=== PATIENT | male | born 1935 | race Caucasian/White ===

== ENCOUNTER → 2016-04-30 | Outpatient (CLI) | payer OTHER ==
[~2016-04-30] MED LIST: AMOX875T PO; ASPEC81 PO; ASPI81TA28 PO; CRS10 PO; GLIM2TAB2 PO; METO25TA3 PO; MULTTAB58 PO; ROSU5TAB PO; TPRSR/25 PO
--- NOTE | 2016-05-01 05:36 | PAP/PSG TECHNICIAN REPORT ---
[facility] Grounding Engineer Polysomnogram Report Study name: None Report date: 05/01/2016 Study date: 04/30/2016 Referring Physician: KATHY RODRIGUEZ M.D. Name: JAY JAY ZAIDI Interpreting Physician: Fred Ansari M.D. Date of : 1935 Grounding Engineer: Katelynn Licea RPSGT. Sex: Male Age: 80 StudyType: PSG PAP Weight: 205 lbs Height: 80 years, Height 5' 11" Neck Circum: BMI: 28.59 Medications: Metoprolol Succinate Er 25mg, Rosuvastatin Calcium 10mg, ASA 81mg, Amoxicillin-Pot Clavulanate 875-125mg, Metformin HCl ER 500mg Patient History Study started on room air with 4cwp CPAP in room #6. 80 yr old male here tonight for a titration study. He is here for pressure settings and he would like a smaller machine. He has been using CPAP for about 10 years and has had the same machine. he is not sure what his settings are. His only study was done in [place]. His ESS=9/24. Neck circ=16.5inches. Parameters Monitored NPSG: E1-M2, E2-M1, Fp1-M2, Fp2-M1, F3-M2, F4-M2, F4-M1, C3-M2, C4-M2, C4-M1, O1-M2, O2-M2, O2-M1, T3-M2, T4-M1, P3-M2, P4-M1, CHIN1, CHIN2, HR, EKG, Legs, PFLOW, SNOR, FLOW, CFLOW, Tidal Volume, THOR, ABDO, SpO2, PLTH, CPRESS, ETCO2 Wave, ETCO2, pH Sleep Architecture Sleep Stages Time at Lights Off 10:05:24 PM STAGES Time (min.) TST (%) Time at Lights On 5:12:54 AM Wake 84.0 -- Total Recording Time (TRT) 427.50 min. N1 22.5 7 Total Sleep Period (TSP) 420.5 min. N2 192.0 56 Total Sleep Time (TST) 343.5min. N3 52.0 15 Awake Time 84.0 min. REM 77.0 22 Wake after Sleep Onset 77.5 min. Sleep Efficiency (SE) 80 % Sleep Onset Latency (JAMAR) 6.5 min. Number of Stage 1 Shifts None Awakenings 28 Stage Changes 109 Number of REM periods 10 REM 77.0 22 REM Latency 74.5 min. NREM 266.5 78 Body Position Analysis Supine Right Left Side Prone Vertical Total Sleep Time (min.) 362.8 48.0 0.0 48.00 0.0 0.0 Total Sleep Time (%) 86% 14% 0% 14 0% N/A% Total Sleep Time REM (min.) 41.0 36.0 0.0 None 0.0 0.0 Total Sleep Time NREM (min.) 254.5 12.0 0.0 None 0.0 0.0 Intermittent Wake (min.) 67.3 16.7 0.0 None 0.0 0.0 Total Sleep Period (%) 85% None None None None None Arousals Myoclonus (PLM) * Events Count Index Events Count Index Spontaneous 22 4 Events Awake (PLMW) 73 52.1 Respiratory 7 1.9 Events Asleep w/ Arousal (PLMA) 5 0.9 PLM 5 1 Events Asleep w/o Arousal (PLMS) 53 9.3 Snoring 11 2 Total Asleep 58 10.1 Total 45 8 Total 131 18 Respiratory Analysis * CA OA MA CH H RERA Total Count 0 5 0 0 16 0 21 Index 0.0 0.9 0.0 0 2.8 0 3.7 Mean Duration 0.0 22.8 0.0 0.00 31.7 0.0 29.6 Longest Duration 0.0 30.9 0.0 0.00 0.0 0.0 42.4 Respiratory Event Summary Total Supine ~Supine Right Left Prone REM NREM Apneas Count 5 5 0 0 N/A N/A 1 4 Index 0.9 1 0 0.0 N/A N/A 1 1 Hypopneas (4% Desat) Count 16 16 0 0 N/A N/A 1 15 Index 2.8 3.2 0 0.0 N/A N/A 0.8 3.4 Apneas & All Hypopneas Count 21 21 0 0 N/A N/A 2 19 Index 3.7 4 0 0 N/A N/A 1.6 4.3 Respiratory Events (Title Supervisor+All Hyp+RERA) Count 21 21 0 0 N/A N/A 2 19 Index 3.7 4 0 0.0 N/A N/A 1.6 4.3 Respiratory Related Arousal Count 7 21 0 0 N/A N/A 1 10 Index 1.9 2 0 0 N/A N/A 1 2 Snoring Analysis Supine Right Left Prone REM NREM Total Snore duration 15.2 min Snores count 519 11 N/A N/A 40 490 530 Snore mean duration 1.7 Sec Snores index 105 14 N/A N/A 31.2 110.3 92.6 TST with snoring (%) 4.4% Desaturation Event Summary: Minimum %SpO2 Event Count Mean/Min/Max Duration(sec.) Desaturation Index % Time In Bed > 90 27 40.3 / 16.0 / 59.3 8.4 46.8 86 - 90 13 28.8 / 12.8 / 53.0 3.6 52.5 81 - 85 2 15.8 / 10.0 / 21.5 43.6 0.7 76 - 80 1 10.0 / 10.0 / 10.0 257.1 0.1 71 - 75 0 N/A 0.0 0.0 66 - 70 0 N/A 0.0 0.0 61 - 65 0 N/A 0.0 0.0 56 - 60 0 N/A 0.0 0.0 51 - 55 0 N/A 0.0 0.0 < 50 0 N/A 0.0 0.0 Total REM NREM Awake <50% 0.0 min. 0.0 min. 0.0 min. 0.0 min. 51 - 60% 0.0 min. 0.0 min. 0.0 min. 0.0 min. 61 - 70% 0.0 min. 0.0 min. 0.0 min. 0.0 min. 71 - 80% 0.2 min. 0.0 min. 0.0 min. 0.2 min. 81 - 90% 218.7 min. 21.5 min. 163.8 min. 33.4 min. 91 - 100% 192.5 min. 53.8 min. 102.2 min. 36.5 min. Average 90 91 90 91 Minimum SpO2 77 87 84 77 Desaturation Event Index 4.5 0.8 5.6 5.0 # Desat. Events below 89% 26 1 20 5 Time(%) with Saturation below 89% 11.2 0.4 8.2 2.6 Time(min.) with Saturation below 89% 46.1 1.6 33.6 10.9 Time (mins) REM (mins) NREM (mins) % of TST SpO2 Below 90% 25 1 N24 25.4 SpO2 Below 88% 11 0 0 2 Heart Rate Analysis Min (bpm) Max (bpm) Average (bpm) Awake 46 107 56 NREM 46 64 51 REM 42 127 54 Overall 42 127 52 Supplemental O2 Values Minimum O2 level: None Value Start Time End Time Grounding Engineer Comments Mr. Zaidi slept in the right and supine positions. No cardiac arrhythmia noted. PLM's noted. No bruxism noted. CPAP was initiated at +4 CMH2O and up-titrated to an optimal level of +9 CMH2O, which nearly eliminated all respiratory events and snoring. A medium Quattro Air full face mask by [employer] was used during titration He awoke to use the restroom 2 times during the night. He stated that he slept well. The final report will be interpreted and signed by a sleep physician. The completed physician report will then be placed in the patient medical record. Therapy Event: Therapy (cm H20) 4 5 6 7 8 9 Total Time at Pressure (min.) 46.8 9.7 9.4 179.3 146.2 36.0 TST at Pressure (min.) 36.3 8.2 8.9 146.8 111.7 31.5 # Periods 1 1 1 1 1 1 Sleep Onset (min.) 6.4 0.0 0.0 0.0 0.0 0.0 REM Onset (min.) N/A N/A N/A 15.1 53.2 N/A Sleep Efficiency % 77 84 94 81 76 87 Wakefulness (%) 22.3 15.5 5.3 18.1 23.6 12.5 Wakefulness (min.) 10.4 1.5 0.5 32.5 34.5 4.5 NREM 1 (%) 5.3 10.3 9.9 5.6 4.8 2.8 NREM 1 (min.) 2.5 1.0 0.9 10.1 7.0 1.0 NREM 2 (%) 33.9 74.2 84.8 35.3 46.0 84.7 NREM 2 (min.) 15.8 7.2 8.0 63.3 67.2 30.5 NREM 3 (%) 38.5 0.0 0.0 11.2 9.6 0.0 NREM 3 (min.) 18.0 0.0 0.0 20.0 14.0 0.0 REM (%) 0.0 0.0 0.0 29.8 16.1 0.0 REM (min.) 0.0 0.0 0.0 53.5 23.5 0.0 # Arousals 5 5 3 14 16 2 Arousal Index 8.3 36.7 20.2 5.7 8.6 3.8 # Snore 32 28 17 230 220 3 Snore Index 52.8 205.4 114.4 94.0 118.2 5.7 AHI 8.3 58.7 20.2 0.8 1.6 0.0 AHI Supine 8.3 58.7 20.2 1.2 1.6 0.0 AHI Non-Supine N/A N/A N/A 0.0 N/A N/A NREM AHI 8.3 58.7 20.2 0.6 1.4 0.0 REM AHI N/A N/A N/A 1.1 2.6 N/A RDI 8.3 58.7 20.2 0.8 1.6 0.0 # Obstructive 2 1 0 1 1 0 # Central Ap 0 0 0 0 0 0 # Mixed 0 0 0 0 0 0 # Hypopneas 3 7 3 1 2 0 RERAS 0 0 0 0 0 0 Total Respiratory Events 5 8 3 2 3 0 Time Below SpO2 89.00% (min.) 18.4 2.4 1.0 4.4 2.0 7.0 Mean NREM SpO2 (%) 89 90 91 90 91 89 Mean REM SpO2 (%) N/A N/A N/A 91 91 N/A Mean Sleep SpO2 (%) 89 90 91 91 91 89 Min NREM SpO2 (%) 85 84 85 86 88 87 Min REM SpO2 (%) N/A N/A N/A 87 88 N/A Position Supine (min.) 36.3 8.2 8.9 98.8 111.7 31.5 Position Non-supine (min.) 0.0 0.0 0.0 48.0 0.0 0.0 LM Index Sleep 26.4 36.7 20.2 10.6 3.2 3.8 LM Index NREM 26.4 36.7 20.2 16.1 3.4 3.8 LM Index REM N/A N/A N/A 1.1 2.6 N/A Mean Heart Rate (bpm) 53 52 52 52 51 50 Min Heart Rate (bpm) 50 48 48 46 42 46
--- NOTE | 2016-05-03 13:45 | POLYSOMNOGRAPH REPORT ---
CLINICAL DATA: 80-year-old male with BMI of 28.[address] Zhang Beck for a CPAP titration study. He has been using his same CPAP machine for 10 years and needs a new machine. He is uncertain of the settings. His only sleep study had been done previously when he lived in [place]. His Quinn sleepiness score is 9/24. SLEEP ARCHITECTURE: Total sleep period was 420.5 minutes. Total sleep time was 343.5 minutes divided between 266.5 minutes of non-REM sleep and 77 minutes of REM sleep. Sleep onset latency was 6.5 minutes. REM latency was 74.5 minutes. Sleep efficiency was 80%. Awake after sleep onset was 77.5 minutes. Sleep consisted of stage N1 7%, N2 56%, N3 15%, REM 22%. AROUSAL DATA: 45 arousals were recorded for an index of 8 per hour. PLM DATA: 58 limb movements during sleep were noted for an index of 10.1 per hour with arousal index of 0.9 per hour. RESPIRATORY DATA: The AHI was 3.7. There were 5 obstructive apneic episodes. The longest apneic episode was 31 seconds. There were 16 hypopneic episodes. The mean duration of hypopnea was 31.7 seconds. OXIMETRY DATA: Mild nocturnal hypoxemia was seen. Oxygen virgen was 84% during non-REM sleep. Mean saturation was 90%. Time below 88% was 11 minutes. EKG: Heart rates ranged from 46-127 beats per minute. No arrhythmias were noted. SPEECH CORRECTION ASSISTANT'S COMMENTS AND TREATMENT SUMMARY: The patient slept in the right and supine positions. A medium Quattro Air full facemask by [employer] was used. The patient was started on CPAP and titrated up to his optimal pressure setting of 9 cm of water pressure. At 9 cm of water pressure, the patient slept for 31.5 minutes with an AHI of 0 and no evidence of hypoxemia. IMPRESSION: Obstructive sleep apnea corrected with CPAP 9 cm of water pressure, medium Quattro Air full facemask by [employer]. RECOMMENDATIONS: The patient should be started on the above noted treatment regimen and seen back in followup within 90 days to document efficacy and compliance. [facility]
== END | disposition home or self-care (01) ==
LOC: C.NEUR 20:00
PROVIDERS: ATTEND Internal Medicine Geriatric Medicine
DX: G47.33 Obstructive sleep apnea (adult) (pediatric) (principal)

== ENCOUNTER → 2016-05-02 | Outpatient (CLI) | payer OTHER ==
[~2016-05-02] MED LIST changes: +CHOL1000 PO; +CIPR-255 PO; +CRS/10 PO; +HYDR-5688 PO; +HYDR1CAP85 PO; +INSDGI SC; +LEVO1TAB35 PO; +NVLG SC; +OXYC1TAB3 PO; +PRED20TA PO; +PRLSR20 PO; +VITAMIN D PO
--- NOTE | 2016-05-02 09:00 | DIAGNOSTIC IMAGING REPORT ---
MAXILLOFACIAL CT CT DOSE: 905.20 mGy.cm HISTORY: R68.84 Jaw painK11.20 [id number] TECHNIQUE: Multiaxial CT images of the maxillofacial region were performed and reformatted in the coronal plane without the use of contrast. COMPARISON: Maxillofacial CT 01/10/2012. FINDINGS: No fractures identified within the visualized cervical spine, mandible, orbital floors, pterygoid plates, zygomatic arches, or nasal bones. Mild mucosal thickening within the ethmoid air cells and maxillary sinuses. No fluid levels within the paranasal sinuses. The mastoid air cells are clear. The submandibular glands are within normal limits. Vascular calcifications at the skull base. Visualized brain parenchyma and orbits are unremarkable. Multiple punctate calcifications within the right palatine tonsil. Prevertebral soft tissues and the epiglottis are normal in thickness. No significant cervical lymphadenopathy. There is a 3 mm stone along the inferior aspect of the left parotid gland. This remains unchanged. There are nearly symmetric dilated tubular structures within the bilateral parotid glands which also remains unchanged. This measures up to 7 mm in diameter. These appear to represent dilated intraparotid ducts. The extra parotid ducts are normal in caliber. No stones within the parotid gland ducts. No significant inflammatory change at the parotid glands. IMPRESSION: 1. Stable 3 mm stone within the inferior aspect of the left parotid gland. 2. There are nearly symmetric dilated tubular structures within the bilateral parotid glands consistent with dilated intraparotid ducts. The extra parotid ducts are normal in caliber. There are no stones within the parotid ducts. Of note, this is unchanged compared to the 2012 study. Electronically signed by: Kamran Mirza M.D. 05/02/2016 8:58 AM
== END | disposition home or self-care (01) ==
LOC: C.CTS 07:54
PROVIDERS: ATTEND Internal Medicine Geriatric Medicine
DX: K11.20 Sialoadenitis, unspecified (principal); R68.84 Jaw pain

== ENCOUNTER → 2016-09-05 | Outpatient (CLI) | payer OTHER ==
[~2016-09-05] MED LIST changes: -NVLG SC; -OXYC1TAB3 PO
--- NOTE | 2016-09-05 12:57 | DIAGNOSTIC IMAGING REPORT ---
LEFT WRIST MIN 3 VIEWS ROUTINE CLINICAL HISTORY: Arteriosclerotic coronary artery disease pain COMPARISON: 04/13/2015 DISCUSSION: Mildly progressive osteopenia compared to the prior exam. Mild degenerative change considered generally stable. No acute bony abnormality. There is no evidence for soft tissue swelling. IMPRESSION: Mildly progressive osteopenia compared to the prior exam. Mild stable degenerative change. Electronically signed by: Zak Miranda M.D. 09/05/2016 12:56 PM Dictated Date/Time: 09/05/2016 12:54 PM
--- NOTE | 2016-09-05 13:05 | DIAGNOSTIC IMAGING REPORT ---
LEFT KNEE 1 OR 2 VIEWS ROUTINE CLINICAL HISTORY: Left knee pain COMPARISON: None DISCUSSION: No fractures are visualized. There is quadriceps insertional spurring at the patella level. There are small dorsal patellar spurs. No destructive lesions are visualized IMPRESSION: Mild degenerative change. No fractures are visualized. Electronically signed by: Munir Tapia M.D. 09/05/2016 1:03 PM Dictated Date/Time: 09/05/2016 1:03 PM
--- NOTE | 2016-09-05 13:12 | DIAGNOSTIC IMAGING REPORT ---
LUMBAR SPINE 5 VIEWS HISTORY: LUMBAR STENOSIS COMPARISON: None. FINDINGS: There is no fracture. No subluxation. Moderate degenerative disc changes throughout. IMPRESSION: Moderate degenerative disc change. No acute process. Electronically signed by: Zak Miranda M.D. 09/05/2016 1:11 PM Dictated Date/Time: 09/05/2016 1:10 PM
== END | disposition home or self-care (01) ==
LOC: C.RADBC 12:11
PROVIDERS: ATTEND Physician Assistant
DX: M25.562 Pain in left knee (principal); M48.06 Spinal stenosis, lumbar region; I25.10 Atherosclerotic heart disease of native coronary artery without angina pectoris

== ENCOUNTER 2016-10-21 16:54 | Emergency (ER) | payer OTHER ==
[~2016-10-21] VITALS: Ht 180.3 cm; Wt 95.7 kg
[~2016-10-21 16:54] MED LIST changes: -AMOX875T PO; -ASPI81TA28 PO; -CHOL1000 PO; -CIPR-255 PO; -CRS/10 PO; -GLIM2TAB2 PO; -HYDR-5688 PO; -HYDR1CAP85 PO; -INSDGI SC; -LEVO1TAB35 PO; -MULTTAB58 PO; -PRED20TA PO; -PRLSR20 PO; -ROSU5TAB PO; -TPRSR/25 PO; -VITAMIN D PO
[2016-10-21 16:58] VITALS: BP 143/79; TEMP 36.5; Ht 180.3 cm; Wt 95.7 kg
[2016-10-21] MEDS ORDERED: DIPHTHERIA/TETANUS/PERTUSSIS 0.5 ML SYR/VIAL IM. ONE (17:15)
[2016-10-21] MEDS ORDERED: AMOX875T PO (17:18)
--- NOTE | 2016-10-21 17:19 | EMERGENCY ROOM VISIT NOTE ---
ED Visit Note First contact with patient: 17:02 CHIEF COMPLAINT: Animal bite HISTORY OF PRESENT ILLNESS: This 80-year-old male patient presents to the emergency department ambulatory after they sustained a dog bite to the left hand. The patient states that he recently adopted a dog. He states that today , the dog became tangled in his harness and while he was trying to untangle the dog, it bit his left hand. He also reports that he has a scratch on his right arm from the dog which occurred yesterday. He believes that the dogs vaccinations are up-to-date. The patient complains of stinging 1/10 pain at the site of the injury. Pain is worse with movement. Tetanus status is not up to date. REVIEW OF SYSTEMS: A 6 system review of systems was completed with positives and pertinent negatives listed in the HPI. ALLERGIES: No known drug allergies MEDICATIONS: See med list PMH: For hypertension, hyperlipidemia, diabetes PHYSICAL EXAM: Vital Signs reviewed, see Nurse's notes, vital signs stable. GENERAL: This is an 80-year-old male, awake, alert, well appearing, no acute distress. Non toxic in appearance. MUSCULOSKELETAL: Examination of the left hand reveals a superficial curvilinear laceration to the thenar eminence of the left hand. There is minimal active bleeding. No significant tenderness to the hand. There is also a scabbed linear abrasion to the medial aspect of the right forearm. There is no erythema or drainage. Distal pulses intact. SKIN: No signs of infection. NEURO: No sensory or motor deficits noted over all dermatomes and myotomes tested. EMERGENCY DEPARTMENT COURSE AND DECISION MAKING: The patient was evaluated as above. He sustained a dog bite to the left hand and a dog scratch to the right forearm. The wounds were cleaned and dressed. They will not require sutures. The patient was given an Adacel booster. He will be placed on Augmentin to prevent infection. Wound care instructions were discussed with the patient. He was instructed to call the long-term and confirmed that the patient's rabies vaccinations are up-to-date. He will return here if needed. He verbalized understanding of my assessment and treatment plan and the patient was discharged home in good condition. The patient was independently evaluated by Dr. Fritz, ED attending physician , who agreed with my assessment and treatment plan. Blood Pressure Screening: Patient was found to have a slightly elevated blood pressure due to circumstances. I do not believe that the patient requires hypertension monitoring. Medication reconciliation: I attest that I have personally reviewed the patient 's current medication list. DIAGNOSIS: Dog bite Problem List Medical Problems: (1) Chronic Kidney Disease, Unspecified Status: Chronic (2) COPD (chronic obstructive pulmonary disease) Status: Chronic (3) Esophageal Reflux Status: Chronic (4) Esophagitis Nos Status: Resolved (5) Hx-Prostatic Malignancy Status: Resolved (6) Hyperlipidemia Nec/Nos Status: Chronic (7) Hypertension Nos Status: Chronic (8) Left wrist pain Status: Resolved (9) Left wrist sprain Status: Resolved (10) 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 (11) Scalp abrasion Status: Resolved (12) Urinary Calculus Nos Status: Resolved Surgical Problems: (1) Aortocoronary Bypass Status: Resolved Current/Historical Medications Scheduled Amoxicillin & Pot Clavulanate (Augmentin 875-125 mg), 1 TAB PO BID Aspirin (Aspirin Ec), 81 MG PO DAILY Glimepiride (Glimepiride), 2 MG PO DAILY Metoprolol Succinate (Metoprolol Succinate ER), 25 MG PO QPM Multiple Vitamin (Multivitamin), 1 TAB PO DAILY Rosuvastatin Calcium (Crestor), 10 MG PO QPM Allergies Coded Allergies: No Known Allergies (Verified , 12/28/11) Vital Signs Date Time Temp Pulse Resp B/P (MAP) Pulse Ox O2 Delivery O2 Flow Rate FiO2 10/21/16 17:30 79 16 95 10/21/16 16:58 36.5 81 16 143/79 96 Room Air Medications Administered Medications (Trade) Dose Ordered Sig/Dalia Route Start Time Stop Time Status Last Admin Dose Admin Diphtheria/ Pertussis/Tetanus Vacc (Adacel Inj) 0.5 ml ONCE ONCE IM. 10/21/16 17:15 10/21/16 17:16 DC 10/21/16 17:15 0.5 ML Departure Information Impression Primary Impression: Dog bite Dispostion Home / Self-Care Condition GOOD Prescriptions Amoxicillin & Pot Clavulanate (Augmentin 875-125 mg) 1 Tab Tab 1 TAB PO BID for 5 Days, #10 TAB Prov: Laila Reich, SANDIP 10/21/16 Referrals Zhang Beck M.D. (PCP) Patient Instructions My [facility] Additional Instructions Proper wound care is essential for adequate wound healing and infection prevention. You can shower and clean the wound with soap and water. Do not scour over the wound, pat dry with a towel. Do not submerse the wound (i.e. bathe or dish wash) until the wound has fully healed. You can use an antibiotic ointment with a dressing over the wound for the next 3-4 days. After this time you may leave the wound dry and open to the air. You were prescribed Augmentin to be taken twice daily as prescribed. This is an antibiotic. All antibiotics have the potential to cause diarrhea. Stop this medication and contact a medical provider if you were to develop any significant adverse side effects including: wheezing, shortness of breath, passing out, vomiting, or a diffuse rash. Always take antibiotics as directed and COMPLETE the ENTIRE course regardless of the improvement of your symptoms. Call [facility] to make sure that the dog's vaccinations are up-to-date. If they are not, you should return here for rabies vaccinations. For pain control, you can use the following tujq-yqc-dyrbfko medicines (if >12 yo): - Regular strength (325mg/tab) Tylenol (acetaminophen) 2 tabs every 4-6 hours as needed. Do not exceed 12 tablets in a 24 hour period. Avoid taking more than 4 grams (4000 mg) of Tylenol per day. This includes any other sources of acetaminophen you may take on a regular basis. - Regular strength (200 mg/tab) Advil (ibuprofen) 1-2 tabs every 4-6 hours as needed. Do not exceed a dose of 3200 mg per day. Return here for worsening redness, worsening swelling, fevers or any other new/ concerning symptoms. Problem Qualifiers Primary Impression: Dog bite Encounter type: initial encounter Qualified Codes: W54.0XXA - Bitten by dog , initial encounter
--- NOTE | 2016-10-21 17:20 | EMERGENCY ROOM VISIT NOTE ---
ED Visit Note First contact with patient: 17:02 Patient seen and examined at bedside. Discussion with physician assistant center director regarding patient's presentation, treatment, and follow-up. All questions answered bedside, patient comfortable with plan is going to follow up regarding immunization status of the dog. Agree with physician assistant center director's treatment plan at this time. Patient verbalized understanding of plan, discussed symptoms to watch and return for, he was agreeable.
[2016-10-21 17:30] VITALS: PULSE 79; O2SAT 95
[2016-10-21] MEDS ORDERED: ASPI81TA28 PO (17:48)
[2016-10-21] MEDS ORDERED: GLIM2TAB2 PO (17:48)
[2016-10-21] MEDS ORDERED: ROSU5TAB PO (17:50)
[2016-10-21] MEDS ORDERED: TPRSR/25 PO (17:51)
[2017-02-06] MEDS ORDERED: INSDGI SC (11:15)
[2017-02-06] MEDS ORDERED: VITAMIN D PO (11:16)
[2017-02-09] MEDS ORDERED: MULTTAB58 PO (07:19)
[2017-04-03] MEDS ORDERED: HYDR-5688 PO ×4 (11:12→11:29)
== END 2016-10-21 17:32 | disposition home or self-care (01) ==
LOC: C.EDB 16:55 → C.EDD 17:32
DX: S61.452A Open bite of left hand, initial encounter (principal); S50.811A Abrasion of right forearm, initial encounter; W54.0XXA Bitten by dog, initial encounter; E78.5 Hyperlipidemia, unspecified; E11.9 Type 2 diabetes mellitus without complications; Z23 Encounter for immunization; I12.9 Hypertensive chronic kidney disease with stage 1 through stage 4 chronic kidney disease, or unspecified chronic kidney disease; N18.9 Chronic kidney disease, unspecified; J44.9 Chronic obstructive pulmonary disease, unspecified; K21.9 Gastro-esophageal reflux disease without esophagitis; G47.33 Obstructive sleep apnea (adult) (pediatric); Z87.442 Personal history of urinary calculi; Z85.46 Personal history of malignant neoplasm of prostate; Z95.1 Presence of aortocoronary bypass graft; Z79.82 Long term (current) use of aspirin

== ENCOUNTER → 2017-01-07 | Outpatient (CLI) | payer OTHER ==
[~2017-01-07] MED LIST changes: +AMOX875T PO; -ASPEC81 PO; +ASPI81TA28 PO; +CHOL1000 PO; +CIPR-255 PO; -CRS10 PO; +GLIM2TAB2 PO; +HYDR1CAP85 PO; +INSDGI INJ; -METO25TA3 PO; +MULTTAB58 PO; +PRED20TA PO; +PRLSR20 PO; +ROSU5TAB PO; +TPRSR/25 PO; +VITAMIN D PO
--- NOTE | 2017-01-07 08:11 | DIAGNOSTIC IMAGING REPORT ---
BILIARY ULTRASOUND CLINICAL HISTORY: R79.89 Abnormal liver function tests COMPARISON STUDY: No previous studies for comparison. FINDINGS: No focal hepatic masses are visualized. There is intrahepatic biliary ductal dilatation. The common bile duct is dilated measuring up to 14 mm. The gallbladder is distended and filled with sludge. This could obscure small calculi. There is no gallbladder wall thickening. The pancreas was not visualized. There is no right-sided hydronephrosis. IMPRESSION: 1. Intra and extrahepatic biliary ductal dilatation 2. Distended sludge-filled gallbladder 3. Nondiagnostic evaluation of the pancreas Electronically signed by: Munir Tapia M.D. 01/07/2017 8:09 AM Dictated Date/Time: 01/07/2017 8:06 AM
== END | disposition home or self-care (01) ==
LOC: C.ULTRBC 07:28
PROVIDERS: ATTEND Internal Medicine Geriatric Medicine
DX: R79.89 Other specified abnormal findings of blood chemistry (principal)

== ENCOUNTER → 2017-02-04 | Outpatient (CLI) | payer OTHER ==
[2017-02-04 18:18] LABS: HEPATITIS B AB NEG
[2017-02-04 19:09] LABS: BLOOD UREA NITROGEN 14 mg/dl (7-18); GLUCOSE 174 mg/dl (70-99); SODIUM 136 mmol/L (136-145)
[2017-02-04 19:10] LABS: CARBON DIOXIDE 28 mmol/L (21-32); CHLORIDE 100 mmol/L (98-107); POTASSIUM 3.5 mmol/L (3.5-5.1)
[2017-02-04 19:11] LABS: ALKALINE PHOSPHATASE 424 U/L (45-117); ALT/SGPT 125 U/L (12-78); AST/SGOT 120 U/L (15-37)
[2017-02-06 07:28] LABS: REFERENCE QUEST TEST REPORT
--- NOTE | 2017-02-18 14:56 | CODING QUERY NO DIAGNOSIS ---
TREATMENT RENDERED WITHOUT A DIAGNOSIS 33 To promote full compliance with coding requirements relating to patient care, physician participation is requested in all cases of chemicals distiller uncertainty. Please assist us with providing a diagnosis/symptom for the test(s) below: A diagnosis/symptom was not documented on your Order. A valid diagnosis/symptom is required to bill all insurances. Please remember that we are unable to code a diagnosis of rule out, probable, possible, questionable, or suspected. DOS 02/04/17 Tests that require a diagnosis: * CHEM LIVER PROFILE DIAGNOSIS: * HEPATITIS B AB DIAGNOSIS: * HEPATITIS B Surface Antigen DIAGNOSIS: * HEPATITIS C IGG DIAGNOSIS: * HEPATITIS A ANTIBODY DIAGNOSIS: * HEPATITIS B CORE IgM DIAGNOSIS: Provider Signature: Date: Thank you Rose Swift [facility] Information Management Once completed, please kindly fax back to [phone] For questions please call [phone]
== END | disposition home or self-care (01) ==
LOC: C.LABBC 12:34
PROVIDERS: ATTEND Internal Medicine Geriatric Medicine
DX: R79.89 Other specified abnormal findings of blood chemistry (principal)

== ENCOUNTER → 2017-02-04 | Outpatient (CLI) | payer OTHER ==
[~2017-02-04] MED LIST changes: -AMOX875T PO; -CHOL1000 PO; -CIPR-255 PO; -HYDR1CAP85 PO; +OPTIRAY 320 IV PRN; -PRED20TA PO; -PRLSR20 PO
--- NOTE | 2017-02-04 11:48 | DIAGNOSTIC IMAGING REPORT ---
CT SCAN OF THE ABDOMEN AND PELVIS WITH IV CONTRAST CLINICAL HISTORY: Elevated hepatic transaminases. Biliary sludge seen by ultrasound. COMPARISON STUDY: Abdominal ultrasound dated 01/07/2017. Abdominal CT dated 10/21/2006. TECHNIQUE: Following the IV administration of 119 cc of Optiray 320, CT scan of the abdomen and pelvis is performed from the lung bases to the proximal femora. Images are reviewed in the axial, sagittal, and coronal planes. IV contrast was administered without complication. A dose lowering technique was utilized adhering to the principles of ALARA. CT DOSE: 1059.42 mGycm FINDINGS: Lung bases: The patient is status post midline sternotomy. The heart is enlarged and without pericardial effusion. The coronary arteries are densely calcified. No airspace consolidation or pleural effusion is seen at the lung bases. There is dependent atelectasis. A Large calcified granuloma is seen at the left lung base. There is a small hiatal hernia. Circumferential wall thickening is suggested in the distal esophagus. Liver: The contrast-enhanced liver is normal in size, contour, and attenuation. There is moderate to severe intra and extrahepatic biliary ductal dilatation. The common bile duct is dilated to the head of the pancreas. The hepatic veins and portal veins are patent. 11 mm cyst is noted in the caudate lobe. Additional subcentimeter hypodensities also likely represent cysts but are too small for definitive characterization. Gallbladder: The gallbladder is distended but otherwise normal as imaged. Spleen: Normal in size and attenuation. Pancreas: There is the suggestion of enhancing lesion in the pancreatic head/uncinate process seen on axial image #183. This measures approximately 1.6 x 2.3 cm. There is only mild dilatation of the main pancreatic duct. This measures up to 4 mm. There is moderate glandular atrophy of the pancreas. Scattered parenchymal calcifications suggest chronic pancreatitis. Adrenal glands: Unremarkable. Kidneys: The contrast enhanced kidneys demonstrate mild cortical atrophy and are without hydronephrosis. The kidneys enhance symmetrically. There is a 4 mm nonobstructing calculus in the upper pole of left kidney. Cortical scarring is noted in the left upper pole. A 1.6 cm cyst or calyceal diverticulum is present in the left upper pole. Additional subcentimeter cortical hypodensities also likely represent cysts but are too small for definitive characterization. Abdominal vasculature: The abdominal aorta is normal in course and caliber noting moderate to advanced atherosclerotic calcification. Bowel: No bowel obstruction is identified. There is moderate to severe constipation. Nonspecific rectal wall thickening is suggested. The appendix is well-visualized and normal. Peritoneum: There is no intraperitoneal free air or abdominal ascites. Lymphadenopathy: There are prominent lymph nodes in the talita hepatis and portacaval region. A portacaval node on image #124 measures 1.1 cm in short axis. A node in the talita hepatis/peripancreatic region on image #121 measures 1.5 cm in short axis. Pelvic viscera: The the bladder wall appears circumferentially thickened. The prostate gland is diminutive versus surgically absent. There is a tiny fat-containing left inguinal hernia. Skeletal structures: The skeletal structures are osteopenic. There is moderate lumbosacral spondylosis. No lytic or blastic lesions are seen. IMPRESSION: 1. There is marked intra and extrahepatic biliary ductal dilatation. The common bile duct is distended to the level of the pancreatic head. A subtle enhancing mass is suggested in the region of the pancreatic head/uncinate process but is difficult to assess. Correlation with ERCP is recommended for further interrogation at to exclude obstructing neoplasm. 2. The pancreatic duct is only mildly prominent measuring 4 mm. Findings suggest chronic pancreatitis. 3. There are nonspecific mildly enlarged lymph nodes in the talita hepatis/portacaval region. 4. Moderate to severe constipation. 5. Circumferential rectal wall thickening is suggested. This may be treatment-related if there has been a history of pelvic radiation. Clinical correlation will be essential. If clinically warranted this could be further assessed with endoscopy. 6. Small hiatal hernia. Circumferential wall thickening is suggested in the distal esophagus. Correlate clinically for evidence of esophagitis. This could be further assessed with endoscopy if clinically warranted. 7. Cardiomegaly. 8. The gallbladder is distended but grossly unremarkable. The sludge seen by ultrasound is not apparent by CT. 9. Nonobstructing left renal calculus. 10. Additional findings as above. Electronically signed by: Emmett Bhatia M.D. 02/04/2017 11:47 AM Dictated Date/Time: 02/04/2017 11:22 AM
== END | disposition home or self-care (01) ==
LOC: C.CTS 10:55
PROVIDERS: ATTEND Physician Assistant Medical
DX: K83.8 Other specified diseases of biliary tract (principal); R79.89 Other specified abnormal findings of blood chemistry

== ENCOUNTER → 2017-02-06 | Outpatient (CLI) | payer OTHER ==
[~2017-02-06] MED LIST changes: +AMOX875T PO; +CHOL1000 PO; +CIPR-255 PO; +HYDR1CAP85 PO; -OPTIRAY 320 IV PRN; +PRED20TA PO; +PRLSR20 PO
[2017-02-06 15:03] LABS: HEMATOCRIT 38.5 % (42-52); MEAN CELL VOLUME 91.9 fL (80-100); MEAN CORPUSCULAR HEMOGLOBIN 32.5 pg (25-34); MEAN CORPUSCULAR HGB CONC 35.3 g/dl (32-36); MEAN PLATELET VOLUME 13.7 fL (7.4-10.4); PLATELET COUNT 193 K/uL (130-400); RED BLOOD COUNT 4.19 M/uL (4.7-6.1); WHITE BLOOD COUNT 6.04 K/uL (4.8-10.8)
[2017-02-06 15:09] LABS: INR 1.3 (0.9-1.1); PARTIAL THROMBOPLASTIN RATIO 1.3; PROTHROMBIN TIME (PATIENT) 13.7 SECONDS (9.0-12.0)
[2017-02-06 16:05] LABS: ALKALINE PHOSPHATASE 416 U/L (45-117); ALT/SGPT 123 U/L (12-78); AST/SGOT 123 U/L (15-37); BLOOD UREA NITROGEN 15 mg/dl (7-18); CALCIUM 8.9 mg/dl (8.5-10.1); CARBON DIOXIDE 29 mmol/L (21-32); CHLORIDE 102 mmol/L (98-107); GLUCOSE 180 mg/dl (70-99); POTASSIUM 3.3 mmol/L (3.5-5.1); SODIUM 138 mmol/L (136-145)
[2017-02-08 04:52] LABS: REFERENCE QUEST TEST REPORT
== END | disposition home or self-care (01) ==
LOC: C.LAB 13:27
PROVIDERS: ATTEND Internal Medicine Gastroenterology
DX: K86.9 Disease of pancreas, unspecified (principal); K83.8 Other specified diseases of biliary tract

== ENCOUNTER 2017-02-07 06:44 | Day surgery (SDC) | payer OTHER ==
[2017-02-06 11:21] VITALS: BMI 25.0
[~2017-02-07] VITALS: Ht 180.3 cm; Wt 84.1 kg
[~2017-02-07 06:44] MED LIST changes: -AMOX875T PO; -CHOL1000 PO; -CIPR-255 PO; -GLIM2TAB2 PO; -HYDR1CAP85 PO; +LACTATED RINGER'S 1000ML 1,000 ML IV SCH; +LACTATED RINGER'S 1000ML 500 ML IV ONE; -MULTTAB58 PO; -PRED20TA PO; -PRLSR20 PO
[2017-02-07] MEDS ORDERED: SODIUM CHLORIDE 0.9% 500ML 500 ML IV ONE ×2 (07:32→08:00)
--- NOTE | 2017-02-07 07:34 | Endo History and Physical ---
History & Physical Date of Service: Feb 07, 2017. Chief Complaint: obstructive jaundice- painless- wt loss Referring Physician: History of Present Illness several weeks of painless jaundice, no fevers, + wt loss; DM Past Surgical History Hx Cardiac Surgery: Yes (CABG 1 VESSEL) Hx Abdominal Surgery: No Hx Post-Op Nausea and Vomiting: No Hx Cancer Surgery: Yes (PROSTATECTOMY, SKIN CANCER REMOVALS) Hx Thoracic Surgery: No Hx Orthopedic: Yes (HEEL SPURS, CLAVICLE REPAIR) Hx Urinary Tract Surgery: No Social History Smoking Status: Never Smoker Hx Substance Use: No Hx Alcohol Use: Yes (OCCASIONAL BEER) Allergies Coded Allergies: No Known Allergies (Verified , 02/06/17) Current Medications Reported Home Medications Medications Dose Route/Sig Max Daily Dose Days Date Category Dose Instructions [Vitamin D] 1 Tab PO QAM 02/06/17 Reported Lantus (Insulin Glargine) 100 Unit/Ml Inj 16 Units INJ QPM 02/06/17 Reported Metoprolol Succinate ER (Metoprolol Succinate) 25 Mg Tabcr 25 Mg PO QPM 10/21/16 Reported Crestor (Rosuvastatin Calcium) 5 Mg Tab 10 Mg PO QAM 10/21/16 Reported Aspirin Ec (Aspirin) 81 Mg Tab 162 Mg PO QAM 10/21/16 Reported WILL CHECK WITH PCP Multivitamin (Multiple Vitamin) 1 Tab Tab 1 Tab PO QAM 12/28/11 Reported Vital Signs Weight (Kilograms): 84.09 Height (Feet): 5 Height (Inches): 11 Physical Exam General Appearance: WD/WN, no apparent distress Respiratory/Chest: Auscultation: breath sounds normal Cardiovascular: Heart Auscultation: RRR Abdomen: Bowel Sounds: normal Inspection & Palpation: soft, non-distended, no tenderness, guarding & rebound + icterus AAOx3 + BS - CCE Assessment and Plan EGD/possible dilation EUS wioth possible FNA ERCP with stent placement
[2017-02-07 07:52] LABS: HEMATOCRIT 36.1 % (42-52); MEAN CELL VOLUME 92.3 fL (80-100); MEAN CORPUSCULAR HEMOGLOBIN 31.7 pg (25-34); PLATELET COUNT 191 K/uL (130-400); RED BLOOD COUNT 3.91 M/uL (4.7-6.1); WHITE BLOOD COUNT 7.66 K/uL (4.8-10.8)
[2017-02-07 07:53] VITALS: BP 149/74; PULSE 59; TEMP 36.5; O2SAT 96; Ht 180.3 cm; Wt 84.1 kg
[2017-02-07 07:56] LABS: MEAN CORPUSCULAR HGB CONC 34.3 g/dl (32-36)
[2017-02-07] MEDS ORDERED: CIPR-255 PO (08:55)
[2017-02-07] MEDS ORDERED: MIDAZOLAM HCL 1 MG/ML 2ML VIAL ONE (09:03)
[2017-02-07] MEDS ORDERED: FENTANYL CITRATE INJ 50 MCG/1 ML 2 ML VIAL ONE (09:04)
[2017-02-07] MEDS ORDERED: LIDOCAINE HCL 2% 2 ML VIAL (20MG/ML) ONE ×2 (09:04)
[2017-02-07] MEDS ORDERED: SUCCINYLCHOLINE CHLORIDE 20 MG/ML 10 ML VIAL IV ONE (09:05)
[2017-02-07] MEDS ORDERED: ETOMIDATE 2 MG/ML 20 ML VIAL IV ONE (09:05)
[2017-02-07] MEDS ORDERED: HYDROmorphone INJ 1 MG/ML SYR IV PRN (09:30)
[2017-02-07] MEDS ORDERED: FENTANYL CITRATE INJ 50 MCG/1 ML 2 ML VIAL IV PRN (09:30)
[2017-02-07] MEDS ORDERED: LABETALOL HCL IV 5 MG/ML 20ML IV PRN (09:30)
[2017-02-07] MEDS ORDERED: EpHEDrine SULFATE INJ 50 MG/ML AMP IV PRN (09:30)
[2017-02-07] MEDS ORDERED: ONDANSETRON INJ 2 MG/ML 2 ML VIAL IV PRN (09:30)
[2017-02-07] MEDS ORDERED: ATROPINE SULFATE 0.1 MG/ML 5ML SYR IV PRN (09:30)
[2017-02-07] MEDS ORDERED: PHENYLEPHRINE 100MCG/ML 5ML SYR IV PRN (09:30)
[2017-02-07] MEDS ORDERED: PROPOFOL IV EMULSION 10 MG/ML 20 ML VIAL IV ONE (11:04)
[2017-02-07] MEDS ORDERED: EpHEDrine SULFATE INJ 50 MG/ML AMP ONE (13:02)
[2017-02-07] MEDS ORDERED: ROCURONIUM BROMIDE 10 MG/ML 5 ML VIAL IV ONE (13:02)
[2017-02-07] MEDS ORDERED: PHENYLEPHRINE HCL INJ 10 MG/ML VIAL ONE (13:03)
[2017-02-07] MEDS ORDERED: CIPROFLOXACIN 400MG / 200ML D5W ONE (13:09)
--- NOTE | 2017-02-07 13:41 | DIAGNOSTIC IMAGING REPORT ---
ERCP BILIARY DUCTAL CLINICAL HISTORY: ERCP IN OR COMPARISON STUDY: CT of the abdomen and pelvis February 04, 2017. FLUOROSCOPY TIME: 235.8 seconds. FINDINGS: 3 fluoroscopic images of the right upper quadrant obtained during ERCP were submitted for interpretation. These images demonstrate cannulation of the common bile duct with redemonstration of biliary ductal dilatation. A suspected stricture of the mid to distal common bile duct is noted. Final image shows a common bile duct stent extending across the suspected stricture. IMPRESSION: Fluoroscopic images from ERCP demonstrating placement of a common bile duct stent for a suspected common bile duct stricture/lesion. Electronically signed by: Mandeep Avina M.D. 02/07/2017 1:40 PM Dictated Date/Time: 02/07/2017 1:38 PM
--- NOTE | 2017-02-07 13:59 | GI REPORT ---
Procedure Date: 02/07/2017 11:24 AM Procedure: Upper GI endoscopy Indications: Abnormal CT of the GI tract Medicines: General Anesthesia Complications: No immediate complications. Estimated blood loss: None. Estimated Blood Loss: Estimated blood loss: none. Procedure: Pre-Anesthesia Assessment: - Prior to the procedure, a History and Physical was performed, and patient medications and allergies were reviewed. The patient's tolerance of previous anesthesia was also reviewed. The risks and benefits of the procedure and the sedation options and risks were discussed with the patient. All questions were answered, and informed consent was obtained. Prior Anticoagulants: The patient has taken no previous anticoagulant or antiplatelet agents. ASA Grade Assessment: II - A patient with mild systemic disease. After reviewing the risks and benefits, the patient was deemed in satisfactory condition to undergo the procedure. After obtaining informed consent, the endoscope was passed under direct vision. Throughout the procedure, the patient's blood pressure, pulse, and oxygen saturations were monitored continuously. The scope was introduced through the mouth, and advanced to the second part of duodenum. The upper GI endoscopy was accomplished without difficulty. The patient tolerated the procedure well. Findings: The upper third of the esophagus and middle third of the esophagus were normal. LA Grade B (one or more mucosal breaks greater than 5 mm, not extending between the tops of two mucosal folds) esophagitis with no bleeding was found at the gastroesophageal junction. The entire examined stomach was normal. The examined duodenum was normal. Retained gastric contents are not identified on this exam. The cardia and gastric fundus were normal on retroflexion. Impression: - Normal upper third of esophagus and middle third of esophagus. - LA Grade B reflux esophagitis. - Normal stomach. - Normal examined duodenum. - No specimens collected. Recommendation: - Discharge patient to home (ambulatory). - Advance diet as tolerated. - Return to GI clinic as previously scheduled. MD Viet Perry MD 02/07/2017 1:58:53 PM This report has been signed electronically. Note Initiated On: 02/07/2017 11:24 AM I attest to the content of the Intraoperative Record and orders documented therein, exceptions below
--- NOTE | 2017-02-07 14:05 | Discharge Instructions ---
Endoscopy Patient Instructions Date / Procedure(s) Performed Feb 07, 2017. ERCP, EGD, Other Allergy Information Coded Allergies: No Known Allergies (Verified , 02/07/17) Discharge Date / Findings Feb 07, 2017. biliary obstruction EUS; stent placed via ERCP; samples taken Medication Instructions Restart Stopped Medication(s): Reported Home Medications Medications Dose Route/Sig Max Daily Dose Days Date Category Dose Instructions [Vitamin D] 1 Tab PO QAM 02/06/17 Reported Lantus (Insulin Glargine) 100 Unit/Ml Inj 16 Units INJ QPM 02/06/17 Reported Metoprolol Succinate ER (Metoprolol Succinate) 25 Mg Tabcr 25 Mg PO QPM 10/21/16 Reported Crestor (Rosuvastatin Calcium) 5 Mg Tab 10 Mg PO QAM 10/21/16 Reported Aspirin Ec (Aspirin) 81 Mg Tab 162 Mg PO QAM 10/21/16 Reported WILL CHECK WITH PCP Multivitamin (Multiple Vitamin) 1 Tab Tab 1 Tab PO QAM 12/28/11 Reported Reported Home Medications Medications Dose Route/Sig Max Daily Dose Days Date Category Dose Instructions [Vitamin D] 1 Tab PO QAM 02/06/17 Reported Lantus (Insulin Glargine) 100 Unit/Ml Inj 16 Units INJ QPM 02/06/17 Reported Metoprolol Succinate ER (Metoprolol Succinate) 25 Mg Tabcr 25 Mg PO QPM 10/21/16 Reported Crestor (Rosuvastatin Calcium) 5 Mg Tab 10 Mg PO QAM 10/21/16 Reported Aspirin Ec (Aspirin) 81 Mg Tab 162 Mg PO QAM 10/21/16 Reported WILL CHECK WITH PCP Multivitamin (Multiple Vitamin) 1 Tab Tab 1 Tab PO QAM 12/28/11 Reported Provider Instructions Activity Restrictions - No exercising or heavy lifting for 24 hours. - Do not drink alcohol the day of the procedure. - Do not drive a car or operate machinery until the day after the procedure. - Do not make any important decisions or sign important papers in 24 hours after the procedure. Following Day: - Return to full activity which may include returning to work/school. Diet Start your diet with liquids and light foods (jello, soup, juice, toast). Then eat your usual diet if not nauseated. Treatment For Common After Affects For mild abdominal pain, bloating, or excessive gas: - Rest - Eat lightly - Lie on right side Follow-Up Information Follow-up with as scheduled Anesthesia Information What You Should Know You have had a procedure that required some medicine to reduce anxiety and discomfort. This treatment is called moderate sedation. After receiving the treatment, you may be sleepy, but you will be able to breathe on your own. The effects of the treatment may last for several hours. Follow these instructions along with Activity/Diet recommendations noted above: * Do NOT do anything where dizziness or clumsiness would be dangerous. * Rest quietly at home today, then you can be up and about tomorrow. * Have a responsible person stay with you the rest of today. * You may have had an I.V. today. If so, you may take the dressing off later today. Recommendations Call your doctor if: * Trouble breathing * Continuous vomiting for more than 24 hours * Temperature above 101 degrees * Severe abdominal pain or bloating * Pain not relieved by pain medicine ordered * There is increased drainage or redness from any incision * A large amount of rectal bleeding greater than 2-3 tablespoons. (If you had a polyp/s removed or have hemorrhoids, a small amount of blood - from the rectum is to be expected.) * You have any unanswered questions or concerns. IN THE EVENT OF A SERIOUS EMERGENCY, GO TO THE NEAREST EMERGENCY ROOM Your discharge instructions were prepared by provider Viet Martinez. Patient Instructions Signature Page Massimo Wood Patient (or Guardian) Signature/Date: I have read and understand the instructions given to me by my caregivers. Caregiver/RN/Doctor Signature/Date: The above-named patient and/or guardian has received patient instructions on this date. + Original Patient Signature Page (only) stays with chart. Please make copy for patient.
--- NOTE | 2017-02-07 14:19 | GI REPORT ---
Procedure Date: 02/07/2017 11:37 AM Procedure: Upper EUS Indications: Common bile duct dilation (acquired) seen on CT scan, Abnormal liver function test Medicines: General Anesthesia Complications: No immediate complications. Estimated blood loss: Minimal. Estimated Blood Loss: Estimated blood loss was minimal. Procedure: Pre-Anesthesia Assessment: - Prior to the procedure, a History and Physical was performed, and patient medications and allergies were reviewed. The patient's tolerance of previous anesthesia was also reviewed. The risks and benefits of the procedure and the sedation options and risks were discussed with the patient. All questions were answered, and informed consent was obtained. Prior Anticoagulants: The patient has taken no previous anticoagulant or antiplatelet agents. ASA Grade Assessment: II - A patient with mild systemic disease. After reviewing the risks and benefits, the patient was deemed in satisfactory condition to undergo the procedure. After obtaining informed consent, the endoscope was passed under direct vision. Throughout the procedure, the patient's blood pressure, pulse, and oxygen saturations were monitored continuously. The Endosonoscope was introduced through the mouth, and advanced to the duodenum for ultrasound examination from the esophagus, stomach and duodenum. The upper EUS was accomplished without difficulty. The patient tolerated the procedure well. Findings: Endoscopic Finding : The upper third of the esophagus and middle third of the esophagus were normal. LA Grade B (one or more mucosal breaks greater than 5 mm, not extending between the tops of two mucosal folds) esophagitis was found at the gastroesophageal junction. The examined duodenum was normal. Endosonographic Finding : The esophagus, stomach and duodenum and adjacent structures were visualized endosonographically. There was no sign of significant endosonographic abnormality in the esophagus. No pathologic lymphadenopathy was identified. Endosonographic images of the stomach were unremarkable. No pathologic lymphadenopathy was identified. There was no sign of significant endosonographic abnormality in the examined duodenum. No pathologic lymphadenopathy was identified. There was no sign of significant endosonographic abnormality in the ampulla. No pathologic lymphadenopathy was identified. Moderate hyperechoic material consistent with sludge was visualized endosonographically in the gallbladder body. Endosonographic imaging of the pancreas showed sonographic changes indicative of mild-moderate chronic pancreatitis in the entire pancreas. The parenchyma had diffuse echogenicity and hyperechoic strands. The pancreatic duct measured up to 2 mm in diameter. One benign-appearing lymph node was visualized in the perigastric region with the ultrasound probe located 43 cm from the incisors. It measured 6 mm by 10 mm in maximal cross-sectional diameter. The node was oval, hyperechoic and had well defined margins. Fine needle aspiration for cytology was performed. Color Doppler imaging was utilized prior to needle puncture to confirm a lack of significant vascular structures within the needle path. One pass was made with the 22 gauge needle using a transgastric approach. A stylet was used. A chief station engineer was present to evaluate the adequacy of the specimen. The cellularity of the specimen was adequate. Final cytology results are pending. An irregular mass was identified in the genu of the pancreas. The mass was hypoechoic and heterogenous. The mass measured 10 mm by 14 mm in maximal cross-sectional diameter. The endosonographic borders were poorly-defined. An intact interface was seen between the mass and the adjacent structures suggesting a lack of invasion. Fine needle aspiration for cytology was performed. Color Doppler imaging was utilized prior to needle puncture to confirm a lack of significant vascular structures within the needle path. Three passes were made with the 22 gauge needle using a transduodenal approach. A stylet was used. A chief station engineer was present to evaluate the adequacy of the specimen. The cellularity of the specimen was adequate. Final cytology results are pending. Impression: - Normal upper third of esophagus and middle third of esophagus. - LA Grade B reflux esophagitis. - Normal examined duodenum. - There was no sign of significant pathology in the esophagus. - Endosonographic images of the stomach were unremarkable. - There was no sign of significant pathology in the examined duodenum. - There was no sign of significant pathology in the ampulla. - Hyperechoic material consistent with sludge was visualized endosonographically in the gallbladder body. - Endosonographic imaging of the pancreas showed sonographic changes consistent with mild-moderate chronic pancreatitis. - One benign lymph node was visualized in the perigastric region. Fine needle aspiration performed. - A mass was identified in the genu of the pancreas. Fine needle aspiration performed. Recommendation: - Discharge patient to home (ambulatory). - Resume regular diet. - Continue present medications. - Await cytology results and await tumor markers. - Return to GI clinic as previously scheduled. - Return to referring physician as previously scheduled. MD Viet Perry MD 02/07/2017 2:18:35 PM This report has been signed electronically. Note Initiated On: 02/07/2017 11:37 AM I attest to the content of the Intraoperative Record and orders documented therein, exceptions below
--- NOTE | 2017-02-07 14:22 | Anesthesiology Progress Note ---
Anesthesia Post Op Note Date & Time Feb 07, 2017 at 14:22 Vital Signs Pain Intensity: 0 Vital Signs Past 12 Hours Date Time Temp Pulse Resp B/P (MAP) Pulse Ox O2 Delivery O2 Flow Rate FiO2 02/07/17 14:15 36.9 76 17 127/65 99 Room Air Oxymask 02/07/17 14:06 77 16 02/07/17 14:06 77 16 100 02/07/17 14:06 77 16 100 02/07/17 14:06 77 16 02/07/17 14:05 131/67 02/07/17 14:05 131/67 02/07/17 14:01 78 17 100 02/07/17 14:01 78 17 02/07/17 14:01 78 17 100 02/07/17 14:01 78 17 02/07/17 14:00 127/63 02/07/17 14:00 127/63 02/07/17 13:56 77 18 02/07/17 13:56 77 18 100 02/07/17 13:56 77 18 100 02/07/17 13:56 77 18 02/07/17 13:55 126/65 02/07/17 13:55 126/65 02/07/17 13:51 79 23 129/67 100 02/07/17 13:51 79 23 02/07/17 13:51 79 23 02/07/17 13:51 36.1 79 14 129/67 100 Oxymask 10 02/07/17 13:51 79 23 129/67 100 02/07/17 07:53 36.5 59 18 149/74 (99) 96 Notes Mental Status: alert / awake / arousable, participated in evaluation Pt Amnestic to Procedure: Yes Nausea / Vomiting: adequately controlled Pain: adequately controlled Airway Patency, RR, SpO2: stable & adequate BP & HR: stable & adequate Hydration State: stable & adequate Anesthetic Complications: no major complications apparent
--- NOTE | 2017-02-07 14:28 | GI REPORT ---
Procedure Date: 02/07/2017 12:41 PM Procedure: ERCP Indications: Jaundice Medicines: General Anesthesia, Cipro 400 mg IV Complications: No immediate complications. Estimated blood loss: Minimal. Estimated Blood Loss: Estimated blood loss was minimal. Procedure: Pre-Anesthesia Assessment: - Prior to the procedure, a History and Physical was performed, and patient medications and allergies were reviewed. The patient's tolerance of previous anesthesia was also reviewed. The risks and benefits of the procedure and the sedation options and risks were discussed with the patient. All questions were answered, and informed consent was obtained. Prior Anticoagulants: The patient has taken no previous anticoagulant or antiplatelet agents. ASA Grade Assessment: II - A patient with mild systemic disease. After reviewing the risks and benefits, the patient was deemed in satisfactory condition to undergo the procedure. After obtaining informed consent, the scope was passed under direct vision. Throughout the procedure, the patient's blood pressure, pulse, and oxygen saturations were monitored continuously. The Scope was introduced through the mouth, and advanced to the duodenum and used to inject contrast into the bile duct. The ERCP was accomplished without difficulty. The patient tolerated the procedure well. Findings: The criminal defense attorney film was normal. The esophagus was successfully intubated under direct vision. The scope was advanced to a normal major papilla in the descending duodenum without detailed examination of the pharynx, larynx and associated structures, and upper GI tract. The upper GI tract was grossly normal. A 0.035 inch straight standard wire was passed into the biliary tree. The short-nosed traction sphincterotome was passed over the guidewire and the bile duct was then deeply cannulated. Contrast was injected. I personally interpreted the bile duct images. Ductal flow of contrast was adequate. Image quality was adequate. Contrast extended to the entire biliary tree. Opacification of the entire biliary tree was successful. The maximum diameter of the ducts was 16 mm. The lower third of the main bile duct contained a single moderate stenosis 10 mm in length. Cells for cytology were obtained by brushing. One 10 Fr by 9 cm temporary plastic stent with a single external flap and a single internal flap was placed 8.5 cm into the common bile duct. Bile flowed through the stent. The stent was in good position. A 4 mm biliary sphincterotomy was made with a sphincterotome using ERBE electrocautery. There was no post-sphincterotomy bleeding. The PD was neither instrumented nor opacified. 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 - One temporary plastic stent was placed into the common bile duct. - A sphincterotomy was performed. Recommendation: - Discharge patient to home (ambulatory). - Advance diet as tolerated. - Continue present medications. - Return to referring physician as previously scheduled. - Return to GI clinic as previously scheduled. - Repeat ERCP in 3 months to exchange stent. MD Viet Perry MD 02/07/2017 2:27:51 PM This report has been signed electronically. Note Initiated On: 02/07/2017 12:41 PM I attest to the content of the Intraoperative Record and orders documented therein, exceptions below
[2017-02-07 14:40] VITALS: BP 124/63; PULSE 75; TEMP 36.3; O2SAT 98
[2017-02-07 15:10] VITALS: BP 99/57; PULSE 84; O2SAT 98
[2017-02-07 16:00] VITALS: BP 128/67; PULSE 84; TEMP 36.3; O2SAT 98
[2017-02-09] MEDS ORDERED: MULTTAB58 PO (07:19)
== END 2017-02-07 16:45 | disposition home or self-care (01) ==
LOC: C.ACU 06:44
PROVIDERS: ATTEND Internal Medicine Gastroenterology
DX: K83.1 Obstruction of bile duct (principal); R63.4 Abnormal weight loss; K21.0 Gastro-esophageal reflux disease with esophagitis; E11.9 Type 2 diabetes mellitus without complications; I25.2 Old myocardial infarction; I10 Essential (primary) hypertension; E78.00 Pure hypercholesterolemia, unspecified; G47.33 Obstructive sleep apnea (adult) (pediatric); M19.90 Unspecified osteoarthritis, unspecified site; I25.10 Atherosclerotic heart disease of native coronary artery without angina pectoris; E78.5 Hyperlipidemia, unspecified; E16.8 Other specified disorders of pancreatic internal secretion; Z90.79 Acquired absence of other genital organ(s); Z85.820 Personal history of malignant melanoma of skin; Z79.4 Long term (current) use of insulin; Z79.82 Long term (current) use of aspirin; Z98.49 Cataract extraction status, unspecified eye; Z85.46 Personal history of malignant neoplasm of prostate; Z87.442 Personal history of urinary calculi; Z95.5 Presence of coronary angioplasty implant and graft

== ENCOUNTER 2017-02-09 08:14 | Emergency (ER) | payer OTHER ==
[~2017-02-09] VITALS: Ht 180.3 cm; Wt 86.7 kg
[~2017-02-09 08:14] MED LIST changes: +CIPR-255 PO; -LACTATED RINGER'S 1000ML 1,000 ML IV SCH; -LACTATED RINGER'S 1000ML 500 ML IV ONE; +MULTTAB58 PO
[2017-02-09 08:18] VITALS: TEMP 36.3; Ht 180.3 cm; Wt 86.7 kg
--- NOTE | 2017-02-09 08:44 | EMERGENCY ROOM VISIT NOTE ---
History Report prepared by Vonda: Enoc Carlos Under the Supervision of: Dr. Loree Moreno M.D. First contact with patient: 08:27 Chief Complaint: ALLERGIC REACTION Stated Complaint: SKIN IRRITATION AFTER STARTING NEW MEDICATIONS History of Present Illness The patient is a 81 year old male who presents to the Emergency Room with complaints of an allergic reaction beginning yesterday. The patient states that he had an ERCP procedure done Friday, where a biliary obstruction measuring 1cm by 1.4cm was found. He also notes that a stent was implanted. He states that he is also experiencing itchiness, jaundice, abdominal pain, and a "raw" throat. He denies any other pain or vomiting. Per , the patient has been experiencing jaundice for the past two weeks and states that his symptoms seem to be mildly improving. She states that the patient has not had any itchiness during that period. Source of History: patient, spouse/significant other Onset: yesterday Position: other (global) Timing: constant Associated Symptoms: + abdominal pain, No vomiting Note: he has been experiencing itchiness, jaundice, and a "raw" throat he denies any other pain Review of Systems See HPI for pertinent positives & negatives. A total of 10 systems reviewed and were otherwise negative. Past Medical & Surgical Medical Problems: (1) Chronic Kidney Disease, Unspecified (2) COPD (chronic obstructive pulmonary disease) (3) Esophageal Reflux (4) Esophagitis Nos (5) Hx-Prostatic Malignancy (6) Hyperlipidemia Nec/Nos (7) Hypertension Nos (8) Left wrist pain (9) Left wrist sprain (10) Obstructive Sleep Apnea (Adult) (Pediatric) (11) Scalp abrasion (12) Urinary Calculus Nos Surgical Problems: (1) Aortocoronary Bypass Family History No pertinent family history stated. Social History Smoking Status: Former Smoker Alcohol Use: none Marital Status: Occupation Status: retired Current/Historical Medications Scheduled Amoxicillin & Pot Clavulanate (Augmentin 875-125 mg), 875 MG PO BID Aspirin (Aspirin Ec), 2 TAB PO QAM Cholecalciferol (Vitamin D3), 1 TAB PO DAILY Ciprofloxacin Hcl (Cipro), 500 MG PO BID Insulin Glargine (Lantus), 16 UNITS INJ QPM Metoprolol Succinate (Metoprolol Succinate ER), 25 MG PO QPM Multiple Vitamin (Multivitamin), 1 TAB PO QAM Omeprazole (Prilosec), 20 MG PO DAILY Prednisone (Prednisone), 1 TAB PO DAILY Rosuvastatin Calcium (Crestor), 10 MG PO QAM Scheduled PRN Hydroxyzine Pamoate (Vistaril), 25 MG PO Q6 PRN for Itching Allergies Coded Allergies: No Known Allergies (Verified , 02/09/17) Physical Exam Vital Signs Date Time Temp Pulse Resp B/P (MAP) Pulse Ox O2 Delivery O2 Flow Rate FiO2 02/09/17 13:30 62 20 138/75 97 02/09/17 12:48 70 20 129/68 96 Room Air 02/09/17 11:01 61 20 128/68 97 Room Air 02/09/17 10:04 62 141/74 96 Room Air 02/09/17 09:21 60 02/09/17 09:18 60 18 131/72 98 Room Air 02/09/17 08:18 36.3 75 16 106/64 97 Room Air Physical Exam Vital signs reviewed. General: Chronically ill appearing, in no significant distress. HEENT: Positive scleral icterus, PERRLA, neck supple. Atraumatic. Cardiovascular: Regular rate and rhythm, no extra sounds. Pulmonary: Clear to auscultation bilaterally, normal work of breathing. Abdomen: Mild diffuse abdominal tenderness, no rebound, no guarding, soft, nondistended, positive bowel sounds. Musculoskeletal: Atraumatic, no peripheral edema. Neurologic: Patient awake alert and oriented x 3, full strength in all 4 extremities. Cranial nerves 2 through 12 grossly intact. Skin: Jaundiced, urticaria type areas of rash, mild excoriation, warm, dry Medical Decision & Procedures ER Provider Diagnostic Interpretation: Radiology results as stated below per my review and radiologist interpretation: KUB HISTORY: biliary stent placed, pain and itching COMPARISON: KUB 02/27/2009. FINDINGS: The bowel gas pattern is unremarkable. There are no dilated loops of small bowel to suggest an obstruction. No renal calculi. No ureteral calculi. No pneumoperitoneum or pneumatosis. Common bile duct stent is likely in good position. There is evidence for pneumobilia. Moderate well-formed stool seen within the colon. The visualized lung bases are clear. Multiple pelvic phleboliths are again noted. IMPRESSION: The common bile duct stent is in good position. Electronically signed by: Kamran Mirza M.D. 02/09/2017 9:47 AM CHEST ONE VIEW PORTABLE HISTORY: biliary stent placed, pain and itching COMPARISON: Chest 01/10/2012. FINDINGS: The lungs are clear. Cardiac silhouette is normal in size. No pleural effusions. No pneumothorax. Poststernotomy changes. Old, healed left-sided clavicle fracture. IMPRESSION: No acute process. Electronically signed by: Kamran Mirza M.D. 02/09/2017 9:48 AM Laboratory Results 02/09/17 09:00 Red Blood Count 3.94, Mean Corpuscular Volume 91.6, Mean Corpuscular Hemoglobin 32.7, Mean Corpuscular Hemoglobin Concent 35.7, Mean Platelet Volume 12.6, Neutrophils (%) (Auto) 77.7, Lymphocytes (%) (Auto) 9.5, Monocytes (%) (Auto) 10.8, Eosinophils (%) (Auto) 1.3, Basophils (%) (Auto) 0.4, Neutrophils # (Auto ) 5.22, Lymphocytes # (Auto) 0.64, Monocytes # (Auto) 0.73, Eosinophils # (Auto ) 0.09, Basophils # (Auto) 0.03 02/09/17 09:00 Test 02/09/17 09:00 02/09/17 10:00 White Blood Count 6.73 K/uL (4.8-10.8) Red Blood Count 3.94 M/uL (4.7-6.1) Hemoglobin 12.9 g/dL (14.0-18.0) Hematocrit 36.1 % (42-52) Mean Corpuscular Volume 91.6 fL (80-100) Mean Corpuscular Hemoglobin 32.7 pg (25-34) Mean Corpuscular Hemoglobin Concent 35.7 g/dl (32-36) Platelet Count 195 K/uL (130-400) Mean Platelet Volume 12.6 fL (7.4-10.4) Neutrophils (%) (Auto) 77.7 % Lymphocytes (%) (Auto) 9.5 % Monocytes (%) (Auto) 10.8 % Eosinophils (%) (Auto) 1.3 % Basophils (%) (Auto) 0.4 % Neutrophils # (Auto) 5.22 K/uL (1.4-6.5) Lymphocytes # (Auto) 0.64 K/uL (1.2-3.4) Monocytes # (Auto) 0.73 K/uL (0.11-0.59) Eosinophils # (Auto) 0.09 K/uL (0-0.5) Basophils # (Auto) 0.03 K/uL (0-0.2) RDW Standard Deviation 56.4 fL (36.4-46.3) RDW Coefficient of Variation 16.8 % (11.5-14.5) Immature Granulocyte % (Auto) 0.3 % Immature Granulocyte # (Auto) 0.02 K/uL (0.00-0.02) Anion Gap 5.0 mmol/L (3-11) Est Creatinine Clear Calc Drug Dose 54.2 ml/min Estimated GFR () 71.6 Estimated GFR (Non- 61.8 BUN/Creatinine Ratio 13.3 (10-20) Calcium Level 8.8 mg/dl (8.5-10.1) Total Bilirubin 17.1 mg/dl (0.2-1) Direct Bilirubin 14.4 mg/dl (0-0.2) Aspartate Amino Transf (AST/SGOT) 114 U/L (15-37) Alanine Aminotransferase (ALT/SGPT) 105 U/L (12-78) Alkaline Phosphatase 373 U/L (45-117) Total Protein 5.8 gm/dl (6.4-8.2) Albumin 2.1 gm/dl (3.4-5.0) Lipase 1023 U/L (73-393) Urine Color DK YELLOW Urine Appearance CLEAR (CLEAR) Urine pH 6.5 (4.5-7.5) Urine Specific [place] 1.028 (1.000-1.030) Urine Protein NEG (NEG) Urine Glucose (UA) 3+ (NEG) Urine Ketones NEG (NEG) Urine Occult Blood NEG (NEG) Urine Nitrite NEG (NEG) Urine Bilirubin 3+ (NEG) Urine Urobilinogen NEG (NEG) Urine Leukocyte Esterase TRACE (NEG) Urine WBC (Auto) 1-5 /hpf (0-5) Urine RBC (Auto) 5-10 /hpf (0-4) Urine Hyaline Casts (Auto) 0 /lpf (0-5) Urine Epithelial Cells (Auto) 0-5 /lpf (0-5) Urine Bacteria (Auto) NEG (NEG) Laboratory results per my review. Medications Administered Medications (Trade) Dose Ordered Sig/Dalia Route Start Time Stop Time Status Last Admin Dose Admin Sodium Chloride 1,000 ml @ 125 mls/hr Q8H STAT IV 02/09/17 08:49 02/09/17 14:07 DC 02/09/17 09:11 125 MLS/HR Diphenhydramine HCl (Benadryl Inj) 25 mg NOW STAT IV 02/09/17 08:49 02/09/17 08:51 DC 02/09/17 09:11 25 MG Diphenhydramine HCl (Benadryl Inj) 25 mg NOW STAT IV 02/09/17 10:51 02/09/17 10:52 DC 02/09/17 10:57 25 MG Methylprednisolone Sodium Succinate (Solu-Medrol IV) 125 mg NOW STAT IV 02/09/17 10:51 02/09/17 10:52 DC 02/09/17 10:57 125 MG Hydroxyzine HCl (Vistaril Tab) 25 mg NOW STAT PO 02/09/17 12:49 02/09/17 12:50 DC 02/09/17 12:59 25 MG ED Course 0829: Past medical records reviewed. The patient was evaluated in room B2. A complete history and physical examination was performed. 0849: Benadryl Inj 25mg IV, Sodium Chloride 1000 ml @ 125 mls/hr IV 1051: Methylprednisolone Sodium Succinate 125mg IV, Benadryl Inj 25mg IV 1249: Vistaril Tab 25mg PO 1255: Upon reevaluation, the patient appeared to have improvement of his symptoms. I discussed findings with him. He verbalized agreement of the treatment plan. He was discharged home. Medical Decision The patient is a 81 year old male who presents to the ED with complaints of an allergic reaction. Differentials include biliary stent obstruction, medication reaction, environmental exposure, and hyperbilirubinemia. This patient was evaluated and appeared to be in no significant distress. The patient has no instability in vital signs, his airways open. There is no sign of anaphylaxis. Patient does have urticarial areas with excoriation. His states he was markedly jaundiced prior to the procedure and did not experience pruritus. They believe it is related to the Cipro. Laboratory work was obtained and reveals a total bilirubin of 17 which is improved from a total of 20 several days prior. Lipase and white blood cell count are also trending downward. Patient was given several doses of IV Benadryl, 125 mg of IV Solu- Medrol. He did have brief periods of symptoms management. The third time he asked for "something to control the itching" he was given Vistaril 25 mg by mouth. I did speak with Dr. Phan of gastroenterology who is covering for the patient's jaw skinner, Dr. Martinez. Patient will stop the ciprofloxacin and begin Augmentin 875 mg twice a day for 5 days. He was Benadryl as needed for itching. He was given a short prescription of 4 tablets 20 mg prednisone. If he continues to have the itching tomorrow, he can begin this. I did express my concerns over starting steroids with someone in his condition. He will follow-up with his PCP this week, see gastroenterology as scheduled and return to the ER for worsening of symptoms or any medical concerns. Medication Reconcilliation Current Medication List: was personally reviewed by me Blood Pressure Screening Patient's blood pressure: Normal blood pressure Impression Primary Impression: Allergic reaction Additional Impression: History of biliary stent insertion Scribe Attestation The scribe's documentation has been prepared under my direction and personally reviewed by me in its entirety. I confirm that the note above accurately reflects all work, treatment, procedures, and medical decision making performed by me. Departure Information Dispostion Discharge/Transfer to [facility] Prescriptions Prednisone (Prednisone) 20 Mg Tab 1 TAB PO DAILY for 4 Days, #4 TAB Prov: Loree Moreno M.D. 02/09/17 Hydroxyzine Pamoate (VISTARIL) 25 Mg Cap 25 MG PO Q6 Y for Itching, #20 CAP Prov: Loree Moreno M.D. 02/09/17 Amoxicillin & Pot Clavulanate (Augmentin 875-125 mg) 1 Tab Tab 875 MG PO BID for 5 Days, #10 TAB Prov: Loree Moreno M.D. 02/09/17 Referrals Zhang Beck M.D. (PCP) Forms HOME CARE DOCUMENTATION FORM, IMPORTANT VISIT INFORMATION Patient Instructions My [facility] Additional Instructions Diagnosis: Allergic reaction to Cipro, biliary stent STOP CIPRO Augmentin 875 mg twice daily for 5 days. Drink plenty of fluids/ Vistaril 25mg every 6 hours as needed for itching. Prednisone 40mg daily for 4 more days, start tomorrow IF ITCHING PERSISTS. Return to the ED for worsening of symptoms or any medical concerns. Follow up with you PCP/GI this week for reevaluation. Problem Qualifiers
[2017-02-09] MEDS ORDERED: DiphenhydrAMINE HCL 50 MG/ML VIAL IV STA ×2 (08:49→10:51)
[2017-02-09] MEDS ORDERED: SODIUM CHLORIDE 0.9% 1000ML 1,000 ML IV STA (08:49)
[2017-02-09] MEDS ORDERED: PRLSR20 PO (08:55)
[2017-02-09] MEDS ORDERED: CHOL1000 PO (08:55)
[2017-02-09 09:12] LABS: BASO % 0.4 %; BASO ABS # 0.03 K/uL (0-0.2); COMPLETE YES; EOS % 1.3 %; HEMATOCRIT 36.1 % (42-52); IG% 0.3 %; LYMPH % 9.5 %; LYMPH ABS # 0.64 K/uL (1.2-3.4); MEAN CELL VOLUME 91.6 fL (80-100); MEAN CORPUSCULAR HEMOGLOBIN 32.7 pg (25-34); MEAN CORPUSCULAR HGB CONC 35.7 g/dl (32-36); MEAN PLATELET VOLUME 12.6 fL (7.4-10.4); MONO % 10.8 %; NEUT % 77.7 %; PLATELET COUNT 195 K/uL (130-400); RED BLOOD COUNT 3.94 M/uL (4.7-6.1); WHITE BLOOD COUNT 6.73 K/uL (4.8-10.8)
[2017-02-09 09:35] LABS: BUN/CREATININE RATIO 13.3 (10-20); CALCIUM 8.8 mg/dl (8.5-10.1); CREATININE 1.1 mg/dl (0.60-1.40); POTASSIUM 3.9 mmol/L (3.5-5.1)
--- NOTE | 2017-02-09 09:49 | DIAGNOSTIC IMAGING REPORT ---
KUB HISTORY: biliary stent placed, pain and itching COMPARISON: KUB 02/27/2009. FINDINGS: The bowel gas pattern is unremarkable. There are no dilated loops of small bowel to suggest an obstruction. No renal calculi. No ureteral calculi. No pneumoperitoneum or pneumatosis. Common bile duct stent is likely in good position. There is evidence for pneumobilia. Moderate well-formed stool seen within the colon. The visualized lung bases are clear. Multiple pelvic phleboliths are again noted. IMPRESSION: The common bile duct stent is in good position. Electronically signed by: Kamran Mirza M.D. 02/09/2017 9:47 AM Dictated Date/Time: 02/09/2017 9:46 AM
--- NOTE | 2017-02-09 09:50 | DIAGNOSTIC IMAGING REPORT ---
CHEST ONE VIEW PORTABLE HISTORY: biliary stent placed, pain and itching COMPARISON: Chest 01/10/2012. FINDINGS: The lungs are clear. Cardiac silhouette is normal in size. No pleural effusions. No pneumothorax. Poststernotomy changes. Old, healed left-sided clavicle fracture. IMPRESSION: No acute process. Electronically signed by: Kamran Mirza M.D. 02/09/2017 9:48 AM Dictated Date/Time: 02/09/2017 9:48 AM
[2017-02-09 10:19] LABS: URINE APPEARANCE CLEAR (CLEAR); URINE COLOR DK YELLOW; URINE EPITHELIAL CELL AUTO 0-5 /lpf (0-5); URINE NITRITE NEG (NEG); URINE PH 6.5 (4.5-7.5); URINE SPECIFIC GRAVITY 1.028 (1.000-1.030); UROBILINOGEN NEG (NEG); ZZUR CULT IF INDIC CLEAN CATCH NO
[2017-02-09 10:22] LABS: MANUAL MICROSCOPIC REQUIRED? NO; REVIEW REQ? NO; URINE BILIRUBIN 3+ (NEG)
[2017-02-09] MEDS ORDERED: METHYLPREDNISOLONE 125 MG VIAL IV STA (10:51)
[2017-02-09] MEDS ORDERED: hydrOXYzine HCL 25 MG TAB PO STA (12:49)
[2017-02-09] MEDS ORDERED: AMOX875T PO (13:03)
[2017-02-09] MEDS ORDERED: HYDR1CAP85 PO (13:03)
[2017-02-09] MEDS ORDERED: PRED20TA PO (13:04)
[2017-02-09 13:30] VITALS: BP 138/75; PULSE 62; O2SAT 97
== END 2017-02-09 13:43 | disposition home or self-care (01) ==
LOC: C.EDB 08:15
DX: T78.40XA Allergy, unspecified, initial encounter (principal); X58.XXXA Exposure to other specified factors, initial encounter; Z96.89 Presence of other specified functional implants; L50.9 Urticaria, unspecified; R17 Unspecified jaundice; N18.9 Chronic kidney disease, unspecified; I12.9 Hypertensive chronic kidney disease with stage 1 through stage 4 chronic kidney disease, or unspecified chronic kidney disease; K21.9 Gastro-esophageal reflux disease without esophagitis; E78.5 Hyperlipidemia, unspecified; J44.9 Chronic obstructive pulmonary disease, unspecified; G47.33 Obstructive sleep apnea (adult) (pediatric); Z95.1 Presence of aortocoronary bypass graft; Z85.46 Personal history of malignant neoplasm of prostate; Z87.442 Personal history of urinary calculi; Z87.891 Personal history of nicotine dependence; Z79.82 Long term (current) use of aspirin

== ENCOUNTER 2017-03-16 17:10 | Inpatient (IN) | payer OTHER ==
[~2017-03-16] VITALS: Ht 180.3 cm; Wt 81.9 kg
[~2017-03-16 17:10] MED LIST changes: +CHOL1000 PO; -INSDGI INJ; +INSDGI SC; +PRLSR20 PO; -VITAMIN D PO
[2017-03-16] MEDS ORDERED: CEFEPIME IV 2,000 MG in DEXTROSE 5% 100ML 100 ML IV STA (17:41)
[2017-03-16] MEDS ORDERED: CEFEPIME IV 2,000 MG in SYRINGE 7.5 ML IV SCH (17:41)
[2017-03-16] MEDS ORDERED: SODIUM CHLORIDE 0.9% 1000ML 1,000 ML IV ONE (17:41)
[2017-03-16] MEDS ORDERED: ACETAMINOPHEN 500 MG TAB PO STA (17:41)
--- NOTE | 2017-03-16 17:50 | EMERGENCY ROOM VISIT NOTE ---
History Report prepared by Vonda: Enoc Carlos Under the Supervision of: Dr. Emmett Reed M.D. First contact with patient: 17:32 Chief Complaint: FEVER Stated Complaint: S/P ERCP- BLURRY VISION, FEVER 101, FATIGUE History of Present Illness The patient is a 81 year old male who presents to the Emergency Room with complaints of a constant fever beginning yesterday. The patient states that he had a stent replaced in his bile duct 2 days ago. He notes that there were no complications following his procedure, but reports that he began feeling unwell and developed a fever yesterday. Per , his temperature reached a high of 101 an hour ago. The patient states that he began seeing double in his left eye yesterday that has improved slightly today. He also complains of chills, body aches, mild throat soreness, left upper back pain, dizziness, feeling off balance, feeling slower to move, frequent urination, and a decrease in appetite. He denies any cough, SOB, abdominal pain, vomiting, diarrhea, headache , and rashes. He notes that he has a history of diabetes and pancreatic cancer. He reports that he did not eat a lot or take any medication prior to his visit today. Source of History: patient, spouse/significant other Onset: yesterday Position: other (global) Symptom Intensity: 101 Quality: other (fever) Timing: constant Associated Symptoms: + chills, + sorethroat (mild), + back pain (left upper) , + urinary symptoms (frequent urination), No headache, No cough, No SOB, No vomiting, No abdominal pain, No diarrhea, No rash Note: He also complains of dizziness, feeling off balance, double vision, feeling slower to move, and a decrease in appetite. Review of Systems See HPI for pertinent positives & negatives. A total of 10 systems reviewed and were otherwise negative. Past Medical & Surgical Medical Problems: (1) Chronic Kidney Disease, Unspecified (2) COPD (chronic obstructive pulmonary disease) (3) Diabetes (4) Esophageal Reflux (5) Esophagitis Nos (6) Hx-Prostatic Malignancy (7) Hyperlipidemia Nec/Nos (8) Hypertension Nos (9) Left wrist pain (10) Left wrist sprain (11) Obstructive Sleep Apnea (Adult) (Pediatric) (12) Pancreatic cancer (13) Scalp abrasion (14) Urinary Calculus Nos (15) Visual field defect Surgical Problems: (1) Aortocoronary Bypass Family History No pertinent family history stated. Social History Smoking Status: Former Smoker Alcohol Use: none Marital Status: Housing Status: lives with family Occupation Status: retired Current/Historical Medications Scheduled Aspirin (Aspirin Ec), 81 MG PO QAM Cholecalciferol (Vitamin D3), 1,000 UNITS PO DAILY Insulin Glargine (Lantus), 24 UNITS SC QPM Metoprolol Succinate (Metoprolol Succinate ER), 25 MG PO QPM Multiple Vitamin (Multivitamin), 1 TAB PO QAM Rosuvastatin Calcium (Crestor), 10 MG PO QAM Allergies Coded Allergies: Ciprofloxacin (Unverified Allergy, Intermediate, ITCHY, 03/16/17) Physical Exam Vital Signs Date Time Temp Pulse Resp B/P (MAP) Pulse Ox O2 Delivery O2 Flow Rate FiO2 03/16/17 19:16 69 03/16/17 19:14 37.7 68 14 124/63 95 Room Air 03/16/17 18:33 63 20 144/71 93 Room Air 03/16/17 18:30 93 Room Air 03/16/17 17:26 37.0 71 16 106/62 96 Room Air Physical Exam GENERAL: Patient is in no acute distress. HEENT: No acute trauma, normocephalic atraumatic, mucous membranes dry, no nasal congestion, no scleral icterus. No nystagmus. NECK: No stridor, no adenopathy, no meningismus, trachea is midline. LUNGS: Clear to auscultation bilaterally, no wheeze, no rhonchi, breath sounds equal. HEART: 2/6 systolic murmur, regular rate and rhythm. ABDOMEN: Soft, nontender, bowel sounds positive, no hernias, no peritonitis. EXTREMITIES: No cyanosis or edema, full range of motion of all the joints without pain or difficulty, no signs for acute trauma. NEUROLOGIC: Oriented x 3, no acute motor or sensory deficits, no focal weakness. No speech slur, pronator drift, or cerebellar disfunction. Difficulty with vision in the left upper visual mota bilaterally. SKIN: No rash, no jaundice, no diaphoresis. Medical Decision & Procedures ER Provider Diagnostic Interpretation: Radiology results as stated below per my review and radiologist interpretation: HEAD CT NONCONTRAST Findings: Tiny partially visualized retention cysts within the left maxillary sinus. The remaining paranasal sinuses and mastoid air cells are clear. 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 The ventricles and sulci are within normal limits. There is no mass, hematoma, midline shift, or acute infarct. Impression: No significant change compared to the prior study. No acute intracranial abnormality. Electronically signed by: Kamran Mirza M.D. 03/16/2017 7:16 PM CHEST ONE VIEW PORTABLE FINDINGS: The lungs are clear. Cardiac silhouette is normal in size. No pleural effusions. No pneumothorax. Poststernotomy changes. IMPRESSION: No acute process. Electronically signed by: Kamran Mirza M.D. 03/16/2017 6:30 PM [address] AND PELVIS CT WITHOUT CONTRAST FINDINGS: Calcified granuloma within the left lung base and mild bibasilar dependent change. No pneumoperitoneum. No pneumatosis. No suspicious lytic or blastic osseous lesions. Poststernotomy changes. Small hiatus hernia. Mild gallbladder wall thickening, unchanged. The gallbladder distention has resolved. No hepatic or splenic masses. Interval pneumobilia due to the common bile duct stent. The 1.8 cm pancreatic head mass is not well visualized due to the lack of intravenous contrast. The adrenal glands are unremarkable. A 3 mm stone within the upper pole the left kidney. No hydronephrosis. No retroperitoneal lymphadenopathy. The bladder is unremarkable. Suboptimal evaluation for bowel pathology due to the lack of intravenous and oral contrast. However, there is no definite bowel wall thickening or obstruction. Normal appendix. Moderate stool seen throughout the colon. IMPRESSION: 1. Interval placement of a common bile duct stent resulting in the pneumobilia. The 1.8 cm pancreatic head mass is again noted. 2. Mild gallbladder wall thickening, unchanged. However, the gallbladder distention has resolved. 3. No definite bowel wall thickening or obstruction. 4. Left-sided nephrolithiasis. No hydronephrosis. 5. Moderate well-formed stool seen within the colon. 6. Small hiatus hernia. Electronically signed by: Kamran Mirza M.D. 03/16/2017 7:00 PM Laboratory Results 03/16/17 18:05 Red Blood Count 4.30, Mean Corpuscular Volume 93.7, Mean Corpuscular Hemoglobin 33.0, Mean Corpuscular Hemoglobin Concent 35.2, Mean Platelet Volume 11.3, Neutrophils (%) (Auto) 83.2, Lymphocytes (%) (Auto) 6.4, Monocytes (%) (Auto) 9.7, Eosinophils (%) (Auto) 0.1, Basophils (%) (Auto) 0.2, Neutrophils # (Auto) 9.28, Lymphocytes # (Auto) 0.71, Monocytes # (Auto) 1.08, Eosinophils # (Auto) 0.01, Basophils # (Auto) 0.02 03/16/17 18:05 Test 03/16/17 18:05 03/16/17 18:32 03/16/17 19:50 White Blood Count 11.14 K/uL (4.8-10.8) Red Blood Count 4.30 M/uL (4.7-6.1) Hemoglobin 14.2 g/dL (14.0-18.0) Hematocrit 40.3 % (42-52) Mean Corpuscular Volume 93.7 fL (80-100) Mean Corpuscular Hemoglobin 33.0 pg (25-34) Mean Corpuscular Hemoglobin Concent 35.2 g/dl (32-36) Platelet Count 175 K/uL (130-400) Mean Platelet Volume 11.3 fL (7.4-10.4) Neutrophils (%) (Auto) 83.2 % Lymphocytes (%) (Auto) 6.4 % Monocytes (%) (Auto) 9.7 % Eosinophils (%) (Auto) 0.1 % Basophils (%) (Auto) 0.2 % Neutrophils # (Auto) 9.28 K/uL (1.4-6.5) Lymphocytes # (Auto) 0.71 K/uL (1.2-3.4) Monocytes # (Auto) 1.08 K/uL (0.11-0.59) Eosinophils # (Auto) 0.01 K/uL (0-0.5) Basophils # (Auto) 0.02 K/uL (0-0.2) RDW Standard Deviation 52.3 fL (36.4-46.3) RDW Coefficient of Variation 15.2 % (11.5-14.5) Immature Granulocyte % (Auto) 0.4 % Immature Granulocyte # (Auto) 0.04 K/uL (0.00-0.02) Prothrombin Time 11.6 SECONDS (9.0-12.0) Prothromb Time International Ratio 1.1 (0.9-1.1) Activated Partial Thromboplast Time 30.2 SECONDS (21.0-31.0) Partial Thromboplastin Ratio 1.2 Anion Gap 9.0 mmol/L (3-11) Est Creatinine Clear Calc Drug Dose 59.0 ml/min Estimated GFR () 79.4 Estimated GFR (Non- 68.5 BUN/Creatinine Ratio 11.5 (10-20) Calcium Level 9.1 mg/dl (8.5-10.1) Magnesium Level 1.9 mg/dl (1.8-2.4) Total Bilirubin 2.5 mg/dl (0.2-1) Aspartate Amino Transf (AST/SGOT) 37 U/L (15-37) Alanine Aminotransferase (ALT/SGPT) 66 U/L (12-78) Alkaline Phosphatase 195 U/L (45-117) Total Protein 7.0 gm/dl (6.4-8.2) Albumin 3.0 gm/dl (3.4-5.0) Globulin 4.0 gm/dl (2.5-4.0) Albumin/Globulin Ratio 0.7 (0.9-2) Lipase 1069 U/L (73-393) Thyroid Stimulating Hormone (TSH) 0.622 uIu/ml (0.300-4.500) Bedside Lactic Acid Venous 1.38 mmol/L (0.90-1.70) Urine Color DK YELLOW Urine Appearance CLEAR (CLEAR) Urine pH 7.0 (4.5-7.5) Urine Specific [place]ilo 1.035 (1.000-1.030) Urine Protein 1+ (NEG) Urine Glucose (UA) 3+ (NEG) Urine Ketones TRACE (NEG) Urine Occult Blood NEG (NEG) Urine Nitrite NEG (NEG) Urine Bilirubin NEG (NEG) Urine Urobilinogen NEG (NEG) Urine Leukocyte Esterase NEG (NEG) Urine WBC (Auto) 1-5 /hpf (0-5) Urine RBC (Auto) 0-4 /hpf (0-4) Urine Hyaline Casts (Auto) 1-5 /lpf (0-5) Urine Epithelial Cells (Auto) 10-20 /lpf (0-5) Urine Bacteria (Auto) NEG (NEG) Laboratory results reviewed by me. Medications Administered Medications (Trade) Dose Ordered Sig/Dalia Route Start Time Stop Time Status Last Admin Dose Admin Sodium Chloride 1,000 ml @ 999 mls/hr Q1H1M ONCE IV 03/16/17 17:41 03/16/17 18:41 DC 03/16/17 18:23 999 MLS/HR Acetaminophen (Tylenol Tab) 1,000 mg NOW STAT PO 03/16/17 17:41 03/16/17 17:46 DC 03/16/17 18:24 1,000 MG Cefepime HCl 2000 mg/Syringe 20 ml @ 5 mls/min TODAY@1741 IV 03/16/17 17:41 03/16/17 23:59 03/16/17 18:26 5 MLS/MIN Sodium Chloride 1,000 ml @ 999 mls/hr Q1H1M STAT IV 03/16/17 19:39 03/16/17 20:39 DC 03/16/17 19:39 999 MLS/HR ECG Indication: back/shoulder pain Rate (beats per minute): 72 Rhythm: normal sinus Findings: RBBB, no acute ischemic change, no ectopy ED Course 1732: The patient was evaluated in room C1. A complete history and physical exam was performed. 1740: Acetaminophen 1000mg PO, Sodium Chloride 1000 ml @ 999 mls/hr IV 1937: I reevaluated and updated the patient. 1936: Upon reexamination the patient is stable. I discussed results and treatment plan with the patient. He verbalizes agreement and understanding. The patient will be evaluated for further management. Medical Decision Differential diagnoses include: sepsis, pneumonia, pancreatitis, dehydration, UTI, electrolyte imbalance, anemia, stroke. There is a mild leukocytosis, this could be consistent with infection. No concerning anemia. No significant electrolyte abnormality, kidney failure or hepatitis. Lipase was elevated somewhat at 1000, this level is where he has been testing as of late. There was no coagulopathy. Urinalysis did not show infection. Blood cultures are pending. Chest film did not show pneumonia or CHF. Brain CT showed no acute bleed or mass effect. Abdominal and pelvis CT showed evidence for the biliary stent. There was no evidence for free air or for abscess, no bowel obstruction. The gallbladder was thickened but this is chronic. Lactic acid level was not elevated making severe sepsis less likely. The patient received IV saline, oral Tylenol and IV cefepime. He was treated as a patient who could potentially be septic. I do think the patient requires a hospital stay. He has a low-grade fever and may have bacteremia from the recent procedure performed on his gallbladder/ pancreas. The double vision in the left upper visual mota is also a concern. A small stroke is a consideration. He is not a TPA candidate though as he has had symptoms now for over a day. I suppose, the fever/infection could be causing the visual change. I did speak to the patient and the transplant case manager. The on-call hospitalist was consulted. Medication Reconcilliation Current Medication List: was personally reviewed by me Blood Pressure Screening Patient's blood pressure: Elevated blood pressure Blood pressure disposition: Elevated BP felt to be situational Consults Time Called: 1935 Consulting Physician: Dr. Navarro - Hospitalist, [facility] [place] Returned Call: 1936 Discussed the patient's case. The patient will be evaluated for further management. Impression Primary Impression: Double vision Additional Impressions: Fever Leukocytosis Pancreatitis Scribe Attestation The scribe's documentation has been prepared under my direction and personally reviewed by me in its entirety. I confirm that the note above accurately reflects all work, treatment, procedures, and medical decision making performed by me. Departure Information Dispostion Being Evaluated By Hospitalist Referrals Zhang Beck M.D. (PCP) Forms HOME CARE DOCUMENTATION FORM, IMPORTANT VISIT INFORMATION Patient Instructions My [facility] [address] Stroke History Time Last Known Well yesterday Stroke t-PA Criteria Reviewed Does NOT meet criteria for t-PA Reason t-PA Not Given Treatment not indicated Problem Qualifiers
--- NOTE | 2017-03-16 18:32 | DIAGNOSTIC IMAGING REPORT ---
CHEST ONE VIEW PORTABLE HISTORY: Sepsis COMPARISON: Chest 02/09/2017. FINDINGS: The lungs are clear. Cardiac silhouette is normal in size. No pleural effusions. No pneumothorax. Poststernotomy changes. IMPRESSION: No acute process. Electronically signed by: Kamran Mirza M.D. 03/16/2017 6:30 PM Dictated Date/Time: 03/16/2017 6:27 PM
[2017-03-16 18:55] LABS: BASO % 0.2 %; BASO ABS # 0.02 K/uL (0-0.2); EOS % 0.1 %; EOS ABS # 0.01 K/uL (0-0.5); HEMATOCRIT 40.3 % (42-52); HEMOGLOBIN 14.2 g/dL (14.0-18.0); IG# 0.04 K/uL (0.00-0.02); INR 1.1 (0.9-1.1); LYMPH % 6.4 %; LYMPH ABS # 0.71 K/uL (1.2-3.4); MEAN CELL VOLUME 93.7 fL (80-100); MEAN CORPUSCULAR HGB CONC 35.2 g/dl (32-36); MEAN PLATELET VOLUME 11.3 fL (7.4-10.4); MONO % 9.7 %; MONO ABS # 1.08 K/uL (0.11-0.59); NEUT % 83.2 %; NEUT ABS # 9.28 K/uL (1.4-6.5); PLATELET COUNT 175 K/uL (130-400); PTT PATIENT 30.2 SECONDS (21.0-31.0); RED CELL DISTRIBUTION WIDTH CV 15.2 % (11.5-14.5); RED CELL DISTRIBUTION WIDTH SD 52.3 fL (36.4-46.3); WHITE BLOOD COUNT 11.14 K/uL (4.8-10.8)
--- NOTE | 2017-03-16 19:01 | DIAGNOSTIC IMAGING REPORT ---
ABDOMEN AND PELVIS CT WITHOUT CONTRAST CT DOSE: 1279.10 mGy.cm HISTORY: Fever. Generalized abdominal PAIN, poss leak, pancreatic stent placed, NO CONTRAST TECHNIQUE: Multiaxial CT images of the abdomen and pelvis were performed without contrast. A dose lowering technique was utilized adhering to the principles of ALARA. COMPARISON STUDY: Abdomen and pelvis CT 02/04/2017. FINDINGS: Calcified granuloma within the left lung base and mild bibasilar dependent change. No pneumoperitoneum. No pneumatosis. No suspicious lytic or blastic osseous lesions. Poststernotomy changes. Small hiatus hernia. Mild gallbladder wall thickening, unchanged. The gallbladder distention has resolved. No hepatic or splenic masses. Interval pneumobilia due to the common bile duct stent. The 1.8 cm pancreatic head mass is not well visualized due to the lack of intravenous contrast. The adrenal glands are unremarkable. A 3 mm stone within the upper pole the left kidney. No hydronephrosis. No retroperitoneal lymphadenopathy. The bladder is unremarkable. Suboptimal evaluation for bowel pathology due to the lack of intravenous and oral contrast. However, there is no definite bowel wall thickening or obstruction. Normal appendix. Moderate stool seen throughout the colon. IMPRESSION: 1. Interval placement of a common bile duct stent resulting in the pneumobilia. The 1.8 cm pancreatic head mass is again noted. 2. Mild gallbladder wall thickening, unchanged. However, the gallbladder distention has resolved. 3. No definite bowel wall thickening or obstruction. 4. Left-sided nephrolithiasis. No hydronephrosis. 5. Moderate well-formed stool seen within the colon. 6. Small hiatus hernia. Electronically signed by: Kamran Mirza M.D. 03/16/2017 7:00 PM Dictated Date/Time: 03/16/2017 6:51 PM
[2017-03-16 19:07] LABS: CALCIUM 9.1 mg/dl (8.5-10.1); CREATININE 1.01 mg/dl (0.60-1.40); POTASSIUM 3.4 mmol/L (3.5-5.1)
[2017-03-16] MEDS ORDERED: CRS/10 PO (19:10)
--- NOTE | 2017-03-16 19:18 | DIAGNOSTIC IMAGING REPORT ---
HEAD CT NONCONTRAST CT DOSE: HISTORY: Dizziness. double vision to the left eye. TECHNIQUE: Multiaxial CT images of the head were performed without the use of intravenous contrast. Automated exposure control was utilized for this study. A dose lowering technique was utilized adhering to the principles of ALARA. Comparison: Head CT 01/10/2012. Findings: Tiny partially visualized retention cysts within the left maxillary sinus. The remaining paranasal sinuses and mastoid air cells are clear. 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 The ventricles and sulci are within normal limits. There is no mass, hematoma, midline shift, or acute infarct. Impression: No significant change compared to the prior study. No acute intracranial abnormality. Electronically signed by: Kamran Mirza M.D. 03/16/2017 7:16 PM Dictated Date/Time: 03/16/2017 7:10 PM
[2017-03-16] MEDS ORDERED: SODIUM CHLORIDE 0.9% 1000ML 1,000 ML IV STA (19:39)
[2017-03-16] MEDS ORDERED: POLYETHYLENE (MIRALAX) 17 GM PACK PO PRN (20:15)
[2017-03-16] MEDS ORDERED: ONDANSETRON INJ 2 MG/ML 2 ML VIAL IV PRN (20:15)
[2017-03-16] MEDS ORDERED: MAGNESIUM HYDROXIDE SUSP 30 ML UDC PO PRN (20:15)
[2017-03-16] MEDS ORDERED: ALUMINUM/MAGNESIUM/SIMETH (MAALOX MAX) 30 ML UDC PO PRN (20:15)
[2017-03-16] MEDS ORDERED: POTASSIUM CHLORIDE 10 MEQ TABCR PO STA (20:20)
--- NOTE | 2017-03-16 21:00 | History and Physical ---
History & Physical Date & Time of Service: Mar 16, 2017 at 20:51 Chief Complaint: S/P Ercp- Blurry Vision, Fever 101, Fatigue Primary Care Physician: Zhang Beck M.D. History of Present Illness Source: patient, family Mr Massimo Wood is an 81 yo M with pancreatic ca, who recently had a CBD stent replaced at [facility] on Friday. They were discharged the same day but stayed in the [place] area overnight, then yesterday were driving back and he noticed visual changes. He reports he noticed one car looked like 3 cars, which was odd for him. He reports he feels this sensation in both his eyes. He denies pain with eye movements, blurry vision, or eye discharge. He has never had these changes before. He does wear glasses. He also developed a fever today of 100.4 at home, so came to the ED as he was instructed to at discharge. He does not feel fever-carol or feel unwell overall. He had a temp of 37.7C in the ED. He still reports visual changes. He denies any chest pain, shortness of breath, abdominal pain, or leg swelling. reports he has also been overall very fatigued in the last few months, since his dx of cancer and the many procedures he has had to get. Past Medical/Surgical History PMHx Pancreatic Ca, follows w/Dr oJrdan Type 2 DM, on Lantus COPD GERD CKD Hyperlipidemia HTN HEAVENLY PSHx: Coronary artery bypass CBD stent Family History No pertinent FHx Social History Smoking Status: Former Smoker Smokeless Tobacco Use: No Alcohol Use: none Drug Use: none Marital Status: Housing status: lives with family Occupational Status: retired Immunizations History of Influenza Vaccine: No Influenza Vaccine Date: Feb 20, 2006 History of Tetanus Vaccine?: Yes Tetanus Immunization Date: Jan 10, 2012 History of Pneumococcal: Yes Pneumococcal Date: Dec 30, 2010 History of Hepatitis B Vaccine: Unknown Multi-Drug Resistant Organisms History of MDRO: No Allergies Coded Allergies: Ciprofloxacin (Unverified Allergy, Intermediate, ITCHY, 03/16/17) Home Medications Scheduled Aspirin (Aspirin Ec), 81 MG PO QAM Cholecalciferol (Vitamin D3), 1,000 UNITS PO DAILY Insulin Glargine (Lantus), 24 UNITS SC QPM Metoprolol Succinate (Metoprolol Succinate ER), 25 MG PO QPM Multiple Vitamin (Multivitamin), 1 TAB PO QAM Rosuvastatin Calcium (Crestor), 10 MG PO QAM Review of Systems See HPI for pertinent positives & negatives. A total of 10 systems reviewed and were otherwise negative. Physical Exam Vital Signs Date Time Temp Pulse Resp B/P (MAP) Pulse Ox O2 Delivery O2 Flow Rate FiO2 03/16/17 19:16 69 03/16/17 19:14 37.7 68 14 124/63 95 Room Air 03/16/17 18:33 63 20 144/71 93 Room Air 03/16/17 18:30 93 Room Air 03/16/17 17:26 37.0 71 16 106/62 96 Room Air General Appearance: WD/WN, no apparent distress Head: normocephalic, atraumatic Eyes: normal inspection, PERRL, EOMI, sclerae normal, + pertinent finding ( Visual field defect, RUQ and LUQ have diplopia) ENT: hearing grossly normal Neck: supple, no JVD Respiratory/Chest: lungs clear, normal breath sounds, no respiratory distress Cardiovascular: regular rate, rhythm, no murmur Abdomen/GI: non tender, soft Back: no CVA tenderness, no muscle spasm Extremities/Musculoskelatal: no calf tenderness, no pedal edema Neurologic/Psych: alert, normal mood/affect, normal reflexes, oriented x 3 Skin: no rash Diagnostics Laboratory Results Results Past 24 Hours Test 03/16/17 18:05 03/16/17 18:32 03/16/17 19:50 Range/Units White Blood Count 11.14 4.8-10.8 K/uL Red Blood Count 4.30 4.7-6.1 M/uL Hemoglobin 14.2 14.0-18.0 g/dL Hematocrit 40.3 42-52 % Mean Corpuscular Volume 93.7 80-100 fL Mean Corpuscular Hemoglobin 33.0 25-34 pg Mean Corpuscular Hemoglobin Concent 35.2 32-36 g/dl Platelet Count 175 130-400 K/uL Mean Platelet Volume 11.3 7.4-10.4 fL Neutrophils (%) (Auto) 83.2 % Lymphocytes (%) (Auto) 6.4 % Monocytes (%) (Auto) 9.7 % Eosinophils (%) (Auto) 0.1 % Basophils (%) (Auto) 0.2 % Neutrophils # (Auto) 9.28 1.4-6.5 K/uL Lymphocytes # (Auto) 0.71 1.2-3.4 K/uL Monocytes # (Auto) 1.08 0.11-0.59 K/uL Eosinophils # (Auto) 0.01 0-0.5 K/uL Basophils # (Auto) 0.02 0-0.2 K/uL RDW Standard Deviation 52.3 36.4-46.3 fL RDW Coefficient of Variation 15.2 11.5-14.5 % Immature Granulocyte % (Auto) 0.4 % Immature Granulocyte # (Auto) 0.04 0.00-0.02 K/uL Prothrombin Time 11.6 9.0-12.0 SECONDS Prothromb Time International Ratio 1.1 0.9-1.1 Activated Partial Thromboplast Time 30.2 21.0-31.0 SECONDS Partial Thromboplastin Ratio 1.2 Sodium Level 135 136-145 mmol/L Potassium Level 3.4 3.5-5.1 mmol/L Chloride Level 97 98-107 mmol/L Carbon Dioxide Level 29 21-32 mmol/L Anion Gap 9.0 3-11 mmol/L Blood Urea Nitrogen 12 7-18 mg/dl Creatinine 1.01 0.60-1.40 mg/dl Est Creatinine Clear Calc Drug Dose 59.0 ml/min Estimated GFR () 79.4 Estimated GFR (Non- 68.5 BUN/Creatinine Ratio 11.5 10-20 Random Glucose 245 70-99 mg/dl Calcium Level 9.1 8.5-10.1 mg/dl Magnesium Level 1.9 1.8-2.4 mg/dl Total Bilirubin 2.5 0.2-1 mg/dl Aspartate Amino Transf (AST/SGOT) 37 15-37 U/L Alanine Aminotransferase (ALT/SGPT) 66 12-78 U/L Alkaline Phosphatase 195 45-117 U/L Total Protein 7.0 6.4-8.2 gm/dl Albumin 3.0 3.4-5.0 gm/dl Globulin 4.0 2.5-4.0 gm/dl Albumin/Globulin Ratio 0.7 0.9-2 Lipase 1069 73-393 U/L Thyroid Stimulating Hormone (TSH) 0.622 0.300-4.500 uIu/ml Bedside Lactic Acid Venous 1.38 0.90-1.70 mmol/L Urine Color DK YELLOW Urine Appearance CLEAR CLEAR Urine pH 7.0 4.5-7.5 Urine Specific [place] 1.035 1.000-1.030 Urine Protein 1+ NEG Urine Glucose (UA) 3+ NEG Urine Ketones TRACE NEG Urine Occult Blood NEG NEG Urine Nitrite NEG NEG Urine Bilirubin NEG NEG Urine Urobilinogen NEG NEG Urine Leukocyte Esterase NEG NEG Urine WBC (Auto) 1-5 0-5 /hpf Urine RBC (Auto) 0-4 0-4 /hpf Urine Hyaline Casts (Auto) 1-5 0-5 /lpf Urine Epithelial Cells (Auto) 10-20 0-5 /lpf Urine Bacteria (Auto) NEG NEG Microbiology Results 03/16/17 Blood Culture, Received Pending 03/16/17 Blood Culture, Received Pending Diagnostic Radiology HEAD CT NONCONTRAST Findings: Tiny partially visualized retention cysts within the left maxillary sinus. The remaining paranasal sinuses and mastoid air cells are clear. 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 The ventricles and sulci are within normal limits. There is no mass, hematoma, midline shift, or acute infarct. Impression: No significant change compared to the prior study. No acute intracranial abnormality. Electronically signed by: Kamran Mirza M.D. 03/16/2017 7:16 PM CHEST ONE VIEW PORTABLE IMPRESSION: No acute process. ABDOMEN AND PELVIS CT WITHOUT CONTRAST FINDINGS: Calcified granuloma within the left lung base and mild bibasilar dependent change. No pneumoperitoneum. No pneumatosis. No suspicious lytic or blastic osseous lesions. Poststernotomy changes. Small hiatus hernia. Mild gallbladder wall thickening, unchanged. The gallbladder distention has resolved. No hepatic or splenic masses. Interval pneumobilia due to the common bile duct stent. The 1.8 cm pancreatic head mass is not well visualized due to the lack of intravenous contrast. The adrenal glands are unremarkable. A 3 mm stone within the upper pole the left kidney. No hydronephrosis. No retroperitoneal lymphadenopathy. The bladder is unremarkable. Suboptimal evaluation for bowel pathology due to the lack of intravenous and oral contrast. However, there is no definite bowel wall thickening or obstruction. Normal appendix. Moderate stool seen throughout the colon. IMPRESSION: 1. Interval placement of a common bile duct stent resulting in the pneumobilia. The 1.8 cm pancreatic head mass is again noted. 2. Mild gallbladder wall thickening, unchanged. However, the gallbladder distention has resolved. 3. No definite bowel wall thickening or obstruction. 4. Left-sided nephrolithiasis. No hydronephrosis. 5. Moderate well-formed stool seen within the colon. 6. Small hiatus hernia. Impression Assessment and Plan 81 yo M with recent CBD stent placement who presents with new diplopia and fever. DDx includes: metastatic cancer to brain, repeat CVA, other cranial nerve pathology, and for fever, concern for infection causing sepsis. Diplopia - Will obtain MRI brain w/contrast to evaluate. Depending on results, will consult Neuro vs Ophtho - Neuro checks q4h Fever - Cultures obtained - Continue Cefepime - Monitor on Telemetry Pancreatic cancer - Consult Dr Jordan HTN - Continue metoprolol T2DM - Home dose is Lantus 24 units at night. Has not been eating much, will switch to Lantus 12 units BID and evaluate. Hyperlipidemia - Continue Crestor VTE: SCDs, Heparin Dispo: Admit to Tele Code status: Full Attending addendum: I have physically seen this patient, have supervised the medical residents activities, and agree with the H&P unless as otherwise noted. Assessment and Plan: Horizontal Diplopia present at distance only/left upper quadrant quadrantanopsia -- Order MRI brain with contrast for further assessment. Neuro checks every 4 hours. Consult neurology Check a fasting lipid profile and hemoglobin A1c. Status post, bile duct stent 2 days ago/febrile illness getting 1 day ago/ pancreatic cancer-- Continue cefepime begun in the ED Follow blood cultures. Consult his oncologist Dr. Jordan. Of note, patient was to have had a port placed in 2 days and to begin chemotherapy in 3 days Hypertension--continue metoprolol succinate 25 mg by mouth every evening with hold parameters, and aspirin 81 mg daily Diabetes mellitus-- Adjust Lantus dosing as noted above due to decreased oral intake. Place on Accu-Cheks before meals and at bedtime with NovoLog coverage per scale. Hyperlipidemia--continue Crestor. Level of Care Telemetry Advanced Directives Existing Advance Directive: No Existing Living Will: No Existing Power of Linen Worker: No Resuscitation Status FULL RESUSCITATION VTE Prophylaxis VTE Risk Assessment Done? Y/N: Yes Risk Level: Moderate Given or contraindicated: SCD's Social Service Consult Cancer Patient Under [place] Resident Tracking Resident Involvement: Resident Care Provided Care Provided: Adult Hospital Medicine
[2017-03-16] MEDS ORDERED: GADAVIST IV PRN (23:00)
[2017-03-16 23:37] VITALS: BP 96/54; PULSE 87; TEMP 36.6; O2SAT 99; Ht 180.3 cm; Wt 81.9 kg
[2017-03-16 23:55] VITALS: PULSE 71; O2SAT 94
[2017-03-17] VITALS (7 sets, daily range): BP systolic 129–143; BP diastolic 68–71; PULSE 61–76; TEMP 36.9–39.3; O2SAT 92–97
[2017-03-17] MEDS: METOPROLOL SUCC 25MG EXT REL TAB PO SCH ×2 (00:02→20:27)
[2017-03-17] MEDS: INSULIN GLARGINE SOLOSTAR 100 UNITS/ML 3 ML PEN SC SCH ×3 (00:47→20:29)
[2017-03-17] MEDS ORDERED: CEFEPIME IV 1,000 MG in DEXTROSE 5% 100ML 100 ML IV SCH (02:00)
[2017-03-17] MEDS: CEFEPIME IV 1,000 MG in SYRINGE 0 ML IV SCH ×3 (02:07→17:21)
[2017-03-17] MEDS: ACETAMINOPHEN 325 MG TAB PO PRN (03:44)
--- NOTE | 2017-03-17 07:26 | DIAGNOSTIC IMAGING REPORT ---
Brain MRI WITH AND WITHOUT CONTRAST HISTORY: new diplopia after anesthesia TECHNIQUE: Multiplanar multisequence MRI of the brain was performed both before and after the intravenous administration of contrast. COMPARISON STUDY: Head CT 03/16/2017. FINDINGS: There is no mass, hematoma, midline shift, or acute infarct. The paranasal sinuses are clear. The mastoid air cells are clear. The ventricles and sulci demonstrate mild age-related involutional changes. Scattered foci of T2 hyperintensity seen within the periventricular and subcortical white matter are nonspecific but suggestive of mild microvascular ischemic changes. The major vascular flow voids at the skull base are well-maintained. 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 No abnormal enhancement. IMPRESSION: No acute intracranial abnormality. Scattered foci of T2 hyperintensity seen within the periventricular and subcortical white matter are nonspecific but favor mild microvascular ischemic change. Electronically signed by: Kamran Mirza M.D. 03/17/2017 7:25 AM Dictated Date/Time: 03/17/2017 7:18 AM
[2017-03-17] MEDS: ASPIRIN 81 MG ECTAB PO SCH (07:45)
[2017-03-17] MEDS: MULTIVITAMIN TAB PO SCH (07:45)
[2017-03-17] MEDS: ROSUVASTATIN CALCIUM 10 MG TAB PO SCH (07:46)
--- NOTE | 2017-03-17 09:36 | Clinical Documentation Query ---
DELIA Tamayo : CLINICAL DOCUMENTATION QUERIES QUERY 1 OF 2 Patient is an 81 year old male admitted for evaluation of diplopia and fever. Blood cultures from time of admission revealed growth of gram-negative bacilli (2/2). Patient is maintained on Cefepime at this time. In your clinical opinion is this patient being managed for: (x ) Gram-negative bacilli bacteremia, POA ( ) Not Agree ( ) Other explanation of clinical findings (Please Explain) ( ) Unable to determine (Please Define) ( ) Need to Discuss The medical record reflects the following clinical findings, treatment, and risk factors. Clinical Indicators: As above Treatment: Blood cultures, IV Cefepime Risk Factors: Recent stent replacement in malignant structure, ERCP, age, immunocompromised, incomplete drainage of biliary tree QUERY 2 OF 2 In your clinical opinion is this patient being managed for: ( ) Post procedural gram negative bacteremia, a complication of care ( ) Not Agree ( ) Other explanation of clinical findings (Please Explain) ( x ) Unable to determine (Please Define) ( ) Need to Discuss The medical record reflects the following clinical findings, treatment, and risk factors. Clinical Indicators: Post procedural bacteremia Treatment: IV antibiotics, cultures Risk Factors: Recent stent replacement in malignant structure, ERCP, age, immunocompromised, incomplete drainage of biliary tree Please clarify and document your clinical opinion in the progress notes and discharge summary. Terms such as "probable", "suspected", "likely", "questionable", "possible", or "still to be ruled out" are acceptable. IF IN AGREEMENT, YOU MUST DOCUMENT ABOVE DIAGNOSTIC STATEMENT IN DAILY PROGRESS NOTES AND DISCHARGE SUMMARY. This document is not part of the patient's record. Thank You, Romero Bangura, RN [phone]
[2017-03-17 10:29] LABS: ALBUMIN 2.6 gm/dl (3.4-5.0); CALCIUM 8.9 mg/dl (8.5-10.1); CREATININE 0.94 mg/dl (0.60-1.40); POTASSIUM 4.5 mmol/L (3.5-5.1); TOTAL PROTEIN 6.5 gm/dl (6.4-8.2)
[2017-03-17] MEDS ORDERED: ENOXAPARIN 40 MG/0.4 ML SYR SQ ONE (10:41)
[2017-03-17 10:45] LABS: BASO % 0.1 %; BASO ABS # 0.01 K/uL (0-0.2); EOS % 0.1 %; EOS ABS # 0.01 K/uL (0-0.5); HEMATOCRIT 37.6 % (42-52); HEMOGLOBIN 12.9 g/dL (14.0-18.0); IG# 0.04 K/uL (0.00-0.02); LYMPH % 7.1 %; LYMPH ABS # 0.72 K/uL (1.2-3.4); MEAN CORPUSCULAR HEMOGLOBIN 32.3 pg (25-34); MEAN PLATELET VOLUME 10.6 fL (7.4-10.4); MONO % 8.1 %; MONO ABS # 0.82 K/uL (0.11-0.59); NEUT % 84.2 %; NEUT ABS # 8.47 K/uL (1.4-6.5); PLATELET COUNT 130 K/uL (130-400); RED CELL DISTRIBUTION WIDTH CV 14.8 % (11.5-14.5); RED CELL DISTRIBUTION WIDTH SD 50.7 fL (36.4-46.3); WHITE BLOOD COUNT 10.07 K/uL (4.8-10.8)
[2017-03-17 10:50] LABS: MEAN CORPUSCULAR HGB CONC 34.3 g/dl (32-36)
[2017-03-17] MEDS ORDERED: GLUCOSE 40% GEL 15 GM TUBE PO PRN (11:15)
[2017-03-17] MEDS ORDERED: DEXTROSE 50% 50 ML SYR IV PRN (11:15)
[2017-03-17] MEDS ORDERED: GLUCOSE 10 TABS/TUBE PO PRN (11:15)
[2017-03-17] MEDS ORDERED: GLUCAGON FOR INJ 1 MG VIAL SQ PRN (11:15)
--- NOTE | 2017-03-17 11:30 | Progress Note ---
Progress Note Date of Service Mar 17, 2017. Progress Note ID consult dictated #[id number] A/P: 1. GNR sepsis - secondary recent GB stent replacement 2. Fever 3. Leukocytosis -resolved -Continue cefepime for now, follow cultures -Adjust abx based on culture, repeat today -thank you
--- NOTE | 2017-03-17 11:57 | INFECT. DISEASE CONSULTATION ---
DATE OF CONSULTATION: 03/17/2017 REQUESTING PHYSICIAN: Dr. Lindo. HISTORY OF PRESENT ILLNESS: This is an 81-year-old gentleman who was admitted to the hospital after he had episodes of double vision as well as fevers up to 101 degrees at home. He does have a history of pancreatic cancer and recently underwent a common bile duct stent replacement at [facility] on Friday. On the way home from [place], he did notice some episodes of double vision, but states these were intermittent. He did not have any fever at that time. Throughout the weekend, he continued to have episodes of double vision and had fevers up to 101 degrees. He states that he was told to report to the hospital if he had any fevers. So, he and his came to the Emergency Room yesterday. In the ER, blood cultures were obtained and 2/2 sets are growing gram negative rods. The patient has been placed on cefepime. His urinalysis is unremarkable with only 1-5 WBCs. He had a leukocytosis of 11 yesterday, which has improved to 10. His T-max overnight is 39.3. He denies any fevers or chills at this time. His current temperature is 36.9. He is tolerating medications without difficulty. He was ambulating down the hallway with PT prior to my examination. He currently denies any double vision, but states he has had episodes since admission to the hospital. His fevers are overall improved. His major complaint is fatigue. He denies any abdominal pain. He has no nausea, vomiting or diarrhea. He denies any chest pain, cough or shortness of breath. His remaining review of systems is reviewed and is unremarkable. PAST MEDICAL HISTORY: Significant for pancreatic cancer, type 2 diabetes, COPD, GERD, chronic kidney disease, hyperlipidemia, hypertension, and obstructive sleep apnea. PAST SURGICAL HISTORY: Significant for CABG and common bile duct stent placement with replacement this past Friday at [facility]. FAMILY HISTORY: Noncontributory. SOCIAL HISTORY: Significant for history of tobacco use. He denies any alcohol or drug use. He lives with his family. His is at the bedside during my exam. ALLERGIES: THERE IS A POTENTIAL ALLERGY TO CIPRO. HIS STATES HE DID HAVE ITCHING ON A PREVIOUS HOSPITALIZATION AFTER GETTING CIPRO, but his bilirubin was markedly elevated and she does not know if the itch was secondary to hyperbilirubinemia or Cipro. He has not had additional suppressant. She denies any hives with antibiotic administration. CURRENT MEDICATIONS: Include Lovenox, insulin, aspirin, multivitamins, Crestor, cefepime, Lantus, Toprol-XL, Tylenol, Maalox, milk of magnesia, and MiraLax. PHYSICAL EXAMINATION: VITAL SIGNS: He is afebrile currently, T-max is 39.3, pulse 62, respiratory rate 18, blood pressure 129/68, and oxygen saturation is 97% on room air. GENERAL: He is awake, alert and oriented x3. He is in no acute distress. HEENT: Mucous membranes are dry. Extraocular muscles are intact. There is no nuchal rigidity. HEART: Regular. LUNGS: Clear bilaterally. ABDOMEN: Soft, nontender, and nondistended. EXTREMITIES: There is no lower extremity edema. SKIN: Without rash. LABORATORY STUDIES: CBC reveals a white blood cell count of 10, hemoglobin 12.9, and platelets are 130. Chemistry panel reveals a sodium of 139, potassium 4.5, chloride 102, bicarbonate 29, BUN 12, creatinine 0.9, and glucose is 195. Bilirubin is 2.3. AST is 29, ALT is 52, and alkaline phosphatase is 168. Urinalysis is negative. Blood cultures are growing gram negative rods in 2/[address] of the abdomen and pelvis done yesterday shows a stent in place and a 1.8-cm pancreatic head mass noted. Mild gallbladder thickening, which is unchanged. Gallbladder distention has resolved. MRI of the head was done yesterday and is unremarkable. Chest x-ray was done in the ER and is negative. ASSESSMENT AND PLAN: Gram negative septicemia, likely secondary to source with recent bile duct manipulation. He will remain on cefepime. Repeat blood cultures will be obtained. Final antibiotic recommendations will be made based on culture and sensitivity. Thank you for this consultation. KERLINE
[2017-03-17] MEDS: INSULIN ASPART 100 UNITS/ML 3 ML PEN SC SCH ×3 (12:29→20:29)
--- NOTE | 2017-03-17 14:37 | Family Medicine Progress Note ---
Progress Note Date of Service Mar 17, 2017. Subjective Pt evaluation today including: conversation w/ patient, conversation w/ family , physical exam, chart review, lab review, review of inpatient medication list Pain: No pain reported PO Intake: Tolerating PO intake Voiding: no voiding problems Mr. Wood reports he feels as though "he is coming out of a fog today." He states he has not had an episode of double vision today, and denies syncopal episodes, dizziness, headache, visual problems, chest pain, shortness of breath and palpitations. He states he feels like he has the chills, and reports fatigue. Constitutional: + chills, + weakness, + fatigue, No sweats Eyes: No worsening of vision, No eye pain, No redness, No discharge, No diplopia Respiratory: No cough, No sputum, No wheezing, No shortness of breath Cardiovascular: No chest pain, No edema, No palpitations Abdomen: No pain, No nausea, No vomiting, No diarrhea, No constipation Male : No dysuria, No urinary frequency All Other Systems: Reviewed and Negative Medications Current Inpatient Medications Medications (Trade) Dose Ordered Sig/Dalia Route Start Time Stop Time Status Last Admin Dose Admin Acetaminophen (Tylenol Tab) 650 mg Q6H PRN PO 03/16/17 20:15 04/15/17 20:14 03/17/17 03:44 650 MG Al Hydrox/Mg Hydrox/Simethicone (Maalox Max Susp) 15 ml Q4H PRN PO 03/16/17 20:15 04/15/17 20:14 Magnesium Hydroxide (Milk Of Magnesia Susp) 30 ml Q12H PRN PO 03/16/17 20:15 04/15/17 20:14 Ondansetron HCl (Zofran Inj) 4 mg Q6H PRN IV 03/16/17 20:15 04/15/17 20:14 Polyethylene (Miralax Powder Packet) 17 gm DAILY PRN PO 03/16/17 20:15 04/15/17 20:14 Aspirin (Ecotrin Tab) 81 mg QAM PO 03/17/17 09:00 04/16/17 08:59 03/17/17 07:45 81 MG Insulin Glargine (Lantus Solostar Pen) 12 units BID SC 03/16/17 21:00 04/15/17 20:59 03/17/17 07:47 12 UNITS Metoprolol Succinate (Toprol Xl Tab) 25 mg QPM PO 03/16/17 21:00 04/15/17 20:59 Multivitamins (Multivitamin Tab) 1 tab QAM PO 03/17/17 09:00 04/16/17 08:59 03/17/17 07:45 1 TAB Rosuvastatin Calcium (Crestor Tab) 10 mg QAM PO 03/17/17 09:00 04/16/17 08:59 03/17/17 07:46 10 MG Gadobutrol (Gadavist) 8.4 mmol UD PRN IV 03/16/17 23:00 03/20/17 22:59 Cefepime HCl 1000 mg/Syringe 11 ml @ 5.5 mls/min Q8H IV 03/17/17 02:00 03/27/17 01:59 03/17/17 09:11 5.5 MLS/MIN Insulin Aspart (novoLOG ASPART) SLIDING SCALE G... ACHS SC 03/17/17 11:00 04/16/17 10:59 03/17/17 12:29 1 UNITS Enoxaparin Sodium (Lovenox Inj) 40 mg QAM SQ 03/18/17 09:00 04/17/17 08:59 Glucose (Glucose 40% Gel) 15-30 GRAMS 15 GRAMS... UD PRN PO 03/17/17 11:15 04/16/17 11:14 Glucose (Glucose Chew Tab) 4-8 Tablets 4 Tabl... UD PRN PO 03/17/17 11:15 04/16/17 11:14 Dextrose (Dextrose 50% 50ML Syringe) 25-50ML OF 50% DW IV FOR... UD PRN IV 03/17/17 11:15 04/16/17 11:14 Glucagon (Glucagon Inj) 1 mg UD PRN SQ 03/17/17 11:15 04/16/17 11:14 Objective Vital Signs Date Time Temp Pulse Resp B/P (MAP) Pulse Ox O2 Delivery O2 Flow Rate FiO2 03/17/17 12:30 37.6 03/17/17 12:00 Room Air 03/17/17 11:47 38.7 74 18 130/71 (90) 96 Room Air 03/17/17 08:06 36.9 62 18 129/68 (88) 97 Room Air 03/17/17 08:00 Room Air 03/17/17 05:00 36.9 03/17/17 04:00 CPAP 03/17/17 03:35 39.3 76 20 130/69 (89) 92 CPAP 03/16/17 23:55 71 94 21 03/16/17 23:37 36.6 87 18 96/54 99 Room Air 03/16/17 21:45 66 16 107/76 97 03/16/17 19:16 69 03/16/17 19:14 37.7 68 14 124/63 95 Room Air 03/16/17 18:33 63 20 144/71 93 Room Air 03/16/17 18:30 93 Room Air 03/16/17 17:26 37.0 71 16 106/62 96 Room Air Physical Exam General Appearance: WD/WN, no apparent distress Respiratory/Chest: chest non-tender, lungs clear, normal breath sounds, no respiratory distress, no accessory muscle use Cardiovascular: regular rate, rhythm, no edema, no gallop, no JVD, no murmur 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, no motor/sensory deficits, alert, normal mood/affect, oriented x 3 Laboratory Results Last 24 Hours Test 03/16/17 18:05 03/16/17 18:32 03/16/17 19:50 03/17/17 00:49 White Blood Count 11.14 K/uL Red Blood Count 4.30 M/uL Hemoglobin 14.2 g/dL Hematocrit 40.3 % Mean Corpuscular Volume 93.7 fL Mean Corpuscular Hemoglobin 33.0 pg Mean Corpuscular Hemoglobin Concent 35.2 g/dl Platelet Count 175 K/uL Mean Platelet Volume 11.3 fL Neutrophils (%) (Auto) 83.2 % Lymphocytes (%) (Auto) 6.4 % Monocytes (%) (Auto) 9.7 % Eosinophils (%) (Auto) 0.1 % Basophils (%) (Auto) 0.2 % Neutrophils # (Auto) 9.28 K/uL Lymphocytes # (Auto) 0.71 K/uL Monocytes # (Auto) 1.08 K/uL Eosinophils # (Auto) 0.01 K/uL Basophils # (Auto) 0.02 K/uL RDW Standard Deviation 52.3 fL RDW Coefficient of Variation 15.2 % Immature Granulocyte % (Auto) 0.4 % Immature Granulocyte # (Auto) 0.04 K/uL Prothrombin Time 11.6 SECONDS Prothromb Time International Ratio 1.1 Activated Partial Thromboplast Time 30.2 SECONDS Partial Thromboplastin Ratio 1.2 Sodium Level 135 mmol/L Potassium Level 3.4 mmol/L Chloride Level 97 mmol/L Carbon Dioxide Level 29 mmol/L Anion Gap 9.0 mmol/L Blood Urea Nitrogen 12 mg/dl Creatinine 1.01 mg/dl Est Creatinine Clear Calc Drug Dose 59.0 ml/min Estimated GFR () 79.4 Estimated GFR (Non- 68.5 BUN/Creatinine Ratio 11.5 Random Glucose 245 mg/dl Calcium Level 9.1 mg/dl Magnesium Level 1.9 mg/dl Total Bilirubin 2.5 mg/dl Aspartate Amino Transf (AST/SGOT) 37 U/L Alanine Aminotransferase (ALT/SGPT) 66 U/L Alkaline Phosphatase 195 U/L Total Protein 7.0 gm/dl Albumin 3.0 gm/dl Globulin 4.0 gm/dl Albumin/Globulin Ratio 0.7 Lipase 1069 U/L Thyroid Stimulating Hormone (TSH) 0.622 uIu/ml Bedside Lactic Acid Venous 1.38 mmol/L Urine Color DK YELLOW Urine Appearance CLEAR Urine pH 7.0 Urine Specific Dovray 1.035 Urine Protein 1+ Urine Glucose (UA) 3+ Urine Ketones TRACE Urine Occult Blood NEG Urine Nitrite NEG Urine Bilirubin NEG Urine Urobilinogen NEG Urine Leukocyte Esterase NEG Urine WBC (Auto) 1-5 /hpf Urine RBC (Auto) 0-4 /hpf Urine Hyaline Casts (Auto) 1-5 /lpf Urine Epithelial Cells (Auto) 10-20 /lpf Urine Bacteria (Auto) NEG Bedside Glucose 205 mg/dl Test 03/17/17 06:29 03/17/17 09:19 03/17/17 10:21 Bedside Glucose 131 mg/dl Sodium Level 139 mmol/L Potassium Level 4.5 mmol/L Chloride Level 102 mmol/L Carbon Dioxide Level 29 mmol/L Anion Gap 8.0 mmol/L Blood Urea Nitrogen 12 mg/dl Creatinine 0.94 mg/dl Est Creatinine Clear Calc Drug Dose 63.4 ml/min Estimated GFR () 86.6 Estimated GFR (Non- 74.7 BUN/Creatinine Ratio 12.4 Random Glucose 195 mg/dl Calcium Level 8.9 mg/dl Total Bilirubin 2.3 mg/dl Aspartate Amino Transf (AST/SGOT) 29 U/L Alanine Aminotransferase (ALT/SGPT) 52 U/L Alkaline Phosphatase 168 U/L Total Protein 6.5 gm/dl Albumin 2.6 gm/dl Globulin 3.9 gm/dl Albumin/Globulin Ratio 0.7 White Blood Count 10.07 K/uL Red Blood Count 4.00 M/uL Hemoglobin 12.9 g/dL Hematocrit 37.6 % Mean Corpuscular Volume 94.0 fL Mean Corpuscular Hemoglobin 32.3 pg Mean Corpuscular Hemoglobin Concent 34.3 g/dl Platelet Count 130 K/uL Mean Platelet Volume 10.6 fL Neutrophils (%) (Auto) 84.2 % Lymphocytes (%) (Auto) 7.1 % Monocytes (%) (Auto) 8.1 % Eosinophils (%) (Auto) 0.1 % Basophils (%) (Auto) 0.1 % Neutrophils # (Auto) 8.47 K/uL Lymphocytes # (Auto) 0.72 K/uL Monocytes # (Auto) 0.82 K/uL Eosinophils # (Auto) 0.01 K/uL Basophils # (Auto) 0.01 K/uL RDW Standard Deviation 50.7 fL RDW Coefficient of Variation 14.8 % Immature Granulocyte % (Auto) 0.4 % Immature Granulocyte # (Auto) 0.04 K/uL Assessment and Plan Mr. Wood is an 81 year old male with a history of pancreatic cancer who underwent recent CBD stent placement in [place] who now presents with new diplopia and fever. Diplopia - CT and MRI brain negative for acute intracranial pathology - diplopia resolved, will monitor for recurrence - could be secondary to infection Fever/bacteremia - Cultures grew gram negative bacilli, likely secondary to recent stent placement - CT abdomen showed interval placement of a common bile duct stent resulting in pneumobilia, 1.8 cm pancreatic head mass - CXR negative for infectious process and UA negative as well - does not meet criteria for sepsis - lactic acid normal and vitals WNL - WCC 11.14 - Thank you to ID for consult - continue cefepime and tailor abx based on final culture results - repeat blood culture to ensure resolving - Monitor on Telemetry Pancreatic cancer - Consult Dr Lopez - he recommended outpatient f/u once bacteremia has resolved as no acute intervention is warranted at this time HTN - Continue metoprolol T2DM - Home dose is Lantus 24 units at night. Here, he is on Lantus 12 units BID - sugar between 131 and 205 - added in sliding scale insulin Hyperlipidemia - Continue Crestor VTE: SCDs, 40mg SQ Lovenox daily Dispo: remains on telemetry Code status: Full Resident Tracking Resident Involvement: Resident Care Provided Care Provided: Adult Hospital Medicine Reviewed: Pt Seen/Exam by Me History Resident Physician Supervision Note: I interviewed and examined the patient. Discussed with Dr. Ross and agree with findings and plan as documented in the note. Any exceptions or clarifications are listed here: Pt reports he is still having diplopia depending on where he looks. He does not feel well, continued to spike some fevers today. BCxs growing out GNRs in all bottles. No CP or SOB, no abd pain. Denies headache, no stiff or painful neck. Vitals reviewed NAD, appears tired PERRLA RRR no mgr CTAB no wcr Neg Kernigs/[facility] Neuro: left eye with hypertropia medially at times, +vertical diplopia (saw 2 of my horizontal fingers on top of each other with upward gaze), and saw "one and a half" of my vertical finger with rightward lateral gaze, cover uncover test did not show any changes, otherwise CN were intact 81 yo male with a h/o pancreatic CA with recent biliary stent placement, here with GNR bacteremia and GNR sepsis POA possibly secondary to recent bile duct stent placement, also with diplopia. 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 No recent head trauma, MRI brain negative. -consult Neuro to see if concur with evaluation and see about need for further imaging perhaps to look for cerebral aneurysm GNR sepsis and GNR Bacteremia -continue Cefepime, await ID and sensitivities on BCxs -repeat BCxs to ensure clearing -will need 2 weeks of abx, likely could do po but will await cx results CAD s/p CABG/HTN/HL--stable, no acute issues, no new ischemic changes on ECGs -continue ASA, statin, beta adriano Documented By: Elif Lindo
[2017-03-18] VITALS (7 sets, daily range): BP systolic 103–138; BP diastolic 61–72; PULSE 51–71; TEMP 36.7–38.1; O2SAT 94–97
[2017-03-18] MEDS: ACETAMINOPHEN 325 MG TAB PO PRN ×2 (00:45→23:04)
[2017-03-18] MEDS: CEFEPIME IV 1,000 MG in SYRINGE 0 ML IV SCH ×3 (02:48→17:11)
[2017-03-18] MEDS: ENOXAPARIN 40 MG/0.4 ML SYR SQ SCH (07:59)
[2017-03-18] MEDS: ASPIRIN 81 MG ECTAB PO SCH (07:59)
[2017-03-18] MEDS: MULTIVITAMIN TAB PO SCH (07:59)
[2017-03-18] MEDS: ROSUVASTATIN CALCIUM 10 MG TAB PO SCH (07:59)
[2017-03-18] MEDS: INSULIN ASPART 100 UNITS/ML 3 ML PEN SC SCH ×4 (08:01→20:28)
[2017-03-18] MEDS: INSULIN GLARGINE SOLOSTAR 100 UNITS/ML 3 ML PEN SC SCH ×2 (08:01→20:32)
[2017-03-18 08:17] LABS: BASO % 0.4 %; BASO ABS # 0.03 K/uL (0-0.2); EOS % 0.7 %; EOS ABS # 0.05 K/uL (0-0.5); HEMATOCRIT 39.7 % (42-52); HEMOGLOBIN 13.9 g/dL (14.0-18.0); IG# 0.02 K/uL (0.00-0.02); LYMPH % 20.5 %; LYMPH ABS # 1.43 K/uL (1.2-3.4); MEAN CELL VOLUME 92.5 fL (80-100); MEAN CORPUSCULAR HEMOGLOBIN 32.4 pg (25-34); MEAN PLATELET VOLUME 11.1 fL (7.4-10.4); MONO % 13.9 %; MONO ABS # 0.97 K/uL (0.11-0.59); NEUT % 64.2 %; NEUT ABS # 4.46 K/uL (1.4-6.5); PLATELET COUNT 139 K/uL (130-400); RED CELL DISTRIBUTION WIDTH CV 14.6 % (11.5-14.5); RED CELL DISTRIBUTION WIDTH SD 49.2 fL (36.4-46.3); WHITE BLOOD COUNT 6.96 K/uL (4.8-10.8)
[2017-03-18 08:53] LABS: ALBUMIN 2.4 gm/dl (3.4-5.0); CALCIUM 8.9 mg/dl (8.5-10.1); CREATININE 0.92 mg/dl (0.60-1.40); POTASSIUM 3.6 mmol/L (3.5-5.1)
[2017-03-18 08:58] LABS: TOTAL PROTEIN 6.4 gm/dl (6.4-8.2)
--- NOTE | 2017-03-18 11:40 | Neurology Consultation ---
Neurology Consultation Date of Consultation: Mar 18, 2017. Attending Physician: Miguelito Fletcher D.O. Primary Care Physician: Zhang Beck M.D. Reason for Consultation: Consultation for diplopia in concern for a possible fourth cranial nerve palsy History of Present Illness Source: patient, hospital records This is a 81-year-old male presented with fevers and diplopia. He had a bile duct stent placed at [place] on Friday as part of his treatment for pancreatic cancer. When they were driving back home on the he started to notice intermittent of visual changes described as horizontal double vision. More recently patient reports it only seems to happen when he is looking to the left for a sustained amount of time. It does not happen initially when he looks to the left or right. He is not fully certain whether it occurs when he sometimes looking right. In addition the patient was febrile on presentation and has been treated for septicemia leave to be secondary to his recent bile duct stent placement. MRI of the brain report and images were reviewed by myself. No acute or subacute strokes. Patient has some mild T2 hyperintensities that are likely age- related. Otherwise patient denies any trouble swallowing, denies any eye pain. Denies any loss of vision. Denies any abnormal headaches. Denies any changes in his cognition. Denies any new numbness or weakness. Denies any trouble with walking. 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 Normal independent in activities of daily living. No current tobacco Smoking Status: Never smoker Smokeless Tobacco Use: No Alcohol Use: none Drug Use: none Marital Status: Housing Status: lives with family Occupation Status: retired Allergies Coded Allergies: Ciprofloxacin (Unverified Allergy, Intermediate, ITCHY, 03/16/17) Current Inpatient Medications Current Inpatient Medications Medications (Trade) Dose Ordered Sig/Dalia Route Start Time Stop Time Status Last Admin Dose Admin Acetaminophen (Tylenol Tab) 650 mg Q6H PRN PO 03/16/17 20:15 04/15/17 20:14 03/18/17 00:45 650 MG Al Hydrox/Mg Hydrox/Simethicone (Maalox Max Susp) 15 ml Q4H PRN PO 03/16/17 20:15 04/15/17 20:14 Magnesium Hydroxide (Milk Of Magnesia Susp) 30 ml Q12H PRN PO 03/16/17 20:15 04/15/17 20:14 Ondansetron HCl (Zofran Inj) 4 mg Q6H PRN IV 03/16/17 20:15 04/15/17 20:14 Polyethylene (Miralax Powder Packet) 17 gm DAILY PRN PO 03/16/17 20:15 04/15/17 20:14 Aspirin (Ecotrin Tab) 81 mg QAM PO 03/17/17 09:00 04/16/17 08:59 03/18/17 07:59 81 MG Insulin Glargine (Lantus Solostar Pen) 12 units BID SC 03/16/17 21:00 04/15/17 20:59 03/18/17 08:01 12 UNITS Metoprolol Succinate (Toprol Xl Tab) 25 mg QPM PO 03/16/17 21:00 04/15/17 20:59 03/17/17 20:27 25 MG Multivitamins (Multivitamin Tab) 1 tab QAM PO 03/17/17 09:00 04/16/17 08:59 03/18/17 07:59 1 TAB Rosuvastatin Calcium (Crestor Tab) 10 mg QAM PO 03/17/17 09:00 04/16/17 08:59 03/18/17 07:59 10 MG Gadobutrol (Gadavist) 8.4 mmol UD PRN IV 03/16/17 23:00 03/20/17 22:59 Cefepime HCl 1000 mg/Syringe 11 ml @ 5.5 mls/min Q8H IV 03/17/17 02:00 03/27/17 01:59 03/18/17 09:44 5.5 MLS/MIN Insulin Aspart (novoLOG ASPART) SLIDING SCALE G... ACHS SC 03/17/17 11:00 04/16/17 10:59 03/18/17 08:01 6 UNITS Enoxaparin Sodium (Lovenox Inj) 40 mg QAM SQ 03/18/17 09:00 04/17/17 08:59 03/18/17 07:59 40 MG Glucose (Glucose 40% Gel) 15-30 GRAMS 15 GRAMS... UD PRN PO 03/17/17 11:15 04/16/17 11:14 Glucose (Glucose Chew Tab) 4-8 Tablets 4 Tabl... UD PRN PO 03/17/17 11:15 04/16/17 11:14 Dextrose (Dextrose 50% 50ML Syringe) 25-50ML OF 50% DW IV FOR... UD PRN IV 03/17/17 11:15 04/16/17 11:14 Glucagon (Glucagon Inj) 1 mg UD PRN SQ 03/17/17 11:15 04/16/17 11:14 Review of Systems Noted generalized malaise and fatigue since having fevers. Complete review of systems otherwise negative except for the above-noted history of present illness. Physical Exam Vital Signs (Past 24 Hrs): Date Time Temp Pulse Resp B/P (MAP) Pulse Ox O2 Delivery O2 Flow Rate FiO2 03/18/17 11:26 36.8 69 18 103/64 (77) 95 Room Air 03/18/17 08:00 Room Air 03/18/17 07:41 36.7 51 18 128/72 (90) 97 CPAP 03/18/17 04:00 Room Air 03/18/17 02:55 36.9 56 17 106/61 (76) 95 CPAP 03/18/17 00:14 38.1 71 22 124/69 (87) 94 CPAP 03/17/17 23:59 Room Air 03/17/17 20:11 37.4 72 20 130/71 (90) 94 Room Air 03/17/17 19:52 Room Air 03/17/17 16:00 Room Air 03/17/17 15:50 37.2 61 18 143/70 (94) 95 Room Air 03/17/17 12:30 37.6 03/17/17 12:00 Room Air 03/17/17 11:47 38.7 74 18 130/71 (90) 96 Room Air Gen.: Patient is alert and sitting in chair, in no acute distress. HEENT: Normocephalic /atraumatic, no scleral icterus Heart: Regular rate and rhythm Extremities: No gross deformities or rashes noted Neurological examination: Mental status: Patient is alert and oriented x3. Attention and concentration normal for the situation. Good fund of knowledge. Remote and recent memory intact. Speech is fluent without any dysarthria or aphasia noted Cranial nerve: Funduscopic examination was unremarkable. No papilledema. Pupils equally round and reactive to light. Extraocular muscles intact without nystagmus. No cranial nerve palsy noted. It took sustain leftward gaze to reproduce subjective diplopia but no abnormal eye movements noted on exam. No facial asymmetry noted. Facial sensation intact. Tongue is midline. Good palatal elevation. Good shoulder shrug bilaterally. Hearing grossly intact to voice. Strength: 5/5 both proximal and distally in all extremities. There is no arm drift. Tone is normal. Sensation: Grossly intact to light touch in all extremities. Deep tendon reflexes: +1 in bilateral biceps, brachioradialis and patellar. Coordination: Patient had good finger to nose without dysmetria Station within the chair was normal Laboratory Results Past 24 Hours: 03/18/17 07:57 Red Blood Count 4.29, Mean Corpuscular Volume 92.5, Mean Corpuscular Hemoglobin 32.4, Mean Corpuscular Hemoglobin Concent 35.0, Mean Platelet Volume 11.1, Neutrophils (%) (Auto) 64.2, Lymphocytes (%) (Auto) 20.5, Monocytes (%) (Auto) 13.9, Eosinophils (%) (Auto) 0.7, Basophils (%) (Auto) 0.4, Neutrophils # (Auto ) 4.46, Lymphocytes # (Auto) 1.43, Monocytes # (Auto) 0.97, Eosinophils # (Auto ) 0.05, Basophils # (Auto) 0.03 03/18/17 07:57 Test 03/18/17 07:55 03/18/17 07:57 Bedside Glucose 94 mg/dl (70-99) White Blood Count 6.96 K/uL (4.8-10.8) Red Blood Count 4.29 M/uL (4.7-6.1) Hemoglobin 13.9 g/dL (14.0-18.0) Hematocrit 39.7 % (42-52) Mean Corpuscular Volume 92.5 fL (80-100) Mean Corpuscular Hemoglobin 32.4 pg (25-34) Mean Corpuscular Hemoglobin Concent 35.0 g/dl (32-36) Platelet Count 139 K/uL (130-400) Mean Platelet Volume 11.1 fL (7.4-10.4) Neutrophils (%) (Auto) 64.2 % Lymphocytes (%) (Auto) 20.5 % Monocytes (%) (Auto) 13.9 % Eosinophils (%) (Auto) 0.7 % Basophils (%) (Auto) 0.4 % Neutrophils # (Auto) 4.46 K/uL (1.4-6.5) Lymphocytes # (Auto) 1.43 K/uL (1.2-3.4) Monocytes # (Auto) 0.97 K/uL (0.11-0.59) Eosinophils # (Auto) 0.05 K/uL (0-0.5) Basophils # (Auto) 0.03 K/uL (0-0.2) RDW Standard Deviation 49.2 fL (36.4-46.3) RDW Coefficient of Variation 14.6 % (11.5-14.5) Immature Granulocyte % (Auto) 0.3 % Immature Granulocyte # (Auto) 0.02 K/uL (0.00-0.02) Anion Gap 9.0 mmol/L (3-11) Est Creatinine Clear Calc Drug Dose 64.8 ml/min Estimated GFR () 88.8 Estimated GFR (Non- 76.6 BUN/Creatinine Ratio 13.8 (10-20) Calcium Level 8.9 mg/dl (8.5-10.1) Total Bilirubin 1.7 mg/dl (0.2-1) Aspartate Amino Transf (AST/SGOT) 24 U/L (15-37) Alanine Aminotransferase (ALT/SGPT) 42 U/L (12-78) Alkaline Phosphatase 167 U/L (45-117) Total Protein 6.4 gm/dl (6.4-8.2) Albumin 2.4 gm/dl (3.4-5.0) Globulin 4.0 gm/dl (2.5-4.0) Albumin/Globulin Ratio 0.6 (0.9-2) Imaging As noted above in history of present illness Impression This is a 81-year-old male who presented with fevers 2 days after common bile duct stent placement and intermittent horizontal diplopia that started around the same time provoked by sustained gaze or focus. Physical examination and MRI are unremarkable. I could not appreciate any cranial nerve palsy on examination. In addition there was no anisocoria or other concerns for cranial nerve involvement. Considering the patient reports sustained gaze causing diplopia symptoms suggest that this may be more of a fatigue phenomenon in the setting of recent septicemia. Plan No additional neurological recommendations at this time. I do not think that the patient needs CTA since there is no objective cranial nerve palsy or anisocoria on examination. Okay to wear eye patch for symptomatic comfort if needed. Recommended switching between eyes to prevent developing weakness of one eye over the other. Anticipated that if this is fatigue related to septicemia, will improve over the next week or so. It continues to have diplopia and no improvement over the next week, I would recommend seeing ophthalmology as an outpatient for further evaluation. If has any worsening of symptoms or new neurological symptoms, can be seen in neurology clinic as needed. Thank you for allowing me to participate in this patient's care. There is any questions or concerns, feel free to call/page me
--- NOTE | 2017-03-18 13:40 | Family Medicine Progress Note ---
Progress Note Date of Service Mar 18, 2017. Subjective Pt evaluation today including: conversation w/ patient, conversation w/ family , physical exam, chart review, lab review, review of inpatient medication list Pain: No pain reported PO Intake: Tolerating PO intake Voiding: no voiding problems Mr. Wood reports he feels well today. He denies chest pain, shortness of breath, abdominal pain, urinary symptoms. His last BM was Friday AM and was normal. He states his double vision has been occurring intermittently, but only when he stares at something for a period of time, and otherwise reports no trouble with his vision. Constitutional: No fever, No chills, No sweats Respiratory: No cough, No sputum, No wheezing, No shortness of breath Cardiovascular: No chest pain, No orthopnea, No PND, No edema Abdomen: No pain, No nausea, No vomiting, No diarrhea Male : No dysuria, No urinary frequency All Other Systems: Reviewed and Negative Medications Current Inpatient Medications Medications (Trade) Dose Ordered Sig/Dalia Route Start Time Stop Time Status Last Admin Dose Admin Acetaminophen (Tylenol Tab) 650 mg Q6H PRN PO 03/16/17 20:15 04/15/17 20:14 03/18/17 00:45 650 MG Al Hydrox/Mg Hydrox/Simethicone (Maalox Max Susp) 15 ml Q4H PRN PO 03/16/17 20:15 04/15/17 20:14 Magnesium Hydroxide (Milk Of Magnesia Susp) 30 ml Q12H PRN PO 03/16/17 20:15 04/15/17 20:14 Ondansetron HCl (Zofran Inj) 4 mg Q6H PRN IV 03/16/17 20:15 04/15/17 20:14 Polyethylene (Miralax Powder Packet) 17 gm DAILY PRN PO 03/16/17 20:15 04/15/17 20:14 Aspirin (Ecotrin Tab) 81 mg QAM PO 03/17/17 09:00 04/16/17 08:59 03/18/17 07:59 81 MG Insulin Glargine (Lantus Solostar Pen) 12 units BID SC 03/16/17 21:00 04/15/17 20:59 03/18/17 08:01 12 UNITS Metoprolol Succinate (Toprol Xl Tab) 25 mg QPM PO 03/16/17 21:00 04/15/17 20:59 03/17/17 20:27 25 MG Multivitamins (Multivitamin Tab) 1 tab QAM PO 03/17/17 09:00 04/16/17 08:59 03/18/17 07:59 1 TAB Rosuvastatin Calcium (Crestor Tab) 10 mg QAM PO 03/17/17 09:00 04/16/17 08:59 03/18/17 07:59 10 MG Gadobutrol (Gadavist) 8.4 mmol UD PRN IV 03/16/17 23:00 03/20/17 22:59 Cefepime HCl 1000 mg/Syringe 11 ml @ 5.5 mls/min Q8H IV 03/17/17 02:00 03/27/17 01:59 03/18/17 09:44 5.5 MLS/MIN Insulin Aspart (novoLOG ASPART) SLIDING SCALE G... ACHS SC 03/17/17 11:00 04/16/17 10:59 03/18/17 12:11 4 UNITS Enoxaparin Sodium (Lovenox Inj) 40 mg QAM SQ 03/18/17 09:00 04/17/17 08:59 03/18/17 07:59 40 MG Glucose (Glucose 40% Gel) 15-30 GRAMS 15 GRAMS... UD PRN PO 03/17/17 11:15 04/16/17 11:14 Glucose (Glucose Chew Tab) 4-8 Tablets 4 Tabl... UD PRN PO 03/17/17 11:15 04/16/17 11:14 Dextrose (Dextrose 50% 50ML Syringe) 25-50ML OF 50% DW IV FOR... UD PRN IV 03/17/17 11:15 04/16/17 11:14 Glucagon (Glucagon Inj) 1 mg UD PRN SQ 03/17/17 11:15 04/16/17 11:14 Objective Vital Signs Date Time Temp Pulse Resp B/P (MAP) Pulse Ox O2 Delivery O2 Flow Rate FiO2 03/18/17 12:00 Room Air 03/18/17 11:26 36.8 69 18 103/64 (77) 95 Room Air 03/18/17 08:00 Room Air 03/18/17 07:41 36.7 51 18 128/72 (90) 97 CPAP 03/18/17 04:00 Room Air 03/18/17 02:55 36.9 56 17 106/61 (76) 95 CPAP 03/18/17 00:14 38.1 71 22 124/69 (87) 94 CPAP 03/17/17 23:59 Room Air 03/17/17 20:11 37.4 72 20 130/71 (90) 94 Room Air 03/17/17 19:52 Room Air 03/17/17 16:00 Room Air 03/17/17 15:50 37.2 61 18 143/70 (94) 95 Room Air Physical Exam General Appearance: WD/WN, no apparent distress Respiratory/Chest: chest non-tender, lungs clear, normal breath sounds, no respiratory distress, no accessory muscle use Cardiovascular: regular rate, rhythm, no edema, no gallop, no JVD, no murmur Abdomen: normal bowel sounds, non tender, soft, no organomegaly, no pulsatile mass Neurologic/Psychiatric: police and fire dispatcher II-XII nml as tested, no motor/sensory deficits, alert, normal mood/affect, oriented x 3 Laboratory Results Last 24 Hours Test 03/17/17 16:06 03/17/17 19:46 03/18/17 06:21 03/18/17 07:55 Bedside Glucose 208 mg/dl 208 mg/dl 101 mg/dl 94 mg/dl Test 03/18/17 07:57 03/18/17 11:23 White Blood Count 6.96 K/uL Red Blood Count 4.29 M/uL Hemoglobin 13.9 g/dL Hematocrit 39.7 % Mean Corpuscular Volume 92.5 fL Mean Corpuscular Hemoglobin 32.4 pg Mean Corpuscular Hemoglobin Concent 35.0 g/dl Platelet Count 139 K/uL Mean Platelet Volume 11.1 fL Neutrophils (%) (Auto) 64.2 % Lymphocytes (%) (Auto) 20.5 % Monocytes (%) (Auto) 13.9 % Eosinophils (%) (Auto) 0.7 % Basophils (%) (Auto) 0.4 % Neutrophils # (Auto) 4.46 K/uL Lymphocytes # (Auto) 1.43 K/uL Monocytes # (Auto) 0.97 K/uL Eosinophils # (Auto) 0.05 K/uL Basophils # (Auto) 0.03 K/uL RDW Standard Deviation 49.2 fL RDW Coefficient of Variation 14.6 % Immature Granulocyte % (Auto) 0.3 % Immature Granulocyte # (Auto) 0.02 K/uL Sodium Level 138 mmol/L Potassium Level 3.6 mmol/L Chloride Level 102 mmol/L Carbon Dioxide Level 28 mmol/L Anion Gap 9.0 mmol/L Blood Urea Nitrogen 13 mg/dl Creatinine 0.92 mg/dl Est Creatinine Clear Calc Drug Dose 64.8 ml/min Estimated GFR () 88.8 Estimated GFR (Non- 76.6 BUN/Creatinine Ratio 13.8 Random Glucose 98 mg/dl Calcium Level 8.9 mg/dl Total Bilirubin 1.7 mg/dl Aspartate Amino Transf (AST/SGOT) 24 U/L Alanine Aminotransferase (ALT/SGPT) 42 U/L Alkaline Phosphatase 167 U/L Total Protein 6.4 gm/dl Albumin 2.4 gm/dl Globulin 4.0 gm/dl Albumin/Globulin Ratio 0.6 Bedside Glucose 189 mg/dl Assessment and Plan Mr. Wood is an 81 year old male with a history of pancreatic cancer who underwent recent CBD stent placement in [place] who now presents with new diplopia and fever. Diplopia - CT and MRI brain negative for acute intracranial pathology - diplopia intermittent - thank you to neurology for consult - recommendations - no further workup given no objective cranial nerve palsy on exam. Likely related to fatigue/sepsis - can wear eye patch if symptoms arise, but should switch between eyes - if persists after resolution of sepsis, ophthalmology outpatient referral Fever/bacteremia - Cultures grew gram negative bacilli, likely secondary to recent stent placement - CT abdomen showed interval placement of a common bile duct stent resulting in pneumobilia, 1.8 cm pancreatic head mass - WCC decreased from 11.14 to 6.9 - given intraabdominal infection, concerned about anaerobic infection, but given improvement in symptoms and WCC with cefepime, do not need to add flagyl - Thank you to ID for consult - continue cefepime and tailor abx based on final culture results - awaiting repeat bcx to ensure resolution - tmax 38.1 over 24 hour period, currently afebrile Pancreatic cancer - Consult Dr Lopez - he recommended outpatient f/u once bacteremia has resolved as no acute intervention is warranted at this time HTN - Continue metoprolol T2DM - Home dose is Lantus 24 units at night. Here, he is on Lantus 12 units BID - sugar between 131 and 205 - continue sliding scale insulin Hyperlipidemia - Continue Crestor VTE: SCDs, 40mg SQ Lovenox daily Dispo: remains on telemetry - d/c home on oral abx when he remains afebrile. PT/ OT evals in place Code status: Full Resident Tracking Resident Involvement: Resident Care Provided Care Provided: Adult Hospital Medicine
--- NOTE | 2017-03-18 14:56 | Progress Note ---
Subjective Date of Service: Mar 18, 2017. Subjective pt seen in followup, resting in bed. fevers improved, tolerating abx. s/p neuro eval. double vision reportedly improving. Initial culture with gnr 2/2, no ID yet, repeat cultures pending. 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 (15) Pancreatitis Status: Acute Objective Vital Signs Date Time Temp Pulse Resp B/P (MAP) Pulse Ox O2 Delivery O2 Flow Rate FiO2 03/18/17 12:00 Room Air 03/18/17 11:26 36.8 69 18 103/64 (77) 95 Room Air 03/18/17 08:00 Room Air 03/18/17 07:41 36.7 51 18 128/72 (90) 97 CPAP 03/18/17 04:00 Room Air 03/18/17 02:55 36.9 56 17 106/61 (76) 95 CPAP 03/18/17 00:14 38.1 71 22 124/69 (87) 94 CPAP 03/17/17 23:59 Room Air 03/17/17 20:11 37.4 72 20 130/71 (90) 94 Room Air 03/17/17 19:52 Room Air 03/17/17 16:00 Room Air 03/17/17 15:50 37.2 61 18 143/70 (94) 95 Room Air Physical Exam General Appearance: WD/WN, no apparent distress ENT: pharynx normal Neck: supple Respiratory/Chest: normal breath sounds, no respiratory distress Cardiovascular: no edema Extremities: no pedal edema Skin: normal color, no rash Laboratory Results Item Value Date Time Blood Culture - Preliminary Resulted 03/16/17 1825 Blood Gram Negative Bacilli Blood Culture - Preliminary Resulted 03/16/17 1805 Blood Gram Negative Bacilli Last 24 Hours Test 03/17/17 16:06 03/17/17 19:46 03/18/17 06:21 03/18/17 07:55 Bedside Glucose 208 mg/dl 208 mg/dl 101 mg/dl 94 mg/dl Test 03/18/17 07:57 03/18/17 11:23 White Blood Count 6.96 K/uL Red Blood Count 4.29 M/uL Hemoglobin 13.9 g/dL Hematocrit 39.7 % Mean Corpuscular Volume 92.5 fL Mean Corpuscular Hemoglobin 32.4 pg Mean Corpuscular Hemoglobin Concent 35.0 g/dl Platelet Count 139 K/uL Mean Platelet Volume 11.1 fL Neutrophils (%) (Auto) 64.2 % Lymphocytes (%) (Auto) 20.5 % Monocytes (%) (Auto) 13.9 % Eosinophils (%) (Auto) 0.7 % Basophils (%) (Auto) 0.4 % Neutrophils # (Auto) 4.46 K/uL Lymphocytes # (Auto) 1.43 K/uL Monocytes # (Auto) 0.97 K/uL Eosinophils # (Auto) 0.05 K/uL Basophils # (Auto) 0.03 K/uL RDW Standard Deviation 49.2 fL RDW Coefficient of Variation 14.6 % Immature Granulocyte % (Auto) 0.3 % Immature Granulocyte # (Auto) 0.02 K/uL Sodium Level 138 mmol/L Potassium Level 3.6 mmol/L Chloride Level 102 mmol/L Carbon Dioxide Level 28 mmol/L Anion Gap 9.0 mmol/L Blood Urea Nitrogen 13 mg/dl Creatinine 0.92 mg/dl Est Creatinine Clear Calc Drug Dose 64.8 ml/min Estimated GFR () 88.8 Estimated GFR (Non- 76.6 BUN/Creatinine Ratio 13.8 Random Glucose 98 mg/dl Calcium Level 8.9 mg/dl Total Bilirubin 1.7 mg/dl Aspartate Amino Transf (AST/SGOT) 24 U/L Alanine Aminotransferase (ALT/SGPT) 42 U/L Alkaline Phosphatase 167 U/L Total Protein 6.4 gm/dl Albumin 2.4 gm/dl Globulin 4.0 gm/dl Albumin/Globulin Ratio 0.6 Bedside Glucose 189 mg/dl Assessment and Plan (1) Gram negative septicemia Assessment & Plan: likely gi source with recent biliary stent placement. will continue cefepime for now and narrow pending further micro data, follow repeat culture. ID service to follow.
[2017-03-18] MEDS: METOPROLOL SUCC 25MG EXT REL TAB PO SCH (20:31)
[2017-03-19] VITALS (7 sets, daily range): BP systolic 99–170; BP diastolic 63–78; PULSE 57–71; TEMP 36.4–36.7; O2SAT 94–98
[2017-03-19] MEDS: CEFEPIME IV 1,000 MG in SYRINGE 0 ML IV SCH ×2 (02:23→10:00)
[2017-03-19 07:11] LABS: HEMATOCRIT 37.3 % (42-52); HEMOGLOBIN 13.3 g/dL (14.0-18.0); MEAN CELL VOLUME 91.9 fL (80-100); MEAN CORPUSCULAR HEMOGLOBIN 32.8 pg (25-34); MEAN CORPUSCULAR HGB CONC 35.7 g/dl (32-36); MEAN PLATELET VOLUME 11.7 fL (7.4-10.4); PLATELET COUNT 131 K/uL (130-400); RED CELL DISTRIBUTION WIDTH CV 14.3 % (11.5-14.5); RED CELL DISTRIBUTION WIDTH SD 48.3 fL (36.4-46.3)
[2017-03-19 07:42] LABS: CALCIUM 8.2 mg/dl (8.5-10.1); CREATININE 0.77 mg/dl (0.60-1.40); POTASSIUM 3.7 mmol/L (3.5-5.1)
[2017-03-19] MEDS: ROSUVASTATIN CALCIUM 10 MG TAB PO SCH (08:02)
[2017-03-19] MEDS: ASPIRIN 81 MG ECTAB PO SCH (08:03)
[2017-03-19] MEDS: MULTIVITAMIN TAB PO SCH (08:03)
[2017-03-19] MEDS: ENOXAPARIN 40 MG/0.4 ML SYR SQ SCH (08:03)
[2017-03-19] MEDS: INSULIN ASPART 100 UNITS/ML 3 ML PEN SC SCH ×2 (08:11→11:54)
[2017-03-19] MEDS: INSULIN GLARGINE SOLOSTAR 100 UNITS/ML 3 ML PEN SC SCH (08:11)
[2017-03-19] MEDS ORDERED: SODIUM CHLORIDE 0.9% 500ML 500 ML IV SCH (11:15)
[2017-03-19] MEDS ORDERED: LEVOFLOXACIN 750 MG TAB PO ONE (11:15)
[2017-03-19] MEDS ORDERED: LEVO1TAB35 PO (11:46)
--- NOTE | 2017-03-19 11:57 | Discharge Instructions ---
Discharge Instructions Date of Service Mar 19, 2017. Admission Reason for Admission: Fever,Visual Field Defect Discharge Discharge Diagnosis / Problem: Bacteremia (bacteria in the bloodstream) Discharge Goals Goal(s): Decrease discomfort, Improve function Activity Recommendations Activity Limitations: resume your previous activity . Instructions / Follow-Up Instructions / Follow-Up You came to [facility] due to a fever after your procedure at [place]. The fever was caused by an infection in your bloodstream. We treated you with IV antibiotics, and luckily, the bacteria that is causing the infection is sensitive to all antibiotics, and so we will be discharging you home on another antibiotic called Levaquin, which you should take once a day for the next 11 days. While you were here, you also had some problems with double vision. Neurology saw you and you had a CT scan and MRI of your brain, which were both normal. The neurologist felt that your symptoms were likely due to your infection, but we are setting you up with an ophthalmology appointment in clinic to follow up with that. Please continue all your other home medications as prescribed, and follow up with your primary care doctor in a week. You can treat low grade fevers with over the counter Tylenol. If you experience high fevers, chills, abdominal or chest pain, nausea or vomiting, or have worsening double vision, please seek medical attention. Current Hospital Diet Patient's current hospital diet: Diabetes Type 2 Diet Discharge Diet Recommended Diet: Diabetes Type 2 Diet Pending Studies Studies pending at discharge: no Laboratory Results Hemoglobin A1c Test 01/01/17 10:10 Range/Units Estimated Average Glucose 186 mg/dl Hemoglobin A1c 8.1 H 4.5-5.6 % Lipid Panel Test 01/01/17 10:10 Range/Units Triglycerides Level 75 0-150 mg/dl Cholesterol Level 143 0-200 mg/dl HDL Cholesterol 44 mg/dl Cholesterol/HDL Ratio 3.3 LDL Cholesterol, Calculated 84 mg/dl Medical Emergencies . Who to Call and When: Medical Emergencies: If at any time you feel your situation is an emergency, please call 911 immediately. . Non-Emergent Contact Non-Emergency issues call your: Primary Care Provider . . "Provider Documentation" section prepared by Disha Ross. . VTE Core Measure Inpt VTE Proph given/why not?: Enoxaparin (Lovenox)SQ, SCD's
--- NOTE | 2017-03-19 12:09 | Discharge Summary ---
Discharge Summary Date of Service Mar 19, 2017. (Disha Ross M.D.) Discharge Summary Admission Date: Mar 16, 2017 at 20:20 Discharge Date: Mar 19, 2017 Discharge Disposition: Home Principal Diagnosis: Bacteremia Problems/Secondary Diagnoses: (1) Chronic Kidney Disease, Unspecified Status: Chronic (2) COPD (chronic obstructive pulmonary disease) Status: Chronic (3) Esophageal Reflux Status: Chronic (4) Hyperlipidemia Nec/Nos Status: Chronic (5) Hypertension Nos Status: Chronic (6) 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 7) Pancreatic mass Immunizations: Have You Had Influenza Vaccine: No Influenza Vaccine Date: Feb 20, 2006 History of Tetanus Vaccine?: Yes Tetanus Immunization Date: Jan 10, 2012 History of Pneumococcal: Yes Pneumococcal Date: Dec 30, 2010 History of Hepatitis B Vaccine: Unknown Consultations: Neurology Infectious Disease (Disha Ross M.D.) Medication Reconciliation New Medications: Levofloxacin (Levaquin) 750 Mg Tab 750 MG PO DAILY for 11 Days, #11 TAB Continued Medications: Aspirin (Aspirin Ec) 81 Mg Tab 81 MG PO QAM Cholecalciferol (Vitamin D3) 1,000 Unit Tab 1000 UNITS PO DAILY Insulin Glargine (Lantus) 100 Unit/Ml Inj 24 UNITS SC QPM Metoprolol Succinate (Metoprolol Succinate ER) 25 Mg Tabcr 25 MG PO QPM Multiple Vitamin (Multivitamin) 1 Tab Tab 1 TAB PO QAM, TAB Rosuvastatin Calcium (Crestor) 10 Mg Tab 10 MG PO QAM Discharge Exam Mr. Wood states he feels well today. He has had intermittent episodes of double vision, especially when he changes position from lying down to sitting up. Otherwise, he denies chest pain, SOB, fever/chills or nausea/vomiting. Review of Systems: Constitutional: No fever, No chills, No sweats Eyes: + diplopia, No eye pain Respiratory: No cough, No sputum, No wheezing, No shortness of breath, No dyspnea at rest, No hemoptysis Cardiovascular: No chest pain, No edema, No palpitations Abdomen: No pain, No nausea, No vomiting, No diarrhea Physical Exam: General Appearance: WD/WN, no apparent distress Respiratory/Chest: chest non-tender, lungs clear, normal breath sounds, no respiratory distress, no accessory muscle use Cardiovascular: regular rate, rhythm, no edema, no gallop, no JVD, no murmur , normal peripheral pulses Abdomen / GI: normal bowel sounds, non tender, soft, no organomegaly, no pulsatile mass Extremities: normal inspection, no calf tenderness, normal capillary refill , no pedal edema Neurologic/Psychiatric: director of vocational guidance II-XII nml as tested (Disha Ross M.D.) Hospital Course Mr. Wood came into [facility] due to a fever that occurred after his CBD stent placement at [place]. His blood cultures grew pansensitive klebsiella, likely from his recent surgery. He was treated in hospital with IV cefepime and responded well to this. He will be discharged home on an 11 day course of oral Levaquin. He was advised to return to the hospital if he experienced high fevers or chills. Of note, he also had intermittent episodes of diplopia. His CT and MRI of his brain were both negative, and he was seen by neurology who stated that it was likely due to the infection and that he could follow up with ophthalmology in the outpatient setting if it persisted. Given that he is still experiencing intermittent symptoms on his day of discharge, we have set up an outpatient ophthalmology follow up appointment for him. He was advised to continue his other home medications as prescribed and to follow up with oncology in clinic. Total Time Spent: Greater than 30 minutes This includes examination of the patient, discharge planning, medication reconciliation, and communication with other providers. (Disha Ross M.D.) I agree with resident assessment and plan and have seen and examined pt myself Resting comfortably in bed VSS Labs reviewed No pain or distress noted Cx pos for klebsiella which is pansens Will DC on levaquin No further recs at this time (Miguelito Fletcher D.OAndrae) Discharge Instructions Please refer to the electronic Patient Visit Report (Discharge Instructions) for additional information. (Disha Ross M.D.) Additional Copies To Zhang Beck M.D.
[2017-03-20] MEDS ORDERED: POLYETHYLENE (MIRALAX) 17 GM PACK PO SCH (09:00)
[2017-04-03] MEDS ORDERED: HYDR-5688 PO ×4 (11:12→11:29)
== END 2017-03-19 16:19 | disposition home or self-care (01) | DRG 920 ==
LOC: C.EDB 17:13 → C.2T 20:20 → EDBEDREQ 20:29 → ENRESERV 20:53
PROVIDERS: ADMIT Hospitalist; ATTEND Hospitalist
DX: T85.79XA Infection and inflammatory reaction due to other internal prosthetic devices, implants and grafts, initial encounter (principal); R78.81 Bacteremia; C25.9 Malignant neoplasm of pancreas, unspecified; C79.31 Secondary malignant neoplasm of brain; Y73.2 Prosthetic and other implants, materials and accessory gastroenterology and urology devices associated with adverse incidents; B96.1 Klebsiella pneumoniae [K. pneumoniae] as the cause of diseases classified elsewhere; H53.2 Diplopia; I12.9 Hypertensive chronic kidney disease with stage 1 through stage 4 chronic kidney disease, or unspecified chronic kidney disease; E11.22 Type 2 diabetes mellitus with diabetic chronic kidney disease; N18.9 Chronic kidney disease, unspecified; J44.9 Chronic obstructive pulmonary disease, unspecified; K21.9 Gastro-esophageal reflux disease without esophagitis; E78.5 Hyperlipidemia, unspecified; I25.10 Atherosclerotic heart disease of native coronary artery without angina pectoris; G47.33 Obstructive sleep apnea (adult) (pediatric); Z95.1 Presence of aortocoronary bypass graft; Z87.891 Personal history of nicotine dependence; Z79.82 Long term (current) use of aspirin; Z79.4 Long term (current) use of insulin; Z79.899 Other long term (current) drug therapy; Z88.1 Allergy status to other antibiotic agents

== ENCOUNTER → 2017-04-03 | Day surgery (SDC) | payer OTHER ==
[~2017-04-03] VITALS: Ht 180.3 cm; Wt 84.0 kg
[~2017-04-03] MED LIST changes: +ATROPINE SULFATE 0.1 MG/ML 5ML SYR IV PRN; +BACITRACIN 50000 UNIT VIAL ONE; +CEFAZOLIN SOD 1 GM VIAL ONE; -CIPR-255 PO; +CRS/10 PO; +EpHEDrine SULFATE INJ 50 MG/ML AMP IV PRN; +FENTANYL CITRATE INJ 50 MCG/1 ML 2 ML VIAL ONE; +HYDR-5688 PO; +HYDROCODONE/ACETAMOPHEN 5/325MG TAB PO PRN; +LACTATED RINGER'S 1000ML 1,000 ML IV SCH; +LIDOCAINE HCL 1% 20 ML VIAL ONE; +MIDAZOLAM HCL 1 MG/ML 2ML VIAL ONE; +MoRPHine SULFATE 2 MG/ML CARP IV PRN; +ONDANSETRON INJ 2 MG/ML 2 ML VIAL IV PRN; -PRLSR20 PO; +PROPOFOL IV EMULSION 10 MG/ML 20 ML VIAL IV ONE; -ROSU5TAB PO
[2017-04-03 10:08] LABS: HEMATOCRIT 36.7 % (42-52); MEAN CELL VOLUME 92.2 fL (80-100); MEAN CORPUSCULAR HEMOGLOBIN 33.7 pg (25-34); MEAN PLATELET VOLUME 10.7 fL (7.4-10.4); PLATELET COUNT 220 K/uL (130-400); RED BLOOD COUNT 3.98 M/uL (4.7-6.1); WHITE BLOOD COUNT 9.12 K/uL (4.8-10.8)
[2017-04-03 10:10] VITALS: BP 135/60; PULSE 58; TEMP 36.4; O2SAT 99; Ht 180.3 cm; Wt 84.0 kg
[2017-04-03 10:12] LABS: MEAN CORPUSCULAR HGB CONC 36.5 g/dl (32-36)
--- NOTE | 2017-04-03 11:09 | History & Physical Bridge Note ---
H&P Re-Evaluation Bridge Note: I have examined the patient, reviewed the History & Physical and in the interval since the performance of the History & Physical I have noted the following changes of clinical significance: No changes notedpt seen and examined at bedside will place right chest since fx left clavicle talked with Dr Jordan ok to proceed with port placemnt pt had initial chemo rx yesterday
--- NOTE | 2017-04-03 11:14 | Discharge Instructions ---
Discharge Instructions Date of Service Apr 03, 2017. Visit Reason for Visit: Pancreatic Cancer, Diabetes Discharge Discharge Diagnosis / Problem: A-port placement Discharge Goals Goal(s): Decrease discomfort Activity Recommendations Activity Limitations: as noted below Shower/Bathe: tomorrow Driving or Machine Use: resume 3 days after discharge Anesthesia . Post Anesthesia Instructions: If you have had General Anesthesia or IV Sedation: * Do not drive today. * Resume driving when surgeon permits. * Do not make important decisions or sign legal documents today. * Call surgeon for: 1. Temperature elevations greater than 101 degrees F. 2. Uncontrollable pain. 3. Excessive bleeding. 4. Persistent nausea and vomiting. 5. Medication intolerance (nausea, vomiting or rash). * For nausea and vomiting use only clear liquids such as: tea, soda, bouillon until nausea subsides, then gradually increase diet as tolerated. * If you have any concerns or questions, call your surgeon's office. If physician is unavailable and it is an emergency, call 911 or go to the nearest emergency room. . Instructions / Follow-Up Instructions / Follow-Up Dr. Mays office as needed for any questions or concerns, [phone] It is OK for the port to be used Diet Recommendations Recommended Home Diet: no limitations Pending Studies Studies pending at discharge: no Medical Emergencies . Who to Call and When: Medical Emergencies: If at any time you feel your situation is an emergency, please call 911 immediately. . Non-Emergent Contact Non-Emergency issues call your: Surgeon Call Non-Emergent contact if: you have a fever, temperature is above 101.5, your pain is not controlled, wound has increased redness . . "Provider Documentation" section prepared by Be Rizo. . [place] Drug Monitoring Program Search Results: no issues identified
--- NOTE | 2017-04-03 12:28 | [facility] Operative Report ---
Operative Report Operative Date Apr 03, 2017. Pre-Operative Diagnosis Pancreatic Adenocarcinoma, Need for Long-Term Intravenous Access Post-Operative Diagnosis Pancreatic Adenocarcinoma, Need for Long-Term Intravenous Access Procedure(s) Performed Insertion of Infusaport Right Subclavian Surgeon Dr. Mays Electrical Power Station Technician Surgeon(s) none Estimated Blood Loss 5 ml Findings as preop Specimens none per surgeon Anesthesia 1%xyl(10cc) and iv sedation Indications OR summary dictated confirmation number [id number] I attest to the content of the Intraoperative Record and any orders documented therein. Any exceptions are noted below.
--- NOTE | 2017-04-03 12:44 | DIAGNOSTIC IMAGING REPORT ---
CHEST ONE VIEW PORTABLE HISTORY: 81 years-old Male port placement status post placement of a right subclavian Ihphxq-l-[id number] catheter COMPARISON: Chest radiograph 03/16/2017 TECHNIQUE: Portable AP view of the chest FINDINGS: Cardiac silhouette is again mildly enlarged. Prior median sternotomy. Surgical clips project over the left mediastinum. Status post placement of a right subclavian Pmbkhi-q-[id number] catheter with distal tip terminating in the right atrium. No postprocedural pneumothorax. Hazy subsegmental opacities of the left lung base are noted suggesting area of scarring or atelectasis. Bones appear grossly intact. Degenerative changes are seen within the shoulders and spine. IMPRESSION: Status post placement of a right subclavian Hndqxz-i-Tojn catheter with distal tip terminating in the region of the right atrium. No postprocedural pneumothorax. The above report was generated using voice recognition software. It may contain grammatical, syntax or spelling errors. Electronically signed by: Adrian Jules M.D. 04/03/2017 12:42 PM Dictated Date/Time: 04/03/2017 12:41 PM
[2017-04-03 12:50] VITALS: BP 145/70; PULSE 51; TEMP 36.4; O2SAT 100
--- NOTE | 2017-04-03 12:56 | OPERATIVE REPORT ---
DATE OF OPERATION: 04/03/2017 PREOPERATIVE DIAGNOSIS: Adenocarcinoma of the pancreas, need for chemotherapy. POSTOPERATIVE DIAGNOSIS: Same. PROCEDURE: MRI PowerPort placement in the right subclavian. SURGEON: Dr. Mays. OPERATION AND FINDINGS: SUMMARY: The patient was brought into the operating room theater, roll placed underneath his shoulders, supine position. The right neck and chest was prepped with Betadine scrubbing solution and properly draped. Systemic antibiotics given. A timeout was had. At this point 1% Xylocaine without epinephrine, a total of about 10 mL would be used. We used just to infiltrate at the angle of the clavicle on the right side since the patient had a fracture of his left clavicle repaired years ago we used the right side. After injecting at the angle the patient placed in Trendelenburg, we accessed the subclavian vein on 1st try we were in the vein, but the guidewire seemed to be held up. We removed the system and tried again and this time it had a better purchase and we were able then to place under fluoroscopic guidance superior vena cava. At this point we then used more local anesthetic underneath this first puncture site 1.5 inches proximally and inferior in the superior aspect of the breast. We made a counter incision about 1.5 inches long, deepened through subcutaneous tissue. We then created a pocket for the reservoir sufficient enough, denuded the subQ for fatty tissue that we could easily palpate the prongs. At this point, once we had completed this, we then were able then to pass the guidewire into this incision that we had made. Fluoroscopically again we placed introducer peel away sheath followed by the catheter that we were able to position in the right ventricle, right atrial area. At this point, we then measured out the catheter, which appeared to be at about 23 cm. We used a black bolster brought up the reservoir and positioned and after we cut the catheter, secured it into place with a black bolster. We aspirated and flushed easily. The catheter was then placed in the previously made pocket, sutured in place approximately 3 places, but prior to doing that, we aspirated and flushed easily. Once this was secured, we reimaged the setting and the catheter appeared to be in the right atrial area. The wound was then closed 2-0 interrupted Dexon and then 4-0 Monocryl, Steri-Strips applied, 2 x 2 with an Op-Site dressing was applied. The procedure was tolerated well by the patient. Minimal blood loss. The patient was taken to recovery room in good condition. At this time chest x-ray is pending. I attest to the content of the Intraoperative Record and any orders documented therein. Any exception s are noted below.
[2017-04-03 13:25] VITALS: BP 162/72; PULSE 50; O2SAT 100
--- NOTE | 2017-04-03 13:38 | Anesthesiology Progress Note ---
Anesthesia Post Op Note Date & Time Apr 03, 2017 at 13:38 Vital Signs Pain Intensity: 0 Vital Signs Past 12 Hours Date Time Temp Pulse Resp B/P (MAP) Pulse Ox O2 Delivery O2 Flow Rate FiO2 04/03/17 12:50 36.4 51 16 145/70 100 Room Air 04/03/17 12:40 36.5 55 13 134/70 99 Room Air 04/03/17 12:30 56 13 129/69 99 Room Air 04/03/17 12:20 57 13 132/65 100 Nasal Cannula 3 04/03/17 12:14 36.6 61 13 119/65 100 Nasal Cannula 3 04/03/17 10:10 36.4 58 18 135/60 (85) 99 Room Air Notes Mental Status: alert / awake / arousable, participated in evaluation Pt Amnestic to Procedure: Yes Nausea / Vomiting: adequately controlled Pain: adequately controlled Airway Patency, RR, SpO2: stable & adequate BP & HR: stable & adequate Hydration State: stable & adequate Anesthetic Complications: no major complications apparent
[2017-04-03 13:55] VITALS: BP 124/64; PULSE 64; TEMP 36.3; O2SAT 98
== END | disposition home or self-care (01) ==
LOC: C.OR 09:15
PROVIDERS: ATTEND Surgery
DX: C25.9 Malignant neoplasm of pancreas, unspecified (principal); I25.10 Atherosclerotic heart disease of native coronary artery without angina pectoris; Z95.1 Presence of aortocoronary bypass graft; K83.1 Obstruction of bile duct; I67.2 Cerebral atherosclerosis; E11.319 Type 2 diabetes mellitus with unspecified diabetic retinopathy without macular edema; I10 Essential (primary) hypertension; E78.5 Hyperlipidemia, unspecified; K21.9 Gastro-esophageal reflux disease without esophagitis; M47.816 Spondylosis without myelopathy or radiculopathy, lumbar region; M19.90 Unspecified osteoarthritis, unspecified site; I45.10 Unspecified right bundle-branch block; G47.30 Sleep apnea, unspecified; Z87.891 Personal history of nicotine dependence; Z79.82 Long term (current) use of aspirin; Z79.899 Other long term (current) drug therapy; Z79.4 Long term (current) use of insulin

== ENCOUNTER → 2017-04-17 | Outpatient (CLI) | payer OTHER ==
[~2017-04-17] MED LIST changes: -ATROPINE SULFATE 0.1 MG/ML 5ML SYR IV PRN; -BACITRACIN 50000 UNIT VIAL ONE; -CEFAZOLIN SOD 1 GM VIAL ONE; -EpHEDrine SULFATE INJ 50 MG/ML AMP IV PRN; -FENTANYL CITRATE INJ 50 MCG/1 ML 2 ML VIAL ONE; -HYDROCODONE/ACETAMOPHEN 5/325MG TAB PO PRN; -LACTATED RINGER'S 1000ML 1,000 ML IV SCH; -LIDOCAINE HCL 1% 20 ML VIAL ONE; -MIDAZOLAM HCL 1 MG/ML 2ML VIAL ONE; -MoRPHine SULFATE 2 MG/ML CARP IV PRN; +NVLG SC; -ONDANSETRON INJ 2 MG/ML 2 ML VIAL IV PRN; +OXYC1TAB3 PO; -PROPOFOL IV EMULSION 10 MG/ML 20 ML VIAL IV ONE
--- NOTE | 2017-04-17 16:20 | DIAGNOSTIC IMAGING REPORT ---
CHEST 2 VIEWS ROUTINE HISTORY: COUGH COMPARISON: Chest 04/03/2017. FINDINGS: Poststernotomy changes. The heart is normal in size. No focal lung consolidations to suggest pneumonia. No evidence for pulmonary edema. No pleural effusions. No pneumothorax. Right cranium Port-A-Cath terminates in the distal SVC. Pneumobilia, unchanged. IMPRESSION: No acute process. Electronically signed by: Kamran Mirza M.D. 04/17/2017 4:19 PM Dictated Date/Time: 04/17/2017 4:17 PM
== END | disposition home or self-care (01) ==
LOC: C.RADBC 15:55
PROVIDERS: ATTEND Physician Assistant
DX: R05 Cough (principal)

== ENCOUNTER 2017-05-04 06:20 | Inpatient (IN) | payer OTHER ==
[~2017-05-04] VITALS: Ht 180.3 cm; Wt 86.3 kg
[~2017-05-04 06:20] MED LIST changes: -NVLG SC; -OXYC1TAB3 PO
[2017-05-04] MEDS ORDERED: MoRPHine SULFATE 4 MG/ML 1 ML CARP\\VIAL IV STA ×2 (06:41→11:50)
[2017-05-04] MEDS ORDERED: ONDANSETRON INJ 2 MG/ML 2 ML VIAL IV STA (06:41)
[2017-05-04] MEDS ORDERED: NVLG SC (06:57)
[2017-05-04 07:38] LABS: BASO % 0.3 %; BASO ABS # 0.03 K/uL (0-0.2); EOS % 0.2 %; EOS ABS # 0.02 K/uL (0-0.5); HEMATOCRIT 33.3 % (42-52); IG# 0.04 K/uL (0.00-0.02); LYMPH % 3.6 %; LYMPH ABS # 0.39 K/uL (1.2-3.4); MEAN CELL VOLUME 92.8 fL (80-100); MEAN CORPUSCULAR HEMOGLOBIN 30.6 pg (25-34); MEAN PLATELET VOLUME 11.8 fL (7.4-10.4); MONO % 1.5 %; MONO ABS # 0.17 K/uL (0.11-0.59); NEUT ABS # 10.33 K/uL (1.4-6.5); PLATELET COUNT 177 K/uL (130-400); RED CELL DISTRIBUTION WIDTH SD 46.6 fL (36.4-46.3); WHITE BLOOD COUNT 10.98 K/uL (4.8-10.8)
--- NOTE | 2017-05-04 07:43 | DIAGNOSTIC IMAGING REPORT ---
CT OF THE HEAD WITHOUT CONTRAST CLINICAL HISTORY: Fall with head injury. COMPARISON STUDY: Head CT and MRI of the brain March 16, 2017. CT DOSE: 1066.55 mGy.cm TECHNIQUE: Helical axial images of the head were obtained without IV contrast. Automated exposure control was utilized for the study. A dose lowering technique was utilized adhering to the principles of ALARA. FINDINGS: No acute intracranial hemorrhage, midline shift or mass effect is present. Ventricular system is stable. Basilar cisterns are patent. No extra-axial collections are present. 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 There are no findings to suggest acute dural sinus thrombosis or acute territorial infarct. There is no calvarial fracture. IMPRESSION: 1. No acute intracranial findings. No change since exams of March 16, 2017. 2. No calvarial fracture. Electronically signed by: Mandeep Avina M.D. 05/04/2017 7:42 AM Dictated Date/Time: 05/04/2017 7:39 AM
--- NOTE | 2017-05-04 07:46 | DIAGNOSTIC IMAGING REPORT ---
CT OF THE CERVICAL SPINE WITHOUT CONTRAST CLINICAL HISTORY: Fall. COMPARISON STUDY: Cervical spine CT January 10, 2012. TECHNIQUE: Helical axial images of the cervical spine were obtained without IV contrast. Sagittal and coronal reconstructions were viewed. A dose lowering technique was utilized adhering to the principles of ALARA. FINDINGS: Alignment of the cervical spine is anatomic. Craniocervical junction is intact. There is no acute cervical spine fracture. There is no prevertebral edema and facet joints are intact. There is mild multilevel degenerative disc disease and moderate multilevel facet arthrosis. IMPRESSION: No acute cervical spine fracture or subluxation. Electronically signed by: Mandeep Avina M.D. 05/04/2017 7:45 AM Dictated Date/Time: 05/04/2017 7:42 AM
[2017-05-04 07:49] LABS: ALBUMIN 2.9 gm/dl (3.4-5.0); CALCIUM 8.6 mg/dl (8.5-10.1); CREATININE 0.69 mg/dl (0.60-1.40); POTASSIUM 4.1 mmol/L (3.5-5.1)
[2017-05-04 07:52] LABS: TOTAL PROTEIN 6.2 gm/dl (6.4-8.2)
--- NOTE | 2017-05-04 08:05 | DIAGNOSTIC IMAGING REPORT ---
L HUMERUS MIN 2 VIEWS ROUTINE CLINICAL HISTORY: Left shoulder pain following fall. COMPARISON: None FINDINGS: Note is made of an old mid shaft fracture of the left clavicle. Note is made of an oblique comminuted mildly displaced fracture of the proximal shaft of the left humerus which extends the left humeral neck. There is associated mild angulation. IMPRESSION: Acute mildly displaced comminuted fracture of the proximal left humeral shaft extending to the left humeral neck. Electronically signed by: Mandeep Avina M.D. 05/04/2017 8:03 AM Dictated Date/Time: 05/04/2017 8:01 AM
--- NOTE | 2017-05-04 08:08 | DIAGNOSTIC IMAGING REPORT ---
PELVIS 1 OR 2 VIEW ROUTINE CLINICAL HISTORY: Left hip pain following fall. COMPARISON STUDY: CT of the abdomen and pelvis March 16, 2017. FINDINGS: The sacroiliac joints and symphysis pubis are intact. No acute fracture within the pelvis or hips is identified by radiography. There is mild osteoarthritis of both hips. IMPRESSION: No acute fracture within the pelvis or hips. Electronically signed by: Mandeep Avina M.D. 05/04/2017 8:07 AM Dictated Date/Time: 05/04/2017 8:05 AM
[2017-05-04] MEDS ORDERED: MoRPHine SULFATE 10 MG/ML CARP/VIAL IV STA (08:09)
[2017-05-04] MEDS ORDERED: OXYC1TAB3 PO (08:49)
[2017-05-04 12:30] VITALS: O2SAT 94; BMI 26.6
[2017-05-04] MEDS ORDERED: POLYETHYLENE (MIRALAX) 17 GM PACK PO PRN (13:15)
[2017-05-04] MEDS ORDERED: ACETAMINOPHEN 325 MG TAB PO SCH ×2 (13:15→18:30)
[2017-05-04] MEDS ORDERED: BISACODYL 10 MG SUPP PR PRN (13:15)
--- NOTE | 2017-05-04 13:27 | History and Physical ---
History & Physical Date & Time of Service: May 04, 2017 at 12:28 Chief Complaint: Fall/Humerus Fracture Primary Care Physician: Zhang Beck M.D. History of Present Illness Mr. Wood fell while getting up to the bathroom at night. He was having severe abdominal pain and constipation over the night. Denies blood or dark stools. He is unsure why he fell, his says it appears that he just went down. He remembers the fall and immediately knew he had broken his arm. He has been feeling somewhat weak. He is in the middle of his second round of chemo for pancreatic cancer. He has been eating and drinking ok except yesterday he did not feel like eating much because chemo causes a metallic taste in his mouth. He probably did not have enough fluids yesterday. He has been sob going up stairs since chemo started a couple of months ago. Blood sugars have been checked 3 times a day and they have been running in the high 200s to 300 since starting the chemo. ROS Constitutional: no chills, aches, sweats or fever Respiratory: no sob,cough, sputum, or wheezing Cardiac: no chest pain, palpitations, edema, orthopnea or lightheadedness GI: no nausea, vomiting, diarrhea : no dysuria or hesitancy Extremities: no joint pain or weakness Skin: no rash All other systems reviewed and negative Past Medical/Surgical History Medical Problems: Chronic Kidney Disease, Unspecified Status: Chronic COPD (chronic obstructive pulmonary disease) Status: Chronic Esophageal Reflux Status: Chronic Esophagitis Nos Status: Resolved Hx-Prostatic Malignancy Status: Resolved Hyperlipidemia Nec/Nos Status: Chronic Hypertension Nos Status: Chronic 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 Urinary Calculus Nos Status: Resolved Pancreatic cancer- follows w/Dr Jordan Type 2 DM, on Lantus COPD GERD CKD Hyperlipidemia HTN HEAVENLY PSHx: Coronary artery bypass CBD stent Family History Noncontributory Social History Smoking Status: Former Smoker Drug Use: none Marital Status: Housing status: lives with family Occupational Status: retired Immunizations History of Influenza Vaccine: No Influenza Vaccine Date: Feb 20, 2006 History of Tetanus Vaccine?: Yes Tetanus Immunization Date: Jan 10, 2012 History of Pneumococcal: Yes Pneumococcal Date: Dec 30, 2010 History of Hepatitis B Vaccine: Unknown Multi-Drug Resistant Organisms History of MDRO: No Allergies Coded Allergies: Levofloxacin (Verified Allergy, Severe, HIVES, 05/04/17) Ciprofloxacin (Unverified Allergy, Intermediate, ITCHY, 05/04/17) Home Medications Scheduled Aspirin (Aspirin Ec), 81 MG PO QAM Cholecalciferol (Vitamin D3), 1,000 UNITS PO DAILY Insulin Aspart (Novolog), UNITS SC UD Insulin Glargine (Lantus), 20 UNITS SC QPM Metoprolol Succinate (Metoprolol Succinate ER), 25 MG PO QPM Multiple Vitamin (Multivitamin), 1 TAB PO QAM Rosuvastatin Calcium (Crestor), 10 MG PO QAM Scheduled PRN Oxycodone Immediate Rel Tab (Roxicodone Ir), 5 MG PO Q6H PRN for Pain Physical Exam Vital Signs Date Time Temp Pulse Resp B/P (MAP) Pulse Ox O2 Delivery O2 Flow Rate FiO2 05/04/17 12:00 75 18 129/67 94 Room Air 05/04/17 10:00 68 20 113/69 95 Room Air 05/04/17 09:22 60 05/04/17 09:15 60 16 130/65 95 Room Air 05/04/17 08:22 74 16 119/64 96 Room Air 05/04/17 07:26 65 16 111/55 96 Room Air 05/04/17 07:00 96 Room Air 05/04/17 06:34 36.6 69 20 124/70 97 Room Air General: no distress Eyes: normal inspection, PERLL Respiratory: chest non tender, clear to auscultation, normal breath sounds, no respiratory distress, no accessory muscle use Cardiac: regular rate and rhythm, no rub or gallop, no murmur, no edema, no jvd GI/: active bowel sounds, no abd pain or tenderness, soft, non distended Extremities: normal range of motion, normal strength, left arm painful to palpation and in sling, fingers warm and pink bilaterally Neuro/Psych: drowsy and oriented x 3, normal mood and affect Skin: normal color, dry Diagnostics Laboratory Results Results Past 24 Hours Test 05/04/17 07:15 05/04/17 07:23 Range/Units White Blood Count 10.98 4.8-10.8 K/uL Red Blood Count 3.59 4.7-6.1 M/uL Hemoglobin 11.0 14.0-18.0 g/dL Hematocrit 33.3 42-52 % Mean Corpuscular Volume 92.8 80-100 fL Mean Corpuscular Hemoglobin 30.6 25-34 pg Mean Corpuscular Hemoglobin Concent 33.0 32-36 g/dl Platelet Count 177 130-400 K/uL Mean Platelet Volume 11.8 7.4-10.4 fL Neutrophils (%) (Auto) 94.0 % Lymphocytes (%) (Auto) 3.6 % Monocytes (%) (Auto) 1.5 % Eosinophils (%) (Auto) 0.2 % Basophils (%) (Auto) 0.3 % Neutrophils # (Auto) 10.33 1.4-6.5 K/uL Lymphocytes # (Auto) 0.39 1.2-3.4 K/uL Monocytes # (Auto) 0.17 0.11-0.59 K/uL Eosinophils # (Auto) 0.02 0-0.5 K/uL Basophils # (Auto) 0.03 0-0.2 K/uL RDW Standard Deviation 46.6 36.4-46.3 fL RDW Coefficient of Variation 14.0 11.5-14.5 % Immature Granulocyte % (Auto) 0.4 % Immature Granulocyte # (Auto) 0.04 0.00-0.02 K/uL Sodium Level 137 136-145 mmol/L Potassium Level 4.1 3.5-5.1 mmol/L Chloride Level 105 98-107 mmol/L Carbon Dioxide Level 27 21-32 mmol/L Anion Gap 5.0 3-11 mmol/L Blood Urea Nitrogen 21 7-18 mg/dl Creatinine 0.69 0.60-1.40 mg/dl Est Creatinine Clear Calc Drug Dose 86.4 ml/min Estimated GFR () 101.8 Estimated GFR (Non- 87.8 BUN/Creatinine Ratio 31.0 10-20 Random Glucose 192 70-99 mg/dl Calcium Level 8.6 8.5-10.1 mg/dl Total Bilirubin 0.8 0.2-1 mg/dl Direct Bilirubin 0.3 0-0.2 mg/dl Aspartate Amino Transf (AST/SGOT) 24 15-37 U/L Alanine Aminotransferase (ALT/SGPT) 46 12-78 U/L Alkaline Phosphatase 124 45-117 U/L Total Protein 6.2 6.4-8.2 gm/dl Albumin 2.9 3.4-5.0 gm/dl Lipase 416 73-393 U/L Bedside Glucose 179 70-99 mg/dl Diagnostic Radiology CT OF THE CERVICAL SPINE WITHOUT CONTRAST CLINICAL HISTORY: Fall. COMPARISON STUDY: Cervical spine CT January 10, 2012. TECHNIQUE: Helical axial images of the cervical spine were obtained without IV contrast. Sagittal and coronal reconstructions were viewed. A dose lowering technique was utilized adhering to the principles of ALARA. FINDINGS: Alignment of the cervical spine is anatomic. Craniocervical junction is intact. There is no acute cervical spine fracture. There is no prevertebral edema and facet joints are intact. There is mild multilevel degenerative disc disease and moderate multilevel facet arthrosis. IMPRESSION: No acute cervical spine fracture or subluxation. CT OF THE HEAD WITHOUT CONTRAST CLINICAL HISTORY: Fall with head injury. COMPARISON STUDY: Head CT and MRI of the brain March 16, 2017. CT DOSE: 1066.55 mGy.cm TECHNIQUE: Helical axial images of the head were obtained without IV contrast. Automated exposure control was utilized for the study. A dose lowering technique was utilized adhering to the principles of ALARA. FINDINGS: No acute intracranial hemorrhage, midline shift or mass effect is present. Ventricular system is stable. Basilar cisterns are patent. No extra-axial collections are present. 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 There are no findings to suggest acute dural sinus thrombosis or acute territorial infarct. There is no calvarial fracture. IMPRESSION: 1. No acute intracranial findings. No change since exams of March 16, 2017. 2. No calvarial fracture. L HUMERUS MIN 2 VIEWS ROUTINE CLINICAL HISTORY: Left shoulder pain following fall. COMPARISON: None FINDINGS: Note is made of an old mid shaft fracture of the left clavicle. Note is made of an oblique comminuted mildly displaced fracture of the proximal shaft of the left humerus which extends the left humeral neck. There is associated mild angulation. IMPRESSION: Acute mildly displaced comminuted fracture of the proximal left humeral shaft extending to the left humeral neck. PELVIS 1 OR 2 VIEW ROUTINE CLINICAL HISTORY: Left hip pain following fall. COMPARISON STUDY: CT of the abdomen and pelvis March 16, 2017. FINDINGS: The sacroiliac joints and symphysis pubis are intact. No acute fracture within the pelvis or hips is identified by radiography. There is mild osteoarthritis of both hips. IMPRESSION: No acute fracture within the pelvis or hips. EKG Normal sinus rhythm Left axis deviation Right bundle branch block Abnormal ECG When compared with ECG of 16-MAR-2017 18:19, T wave inversion no longer evident in Anterior leads Impression Assessment and Plan Mr. Wood is an 81 year old man here currently undergoing chemotherapy for pancreatic ca with possible mets to the liver, here for fall and broken left humerus Fall - patient is unsure why he fell and according to his , it appeared he just "went down" without tripping or any aggravating factor so would observe on tele for dysrhythmia - PT/OT eval - Head CT negative for fracture or bleed, pelvis xray negative for fracture, cervical spine ct negative for fracture - cbc, prp am Acute mildly displaced comminuted fracture of the proximal left humeral shaft - sling until seen by ortho - pain control with morphine, oxycodone, tylenol DMII - bsg ac & hs - home insulin glargine, ss Constipation - miralax, bisacodyl, stool softeners Full code DVT prophylaxis - scds Level of Care Telemetry Advanced Directives Existing Advance Directive: Yes Existing Living Will: Yes Existing Power of Pickle Water Pump Operator: Yes () Resuscitation Status FULL RESUSCITATION VTE Prophylaxis VTE Risk Assessment Done? Y/N: Yes Risk Level: Moderate Given or contraindicated: SCD's Social Service Consult Cancer Patient Under [place] Reviewed: Pt Seen/Exam by Me History DC Supervision Note: I interviewed and examined the patient. Discussed with DC Beck and agree with findings and plan as documented in the note. Any exceptions or clarifications are listed here: This patient is an 81-year-old male with pancreatic cancer undergoing chemotherapy, hyperlipidemia, hypertension, recent admission for diplopia and Klebsiella bacteremia after CBD stent, DM 2, who presents after a mechanical fall resulting in left proximal humerus fracture. He was having severe pain in the ER was given a total 14 mg morphine over many hours. Every time they tried to set him up to walk him prior to attempted discharge from the ER, he was very dizzy. The reports that he was not dizzy at all prior to the fall, but he has been unsteady on his feet since he started chemotherapy. She has been worried that he was going to have a fall. The patient denies any other symptoms at this time other than significant pain in the left arm. He is admitted for overnight observation due to likely opioid-induced dizziness and humerus fracture for orthopedic evaluation. Vitals reviewed No acute distress, alert awake oriented Acute rate and rhythm, no murmurs rubs Lungs clear to auscultation bilaterally, no wheezes crackles or rhonchi Abdomen positive bowel sounds soft nontender nondistended Extremities left upper extremity in a shoulder sling with significant tenderness to palpation over the proximal humerus, range of motion not tested due to severe pain, otherwise no edema, 2+ dorsalis pedis pulses bilaterally Skin-no rashes This patient is an 81-year-old male with pancreatic cancer undergoing chemotherapy, hyperlipidemia, hypertension, recent admission for diplopia and Klebsiella bacteremia after CBD stent, DM 2, who presents after a mechanical fall resulting in left proximal humerus fracture and likely opioid induced dizziness causing ambulatory dysfunction. -Admit to telemetry overnight to monitor for oversedation due to opioids -Provide lower dose of morphine as needed for pain, oxycodone by mouth as well as needed for pain -PT/OT consults -Orthopedics consult for humerus fracture -Continue other home medications for other conditions -Follow CBC given recent chemotherapy and possibility of some bleeding from the fracture -Okay to start heparin subcutaneous every 12 hours for DVT prophylaxis given high risk with ongoing malignancy Documented By: Elif Lindo
[2017-05-04] MEDS ORDERED: GLUCOSE 10 TABS/TUBE PO PRN (13:30)
[2017-05-04] MEDS ORDERED: DEXTROSE 50% 50 ML SYR IV PRN (13:30)
[2017-05-04] MEDS ORDERED: GLUCAGON FOR INJ 1 MG VIAL SQ PRN (13:30)
[2017-05-04] MEDS ORDERED: GLUCOSE 40% GEL 15 GM TUBE PO PRN (13:30)
[2017-05-04] MEDS: MoRPHine SULFATE 2 MG/ML CARP IV PRN ×2 (13:44→23:53)
--- NOTE | 2017-05-04 13:44 | EMERGENCY ROOM VISIT NOTE ---
History Report prepared by Vonda: Guillermo Multani Under the Supervision of: Dr. Onel Ambriz D.O. First contact with patient: 06:26 Stated Complaint: FALL/HUMERUS FRACTURE History of Present Illness The patient is an 81 year old male who presents to the Emergency Room with complaints of a sudden fall occurring prior to arrival. The patient states that he was walking to the bathroom when he slipped on the hardwood floor and fell on his left side. He is currently complaining of left arm pain. The patient notes that he did not hit his head, and he is not currently on any blood thinners. He states that all last night he kept trying to go to the bathroom to have a bowel movement, though he was unable to have one and took Dulcolax around 2200. The patient also notes that he is currently going through chemotherapy for pancreatic cancer, and his last dose was four days ago. Pt denies headache, neck pain, chest pain, back pain, abdominal pain, and any numbness. Source of History: patient Onset: prior to arrival Position: other (global ) Quality: other (fall) Timing: other (sudden) Associated Symptoms: No headache, No neck pain, No chest pain, No abdominal pain, No back pain Note: Associated symptoms: Arm pain Review of Systems See HPI for pertinent positives & negatives. A total of 10 systems reviewed and were otherwise negative. Past Medical & Surgical Medical Problems: (1) Chronic Kidney Disease, Unspecified (2) COPD (chronic obstructive pulmonary disease) (3) Diabetes (4) Esophageal Reflux (5) Esophagitis Nos (6) Gram negative septicemia (7) Hx-Prostatic Malignancy (8) Hyperlipidemia Nec/Nos (9) Hypertension Nos (10) Left wrist pain (11) Left wrist sprain (12) Obstructive Sleep Apnea (Adult) (Pediatric) (13) Pancreatic cancer (14) Scalp abrasion (15) Urinary Calculus Nos (16) Visual field defect Surgical Problems: (1) Aortocoronary Bypass Social History Smoking Status: Former Smoker Alcohol Use: none Drug Use: none Marital Status: Housing Status: lives with family Occupation Status: retired Current/Historical Medications Scheduled Aspirin (Aspirin Ec), 81 MG PO QAM Cholecalciferol (Vitamin D3), 1,000 UNITS PO DAILY Insulin Aspart (Novolog), UNITS SC UD Insulin Glargine (Lantus), 20 UNITS SC QPM Metoprolol Succinate (Metoprolol Succinate ER), 25 MG PO QPM Multiple Vitamin (Multivitamin), 1 TAB PO QAM Rosuvastatin Calcium (Crestor), 10 MG PO QAM Scheduled PRN Oxycodone Immediate Rel Tab (Roxicodone Ir), 5 MG PO Q6H PRN for Pain Allergies Coded Allergies: Levofloxacin (Verified Allergy, Severe, HIVES, 05/04/17) Ciprofloxacin (Unverified Allergy, Intermediate, ITCHY, 05/04/17) Physical Exam Vital Signs Date Time Temp Pulse Resp B/P (MAP) Pulse Ox O2 Delivery O2 Flow Rate FiO2 05/04/17 13:25 75 18 121/69 98 Room Air 05/04/17 12:30 94 Room Air 05/04/17 12:00 75 18 129/67 94 Room Air 05/04/17 10:00 68 20 113/69 95 Room Air 05/04/17 09:22 60 05/04/17 09:15 60 16 130/65 95 Room Air 05/04/17 08:22 74 16 119/64 96 Room Air 05/04/17 07:26 65 16 111/55 96 Room Air 05/04/17 07:00 96 Room Air 05/04/17 06:34 36.6 69 20 124/70 97 Room Air Physical Exam GENERAL: Laying in bed with left upper extremity in the sling. Minimal distress. HEAD: normal cephalic, atraumatic EYE EXAM: normal conjunctiva, PERRL and EOM's grossly intact OROPHARYNX: no exudate, no erythema, lips, buccal mucosa, and tongue normal and mucous membranes are moist EARS: TMs clear b/l NECK: Mild cervical paraspinal tenderness bilaterally. Supple, no nuchal rigidity, no adenopathy CHEST: stable to compression anteriorly and posteriorly LUNGS: clear to auscultation. Normal chest wall mechanics HEART: no murmurs, S1 normal and S2 normal ABDOMEN: abdomen soft, non-tender, normo-active bowel sounds, no masses, no rebound or guarding. PELVIS: stable to compression anteriorly and posteriorly BACK: Back is symmetrical on inspection and there is no deformity, no midline tenderness, no CVA tenderness. UPPER EXTREMITIES: Acute reproducible tenderness over the left proximal humerus. Flexion and extension of the elbow and wrist along with abduction and grasp of the digits 5/5. Radial pulse 2/4. Gross sensation intact. Abrasion over the left elbow. Full active and passive range of motion of all joints without tenderness to palpation with the exception of the left upper extremity. LOWER EXTREMITIES: full active and passive range of motion of all joints without tenderness to palpation NEURO EXAM: Normal sensorium, cranial nerves II-XII grossly intact, normal speech, no gross weakness of arms, no gross weakness of legs. GCS: 15. Medical Decision & Procedures ER Provider Diagnostic Interpretation: Radiology results as stated below per my review and the radiologist's interpretation: PELVIS 1 OR 2 VIEW ROUTINE CLINICAL HISTORY: Left hip pain following fall. COMPARISON STUDY: CT of the abdomen and pelvis March 16, 2017. FINDINGS: The sacroiliac joints and symphysis pubis are intact. No acute fracture within the pelvis or hips is identified by radiography. There is mild osteoarthritis of both hips. IMPRESSION: No acute fracture within the pelvis or hips. Electronically signed by: Mandeep Avina M.D. 05/04/2017 8:07 AM Dictated Date/Time: 05/04/2017 8:05 AM L HUMERUS MIN 2 VIEWS ROUTINE CLINICAL HISTORY: Left shoulder pain following fall. COMPARISON: None FINDINGS: Note is made of an old mid shaft fracture of the left clavicle. Note is made of an oblique comminuted mildly displaced fracture of the proximal shaft of the left humerus which extends the left humeral neck. There is associated mild angulation. IMPRESSION: Acute mildly displaced comminuted fracture of the proximal left humeral shaft extending to the left humeral neck. Electronically signed by: Mandeep Avina M.D. 05/04/2017 8:03 AM Dictated Date/Time: 05/04/2017 8:[address] OF THE HEAD WITHOUT CONTRAST CLINICAL HISTORY: Fall with head injury. COMPARISON STUDY: Head CT and MRI of the brain March 16, 2017. CT DOSE: 1066.55 mGy.cm TECHNIQUE: Helical axial images of the head were obtained without IV contrast. Automated exposure control was utilized for the study. A dose lowering technique was utilized adhering to the principles of ALARA. FINDINGS: No acute intracranial hemorrhage, midline shift or mass effect is present. Ventricular system is stable. Basilar cisterns are patent. No extra-axial collections are present. 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 There are no findings to suggest acute dural sinus thrombosis or acute territorial infarct. There is no calvarial fracture. IMPRESSION: 1. No acute intracranial findings. No change since exams of March 16, 2017. 2. No calvarial fracture. Electronically signed by: Mandeep Avina M.D. 05/04/2017 7:42 AM Dictated Date/Time: 05/04/2017 7:[address] OF THE CERVICAL SPINE WITHOUT CONTRAST CLINICAL HISTORY: Fall. COMPARISON STUDY: Cervical spine CT January 10, 2012. TECHNIQUE: Helical axial images of the cervical spine were obtained without IV contrast. Sagittal and coronal reconstructions were viewed. A dose lowering technique was utilized adhering to the principles of ALARA. FINDINGS: Alignment of the cervical spine is anatomic. Craniocervical junction is intact. There is no acute cervical spine fracture. There is no prevertebral edema and facet joints are intact. There is mild multilevel degenerative disc disease and moderate multilevel facet arthrosis. IMPRESSION: No acute cervical spine fracture or subluxation. Electronically signed by: Mandeep Avina M.D. 05/04/2017 7:45 AM Dictated Date/Time: 05/04/2017 7:42 AM Laboratory Results 05/04/17 07:15 Red Blood Count 3.59, Mean Corpuscular Volume 92.8, Mean Corpuscular Hemoglobin 30.6, Mean Corpuscular Hemoglobin Concent 33.0, Mean Platelet Volume 11.8, Neutrophils (%) (Auto) 94.0, Lymphocytes (%) (Auto) 3.6, Monocytes (%) (Auto) 1.5, Eosinophils (%) (Auto) 0.2, Basophils (%) (Auto) 0.3, Neutrophils # (Auto) 10.33, Lymphocytes # (Auto) 0.39, Monocytes # (Auto) 0.17, Eosinophils # (Auto) 0.02, Basophils # (Auto) 0.03 05/04/17 07:15 Test 05/04/17 07:15 05/04/17 07:23 White Blood Count 10.98 K/uL (4.8-10.8) Red Blood Count 3.59 M/uL (4.7-6.1) Hemoglobin 11.0 g/dL (14.0-18.0) Hematocrit 33.3 % (42-52) Mean Corpuscular Volume 92.8 fL (80-100) Mean Corpuscular Hemoglobin 30.6 pg (25-34) Mean Corpuscular Hemoglobin Concent 33.0 g/dl (32-36) Platelet Count 177 K/uL (130-400) Mean Platelet Volume 11.8 fL (7.4-10.4) Neutrophils (%) (Auto) 94.0 % Lymphocytes (%) (Auto) 3.6 % Monocytes (%) (Auto) 1.5 % Eosinophils (%) (Auto) 0.2 % Basophils (%) (Auto) 0.3 % Neutrophils # (Auto) 10.33 K/uL (1.4-6.5) Lymphocytes # (Auto) 0.39 K/uL (1.2-3.4) Monocytes # (Auto) 0.17 K/uL (0.11-0.59) Eosinophils # (Auto) 0.02 K/uL (0-0.5) Basophils # (Auto) 0.03 K/uL (0-0.2) RDW Standard Deviation 46.6 fL (36.4-46.3) RDW Coefficient of Variation 14.0 % (11.5-14.5) Immature Granulocyte % (Auto) 0.4 % Immature Granulocyte # (Auto) 0.04 K/uL (0.00-0.02) Anion Gap 5.0 mmol/L (3-11) Est Creatinine Clear Calc Drug Dose 86.4 ml/min Estimated GFR () 101.8 Estimated GFR (Non- 87.8 BUN/Creatinine Ratio 31.0 (10-20) Calcium Level 8.6 mg/dl (8.5-10.1) Total Bilirubin 0.8 mg/dl (0.2-1) Direct Bilirubin 0.3 mg/dl (0-0.2) Aspartate Amino Transf (AST/SGOT) 24 U/L (15-37) Alanine Aminotransferase (ALT/SGPT) 46 U/L (12-78) Alkaline Phosphatase 124 U/L (45-117) Total Protein 6.2 gm/dl (6.4-8.2) Albumin 2.9 gm/dl (3.4-5.0) Lipase 416 U/L (73-393) Bedside Glucose 179 mg/dl (70-99) Laboratory results per my review. Medications Administered Medications (Trade) Dose Ordered Sig/Dalia Route Start Time Stop Time Status Last Admin Dose Admin Morphine Sulfate (MoRPHine SULFATE INJ) 4 mg NOW STAT IV 05/04/17 06:41 05/04/17 06:42 DC 05/04/17 07:15 4 MG Ondansetron HCl (Zofran Inj) 4 mg NOW STAT IV 05/04/17 06:41 05/04/17 06:42 DC 05/04/17 07:15 4 MG Heparin Sodium (Porcine) (Heparin 100 Unit/ml 5ml Flush) 5 ml STK-MED ONCE .ROUTE 05/04/17 07:16 05/04/17 07:17 DC 05/04/17 07:16 5 ML Morphine Sulfate (MoRPHine SULFATE INJ) 6 mg NOW STAT IV 05/04/17 08:09 05/04/17 08:10 DC 05/04/17 08:22 6 MG Heparin Sodium (Porcine) (Heparin 100 Unit/ml 5ml Flush) 5 ml STK-MED ONCE .ROUTE 05/04/17 08:13 05/04/17 08:14 DC 05/04/17 08:22 5 ML Morphine Sulfate (MoRPHine SULFATE INJ) 4 mg NOW STAT IV 05/04/17 11:50 05/04/17 11:51 DC 05/04/17 11:56 4 MG ECG Indication: other (fall) Rate (beats per minute): 60 Rhythm: sinus rhythm Findings: RBBB, left axis deviation Comparison ECG Date: 03/16/17 Change: no significant change ED Course ED COURSE: Vital signs were reviewed and showed normal vitals The patients medical record was reviewed The above diagnostic studies were performed and reviewed. ED treatments and interventions as stated above. 0626: The patient was evaluated in room B10. A complete history and physical examination was performed. 0641: Zofran 4mg IV, Morphine Sulfate 4mg IV 0716: Heparin 100 unit/ 5ml Flush IV 0809: Morphine Sulfate 6mg IV 0811: I reevaluated the patient and updated him on the findings thus far. 0813: Heparin 100 unit/ 5ml Flush IV 0816: I discussed the patient's case with Dr. Castellon, Orthopedic Surgery, and he is going to follow up with the patient. 0906: I reevaluated the patient, and he got up and felt light headed, nauseous, and tired after getting the narcotics. 0919: I reassessed the patient, and he is feeling weak. He is going to get back into bed and be reassessed at a later time. 0951: On reassessment, the patient is feeling better. 1056: I reevaluated the patient, and he is dong well. 1150: I ordered Morphine Sulfate 4 mg IV. Upon reevaluation, the patient is having difficulty standing due to the dizziness.I discussed my findings with the patient and he understands and agrees with the treatment plan. Based on the patients age, coexisting illnesses, exam and lab findings the decision to treat as an inpatient was made. The patient remained stable while under my care. The patient will be evaluated for further management. 1205: I reviewed the patient's case with Dr. Lindo. She will evaluate the patient for further management. Medical Decision Differential diagnoses include major intracranial, cervical, spinal, thoracic, abdominal, pelvic and neurologic injury. Fracture, contusion, sprain, strain, laceration, abrasions included as well. Patient is an 81-year-old male who presents to ER for mechanical fall and left shoulder pain. He is currently undergoing chemotherapy for pancreatic cancer. Has a left proximal humeral fracture. CBC along BMP, LFTs, bilirubin lipase was remarkable for a lipase of 416. CT head and cervical spine were unremarkable. EKG was unchanged. Patient was observed for 5-6 hours. Multiple attempts to discharge patient were unsuccessful as he felt very dizzy and lightheaded and had worsening pain. He was given multiple doses of IV narcotics. He is admitted to internal medicine for pain control. [place] Drug Monitoring Program Search Results: patient reviewed within database, no issues identified Head Trauma GCS Score: 15 Medication Reconcilliation Current Medication List: was personally reviewed by me Blood Pressure Screening Patient's blood pressure: Normal blood pressure Consults Time Called: 08 Consulting Physician: Dr. Castellon, Orthopedic Surgery Returned Call: 0816 I discussed the patient's case with Dr. Castellon, Orthopedic Surgery, and he is going to follow up with the patient. Additional Consults: Time Called: 1150 Consulted Physician: Dr. Lindo Returned Call: 1205 Additional Comments: I reviewed the patient's case with Dr. Lindo. She will evaluate the patient for further management. Impression Primary Impression: Humeral head fracture Additional Impression: Fall Scribe Attestation The scribe's documentation has been prepared under my direction and personally reviewed by me in its entirety. I confirm that the note above accurately reflects all work, treatment, procedures, and medical decision making performed by me. Departure Information Dispostion Home / Self-Care Prescriptions Oxycodone Immediate Rel Tab (ROXICODONE IR) 5 Mg Tab 5 MG PO Q6H Y for Pain, #14 TAB Prov: AmbrizOnel, DO 05/04/17 Referrals Zhang Beck M.D. (PCP) Forms HOME CARE DOCUMENTATION FORM, IMPORTANT VISIT INFORMATION Patient Instructions ED Fx Shoulder, My [facility] Additional Instructions Please follow up with your primary care doctor with in the next 24 hours. Any worsening of your symptoms, please return to the ED immediately. This includes any fevers greater than 100.4, worsening pain, chest pain, shortness breath, persistent nausea, vomiting, unable to eat or drink, or any other concerning signs or symptoms from your standpoint. You were given medications during this visit that will inhibit your ability to drive, operate machinery and work. Please do NOT drive, operate machinery or work for the next 12hrs. You were also given a prescription for a narcotic. While taking this medication you should also not drive, operate machinery and or work. Please follow up with orthopedic surgery tomorrow morning. Please give the office a call for an appointment. Any worsening pain, tingling or numbness or increased swelling please return to the ER in regards to your left upper extremity. Please be mindful of constipation while taking the narcotic. He may benefit from taking MiraLAX [id number] to help loosen the stools. If you become constipated and cannot move her bowels he can take a small bottle of MiraLAX and mix with 64 ounces of Gatorade. He can drink 8 ounces every 15-30 minutes until he has a bowel movement. At this point please stop drinking the laxative as he will have diarrhea for the next several hours. Problem Qualifiers Primary Impression: Humeral head fracture Encounter type: initial encounter Fracture type: closed Laterality: left Qualified Codes: S42.292A - Other displaced fracture of upper end of left humerus, initial encounter for closed fracture Additional Impression: Fall Encounter type: initial encounter Qualified Codes: W19.XXXA - Unspecified fall, initial encounter
[2017-05-04] MEDS ORDERED: IV FLUIDS COMPLETED PRN (14:00)
[2017-05-04 14:15] VITALS: BP 128/72; PULSE 81; TEMP 36.8; O2SAT 96
[2017-05-04] MEDS: OXYCODONE HCL IR 5 MG TAB (IMMEDIATE RELEASE) PO PRN (14:38)
[2017-05-04 16:00] VITALS: O2SAT 96
[2017-05-04] MEDS: INSULIN ASPART 100 UNITS/ML 3 ML PEN SC SCH ×2 (17:27→20:39)
[2017-05-04] MEDS: ACETAMINOPHEN 325 MG TAB PO SCH ×2 (18:47→23:54)
[2017-05-04] MEDS: DOCUSATE SODIUM 100 MG CAP PO SCH (19:25)
[2017-05-04 20:04] VITALS: BP 127/74; PULSE 79; TEMP 36.5; O2SAT 96
[2017-05-04] MEDS: METOPROLOL SUCC 25MG EXT REL TAB PO SCH (20:36)
[2017-05-04] MEDS: INSULIN GLARGINE SOLOSTAR 100 UNITS/ML 3 ML PEN SC SCH (20:39)
[2017-05-04] MEDS: HEPARIN SOD 5000 UNIT/0.5 ML CARP SQ SCH (20:40)
[2017-05-04 23:12] VITALS: BP 112/65; PULSE 77; TEMP 36.7; O2SAT 96
[2017-05-05] VITALS (7 sets, daily range): BP systolic 80–146; BP diastolic 51–85; PULSE 74–98; TEMP 36.3–36.9; O2SAT 97–98; BMI 26.0
[2017-05-05] MEDS: OXYCODONE HCL IR 5 MG TAB (IMMEDIATE RELEASE) PO PRN ×3 (03:03→20:30)
[2017-05-05] MEDS: MoRPHine SULFATE 2 MG/ML CARP IV PRN ×2 (05:14→17:05)
[2017-05-05] MEDS: ACETAMINOPHEN 325 MG TAB PO SCH ×3 (06:00→18:38)
[2017-05-05 06:26] LABS: HEMATOCRIT 29.9 % (42-52); HEMOGLOBIN 10.2 g/dL (14.0-18.0); MEAN CELL VOLUME 94.3 fL (80-100); MEAN CORPUSCULAR HEMOGLOBIN 32.2 pg (25-34); MEAN CORPUSCULAR HGB CONC 34.1 g/dl (32-36); MEAN PLATELET VOLUME 11.1 fL (7.4-10.4); PLATELET COUNT 149 K/uL (130-400); RED CELL DISTRIBUTION WIDTH CV 14.1 % (11.5-14.5); RED CELL DISTRIBUTION WIDTH SD 47.5 fL (36.4-46.3); WHITE BLOOD COUNT 6.23 K/uL (4.8-10.8)
[2017-05-05 07:06] LABS: CALCIUM 8.4 mg/dl (8.5-10.1); CREATININE 0.76 mg/dl (0.60-1.40); POTASSIUM 4.2 mmol/L (3.5-5.1)
[2017-05-05] MEDS: INSULIN ASPART 100 UNITS/ML 3 ML PEN SC SCH ×4 (09:05→20:34)
[2017-05-05] MEDS: ROSUVASTATIN CALCIUM 10 MG TAB PO SCH (09:06)
[2017-05-05] MEDS: MULTIVITAMIN TAB PO SCH (09:06)
[2017-05-05] MEDS: DOCUSATE SODIUM 100 MG CAP PO SCH ×2 (09:06→20:27)
[2017-05-05] MEDS: ASPIRIN 81 MG ECTAB PO SCH (09:07)
[2017-05-05] MEDS: CHOLECALCIFEROL 1000 INTER.UNIT TAB PO SCH (09:07)
[2017-05-05] MEDS: HEPARIN SOD 5000 UNIT/0.5 ML CARP SQ SCH ×2 (09:08→20:33)
--- NOTE | 2017-05-05 09:51 | HISTORY & PHYSICAL EXAMINATION ---
DATE OF ADMISSION: 05/04/2017 CHIEF COMPLAINT: From orthopedic perspective left shoulder pain. HISTORY OF PRESENT ILLNESS: Massimo is delightful. I saw him in rounds this morning at approximately 7:00 a.m. He is 81 years of age. He has acute left upper extremity and left shoulder pain. He fell last night getting up to the bathroom, having abdominal pain, some constipation. He was unsure, little confused why he fell. He remembers the fall, immediately knew he had shoulder issues and brought to the hospital for evaluation and treatment. He was admitted to the hospital with a syncopal episode. He also has now a left shoulder fracture. PAST MEDICAL HISTORY: Significant for chronic kidney disease, COPD, reflux esophagitis, prostatic malignancy, resolved, hypertension, sleep apnea, urinary calculus, bypass surgery and now left shoulder surgery. I did read on his note he has pancreatic cancer and the patient is being treated. SOCIAL HISTORY: Negative currently, former smoker, and lives with family, retired. ALLERGIES: Listed. PHYSICAL EXAMINATION: GENERAL: He is alert, oriented and does appear confused, in moderate pain, voices his concern. He is hard of hearing, but we could communicate. He is sitting upright, getting dressed here this morning into a hospital gown. HEENT: Normal. No significant ecchymosis. There is some swelling about the left shoulder. The alignment looks appropriate. He is well braced in a shoulder immobilizer. VITAL SIGNS: Blood pressure 140/80, pulse 80. EXTREMITIES: Good vascularity, good sensation to the arm. X-rays demonstrated a fracture of the left proximal humerus mildly displaced. It is comminuted, it is relatively well aligned involves the humeral shaft and a left humeral neck and head. ASSESSMENT: Delightful gentleman, 81, compromise, undergoing chemotherapy for pancreatic CA with his multiple other issues, possible metastatic disease to the liver. He had a syncopal episode last night, now as a proximal shoulder injury fracture. DISPOSITION: He is admitted to the medical staff and on vancomycin for that. It is more of a medical problem currently. In a short run, we will treat his shoulder conservatively that means nonoperatively. The shoulder immobilizer let gravity keep it well aligned is appropriate treatment for him. Medication for pain control also appropriate. I would like to get him medically optimized, stabilized and then have him sent to the office. It is possible down the road over the next several days and weeks that surgery could be required or could be an option for him. I feel this will be treated nonoperatively in my hands or even with the shoulder specialist because of his other significant comorbidities. I will follow daily.
[2017-05-05] MEDS: SODIUM CHLORIDE 0.9% 1000ML 1,000 ML IV SCH ×2 (10:15→19:23)
[2017-05-05] MEDS ORDERED: SODIUM CHLORIDE 0.9% 500ML 500 ML IV SCH (10:30)
--- NOTE | 2017-05-05 10:32 | Hospitalist Progress Note ---
Hospitalist Progress Note Date of Service May 05, 2017. (Alvina Beck .DC) Subjective Pt evaluation today including: conversation w/ patient, physical exam, chart review, lab review, review of inpatient medication list Voiding: no voiding problems Mr. Wood was working with PT when I saw him. He had just had orthostatic blood pressures performed and he dropped to 73/48 when he stood. He did complain of some lightheadedness. He continues to have arm pain, rates it as a 4/10. ROS Constitutional: no chills, aches, sweats or fever Respiratory: no sob,cough, sputum, or wheezing Cardiac: no chest pain, palpitations, edema, orthopnea or lightheadedness GI: no abdominal pain, nausea, vomiting, diarrhea or constipation : no dysuria or hesitancy Extremities: see HPI Skin: no rash All other systems reviewed and negative (Alvina Beck CRNP) Medications Medications Administered Medications (Trade) Dose Ordered Sig/Dalia Route Start Time Stop Time Status Last Admin Dose Admin Morphine Sulfate (MoRPHine SULFATE INJ) 4 mg NOW STAT IV 05/04/17 06:41 05/04/17 06:42 DC 05/04/17 07:15 4 MG Ondansetron HCl (Zofran Inj) 4 mg NOW STAT IV 05/04/17 06:41 05/04/17 06:42 DC 05/04/17 07:15 4 MG Heparin Sodium (Porcine) (Heparin 100 Unit/ml 5ml Flush) 5 ml STK-MED ONCE .ROUTE 05/04/17 07:16 05/04/17 07:17 DC 05/04/17 07:16 5 ML Morphine Sulfate (MoRPHine SULFATE INJ) 6 mg NOW STAT IV 05/04/17 08:09 05/04/17 08:10 DC 05/04/17 08:22 6 MG Heparin Sodium (Porcine) (Heparin 100 Unit/ml 5ml Flush) 5 ml STK-MED ONCE .ROUTE 05/04/17 08:13 05/04/17 08:14 DC 05/04/17 08:22 5 ML Morphine Sulfate (MoRPHine SULFATE INJ) 4 mg NOW STAT IV 05/04/17 11:50 05/04/17 11:51 DC 05/04/17 11:56 4 MG Polyethylene (Miralax Powder Packet) 17 gm DAILY PRN PO 05/04/17 13:15 06/03/17 13:14 05/05/17 09:14 17 GM Bisacodyl (Dulcolax Supp) 10 mg DAILY PRN CA 05/04/17 13:15 06/03/17 13:14 05/05/17 10:09 10 MG Aspirin (Ecotrin Tab) 81 mg QAM PO 05/05/17 09:00 06/04/17 08:59 05/05/17 09:07 81 MG Cholecalciferol (Vitamin D Tab) 1,000 inter.unit DAILY PO 05/05/17 09:00 06/04/17 08:59 05/05/17 09:07 1,000 INTER.UNIT Insulin Glargine (Lantus Solostar Pen) 20 units QPM SC 05/04/17 21:00 06/03/17 20:59 05/04/17 20:39 20 UNITS Metoprolol Succinate (Toprol Xl Tab) 25 mg QPM PO 05/04/17 21:00 06/03/17 20:59 05/04/17 20:36 25 MG Multivitamins (Multivitamin Tab) 1 tab QAM PO 05/05/17 09:00 06/04/17 08:59 05/05/17 09:06 1 TAB Rosuvastatin Calcium (Crestor Tab) 10 mg QAM PO 05/05/17 09:00 06/04/17 08:59 05/05/17 09:06 10 MG Insulin Aspart (novoLOG ASPART) SLIDING SCALE If C... ACHS SC 05/04/17 16:00 06/03/17 15:59 05/04/17 20:39 2 UNITS Morphine Sulfate (MoRPHine SULFATE INJ) 2 mg Q4H PRN IV 05/04/17 13:15 05/18/17 13:14 05/05/17 05:14 2 MG Oxycodone HCl (Roxicodone Immediate Rel Tab) 5 mg Q4H PRN PO 05/04/17 13:15 05/18/17 13:14 05/05/17 07:43 5 MG Acetaminophen (Tylenol Tab) 650 mg Q4H PO 05/04/17 13:15 05/04/17 17:34 DC 05/04/17 14:38 650 MG Docusate Sodium (coLACE CAP) 100 mg BID PO 05/04/17 21:00 06/03/17 20:59 05/05/17 09:06 100 MG Heparin Sodium (Porcine) (Heparin Sq 5000 Unit/0.5ml) 5,000 unit Q12 SQ 05/04/17 21:00 06/03/17 20:59 05/05/17 09:08 5,000 UNIT Acetaminophen (Tylenol Tab) 650 mg Q6 PO 05/04/17 18:00 06/03/17 17:59 05/04/17 18:47 650 MG (Alvina Beck CRNP) Objective Vital Signs Date Time Temp Pulse Resp B/P (MAP) Pulse Ox O2 Delivery O2 Flow Rate FiO2 05/05/17 07:25 36.3 82 18 100/59 (73) 97 Room Air 05/05/17 04:00 36.7 85 18 107/69 (82) 98 Room Air 05/05/17 04:00 Room Air 05/05/17 00:00 Room Air 05/04/17 23:12 36.7 77 18 112/65 (81) 96 Room Air 05/04/17 20:04 36.5 79 20 127/74 (91) 96 Room Air 05/04/17 19:00 Room Air 05/04/17 16:00 96 Room Air 05/04/17 14:15 36.8 81 18 128/72 (90) 96 Room Air 05/04/17 13:25 75 18 121/69 98 Room Air 05/04/17 12:30 94 Room Air 05/04/17 12:00 75 18 129/67 94 Room Air (Alvina Beck CRNP) Physical Exam Notes: General: no distress Eyes: normal inspection, PERLL Respiratory: chest non tender, clear to auscultation, normal breath sounds, no respiratory distress, no accessory muscle use Cardiac: regular rate and rhythm, no rub or gallop, no murmur, no edema, no jvd GI/: active bowel sounds, no abd pain or tenderness, soft, non distended Extremities: normal range of motion, normal strength, non tender Neuro/Psych: alert and oriented x 3, normal mood and affect Skin: normal color, dry (Alvina Beck CRNP) Laboratory Results Last 24 Hours Test 05/04/17 15:20 05/04/17 16:21 05/04/17 20:14 05/05/17 06:11 Urine Color YELLOW Urine Appearance CLEAR Urine pH 5.5 Urine Specific [place] 1.027 Urine Protein NEG Urine Glucose (UA) 3+ Urine Ketones TRACE Urine Occult Blood NEG Urine Nitrite NEG Urine Bilirubin NEG Urine Urobilinogen NEG Urine Leukocyte Esterase NEG Urine WBC (Auto) 1-5 /hpf Urine RBC (Auto) 0-4 /hpf Urine Hyaline Casts (Auto) 1-5 /lpf Urine Epithelial Cells (Auto) 20-30 /lpf Urine Bacteria (Auto) NEG Bedside Glucose 238 mg/dl 175 mg/dl White Blood Count 6.23 K/uL Red Blood Count 3.17 M/uL Hemoglobin 10.2 g/dL Hematocrit 29.9 % Mean Corpuscular Volume 94.3 fL Mean Corpuscular Hemoglobin 32.2 pg Mean Corpuscular Hemoglobin Concent 34.1 g/dl RDW Standard Deviation 47.5 fL RDW Coefficient of Variation 14.1 % Platelet Count 149 K/uL Mean Platelet Volume 11.1 fL Sodium Level 136 mmol/L Potassium Level 4.2 mmol/L Chloride Level 103 mmol/L Carbon Dioxide Level 27 mmol/L Anion Gap 6.0 mmol/L Blood Urea Nitrogen 23 mg/dl Creatinine 0.76 mg/dl Est Creatinine Clear Calc Drug Dose 78.4 ml/min Estimated GFR () 97.8 Estimated GFR (Non- 84.4 BUN/Creatinine Ratio 30.0 Random Glucose 135 mg/dl Calcium Level 8.4 mg/dl Test 05/05/17 07:44 Bedside Glucose 140 mg/dl (Alvina Beck, DC) Assessment and Plan Mr. Wood is an 81 year old man here currently undergoing chemotherapy for pancreatic ca with possible mets to the liver, here for fall and broken left humerus Fall possibly due to orthostasis - patient is unsure why he fell and according to his , it appeared he just "went down" without tripping or any aggravating factor so would observe on tele for dysrhythmia - PT/OT eval - showed marked orthostasis - Head CT negative for fracture or bleed, pelvis xray negative for fracture, cervical spine ct negative for fracture - 500 ml nss bolus then NSS @ 125 ml/hr - TEDs Acute mildly displaced comminuted fracture of the proximal left humeral shaft - per ortho note - will see patient outpatient, no intervention at this time - continue sling - pain control with morphine, oxycodone, tylenol DMII - bsg ac & hs - home insulin glargine, ss - bsgs around 170 Constipation - miralax, bisacodyl, stool softeners - will add Fleets enema if patient unable to have bm today Full code DVT prophylaxis - scds, heparin subq (Alvina Beck ., DC) [employer] PAINT [employer]ER Physician Supervision Note: I interviewed and examined the patient. Discussed with Alvina Beck NP and agree with findings and plan as documented in the note. Any exceptions or clarifications are listed here: None Patient is currently treated anesthetic pancreatic cancer patient who sustained a fall and fractured his proximal humerus near the neck conservative management is planned by orthopedics patient has significant pain and difficulty with ADLs due to his arm in a sling Vitals are stable Cardiac exam is distant regular lungs are clear his good sensation to his hands is able to AB duct his thumb on his left hand Proximal humeral fracture conservative management consideration of rehabilitation and pain control case management to assist in placement Documented By: Diogenes Domínguez (Diogenes Domínguez M.D.)
[2017-05-05] MEDS: BOOST GLUCOSE CONTROL PO SCH (17:05)
[2017-05-05] MEDS: INSULIN GLARGINE SOLOSTAR 100 UNITS/ML 3 ML PEN SC SCH (20:33)
[2017-05-05] MEDS: METOPROLOL SUCC 25MG EXT REL TAB PO SCH (21:00)
[2017-05-06] VITALS (7 sets, daily range): BP systolic 92–167; BP diastolic 53–81; PULSE 72–82; TEMP 36.2–36.6; O2SAT 97–99
[2017-05-06] MEDS: ACETAMINOPHEN 325 MG TAB PO SCH ×4 (01:09→18:26)
[2017-05-06] MEDS: MoRPHine SULFATE 2 MG/ML CARP IV PRN ×2 (02:08→10:29)
[2017-05-06] MEDS: SODIUM CHLORIDE 0.9% 1000ML 1,000 ML IV SCH ×3 (03:32→23:14)
[2017-05-06] MEDS: OXYCODONE HCL IR 5 MG TAB (IMMEDIATE RELEASE) PO PRN (04:09)
[2017-05-06 07:15] LABS: HEMATOCRIT 29.1 % (42-52); HEMOGLOBIN 9.9 g/dL (14.0-18.0); MEAN CELL VOLUME 94.2 fL (80-100); MEAN PLATELET VOLUME 11.3 fL (7.4-10.4); PLATELET COUNT 134 K/uL (130-400); RED CELL DISTRIBUTION WIDTH CV 14.3 % (11.5-14.5); RED CELL DISTRIBUTION WIDTH SD 47.5 fL (36.4-46.3); WHITE BLOOD COUNT 4.93 K/uL (4.8-10.8)
[2017-05-06 07:40] LABS: CALCIUM 8.5 mg/dl (8.5-10.1); CREATININE 0.67 mg/dl (0.60-1.40); POTASSIUM 3.6 mmol/L (3.5-5.1)
--- NOTE | 2017-05-06 08:33 | Hospitalist Progress Note ---
Hospitalist Progress Note Date of Service May 06, 2017. (Ketty Rodriguez PA-C) Subjective Pt evaluation today including: conversation w/ patient, conversation w/ family , physical exam, chart review, lab review, review of studies Pain: Left wrist pain, left shoulder pain PO Intake: Good Voiding: no voiding problems The patient was seen and examined this morning. Pt reports doing ok, he is still having pain in the left shoulder. Pt also reports having moderate amount of left wrist pain which feels like he broke it. He reports not sleeping much at all overnight due to the pain, and was alternating between oxycodone and morphine IV. He reports when he fell he landed on his wrist. He has actually broken both of his wrists before and this feels similar. Pt notes still feeling some lightheadedness with standing and walking to the bathroom, this resolves when he sits back down quickly. His is present at bedside. She spoke with Dr. De La Torre this morning and pt was planned for chemo session tomorrow but he will not get this. He started chemo in the beginning of March and has had 3 sessions total. Pt missed one due to low counts and then was scheduled off a week. ROS: 6 point ROS reviewed and otherwise negative. (Ketty Rodriguez, SANDIP) Objective Vital Signs Date Time Temp Pulse Resp B/P (MAP) Pulse Ox O2 Delivery O2 Flow Rate FiO2 05/06/17 07:26 36.6 72 12 132/75 (94) 97 Room Air 74 102/60 (74) 82 92/53 (66) 05/06/17 04:05 36.6 74 18 156/80 (105) 98 Room Air 05/06/17 04:00 Room Air 05/06/17 00:00 Room Air 05/05/17 23:45 36.9 74 18 115/69 (84) 98 Room Air 76 83/54 (64) 05/05/17 19:54 36.7 90 18 127/73 (91) 97 Room Air 93 101/62 (75) 98 80/51 (61) 05/05/17 19:00 Room Air 05/05/17 16:00 Room Air 05/05/17 15:42 36.6 85 18 136/85 (102) 98 Room Air 05/05/17 12:00 Room Air 05/05/17 11:20 36.7 79 19 146/77 (100) 98 Room Air (Ketty Rodriguez PA-C) Physical Exam General Appearance: WD/WN, no apparent distress Eyes: PERRL, EOMI ENT: hearing grossly normal, pharynx normal Neck: supple, no JVD Respiratory/Chest: lungs clear, no respiratory distress, no accessory muscle use, + pertinent finding (on RA) Cardiovascular: regular rate, rhythm, + systolic murmur Abdomen: normal bowel sounds, non tender, soft Extremities: no pedal edema, no calf tenderness, + pertinent finding ( Tenderness with palpation of the left wrist over dorsal aspect, limited ability to move due to sling and pain. +edema. ) Neurologic/Psychiatric: alert, normal mood/affect, oriented x 3 Skin: normal color, warm/dry, + jaundice (mild on extremities) (Ketty Rodriguez PA-C) Laboratory Results Last 24 Hours Test 05/05/17 11:40 05/05/17 16:25 05/05/17 20:05 05/06/17 06:53 Bedside Glucose 163 mg/dl 138 mg/dl 213 mg/dl White Blood Count 4.93 K/uL Red Blood Count 3.09 M/uL Hemoglobin 9.9 g/dL Hematocrit 29.1 % Mean Corpuscular Volume 94.2 fL Mean Corpuscular Hemoglobin 32.0 pg Mean Corpuscular Hemoglobin Concent 34.0 g/dl RDW Standard Deviation 47.5 fL RDW Coefficient of Variation 14.3 % Platelet Count 134 K/uL Mean Platelet Volume 11.3 fL Sodium Level 139 mmol/L Potassium Level 3.6 mmol/L Chloride Level 107 mmol/L Carbon Dioxide Level 28 mmol/L Anion Gap 4.0 mmol/L Blood Urea Nitrogen 18 mg/dl Creatinine 0.67 mg/dl Est Creatinine Clear Calc Drug Dose 88.9 ml/min Estimated GFR () 103.0 Estimated GFR (Non- 88.9 BUN/Creatinine Ratio 27.0 Random Glucose 81 mg/dl Calcium Level 8.5 mg/dl Test 05/06/17 07:32 Bedside Glucose 75 mg/dl (Ketty Rodriguez PA-C) Assessment and Plan Mr. Wood is an 81 year old man here currently undergoing chemotherapy for pancreatic ca with possible mets to the liver, presented s/p fall and broken left humerus Fall possibly due to orthostasis/ Dehydration with vasovagal episode with attempting to have BM due to constipation. - patient is unsure why he fell and according to his , it appeared he just "went down" without tripping or any aggravating factor so would observe on tele for dysrhythmia - no events overnight on tele. - PT/OT eval - showed marked orthostasis - likely combination of dehydration and narcotic. Will stop oxycodone and switch to tramadol. Allow IV morphine for severe breakthrough pain. - Checking a xray of left wrist for fracture - Negative - results discussed with the patient and his at bedside. - Head CT negative for fracture or bleed, pelvis xray negative for fracture, cervical spine ct negative for fracture - Cont NSS @ 125 ml/hr - encourage po intake. - TEDs Acute mildly displaced comminuted fracture of the proximal left humeral shaft - per ortho note - will see patient outpatient, no intervention at this time - continue sling - Dr. Castellon in to see the pt this morning - pain control with morphine, tramadol, tylenol gallito Q6H DM II - Cont Lantus 20 U QPM along with ISS and accuchecks achs - bsgs remain stable around 150s. HTN - Continue metoprolol succ 25 mg qpm, aspirin 81 mg daily HLD - Cont statin therapy Constipation - resolved now - miralax, bisacodyl, stool softeners - likely due to dehydration CODE STATUS: Full code DVT prophylaxis - scds, heparin subq Disposition: From home, lives with , PT/OT consults, checking wrist xray (Ketty Rodriguez, SANDIP) i personally examined pt and verified all dickey points aislinn WISEMAN feeling better pain control now - better in general when not moving but hurts when moving vitals noted nad breathing unlabored arm in sling fall - ?vagal after large BM arm fx - sling, pain control, ongoing ortho f/u wrist pain - Xray neg, 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
[2017-05-06] MEDS: ROSUVASTATIN CALCIUM 10 MG TAB PO SCH (08:37)
[2017-05-06] MEDS: DOCUSATE SODIUM 100 MG CAP PO SCH ×2 (08:40→20:40)
[2017-05-06] MEDS: ASPIRIN 81 MG ECTAB PO SCH (08:40)
[2017-05-06] MEDS: MULTIVITAMIN TAB PO SCH (08:40)
[2017-05-06] MEDS: CHOLECALCIFEROL 1000 INTER.UNIT TAB PO SCH (08:40)
[2017-05-06] MEDS: BOOST GLUCOSE CONTROL PO SCH ×2 (08:41→17:03)
[2017-05-06] MEDS: INSULIN ASPART 100 UNITS/ML 3 ML PEN SC SCH ×4 (08:43→20:42)
[2017-05-06] MEDS: HEPARIN SOD 5000 UNIT/0.5 ML CARP SQ SCH ×2 (08:44→20:43)
--- NOTE | 2017-05-06 10:59 | DIAGNOSTIC IMAGING REPORT ---
L WRIST W/NAVICULAR MIN 3 VIEWS CLINICAL HISTORY: Wrist pain s/p fall trauma. Pain. COMPARISON: None. DISCUSSION: The bones and joint spaces appear intact. There is no evidence of fracture, dislocation or bony disease. Generalized moderate degenerative change. Mild osteopenia. No acute bony abnormality. IMPRESSION: Degenerative change. Osteopenia. No acute bony abnormality. The above report was generated using voice recognition software. It may contain grammatical, syntax or spelling errors. Electronically signed by: Zak Miranda M.D. 05/06/2017 10:57 AM Dictated Date/Time: 05/06/2017 10:55 AM
[2017-05-06] MEDS: TRAMADOL HCL 50 MG TAB PO SCH ×4 (12:50→22:06)
[2017-05-06] MEDS: METOPROLOL SUCC 25MG EXT REL TAB PO SCH (20:40)
[2017-05-06] MEDS: INSULIN GLARGINE SOLOSTAR 100 UNITS/ML 3 ML PEN SC SCH (20:43)
[2017-05-07] VITALS (7 sets, daily range): BP systolic 104–171; BP diastolic 64–82; PULSE 69–80; TEMP 36.5–36.9; O2SAT 96–98; Ht 180.3 cm; Wt 86.3 kg
[2017-05-07] MEDS: TRAMADOL HCL 50 MG TAB PO SCH ×2 (02:29→06:30)
[2017-05-07] MEDS: ACETAMINOPHEN 325 MG TAB PO SCH ×6 (05:57→23:37)
[2017-05-07] MEDS: SODIUM CHLORIDE 0.9% 1000ML 1,000 ML IV SCH (06:34)
[2017-05-07 06:54] LABS: HEMATOCRIT 28.8 % (42-52); HEMOGLOBIN 9.9 g/dL (14.0-18.0); MEAN CELL VOLUME 93.2 fL (80-100); MEAN CORPUSCULAR HGB CONC 34.4 g/dl (32-36); MEAN PLATELET VOLUME 11.1 fL (7.4-10.4); PLATELET COUNT 123 K/uL (130-400); RED CELL DISTRIBUTION WIDTH CV 14.1 % (11.5-14.5); RED CELL DISTRIBUTION WIDTH SD 46.4 fL (36.4-46.3); WHITE BLOOD COUNT 3.07 K/uL (4.8-10.8)
[2017-05-07 07:28] LABS: CREATININE 0.54 mg/dl (0.60-1.40); POTASSIUM 3.6 mmol/L (3.5-5.1)
[2017-05-07] MEDS: ASPIRIN 81 MG ECTAB PO SCH (08:01)
[2017-05-07] MEDS: BOOST GLUCOSE CONTROL PO SCH ×2 (08:01→17:19)
[2017-05-07] MEDS: DOCUSATE SODIUM 100 MG CAP PO SCH ×2 (08:01→20:26)
[2017-05-07] MEDS: CHOLECALCIFEROL 1000 INTER.UNIT TAB PO SCH (08:01)
[2017-05-07] MEDS: MULTIVITAMIN TAB PO SCH (08:02)
[2017-05-07] MEDS: ROSUVASTATIN CALCIUM 10 MG TAB PO SCH (08:02)
[2017-05-07] MEDS: INSULIN ASPART 100 UNITS/ML 3 ML PEN SC SCH ×4 (08:04→21:00)
--- NOTE | 2017-05-07 08:34 | ORTHOPEDICS PROGRESS NOTE ---
DATE: 05/07/2017 Followup examination for a left proximal humerus fracture. He is alert. He is oriented. He did not quite remember my name, but that is perfectly normal. He has no lightheadedness today, did have some lightheadedness yesterday with some orthostatic hypotension. From an orthopedic standpoint, he has a left proximal humerus fracture, I believe we will be treating nonoperatively. DISPOSITION: Hopefully, up and ambulatory today. He can be discharged home from my standpoint at any time. He should have a followup appointment within 1 week at [phone]. He is to call for an appointment. Keep on the shoulder immobilizer. He may need some home health as well. I do not know his home situation. Call if problems Dr. Castellon, .
[2017-05-07] MEDS: HEPARIN SOD 5000 UNIT/0.5 ML CARP SQ SCH (09:12)
[2017-05-07 09:47] LABS: HEMOGLOBIN A1C 9.5 % (4.5-5.6)
--- NOTE | 2017-05-07 14:21 | Hospitalist Progress Note ---
Hospitalist Progress Note Date of Service May 07, 2017. (Ketty Rodriguez PA-C) Subjective Pt evaluation today including: conversation w/ patient, conversation w/ family , physical exam, chart review, lab review, review of studies Pain: Mild L shoulder pain PO Intake: Good Voiding: no voiding problems The patient was seen and examined this morning. Pt reports doing better overnight and got some sleep. He thinks tramadol is controlling his pain well. Pt denies any lightheadedness with standing and ambulating to the bathroom. He hasn't been up much walking today but feels better at this point and would like to. Case management was in the room during the beginning of my visit and both pt and his would like referral to [facility] for acute rehab then possible discharge tomorrow. His is present at bedside and is agreeable to this. ROS: 6 point ROS reviewed and otherwise negative. (Ketty Rodriguez PA-C) Objective Vital Signs Date Time Temp Pulse Resp B/P (MAP) Pulse Ox O2 Delivery O2 Flow Rate FiO2 05/07/17 11:48 Room Air 05/07/17 10:25 76 123/68 (86) 05/07/17 10:25 75 121/71 (88) 05/07/17 10:25 71 144/79 (100) 05/07/17 08:00 Room Air 05/07/17 07:20 36.5 69 20 171/81 (111) 97 Room Air 05/07/17 04:00 Room Air 05/07/17 03:53 36.5 70 16 142/76 (98) 97 Room Air 05/07/17 00:01 36.9 71 16 144/76 (98) 98 CPAP 104/64 (77) 131/82 (98) 05/07/17 00:00 Room Air 05/06/17 20:15 36.2 82 20 147/80 (102) 99 05/06/17 20:00 Room Air 05/06/17 17:14 157/79 (105) 141/76 (97) 115/60 (78) 05/06/17 16:00 Room Air 05/06/17 15:26 36.5 81 20 167/81 (109) 98 (Ketty Rodriguez PA-C) Physical Exam Notes: General Appearance: WD/WN, no apparent distress Eyes: PERRL, EOMI ENT: hearing grossly normal, pharynx normal Neck: supple, no JVD Respiratory/Chest: lungs clear, no respiratory distress, no accessory muscle use, + pertinent finding (on RA) Cardiovascular: regular rate, rhythm, + systolic murmur Abdomen: normal bowel sounds, non tender, soft Extremities: no pedal edema, no calf tenderness, + pertinent finding ( Left shoulder in sling) Neurologic/Psychiatric: alert, normal mood/affect, oriented x 3 Skin: normal color, warm/dry, + jaundice (mild on lower extremities) (Ketty Rodriguez PA-C) Laboratory Results Last 24 Hours Test 05/06/17 16:31 05/06/17 20:21 05/07/17 06:35 05/07/17 07:29 Bedside Glucose 168 mg/dl 225 mg/dl 70 mg/dl White Blood Count 3.07 K/uL Red Blood Count 3.09 M/uL Hemoglobin 9.9 g/dL Hematocrit 28.8 % Mean Corpuscular Volume 93.2 fL Mean Corpuscular Hemoglobin 32.0 pg Mean Corpuscular Hemoglobin Concent 34.4 g/dl RDW Standard Deviation 46.4 fL RDW Coefficient of Variation 14.1 % Platelet Count 123 K/uL Mean Platelet Volume 11.1 fL Sodium Level 140 mmol/L Potassium Level 3.6 mmol/L Chloride Level 107 mmol/L Carbon Dioxide Level 26 mmol/L Anion Gap 7.0 mmol/L Blood Urea Nitrogen 15 mg/dl Creatinine 0.54 mg/dl Est Creatinine Clear Calc Drug Dose 110.3 ml/min Estimated GFR () 112.5 Estimated GFR (Non- 97.1 BUN/Creatinine Ratio 27.7 Random Glucose 70 mg/dl Estimated Average Glucose 226 mg/dl Hemoglobin A1c 9.5 % Calcium Level 8.0 mg/dl Test 05/07/17 11:28 Bedside Glucose 185 mg/dl (Ketty Rodriguez PA-C) Assessment and Plan Mr. Wood is an 81 year old man here currently undergoing chemotherapy for pancreatic ca with possible mets to the liver, presented s/p fall and broken left humerus Fall Secondary to Dehydration with vasovagal episode with attempting to have BM due to constipation. - patient is unsure why he fell and according to his , it appeared he just "went down" without tripping or any aggravating factor so would observe on tele for dysrhythmia - no events overnight on tele. - orthostatics improving - likely combination of dehydration and narcotic since improved after stopping oxycodone. Cont tramadol for pain. Allow IV morphine for severe breakthrough pain- but has not needed it since 05/04 evening. - xray of left wrist negative - Head CT negative for fracture or bleed, pelvis xray negative for fracture, cervical spine ct negative for fracture - Stopped fluids today, encourage PO intake, pt denies lightheadedness today. - TEDs - PT/OT eval - referrals placed to [facility], [place] for short term rehab Acute mildly displaced comminuted fracture of the proximal left humeral shaft - per ortho note - will see patient outpatient, no intervention at this time - continue sling - pain control tramadol, tylenol gallito Q6H and MS IV as above but hasn't needed this Pancreatic Carcinoma with liver mets - Follows with cancer center as outpatient - has completed 3 cycles of gemcitabine and abraxane. Next was scheduled for today actually, but pt missing this per heme/onc. - Plt count is slowly decreasing, today is 123, will stop heparin since pt ambulating better. Follow with daily CBC. - likely acute phase reactant as possibility for HIT is low at this time. DM II - Cont Lantus 20 U QPM along with ISS and accuchecks achs - bsgs remain stable around 150s. HTN - Continue metoprolol succ 25 mg qpm, aspirin 81 mg daily HLD - Cont statin therapy Constipation - resolved now - miralax, bisacodyl, stool softeners - likely due to dehydration CODE STATUS: Full code DVT prophylaxis - scds, heparin subq Disposition: From home, lives with , PT/OT consults, CM placed referral to [facility] (Ketty Rodriguez, PAJodee) i personally examined pt and verified all dickey points aislinn Rodriguez PAC feeling ok pain better controlled no lightheadedness vitals noted nad breathing unlabored no pallor or icterus arm fx - pain control reasonable, no surg per ortho lightheadedness resolved anticipate SNF once able to be arranged (Onel Anne D.O.)
[2017-05-07] MEDS: METOPROLOL SUCC 25MG EXT REL TAB PO SCH (20:26)
[2017-05-07] MEDS: INSULIN GLARGINE SOLOSTAR 100 UNITS/ML 3 ML PEN SC SCH (21:08)
[2017-05-08] VITALS: BP_SYST 105; BP_SYST 138; BP_SYST 99; BP_DIAS 61; BP_DIAS 67; BP_DIAS 79; PULSE 71; PULSE 73; PULSE 77; TEMP 36.7; O2SAT 92
[2017-05-08 04:00] VITALS: BP 156/88; PULSE 72; TEMP 36.8; O2SAT 97
[2017-05-08] MEDS: ACETAMINOPHEN 325 MG TAB PO SCH ×4 (05:23→23:39)
[2017-05-08 07:46] VITALS: BP_SYST 100; BP_SYST 121; BP_SYST 139; BP_DIAS 63; BP_DIAS 70; BP_DIAS 90; PULSE 78; TEMP 36.6; O2SAT 94
[2017-05-08] MEDS: MULTIVITAMIN TAB PO SCH (08:08)
[2017-05-08] MEDS: BOOST GLUCOSE CONTROL PO SCH ×2 (08:08→17:14)
[2017-05-08] MEDS: ASPIRIN 81 MG ECTAB PO SCH (08:09)
[2017-05-08] MEDS: ROSUVASTATIN CALCIUM 10 MG TAB PO SCH (08:09)
[2017-05-08] MEDS: CHOLECALCIFEROL 1000 INTER.UNIT TAB PO SCH (08:09)
[2017-05-08] MEDS: DOCUSATE SODIUM 100 MG CAP PO SCH ×2 (08:09→20:50)
[2017-05-08] MEDS: INSULIN ASPART 100 UNITS/ML 3 ML PEN SC SCH ×4 (08:12→20:23)
[2017-05-08 08:45] LABS: HEMATOCRIT 27.9 % (42-52); HEMOGLOBIN 9.6 g/dL (14.0-18.0); MEAN CELL VOLUME 93.3 fL (80-100); MEAN CORPUSCULAR HEMOGLOBIN 32.1 pg (25-34); MEAN CORPUSCULAR HGB CONC 34.4 g/dl (32-36); MEAN PLATELET VOLUME 11.1 fL (7.4-10.4); PLATELET COUNT 100 K/uL (130-400); RED CELL DISTRIBUTION WIDTH CV 14.1 % (11.5-14.5); RED CELL DISTRIBUTION WIDTH SD 46.9 fL (36.4-46.3)
[2017-05-08 09:19] LABS: CALCIUM 8.8 mg/dl (8.5-10.1); CREATININE 0.67 mg/dl (0.60-1.40); POTASSIUM 3.7 mmol/L (3.5-5.1)
--- NOTE | 2017-05-08 10:44 | Hospitalist Progress Note ---
Hospitalist Progress Note Date of Service May 08, 2017. (Ketty Rodriguez PA-C) Subjective Pt evaluation today including: conversation w/ patient, conversation w/ family , physical exam, chart review, lab review, review of studies Pain: Mild Left shoulder pain PO Intake: Good Voiding: no voiding problems The patient was seen and examined this morning. Pts Preethi is present at bedside with him. Pt feels his pain is slightly better controlled at this point , but worse with certain movements, especially when getting out of bed. He has been ambulating in the room without difficulty, and has not had any episodes of lightheadedness since two days ago. Pt was up and walked with PT and OT yesterday and did better per the notes, but he is having trouble remembering if he did this today. Pt denies any other acute complaints. ROS: 6 point ROS reviewed and otherwise negative. (Ketty Rodriguez PA-C) Objective Vital Signs Date Time Temp Pulse Resp B/P (MAP) Pulse Ox O2 Delivery O2 Flow Rate FiO2 05/08/17 08:00 Room Air 05/08/17 07:46 36.6 78 18 139/90 (106) 94 Room Air 121/70 (87) 100/63 (75) 05/08/17 04:00 36.8 72 20 156/88 (110) 97 CPAP 05/08/17 04:00 Room Air 05/08/17 00:00 36.7 71 20 138/79 (98) 92 CPAP 73 105/67 (80) 77 99/61 (74) 05/08/17 00:00 Room Air 05/07/17 20:28 36.8 77 18 128/74 (92) 97 Room Air 05/07/17 20:00 Room Air 05/07/17 16:54 71 134/74 (94) 77 107/73 (84) 80 119/66 (83) 05/07/17 15:57 36.6 79 20 130/79 (96) 96 Room Air 05/07/17 15:50 Room Air 05/07/17 11:48 Room Air 05/07/17 10:25 76 123/68 (86) 05/07/17 10:25 75 121/71 (88) 05/07/17 10:25 71 144/79 (100) (Ketty Rodriguez PA-C) Physical Exam Notes: General Appearance: WD/WN, no apparent distress Eyes: PERRL, EOMI ENT: hearing grossly normal, pharynx normal Neck: supple, no JVD Respiratory/Chest: lungs clear, no respiratory distress, no accessory muscle use, + pertinent finding (on RA) Cardiovascular: regular rate, rhythm, + systolic murmur Abdomen: normal bowel sounds, non tender, soft Extremities: no pedal edema, no calf tenderness, + pertinent finding ( Left shoulder in sling, improved mobility of the left wrist with squeezing band, pronation and supination) Neurologic/Psychiatric: alert, normal mood/affect, oriented x 3 Skin: normal color, warm/dry, + jaundice (mild on lower extremities) (Ketty Rodriguez, GUSC) Laboratory Results Last 24 Hours Test 05/07/17 11:28 05/07/17 16:14 05/07/17 20:34 05/08/17 07:41 Bedside Glucose 185 mg/dl 188 mg/dl 124 mg/dl 100 mg/dl Test 05/08/17 08:30 White Blood Count 3.90 K/uL Red Blood Count 2.99 M/uL Hemoglobin 9.6 g/dL Hematocrit 27.9 % Mean Corpuscular Volume 93.3 fL Mean Corpuscular Hemoglobin 32.1 pg Mean Corpuscular Hemoglobin Concent 34.4 g/dl RDW Standard Deviation 46.9 fL RDW Coefficient of Variation 14.1 % Platelet Count 100 K/uL Mean Platelet Volume 11.1 fL Sodium Level 139 mmol/L Potassium Level 3.7 mmol/L Chloride Level 105 mmol/L Carbon Dioxide Level 29 mmol/L Anion Gap 5.0 mmol/L Blood Urea Nitrogen 14 mg/dl Creatinine 0.67 mg/dl Est Creatinine Clear Calc Drug Dose 88.9 ml/min Estimated GFR () 103.0 Estimated GFR (Non- 88.9 BUN/Creatinine Ratio 20.8 Random Glucose 111 mg/dl Calcium Level 8.8 mg/dl (Ketty Rodriguez, VALERY-C) Assessment and Plan Mr. Wood is an 81 year old man here currently undergoing chemotherapy for pancreatic ca with possible mets to the liver, presented s/p fall and broken left humerus Fall Secondary to Dehydration with vasovagal episode with attempting to have BM due to constipation. - patient is unsure why he fell and according to his , it appeared he just "went down" without tripping or any aggravating factor so would observe on tele for dysrhythmia - no events overnight on tele. - orthostatics improving - likely combination of dehydration and narcotic since improved after stopping oxycodone. Will also adjust metoprolol to tartrate BID 12.5 mg to be able to better control if pt becomes symptomatic since still is orthostatic, although asymptomatic. - Cont tramadol for pain. Allow IV morphine for severe breakthrough pain- but has not needed it since 05/04 evening. - xray of left wrist negative - Head CT negative for fracture or bleed, pelvis xray negative for fracture, cervical spine ct negative for fracture - Off IVFs, encourage PO intake, pt denies lightheadedness today. - TEDs - PT/OT eval - referrals placed to [facility] for short term rehab- likely discharge within 24 hours. Pt willing to transport Acute mildly displaced comminuted fracture of the proximal left humeral shaft - per ortho note - will see patient outpatient, no intervention at this time - continue sling - pain control tramadol, tylenol gallito Q6H and MS IV as above but hasn't needed this Pancreatic Carcinoma with liver mets - Follows with cancer center as outpatient - has completed 3 cycles of gemcitabine and abraxane. Next was scheduled for today actually, but pt missing this per heme/onc. Resume per heme/onc. Pts plans to call the office on Friday to determine next timing/course for chemo. It would be scheduled for next Friday. - Plt count is slowly decreasing, today is 123, will stop heparin since pt ambulating better. Follow with daily CBC. - likely acute phase reactant as possibility for HIT is low at this time. DM II - Cont Lantus 20 U QPM along with ISS and accuchecks achs - bsgs remain stable around 150s. HTN - Continue metoprolol succ 25 mg qpm, aspirin 81 mg daily HLD - Cont statin therapy Constipation - resolved now - miralax, bisacodyl, stool softeners - likely due to dehydration CODE STATUS: Full code DVT prophylaxis - scds, heparin subq Disposition: From home, lives with , PT/OT consults, CM placed referral to [facility] - likely dc within 24 hours (Ketty Rodriguez, PATerraC) i personally examined pt and verified all dickey points aislinn Rodriguez PAC feeling the same awaiting SNF pleased with care vitals noted nad breathing unlabored no pallor or icterus arm fx - for SNF otherwise as above (Onel Anne, D.O.)
[2017-05-08] MEDS: METOPROLOL TARTRATE 25 MG TAB PO SCH ×2 (10:53→20:28)
[2017-05-08 11:54] VITALS: BP 126/75; PULSE 77; TEMP 36.3; O2SAT 97
[2017-05-08] MEDS ORDERED: LPR25 PO (13:54)
[2017-05-08] MEDS ORDERED: ULT50X PO (13:54)
[2017-05-08] MEDS ORDERED: INSDGI SC (13:54)
[2017-05-08] MEDS ORDERED: MRLP17X PO (13:54)
[2017-05-08] MEDS ORDERED: CLC100 PO (13:54)
[2017-05-08] MEDS: TRAMADOL HCL 50 MG TAB PO PRN ×2 (13:58→22:39)
--- NOTE | 2017-05-08 14:07 | Discharge Instructions ---
Discharge Instructions Date of Service May 08, 2017. Admission Reason for Admission: FALL Discharge Discharge Diagnosis / Problem: Fall s/p vasovagal reaction secondary to bowel movement/constipation Discharge Goals Goal(s): Decrease discomfort, Improve function, Increase independence, Improve disease control Activity Recommendations Activity Limitations: resume your previous activity Lifting Limitations: none (with the Right arm), until after follow-up appointment (Do not lift with the left arm until seen by Dr. Castellon in follow up and are cleared.) Exercise/Sports Limitations: gradually increase as tolerated May Resume Sexual Activity: when tolerated Shower/Bathe: no limitations Driving or Machine Use: Resume after clearance from your family physician . Instructions / Follow-Up Instructions / Follow-Up You were admitted to [facility] with fall after vasovagal reaction secondary to bowel movement/constipation. You sustained a left humerus fracture which was non-operative, and is being managed with a sling and pain management per orthopedics. Do Not lift with any weight with the left arm until cleared by Orthopedics at a follow up appointment. Continue taking tramadol every 6 hours as needed for pain. Imaging studies which were completed include Xray of the left arm which showed humerus fracture, Xray of the left wrist which was negative for any fracture, and imaging of the cervical spine (neck), and left lower leg which were all negative for acute findings. In regards to chemotherapy: Please contact the Cancer Center on Friday to determine if you will undergo your next scheduled cycle. This is tentatively scheduled for next Friday. Lab Work: Have CBC drawn on 05/10 to monitor platelet count. At time of discharge Plt= 91. Medications: Stop taking oxycodone, this was likely adding to the sensation of feeling lightheaded. Antihypertensive medications have been changed: Take metoprolol tartrate 12.5 mg twice daily. STOP taking metoprolol succinate 35 mg daily. Lantus dosing has been reduced to 16 U every evening, as your blood glucose was stable with less insulin. -Follow blood glucoses once discharged from [facility] and show these to your PCP upon follow up to determine if the dosage should be changed again. Appointments: Follow up with your Primary Care Provider within 1 week. Follow up with orthopedics, Dr. Castellon within 1 week. Please call at to schedule this appointment. Current Hospital Diet Patient's current hospital diet: Diabetes Type 2 Diet Discharge Diet Recommended Diet: Diabetes Type 2 Diet Pending Studies Studies pending at discharge: no Laboratory Results Hemoglobin A1c Test 05/07/17 06:35 Range/Units Estimated Average Glucose 226 mg/dl Hemoglobin A1c 9.5 H 4.5-5.6 % Medical Emergencies . Who to Call and When: Medical Emergencies: If at any time you feel your situation is an emergency, please call 911 immediately. . Non-Emergent Contact Non-Emergency issues call your: Primary Care Provider Call Non-Emergent contact if: you have a fever, your pain is not controlled, your pain is worsening, your pain is unusual for you, your pain is concerning you, you have any medication questions other concerns with your health. Call 911 or go directly to the Emergency Department if you experience any of the following: Chest pain, chest tightness, shortness of breath, abdominal pain , lightheadedness, dizziness, gastrointestinal bleeding, or have any other concerns regarding your health. . Past History Medical & Surgical History: (1) Humeral head fracture (2) Left wrist pain (3) Pancreatic cancer . "Provider Documentation" section prepared by Claire Rodriguez. . VTE Core Measure Inpt VTE Proph given/why not?: SCD's
[2017-05-08 15:41] VITALS: BP_SYST 102; BP_SYST 118; BP_SYST 121; BP_DIAS 63; BP_DIAS 66; BP_DIAS 70; PULSE 77; PULSE 78; TEMP 36.5; O2SAT 94
[2017-05-08 20:00] VITALS: BP 132/75; PULSE 74; TEMP 36.9; O2SAT 95
[2017-05-08] MEDS: INSULIN GLARGINE SOLOSTAR 100 UNITS/ML 3 ML PEN SC SCH (20:38)
[2017-05-09] VITALS: BP 153/81; PULSE 68; TEMP 36.6; O2SAT 97
[2017-05-09] MEDS: ACETAMINOPHEN 325 MG TAB PO SCH ×3 (00:25→12:29)
[2017-05-09 04:12] VITALS: BP_SYST 112; BP_SYST 128; BP_SYST 87; BP_DIAS 52; BP_DIAS 68; BP_DIAS 73; PULSE 70; PULSE 73; PULSE 74; TEMP 36.9; O2SAT 96
[2017-05-09 05:39] LABS: HEMATOCRIT 27.6 % (42-52); HEMOGLOBIN 9.4 g/dL (14.0-18.0); MEAN CELL VOLUME 92.3 fL (80-100); MEAN CORPUSCULAR HEMOGLOBIN 31.4 pg (25-34); MEAN CORPUSCULAR HGB CONC 34.1 g/dl (32-36); RED CELL DISTRIBUTION WIDTH SD 45.8 fL (36.4-46.3)
[2017-05-09 06:06] LABS: PLATELET COUNT 91 K/uL (130-400)
[2017-05-09 06:15] LABS: CALCIUM 8.6 mg/dl (8.5-10.1); CREATININE 0.73 mg/dl (0.60-1.40); POTASSIUM 3.4 mmol/L (3.5-5.1)
[2017-05-09 07:42] VITALS: BP_SYST 118; BP_SYST 142; BP_SYST 90; BP_DIAS 55; BP_DIAS 70; BP_DIAS 79; PULSE 67; PULSE 70; PULSE 72; TEMP 36.6; O2SAT 97
[2017-05-09] MEDS: ROSUVASTATIN CALCIUM 10 MG TAB PO SCH (08:47)
[2017-05-09] MEDS: ASPIRIN 81 MG ECTAB PO SCH (08:47)
[2017-05-09] MEDS: CHOLECALCIFEROL 1000 INTER.UNIT TAB PO SCH (08:47)
[2017-05-09] MEDS: METOPROLOL TARTRATE 25 MG TAB PO SCH (08:49)
[2017-05-09] MEDS: INSULIN ASPART 100 UNITS/ML 3 ML PEN SC SCH ×2 (08:51→12:32)
[2017-05-09] MEDS: BOOST GLUCOSE CONTROL PO SCH (08:54)
[2017-05-09] MEDS: DOCUSATE SODIUM 100 MG CAP PO SCH (08:54)
[2017-05-09] MEDS: MULTIVITAMIN TAB PO SCH (08:54)
[2017-05-09] MEDS: MoRPHine SULFATE 2 MG/ML CARP IV PRN ×2 (10:57)
[2017-05-09 11:31] VITALS: BP 123/75; PULSE 67; TEMP 36.4; O2SAT 95
[2017-05-09 12:04] VITALS: BP 123/75; PULSE 67; TEMP 36.4; O2SAT 95
--- NOTE | 2017-05-09 14:23 | Discharge Summary ---
Discharge Summary Date of Service May 09, 2017. Discharge Summary Admission Date: May 06, 2017 at 10:49 Discharge Date: May 09, 2017 Discharge Disposition: Rehab Principal Diagnosis: Fall Secondary to Dehydration with vasovagal episode after BM Problems/Secondary Diagnoses: Medical Problems: (1) Chronic Kidney Disease, Unspecified (2) COPD (chronic obstructive pulmonary disease) (3) Diabetes (4) Esophageal Reflux (5) Esophagitis Nos (6) Gram negative septicemia (7) Hx-Prostatic Malignancy (8) Hyperlipidemia Nec/Nos (9) Hypertension Nos (10) Left wrist pain (11) Left wrist sprain (12) Obstructive Sleep Apnea (Adult) (Pediatric) (13) Pancreatic cancer (14) Scalp abrasion (15) Urinary Calculus Nos (16) Visual field defect Surgical Problems: (1) Aortocoronary Bypass Immunizations: Have You Had Influenza Vaccine: No Influenza Vaccine Date: Feb 20, 2006 History of Tetanus Vaccine?: Yes Tetanus Immunization Date: Jan 10, 2012 History of Pneumococcal: Yes Pneumococcal Date: Dec 30, 2010 History of Hepatitis B Vaccine: Unknown Procedures: PELVIS 1 OR 2 VIEW ROUTINE 05/04/17 IMPRESSION: No acute fracture within the pelvis or hips. L HUMERUS MIN 2 VIEWS ROUTINE 05/04/17 IMPRESSION: Acute mildly displaced comminuted fracture of the proximal left humeral shaft extending to the left humeral neck. CT OF THE HEAD WITHOUT CONTRAST 05/04/17 IMPRESSION: 1. No acute intracranial findings. No change since exams of March 16, 2017. 2. No calvarial fracture. CT OF THE CERVICAL SPINE WITHOUT CONTRAST 05/04/17 IMPRESSION: No acute cervical spine fracture or subluxation. L WRIST W/NAVICULAR MIN 3 VIEWS 05/06/17 IMPRESSION: Degenerative change. Osteopenia. No acute bony abnormality. Consultations: Orthopedics Medication Reconciliation New Medications: Docusate Sodium (Docusate Sodium) 100 Mg Cap 100 MG PO BID for 30 Days, #60 CAP Metoprolol Tartrate (Lopressor) 25 Mg Tab 12.5 MG PO BID for 30 Days, #60 TAB Polyethylene (Miralax) 17 Gm Pow 17 GM PO DAILY PRN for Constipation for 30 Days, #30 DOSE Tramadol HCl (Tramadol HCl) 50 Mg Tab 50 MG PO Q4H PRN for pain for 14 Days, #56 TAB Changed Medications: Insulin Glargine (Lantus) 100 Unit/Ml Inj 16 UNITS SC QPM for 30 Days, #30 DOSE (Changed from: 20 UNITS) Continued Medications: Aspirin (Aspirin Ec) 81 Mg Tab 81 MG PO QAM Cholecalciferol (Vitamin D3) 1,000 Unit Tab 1000 UNITS PO DAILY Insulin Aspart (Novolog) 100 Units/Ml Inj UNITS SC UD 150-200= 5UNITS 201-250= 7UNITS >251 = 8UNITS Multiple Vitamin (Multivitamin) 1 Tab Tab 1 TAB PO QAM, TAB Rosuvastatin Calcium (Crestor) 10 Mg Tab 10 MG PO QAM Discontinued Medications: Metoprolol Succinate (Metoprolol Succinate ER) 25 Mg Tabcr 25 MG PO QPM Oxycodone Immediate Rel Tab (Roxicodone Ir) 5 Mg Tab 5 MG PO Q6H PRN for Pain, #14 TAB Discharge Exam The patient was seen and examined this morning. Pt reports doing well today. He denies any lightheadedness within the past day, and has been up ambulating about the halls with nurses and PT/OT several times. His pain is much better controlled this morning, and reports he was able to sleep fairly well. He is tolerating diet, moving bowels without difficulty. Denies any issues with He is anticipating discharge to [facility] today. Physical Exam: General Appearance: WD/WN, no apparent distress Eyes: PERRL, EOMI ENT: hearing grossly normal, pharynx normal Neck: supple, no JVD Respiratory/Chest: lungs clear, no respiratory distress, no accessory muscle use, + pertinent finding (on RA) Cardiovascular: regular rate, rhythm, + systolic murmur Abdomen: normal bowel sounds, non tender, soft Extremities: no pedal edema, no calf tenderness, + pertinent finding ( Left shoulder in sling, improved mobility of the left wrist with squeezing band, pronation and supination) Neurologic/Psychiatric: alert, normal mood/affect, oriented x 3 Skin: normal color, warm/dry, + jaundice (mild on lower extremities) Review of Systems: Constitutional: No fever, No chills, No sweats Eyes: No worsening of vision, No redness ENT: No sore throat, No trouble swallowing Respiratory: No cough, No shortness of breath Cardiovascular: No chest pain, No edema Abdomen: No pain, No nausea, No vomiting, No diarrhea, No constipation Musculoskeletal: + joint pain (Left shoulder improving), No swelling Genitourinary - Male: No hematuria, No dysuria Neurologic: No numbness/tingling Psychiatric: No depression symptoms, No anxiety Endocrine: No fatigue Hematologic / Lymphatic: No abnormal bleeding/bruising Integumentary: No rash, No itch Hospital Course History of Present Illness Mr. Wood fell while getting up to the bathroom at night. He was having severe abdominal pain and constipation over the night. Denies blood or dark stools. He is unsure why he fell, his says it appears that he just went down. He remembers the fall and immediately knew he had broken his arm. He has been feeling somewhat weak. He is in the middle of his second round of chemo for pancreatic cancer. He has been eating and drinking ok except yesterday he did not feel like eating much because chemo causes a metallic taste in his mouth. He probably did not have enough fluids yesterday. He has been sob going up stairs since chemo started a couple of months ago. Blood sugars have been checked 3 times a day and they have been running in the high 200s to 300 since starting the chemo. Physical Exam General: no distress Eyes: normal inspection, PERLL Respiratory: chest non tender, clear to auscultation, normal breath sounds, no respiratory distress, no accessory muscle use Cardiac: regular rate and rhythm, no rub or gallop, no murmur, no edema, no jvd GI/: active bowel sounds, no abd pain or tenderness, soft, non distended Extremities: normal range of motion, normal strength, left arm painful to palpation and in sling, fingers warm and pink bilaterally Neuro/Psych: drowsy and oriented x 3, normal mood and affect Skin: normal color, dry Hospital Course: Mr. Wood is an 81 year old man here currently undergoing chemotherapy for pancreatic ca with possible mets to the liver, presented s/p fall and broken left humerus Fall Secondary to Dehydration with vasovagal episode with attempting to have BM due to constipation. - patient is unsure why he fell and according to his , it appeared he just "went down" without tripping or any aggravating factor so would observe on tele for dysrhythmia - no events overnight while on tele. - orthostatics improved - likely combination of dehydration and narcotic since improved after stopping oxycodone. Will also adjust metoprolol to tartrate BID 12.5 mg to be able to better control if pt becomes symptomatic since still is orthostatic, although asymptomatic. - Cont tramadol for pain. Allow IV morphine for severe breakthrough pain- but has not needed it since 05/04 evening. - Head CT negative for fracture or bleed, pelvis xray negative for fracture, cervical spine ct negative for fracture, xray of left wrist negative - Off IVFs, PO intake improved - PT/OT eval - referrals placed to [facility] for short term rehab- likely discharge within 24 hours. Pt willing to transport Acute mildly displaced comminuted fracture of the proximal left humeral shaft - per ortho note - will see patient outpatient, no intervention at this time - continue sling - pain control tramadol, tylenol gallito Q6H and MS IV as above but hasn't needed this Pancreatic Carcinoma with liver mets - Follows with cancer center as outpatient - has completed 3 cycles of gemcitabine and abraxane. Next was scheduled for today actually, but pt missing this per heme/onc. Resume per heme/onc. Pts plans to call the office on Friday to determine next timing/course for chemo. It would be scheduled for next Friday. - Plt count is slowly decreasing, today is 99, stopped heparin after 2 days, Follow with CBC at [facility] to ensure improvement in Plt count. - likely acute phase reactant as possibility for HIT is low. - Pt will have labs drawn prior to scheduled chemo next Sunday 05/14 as per heme/onc. DM II - Cont Lantus 16 U QPM along with ISS and accuchecks achs - Discussion held regarding the reduction on Lantus while in the hospital. Pt was asked to keep a log and tell PCP upon his appointment what glucoses have been to determine if his glucoses require Lantus 20 U QPM> - bsgs remain stable HTN - Continue metoprolol tartrate 12.5 mg BID, aspirin 81 mg daily HLD - Cont statin therapy Constipation - resolved now - miralax, bisacodyl, stool softeners - likely due to dehydration CODE STATUS: Full code DVT prophylaxis - scds, heparin subq Disposition: From home, lives with , PT/OT consults, CM placed referral to [facility]- discharge today i personally examined pt and verified all dickey points aislinn Rodriguez PAC feeling ok for SNF vitals noted nad breathing unlabored no pallor or icterus arm fx - for SNF rehab emphasis. stable to go. otherwise as above Total Time Spent: Greater than 30 minutes This includes examination of the patient, discharge planning, medication reconciliation, and communication with other providers. Discharge Instructions Please refer to the electronic Patient Visit Report (Discharge Instructions) for additional information. Follow-Up Follow up with your Primary Care Provider within 1 week. Follow up with Orthopedics, Dr. Castellon, within 1 week. Additional Copies To Zhang Beck M.D.
== END 2017-05-09 13:00 | DRG 563 ==
LOC: EDBD 06:20 → C.EDB 06:21 → C.MED 13:11 → ENRESERV 13:19 → OBSVTOIN 05-06 10:49
PROVIDERS: ADMIT Family Medicine; ATTEND Family Medicine
DX: S42.352A Displaced comminuted fracture of shaft of humerus, left arm, initial encounter for closed fracture (principal); C25.9 Malignant neoplasm of pancreas, unspecified; C78.7 Secondary malignant neoplasm of liver and intrahepatic bile duct; R55 Syncope and collapse; N18.9 Chronic kidney disease, unspecified; J44.9 Chronic obstructive pulmonary disease, unspecified; E11.22 Type 2 diabetes mellitus with diabetic chronic kidney disease; K21.9 Gastro-esophageal reflux disease without esophagitis; E86.0 Dehydration; E78.5 Hyperlipidemia, unspecified; I12.9 Hypertensive chronic kidney disease with stage 1 through stage 4 chronic kidney disease, or unspecified chronic kidney disease; K59.00 Constipation, unspecified; Z79.4 Long term (current) use of insulin; Z79.82 Long term (current) use of aspirin; Z79.899 Other long term (current) drug therapy; Z87.891 Personal history of nicotine dependence; W18.30XA Fall on same level, unspecified, initial encounter

== ENCOUNTER 2017-05-22 10:41 | Emergency (ER) | payer OTHER ==
[~2017-05-22] VITALS: Ht 180.3 cm; Wt 79.1 kg
[2017-05-22 10:41] VITALS: O2SAT 92; Ht 180.3 cm; Wt 79.1 kg
[~2017-05-22 10:41] MED LIST changes: +CLC100 PO; -HYDR-5688 PO; +LPR25 PO; +MRLP17X PO; +NVLG SC; -TPRSR/25 PO; +ULT50X PO
[2017-05-22] MEDS ORDERED: SODIUM CHLORIDE 0.9% 500ML 500 ML IV STA ×2 (11:18→15:19)
[2017-05-22] MEDS ORDERED: ACETAMINOPHEN 325 MG TAB PO STA (11:18)
[2017-05-22] MEDS ORDERED: SODIUM CHLORIDE 0.9% 1000ML 1,000 ML IV STA (11:18)
--- NOTE | 2017-05-22 12:01 | DIAGNOSTIC IMAGING REPORT ---
CHEST ONE VIEW PORTABLE HISTORY: weakness COMPARISON: Chest 04/17/2017. FINDINGS: Right jugular Port-A-Cath terminates in the distal SVC. The heart is normal in size. Post sternotomy changes. No pneumothorax. No pleural effusions. A few linear densities the left lung base favor subsegmental atelectasis. The right lung is clear. No evidence for pulmonary edema. IMPRESSION: No acute process within the chest. Left basilar linear densities favor subsegmental atelectasis. Electronically signed by: Kamran Mirza M.D. 05/22/2017 12:00 PM Dictated Date/Time: 05/22/2017 11:58 AM
[2017-05-22 12:06] LABS: BASO % 0.4 %; BASO ABS # 0.04 K/uL (0-0.2); EOS % 0.4 %; EOS ABS # 0.04 K/uL (0-0.5); HEMATOCRIT 35.6 % (42-52); HEMOGLOBIN 11.8 g/dL (14.0-18.0); IG# 0.03 K/uL (0.00-0.02); LYMPH % 9.1 %; LYMPH ABS # 0.89 K/uL (1.2-3.4); MEAN CELL VOLUME 94.4 fL (80-100); MEAN CORPUSCULAR HEMOGLOBIN 31.3 pg (25-34); MEAN CORPUSCULAR HGB CONC 33.1 g/dl (32-36); MEAN PLATELET VOLUME 10.1 fL (7.4-10.4); MONO % 19.8 %; MONO ABS # 1.94 K/uL (0.11-0.59); NEUT ABS # 6.88 K/uL (1.4-6.5); PLATELET COUNT 350 K/uL (130-400); RED CELL DISTRIBUTION WIDTH CV 14.9 % (11.5-14.5); RED CELL DISTRIBUTION WIDTH SD 51.2 fL (36.4-46.3); WHITE BLOOD COUNT 9.82 K/uL (4.8-10.8)
--- NOTE | 2017-05-22 12:06 | EMERGENCY ROOM VISIT NOTE ---
History Report prepared by Vonda: Guillermo Multani Under the Supervision of: Dr. Loree Moreno M.D. First contact with patient: 10:46 Stated Complaint: WEAKNESS History of Present Illness The patient is an 81 year old male who presents to the Emergency Room with complaints of persistent weakness starting yesterday. The patient's family states that yesterday he was sleeping all day yesterday after a shower, and then he slept all night as well. Additionally, his blood pressure dropped a lot when he stood up, and his oxygen saturation was low. The patient has been eating and drinking well for the past week until yesterday. The patient is additionally complaining of a headache, neck pain, lower back pain, and some chills the other day after walking outside. The patient additionally notes that sometimes he does not know the time and place and is disoriented. He has no known sick contacts. The patient was in the ED two weeks ago with a broken arm and was in the hospital for a couple of days. He was doing well until yesterday. The patient has been going through chemotherapy, though he has not had any since April 30, and he stopped his metoprolol 4 days ago. The patient denies any fever, shortness of breath, chest pain, and any nausea. Source of History: patient, spouse/significant other Onset: yesterday Position: other (global) Quality: other (weakness) Timing: other (persistent) Associated Symptoms: + chills, + headache, + neck pain, + back pain, No fevers, No chest pain, No nausea Note: Associated symptoms: Disoriented Review of Systems See HPI for pertinent positives & negatives. A total of 10 systems reviewed and were otherwise negative. Past Medical & Surgical Medical Problems: (1) Chronic Kidney Disease, Unspecified (2) COPD (chronic obstructive pulmonary disease) (3) Diabetes (4) Esophageal Reflux (5) Esophagitis Nos (6) Gram negative septicemia (7) Hx-Prostatic Malignancy (8) Hyperlipidemia Nec/Nos (9) Hypertension Nos (10) Left wrist pain (11) Left wrist sprain (12) Obstructive Sleep Apnea (Adult) (Pediatric) (13) Pancreatic cancer (14) Scalp abrasion (15) Urinary Calculus Nos (16) Visual field defect Surgical Problems: (1) Aortocoronary Bypass Social History Smoking Status: Former Smoker Alcohol Use: none Drug Use: none Marital Status: Housing Status: lives with family Occupation Status: retired Current/Historical Medications Scheduled Acetaminophen (Tylenol), 500 MG PO UD Aspirin (Aspirin Ec), 81 MG PO QAM Cholecalciferol (Vitamin D3), 1,000 UNITS PO QAM Insulin Aspart (Novolog), UNITS SC UD Insulin Glargine (Lantus), 16 UNITS SC QPM Metoprolol Tartrate (Lopressor), 12.5 MG PO BID Multiple Vitamin (Multivitamin), 1 TAB PO QAM Rosuvastatin Calcium (Crestor), 10 MG PO QAM Scheduled PRN Polyethylene (Miralax), 17 GM PO DAILY PRN for Constipation Tramadol HCl (Tramadol HCl), 50 MG PO Q4H PRN for pain Allergies Coded Allergies: Levofloxacin (Verified Allergy, Severe, HIVES, 05/22/17) Ciprofloxacin (Unverified Allergy, Intermediate, ITCHY, 05/22/17) Physical Exam Vital Signs Date Time Temp Pulse Resp B/P (MAP) Pulse Ox O2 Delivery O2 Flow Rate FiO2 05/22/17 14:56 64 20 150/74 96 Room Air 72 128/64 77 113/54 05/22/17 14:41 64 18 94 Room Air 05/22/17 14:31 138/68 05/22/17 14:11 66 16 93 Room Air 05/22/17 14:01 150/77 05/22/17 13:41 72 20 95 Room Air 05/22/17 13:36 65 17 96 Room Air 05/22/17 13:31 127/68 05/22/17 13:06 67 16 94 Room Air 05/22/17 13:01 125/67 05/22/17 12:54 69 17 96 Room Air 05/22/17 12:49 71 18 136/71 96 Room Air 05/22/17 12:05 70 97/54 96 05/22/17 12:03 70 114/61 96 05/22/17 12:02 70 130/68 96 Room Air 05/22/17 12:01 70 128/70 96 Room Air 05/22/17 12:00 71 130/68 95 Room Air 80 114/61 81 97/54 05/22/17 11:46 70 4 96 Room Air 05/22/17 11:41 74 22 97 Room Air 05/22/17 11:31 144/72 05/22/17 11:11 72 17 93 Room Air 05/22/17 11:09 130/74 05/22/17 11:09 71 18 130/74 94 Room Air 05/22/17 11:04 36.6 71 18 147/79 92 Room Air 05/22/17 10:53 71 05/22/17 10:48 147/79 05/22/17 10:41 36.6 73 18 147/79 92 Room Air 05/22/17 10:41 92 Room Air Physical Exam Vital signs reviewed. General: Chronically ill appearing male, in no significant distress. HEENT: No scleral icterus, PERRLA, neck supple. Atraumatic. Cardiovascular: Regular rate and rhythm, no extra sounds. Pulmonary: Few crackles to the left base, normal work of breathing. Abdomen: Soft, nontender, nondistended, positive bowel sounds. Musculoskeletal: Sling to the right arm. Atraumatic, no peripheral edema. Neurologic: Patient awake alert and oriented x 3, sleeps easily but does awaken to verbal stimuli. Answers questions appropriately. Skin: There is a stage 2cm stage 2 pressure ulcer to the left buttocks along the gluteal fold. Warm, dry, no rash Medical Decision & Procedures ER Provider Diagnostic Interpretation: Radiology results as stated below per my review and radiologist interpretation: CT OF THE HEAD WITHOUT CONTRAST CLINICAL HISTORY: Altered mental status and weakness. COMPARISON STUDY: Head CT May 04, 2017 and MRI the brain March 16, 2017. CT DOSE: 788.63 mGycm TECHNIQUE: Helical axial images of the head were obtained without IV contrast. Automated exposure control was utilized for the study. A dose lowering technique was utilized adhering to the principles of ALARA. FINDINGS: No acute intracranial hemorrhage, midline shift or mass effect is present. Ventricular system is normal. Basilar cisterns are patent. There are no extra-axial collections. Brink-white differentiation is maintained. 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 There are no findings to suggest acute dural sinus thrombosis or acute territorial infarct. There are no significant calvarial abnormalities. Visualized portions of the sinuses and mastoid air cells are clear. IMPRESSION: No acute intracranial findings. No significant change since previous exam. Electronically signed by: Mandeep Avina M.D. 05/22/2017 12:42 PM Dictated Date/Time: 05/22/2017 12:39 PM CHEST ONE VIEW PORTABLE HISTORY: weakness COMPARISON: Chest 04/17/2017. FINDINGS: Right jugular Port-A-Cath terminates in the distal SVC. The heart is normal in size. Post sternotomy changes. No pneumothorax. No pleural effusions. A few linear densities the left lung base favor subsegmental atelectasis. The right lung is clear. No evidence for pulmonary edema. IMPRESSION: No acute process within the chest. Left basilar linear densities favor subsegmental atelectasis. Electronically signed by: Kamran Mirza M.D. 05/22/2017 12:00 PM Dictated Date/Time: 05/22/2017 11:58 AM Laboratory Results 05/22/17 11:35 Red Blood Count 3.77, Mean Corpuscular Volume 94.4, Mean Corpuscular Hemoglobin 31.3, Mean Corpuscular Hemoglobin Concent 33.1, Mean Platelet Volume 10.1, Neutrophils (%) (Auto) 70.0, Lymphocytes (%) (Auto) 9.1, Monocytes (%) (Auto) 19.8, Eosinophils (%) (Auto) 0.4, Basophils (%) (Auto) 0.4, Neutrophils # (Auto ) 6.88, Lymphocytes # (Auto) 0.89, Monocytes # (Auto) 1.94, Eosinophils # (Auto ) 0.04, Basophils # (Auto) 0.04 05/22/17 11:35 Test 05/22/17 11:35 05/22/17 11:46 05/22/17 11:57 05/22/17 13:45 White Blood Count 9.82 K/uL (4.8-10.8) Red Blood Count 3.77 M/uL (4.7-6.1) Hemoglobin 11.8 g/dL (14.0-18.0) Hematocrit 35.6 % (42-52) Mean Corpuscular Volume 94.4 fL (80-100) Mean Corpuscular Hemoglobin 31.3 pg (25-34) Mean Corpuscular Hemoglobin Concent 33.1 g/dl (32-36) Platelet Count 350 K/uL (130-400) Mean Platelet Volume 10.1 fL (7.4-10.4) Neutrophils (%) (Auto) 70.0 % Lymphocytes (%) (Auto) 9.1 % Monocytes (%) (Auto) 19.8 % Eosinophils (%) (Auto) 0.4 % Basophils (%) (Auto) 0.4 % Neutrophils # (Auto) 6.88 K/uL (1.4-6.5) Lymphocytes # (Auto) 0.89 K/uL (1.2-3.4) Monocytes # (Auto) 1.94 K/uL (0.11-0.59) Eosinophils # (Auto) 0.04 K/uL (0-0.5) Basophils # (Auto) 0.04 K/uL (0-0.2) RDW Standard Deviation 51.2 fL (36.4-46.3) RDW Coefficient of Variation 14.9 % (11.5-14.5) Immature Granulocyte % (Auto) 0.3 % Immature Granulocyte # (Auto) 0.03 K/uL (0.00-0.02) Anion Gap 7.0 mmol/L (3-11) Est Creatinine Clear Calc Drug Dose 83.9 ml/min Estimated GFR () 100.6 Estimated GFR (Non- 86.8 BUN/Creatinine Ratio 15.8 (10-20) Calcium Level 9.3 mg/dl (8.5-10.1) Magnesium Level 1.9 mg/dl (1.8-2.4) Total Bilirubin 0.8 mg/dl (0.2-1) Direct Bilirubin 0.3 mg/dl (0-0.2) Aspartate Amino Transf (AST/SGOT) 18 U/L (15-37) Alanine Aminotransferase (ALT/SGPT) 44 U/L (12-78) Alkaline Phosphatase 159 U/L (45-117) Total Protein 6.6 gm/dl (6.4-8.2) Albumin 2.8 gm/dl (3.4-5.0) Lipase 123 U/L (73-393) Random Cortisol 15.08 mcg/dl Bedside Troponin I < 0.030 ng/ml (0-0.045) Influenza Type A Antigen Neg for Influ A (NEG) Influenza Type B Antigen Neg for Influ B (NEG) Urine Color YELLOW Urine Appearance CLOUDY (CLEAR) Urine pH 7.5 (4.5-7.5) Urine Specific [place] 1.015 (1.000-1.030) Urine Protein NEG (NEG) Urine Glucose (UA) NEG (NEG) Urine Ketones NEG (NEG) Urine Occult Blood NEG (NEG) Urine Nitrite NEG (NEG) Urine Bilirubin NEG (NEG) Urine Urobilinogen NEG (NEG) Urine Leukocyte Esterase NEG (NEG) Urine WBC (Auto) 1-5 /hpf (0-5) Urine RBC (Auto) 0-4 /hpf (0-4) Urine Hyaline Casts (Auto) 1-5 /lpf (0-5) Urine Epithelial Cells (Auto) 5-10 /lpf (0-5) Urine Bacteria (Auto) NEG (NEG) Laboratory results per my review. Medications Administered Medications (Trade) Dose Ordered Sig/Dalia Route Start Time Stop Time Status Last Admin Dose Admin Sodium Chloride 500 ml @ 999 mls/hr Q31M STAT IV 05/22/17 11:18 05/22/17 11:48 DC 05/22/17 11:55 999 MLS/HR Sodium Chloride 1,000 ml @ 125 mls/hr Q8H STAT IV 05/22/17 11:18 05/22/17 19:17 05/22/17 11:54 125 MLS/HR Acetaminophen (Tylenol Tab) 650 mg NOW STAT PO 05/22/17 11:18 05/22/17 11:22 DC 05/22/17 11:52 650 MG ECG Indication: weakness Rate (beats per minute): 73 Rhythm: normal sinus Findings: RBBB, no ectopy, other (Repolarization abnormality in the anterior lead) Comparison ECG Date: 05/04/16 Change: no significant change Change: Patient's electrocardiogram interpreted by me. ED Course 1046: Past medical records reviewed. The patient was evaluated in room C10. A complete history and physical examination was performed. 1118: Tylenol 650mg PO, Sodium Chloride 1000 ml @ 125 mls/hr IV, Sodium Chloride 500 ml @ 999 mls/hr IV 1338: Upon reevaluation, the patient is resting comfortably. I discussed laboratory and radiographic results with him. He verbalized agreement of the treatment plan. The patient will be evaluated for further management and care. 1411: I reviewed the patient's case with Dr. Freeman MUNOZ Hospitalist. He will evaluate the patient. 1520: Wound care nurse was consulted. Upon reevaluation, the patient appeared to be doing well. I discussed findings with him. He verbalized agreement of the treatment plan. He was discharged home. Medical Decision Differential diagnosis: Etiologies such as metabolic, infection, hypo/hyperglycemia, electrolyte abnormalities, cardiac sources, intracerebral event, toxicologic, neurologic, as well as others were entertained. This patient was evaluated and appeared to be in no significant distress. The patient's indwelling port was accessed and laboratory work was drawn. The patient was placed on the electronic device monitor. Patient was hydrated with normal saline solution for positive orthostatics. EKG reveals right bundle branch block without significant change from previous. Laboratory work is fairly unrevealing. UA is negative. Patient continued to be orthostatic after 1 L of normal saline solution however he was asymptomatic. The patient does suffer from pain chronic cancer and has not had chemotherapy in several weeks. I did consult Dr. Millard of the hospitalist service to feels the patient could receive another 500 mL of IV normal saline solution. He asked for a random cortisol level which is normal. The wound care nurse was consulted for the decubitus ulcer. The patient will be discharged to the care of family to follow up with oncology tomorrow. They may result to IV hydration periodically as an outpatient. Family is aware of this plan and agrees. They will return to the ER for worsening of symptoms or any medical concerns. Medication Reconcilliation Current Medication List: was personally reviewed by me Blood Pressure Screening Patient's blood pressure: Elevated blood pressure Blood pressure disposition: Elevated BP felt to be situational Consults Time Called: 1349 Consulting Physician: Dr. Freeman MUNOZ Hospitalist Returned Call: 1411 I reviewed the patient's case with Dr. Freeman MUNOZ Hospitalist. He will evaluate the patient. Impression Primary Impression: Orthostasis Additional Impressions: Dehydration Pressure ulcer of contiguous region involving left buttock and hip, stage 2 Scribe Attestation The scribe's documentation has been prepared under my direction and personally reviewed by me in its entirety. I confirm that the note above accurately reflects all work, treatment, procedures, and medical decision making performed by me. Departure Information Dispostion Home / Self-Care Referrals Zhang Beck M.D. (PCP) Forms HOME CARE DOCUMENTATION FORM, IMPORTANT VISIT INFORMATION Patient Instructions My [facility] Additional Instructions Diagnosis: Orthostasis, dehydration, pressure ulcer on the left buttock Please continue wound care as directed by the wound care nurse. Contact oncology tomorrow for reevaluation and further IV hydration. Please eat and drink as often/much as possible. Return to the emergency department for worsening of symptoms or any medical concerns. Problem Qualifiers
[2017-05-22 12:22] LABS: ALBUMIN 2.8 gm/dl (3.4-5.0); CALCIUM 9.3 mg/dl (8.5-10.1); CREATININE 0.71 mg/dl (0.60-1.40); POTASSIUM 3.5 mmol/L (3.5-5.1)
[2017-05-22 12:25] LABS: TOTAL PROTEIN 6.6 gm/dl (6.4-8.2)
--- NOTE | 2017-05-22 12:43 | DIAGNOSTIC IMAGING REPORT ---
CT OF THE HEAD WITHOUT CONTRAST CLINICAL HISTORY: Altered mental status and weakness. COMPARISON STUDY: Head CT May 04, 2017 and MRI the brain March 16, 2017. CT DOSE: 788.63 mGycm TECHNIQUE: Helical axial images of the head were obtained without IV contrast. Automated exposure control was utilized for the study. A dose lowering technique was utilized adhering to the principles of ALARA. FINDINGS: No acute intracranial hemorrhage, midline shift or mass effect is present. Ventricular system is normal. Basilar cisterns are patent. There are no extra-axial collections. Brink-white differentiation is maintained. 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 There are no findings to suggest acute dural sinus thrombosis or acute territorial infarct. There are no significant calvarial abnormalities. Visualized portions of the sinuses and mastoid air cells are clear. IMPRESSION: No acute intracranial findings. No significant change since previous exam. Electronically signed by: Mandeep Avina M.D. 05/22/2017 12:42 PM Dictated Date/Time: 05/22/2017 12:39 PM
[2017-05-22] MEDS ORDERED: TYLOTC500 PO (12:59)
[2017-05-22 13:18] LABS: INFLUENZA B ANTIGEN Neg for Influ B (NEG)
[2017-05-22] MEDS ORDERED: TRAMADOL HCL 50 MG TAB PO PRN (13:45)
--- NOTE | 2017-05-22 13:47 | History and Physical ---
History & Physical Date & Time of Service: May 22, 2017 at 13:34 Chief Complaint: Weakness Primary Care Physician: Zhang Beck M.D. History of Present Illness Source: patient 81 y/o M hx Pancreatic CA undergoing chemotherapy, COPD, CAD, HTN, HPL, DM II. Recent admission following fall and fracture of L clavicle 05/04. Pt presents with chief complaint of generalized weakness, chills and generalized aches and pains. Per family, he has been sleeping excessively over the past 2 days. The pt could not confirm a fever. the family states that his BP has been low and he recently discontinued Metoprolol. A low oxygen saturation was also reported at home. He denies any CP, N/V, diarrhea, dysuria. We could not confirm a fever or hypoxia on arrival to the hospital. His BP was borderline low. initial labs and CXR are unremarkable. UA is pending. Last cycle of chemotherapy was completed 04/30. Past Medical/Surgical History 1) Pancreatic cancer- follows w/Dr Jordan 2) Type 2 DM, on Lantus 3) COPD 4) GERD 5) Hyperlipidemia 6) HTN 7) HEAVENLY 8) CAD 9) RBBB PSHx: Coronary artery bypass CBD stent Social History Smoking Status: Former Smoker Drug Use: none Marital Status: Housing status: lives with family Occupational Status: retired Immunizations History of Influenza Vaccine: No Influenza Vaccine Date: Feb 20, 2006 History of Tetanus Vaccine?: Yes Tetanus Immunization Date: Jan 10, 2012 History of Pneumococcal: Yes Pneumococcal Date: Dec 30, 2010 History of Hepatitis B Vaccine: Unknown Multi-Drug Resistant Organisms History of MDRO: No Allergies Coded Allergies: Levofloxacin (Verified Allergy, Severe, HIVES, 05/22/17) Ciprofloxacin (Unverified Allergy, Intermediate, ITCHY, 05/22/17) Home Medications Scheduled Acetaminophen (Tylenol), 500 MG PO UD Aspirin (Aspirin Ec), 81 MG PO QAM Cholecalciferol (Vitamin D3), 1,000 UNITS PO QAM Insulin Aspart (Novolog), UNITS SC UD Insulin Glargine (Lantus), 16 UNITS SC QPM Metoprolol Tartrate (Lopressor), 12.5 MG PO BID Multiple Vitamin (Multivitamin), 1 TAB PO QAM Rosuvastatin Calcium (Crestor), 10 MG PO QAM Scheduled PRN Polyethylene (Miralax), 17 GM PO DAILY PRN for Constipation Tramadol HCl (Tramadol HCl), 50 MG PO Q4H PRN for pain Review of Systems Constitutional: + chills, + sweats, + weakness, + fatigue, No fever Eyes: No worsening of vision ENT: No hearing loss, No nasal symptoms Respiratory: No cough, No sputum, No wheezing Cardiovascular: No chest pain, No orthopnea, No PND Abdomen: + problem reported (Poor appetite), No pain, No nausea, No vomiting Musculoskeletal: No joint pain Genitourinary - Male: No hematuria, No dysuria Neurologic: + weakness, No memory loss, No paralysis Endocrine: + fatigue Hematologic / Lymphatic: No abnormal bleeding/bruising Integumentary: No rash Allergic / Immunologic: No environmental allergies Physical Exam Vital Signs Date Time Temp Pulse Resp B/P (MAP) Pulse Ox O2 Delivery O2 Flow Rate FiO2 05/22/17 13:01 125/67 05/22/17 12:54 69 17 96 Room Air 05/22/17 12:49 71 18 136/71 96 Room Air 05/22/17 12:05 70 97/54 96 05/22/17 12:03 70 114/61 96 05/22/17 12:02 70 130/68 96 Room Air 05/22/17 12:01 70 128/70 96 Room Air 05/22/17 12:00 71 130/68 95 Room Air 80 114/61 81 97/54 05/22/17 11:46 70 4 96 Room Air 05/22/17 11:41 74 22 97 Room Air 05/22/17 11:31 144/72 05/22/17 11:11 72 17 93 Room Air 05/22/17 11:09 130/74 05/22/17 11:09 71 18 130/74 94 Room Air 05/22/17 11:04 36.6 71 18 147/79 92 Room Air 05/22/17 10:53 71 05/22/17 10:48 147/79 05/22/17 10:41 36.6 73 18 147/79 92 Room Air 05/22/17 10:41 92 Room Air General Appearance: WD/WN, no apparent distress Head: normocephalic Eyes: normal inspection ENT: normal ENT inspection, pharynx normal Neck: supple, no JVD Respiratory/Chest: chest non-tender, lungs clear Cardiovascular: regular rate, rhythm, no edema, no gallop Abdomen/GI: normal bowel sounds, non tender, soft Back: normal inspection, no CVA tenderness Extremities/Musculoskelatal: normal inspection, no calf tenderness, normal capillary refill Neurologic/Psych: porter sample case II-XII nml as tested, no motor/sensory deficits, alert Skin: normal color Diagnostics Laboratory Results Results Past 24 Hours Test 05/22/17 11:35 05/22/17 11:46 05/22/17 11:57 Range/Units White Blood Count 9.82 4.8-10.8 K/uL Red Blood Count 3.77 4.7-6.1 M/uL Hemoglobin 11.8 14.0-18.0 g/dL Hematocrit 35.6 42-52 % Mean Corpuscular Volume 94.4 80-100 fL Mean Corpuscular Hemoglobin 31.3 25-34 pg Mean Corpuscular Hemoglobin Concent 33.1 32-36 g/dl Platelet Count 350 130-400 K/uL Mean Platelet Volume 10.1 7.4-10.4 fL Neutrophils (%) (Auto) 70.0 % Lymphocytes (%) (Auto) 9.1 % Monocytes (%) (Auto) 19.8 % Eosinophils (%) (Auto) 0.4 % Basophils (%) (Auto) 0.4 % Neutrophils # (Auto) 6.88 1.4-6.5 K/uL Lymphocytes # (Auto) 0.89 1.2-3.4 K/uL Monocytes # (Auto) 1.94 0.11-0.59 K/uL Eosinophils # (Auto) 0.04 0-0.5 K/uL Basophils # (Auto) 0.04 0-0.2 K/uL RDW Standard Deviation 51.2 36.4-46.3 fL RDW Coefficient of Variation 14.9 11.5-14.5 % Immature Granulocyte % (Auto) 0.3 % Immature Granulocyte # (Auto) 0.03 0.00-0.02 K/uL Sodium Level 136 136-145 mmol/L Potassium Level 3.5 3.5-5.1 mmol/L Chloride Level 102 98-107 mmol/L Carbon Dioxide Level 27 21-32 mmol/L Anion Gap 7.0 3-11 mmol/L Blood Urea Nitrogen 11 7-18 mg/dl Creatinine 0.71 0.60-1.40 mg/dl Est Creatinine Clear Calc Drug Dose 83.9 ml/min Estimated GFR () 100.6 Estimated GFR (Non- 86.8 BUN/Creatinine Ratio 15.8 10-20 Random Glucose 128 70-99 mg/dl Calcium Level 9.3 8.5-10.1 mg/dl Magnesium Level 1.9 1.8-2.4 mg/dl Total Bilirubin 0.8 0.2-1 mg/dl Direct Bilirubin 0.3 0-0.2 mg/dl Aspartate Amino Transf (AST/SGOT) 18 15-37 U/L Alanine Aminotransferase (ALT/SGPT) 44 12-78 U/L Alkaline Phosphatase 159 45-117 U/L Total Protein 6.6 6.4-8.2 gm/dl Albumin 2.8 3.4-5.0 gm/dl Lipase 123 73-393 U/L Bedside Troponin I < 0.030 0-0.045 ng/ml Influenza Type A Antigen Neg for Influ A NEG Influenza Type B Antigen Neg for Influ B NEG Diagnostic Radiology CXR: No acute process within the chest. Left basilar linear densities favor subsegmental atelectasis. EKG Sinus, RBBB - no significant morphological change Impression Assessment and Plan 81 y/o M hx Pancreatic CA undergoing chemotherapy, COPD, CAD, HTN, HPL, DM II. Recent admission following fall and fracture of L clavicle 05/04. Pt presents with chief complaint of generalized weakness, chills and generalized aches and pains. Per family, he has been sleeping excessively over the past 2 days. The pt could not confirm a fever. the family states that his BP has been low and he recently discontinued Metoprolol. A low oxygen saturation was also reported at home. He denies any CP, N/V, diarrhea, dysuria. We could not confirm a fever or hypoxia on arrival to the hospital. His BP was orthostatic but did improve following IVF administration. initial labs and CXR are unremarkable. UA is pending. Last cycle of chemotherapy was completed 04/30. 1) Weakness - orthostasis - due to poor intake - random cortisol was 15 in the ER so it is not likely that he is adrenally insufficient. The pt received 1.5 L fluid in the ER. He did not have any recurrent symptoms when orthostatics were rechecked. There was a difference in his BP although ir remained within normal limits. We have contacted his oncologist's office and discussed outpt fluid administration with them. The pt will be DCd for outpt follow-up as he has improved and we cannot identify any acute pathologies. He does have home health aids to follow-up on his condition daily. 2) DM II - appears well-controlled - no change in current meds 3) Pancreatic CA - he may resume chemo next wk per his partner - there was also a discussion of hospice care per the oncology office. Decision on additional treatment is left to discretion of pt and family. 4) CAD - no evidence of ACS - EKG is unchanged - resume scheduled meds 5) COPD - no evidence of acute exacerbation - cont home inhalers As pt is being DCd from the ER - please consider the above a consult Total time for this consult including discussion with pt, ER attending, oncology office - review of labs, meds, EKG, imaging, records - 35 min
[2017-05-22] MEDS ORDERED: SODIUM CHLORIDE 0.9% 1000ML 1,000 ML IV SCH (14:30)
[2017-05-22] MEDS ORDERED: GLUCOSE 40% GEL 15 GM TUBE PO PRN (14:30)
[2017-05-22] MEDS ORDERED: DEXTROSE 50% 50 ML SYR IV PRN (14:30)
[2017-05-22] MEDS ORDERED: GLUCAGON FOR INJ 1 MG VIAL SQ PRN (14:30)
[2017-05-22] MEDS ORDERED: GLUCOSE 10 TABS/TUBE PO PRN (14:30)
[2017-05-22] MEDS ORDERED: INSULIN ASPART 100 UNITS/ML 3 ML PEN SC SCH (16:00)
[2017-05-22 16:47] VITALS: BP 143/73; PULSE 63; TEMP 36.6; O2SAT 97
[2017-05-22] MEDS ORDERED: INSULIN GLARGINE SOLOSTAR 100 UNITS/ML 3 ML PEN SC SCH (21:00)
[2017-05-22] MEDS ORDERED: METOPROLOL TARTRATE 25 MG TAB PO SCH (21:00)
[2017-05-23] MEDS ORDERED: ASPIRIN 81 MG ECTAB PO SCH (09:00)
[2017-05-23] MEDS ORDERED: ROSUVASTATIN CALCIUM 10 MG TAB PO SCH (09:00)
== END 2017-05-22 16:48 | disposition home or self-care (01) ==
LOC: EDBD 10:41 → C.EDC 10:42
DX: Z46.4 Encounter for fitting and adjustment of orthodontic device (principal); E86.0 Dehydration; L89.322 Pressure ulcer of left buttock, stage 2; N18.9 Chronic kidney disease, unspecified; J44.9 Chronic obstructive pulmonary disease, unspecified; E11.9 Type 2 diabetes mellitus without complications; K21.9 Gastro-esophageal reflux disease without esophagitis; E78.5 Hyperlipidemia, unspecified; I10 Essential (primary) hypertension; G47.33 Obstructive sleep apnea (adult) (pediatric); Z87.891 Personal history of nicotine dependence; Z79.82 Long term (current) use of aspirin; Z79.4 Long term (current) use of insulin

== ENCOUNTER 2017-06-05 08:56 | Inpatient (IN) | payer OTHER ==
[~2017-06-05] VITALS: Ht 180.3 cm; Wt 80.5 kg
[~2017-06-05 08:56] MED LIST changes: -CLC100 PO; +TYLOTC500 PO
[2017-06-05] MEDS ORDERED: INSDGIPEN SC (09:37)
[2017-06-05] MEDS ORDERED: TRAM-10 PO (09:37)
[2017-06-05] MEDS ORDERED: SODIUM CHLORIDE 0.9% 1000ML 1,000 ML IV STA (09:46)
--- NOTE | 2017-06-05 10:13 | EMERGENCY ROOM VISIT NOTE ---
History Report prepared by Vonda: Tere Chew Under the Supervision of: Dr. Pipe Kingston M.D. First contact with patient: 08:58 Chief Complaint: FALL Stated Complaint: FALL History of Present Illness The patient is an 81 year old white male with a past medical history of CKD, COPD, DM, HLD, HTN, pancreatic CA who presents to the ED with a cc of an episode of fall around 0200 this morning. He became lightheaded on his way to the bathroom. He fell slowly over a couch which was nearby. Positive lightheadedness, back pain. Negative LOC, tongue bite, incontinence, leg pain, headache, jaw pain, abdominal pain, cough, fever, chills, chest pain, SOB. He has been having problems with his blood pressure. He was taken off of his metoprolol several weeks ago. He is eating and drinking normally. Source of History: patient, spouse/significant other Onset: 0200 Position: other (global) Quality: other (fall) Timing: other (episodic) Associated Symptoms: + back pain, No LOC, No fevers, No chills, No headache , No cough, No chest pain, No SOB, No abdominal pain Review of Systems See HPI for pertinent positives and negatives. A total of ten systems were reviewed and were otherwise negative. Past Medical & Surgical Medical Problems: (1) Chronic Kidney Disease, Unspecified (2) COPD (chronic obstructive pulmonary disease) (3) Diabetes (4) Esophageal Reflux (5) Esophagitis Nos (6) Gram negative septicemia (7) Hx-Prostatic Malignancy (8) Hyperlipidemia Nec/Nos (9) Hypertension Nos (10) Left wrist pain (11) Left wrist sprain (12) Obstructive Sleep Apnea (Adult) (Pediatric) (13) Pancreatic cancer (14) Scalp abrasion (15) Urinary Calculus Nos (16) Visual field defect Surgical Problems: (1) Aortocoronary Bypass Family History Noncontributory secondary to age. Social History Smoking Status: Former Smoker Alcohol Use: none Drug Use: none Marital Status: Housing Status: lives with family Occupation Status: retired Current/Historical Medications Scheduled Acetaminophen (Tylenol), 500 MG PO AMPM Aspirin (Aspirin Ec), 81 MG PO QAM Cholecalciferol (Vitamin D3), 1,000 UNITS PO QAM Insulin Aspart (Novolog), UNITS SC UD Insulin Glargine (Lantus Solostar), 16 UNITS SC QPM Multiple Vitamin (Multivitamin), 1 TAB PO QAM Rosuvastatin Calcium (Crestor), 10 MG PO QAM Tramadol (Ultram), 50 MG PO AMPM Scheduled PRN Polyethylene (Miralax), 17 GM PO DAILY PRN for Constipation Allergies Coded Allergies: Levofloxacin (Verified Allergy, Severe, HIVES, 05/22/17) Ciprofloxacin (Unverified Allergy, Intermediate, ITCHY, 05/22/17) Physical Exam Vital Signs Date Time Temp Pulse Resp B/P (MAP) Pulse Ox O2 Delivery O2 Flow Rate FiO2 06/05/17 17:00 70 20 06/05/17 14:12 68 16 118/66 96 06/05/17 12:53 99 Room Air 06/05/17 12:03 72 18 157/78 99 Room Air 06/05/17 11:34 62 18 148/71 99 Room Air 06/05/17 10:16 98 Room Air 06/05/17 10:16 64 15 120/67 98 Room Air 06/05/17 09:11 68 20 168/88 98 Room Air 06/05/17 09:05 69 Physical Exam GENERAL: Awake, alert, well-appearing, NAD HENT: Normocephalic, atraumatic. EYES: Normal conjunctiva. Sclera non-icteric. NECK: Supple. No nuchal rigidity. FROM. RESPIRATORY: CTAB, no rhonchi, wheezing, crackles CARDIAC: RRR, no MRG ABDOMEN: Soft, NTND, BS+ MSK: No chest wall TTP, no LE edema. Left humerus with mild bruising, LUE in a sling, NVI distally. Negative SLR b/l. NEURO: CN 2-12 intact, 5/5 upper and lower extremity strength, no dysmetria, no drift, good finger to nose, no sensory deficits, with the exception of LUE limited secondary to pain. SKIN: No rash or jaundice noted. Surgical scar over the left shoulder. Medical Decision & Procedures ER Provider Diagnostic Interpretation: Xray results as stated below per my and radiologist interpretation. Radiology results as stated below per my review and radiologist interpretation: CHEST ONE VIEW PORTABLE HISTORY: 81 years-old Male EVALUATE WEAKNESS acute weakness status post fall COMPARISON: Chest radiograph 05/22/2017, left humerus radiograph 05/04/2017 TECHNIQUE: Portable AP view of the chest FINDINGS: Prior median sternotomy. Cardiac silhouette is within normal limits. Atherosclerosis of the aorta. Right internal jugular [id number] catheter appears unchanged. There is no pneumothorax, pleural effusion, focal airspace consolidation or overt pulmonary edema. Improved aeration of the left lung base from comparison. Degenerative changes are seen within the shoulders and spine. Subacute appearing mildly displaced proximal left humerus fracture is partially imaged. IMPRESSION: 1. No acute process of the chest. 2. Healing mildly displaced subacute appearing fracture of the proximal left humerus. The above report was generated using voice recognition software. It may contain grammatical, syntax or spelling errors. Electronically signed by: Adrian Jules M.D. 06/05/2017 10:16 AM Dictated Date/Time: 06/05/2017 10:[address] HEAD WITHOUT CONTRAST (CT) CLINICAL HISTORY: Head trauma. Pain. Weakness. COMPARISON STUDY: 05/22/2017 TECHNIQUE: Axial CT of the brain is performed from the vertex to the skull base. IV contrast was not administered for this examination. A dose lowering technique was utilized adhering to the principles of ALARA. CT DOSE: 614.27 mGy.cm FINDINGS: No intra or extra-axial mass lesions are visualized. There is no CT evidence of acute cortical infarction. There is no evidence of midline shift. There is no acute hemorrhage. No calvarial fractures are visualized. There are patchy white matter hypodensities likely on a small vessel basis. 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 There is no evidence of pathologic ventricular dilatation. There is no evidence of acute sinusitis IMPRESSION: No acute intracranial findings Electronically signed by: Munir Tapia M.D. 06/05/2017 10:34 AM Dictated Date/Time: 06/05/2017 10:31 AM Laboratory Results Test 06/05/17 10:20 06/05/17 11:59 Immature Granulocyte % (Auto) 0.2 % White Blood Count 6.06 K/uL (4.8-10.8) Red Blood Count 3.81 M/uL (4.7-6.1) Hemoglobin 11.8 g/dL (14.0-18.0) Hematocrit 34.7 % (42-52) Mean Corpuscular Volume 91.1 fL (80-100) Mean Corpuscular Hemoglobin 31.0 pg (25-34) Mean Corpuscular Hemoglobin Concent 34.0 g/dl (32-36) Platelet Count 94 K/uL (130-400) Mean Platelet Volume 10.5 fL (7.4-10.4) Neutrophils (%) (Auto) 70.4 % Lymphocytes (%) (Auto) 15.7 % Monocytes (%) (Auto) 12.9 % Eosinophils (%) (Auto) 0.5 % Basophils (%) (Auto) 0.3 % Neutrophils # (Auto) 4.27 K/uL (1.4-6.5) Lymphocytes # (Auto) 0.95 K/uL (1.2-3.4) Monocytes # (Auto) 0.78 K/uL (0.11-0.59) Eosinophils # (Auto) 0.03 K/uL (0-0.5) Basophils # (Auto) 0.02 K/uL (0-0.2) Immature Granulocyte # (Auto) 0.01 K/uL (0.00-0.02) Platelet Estimate DECREASED Prothrombin Time 11.0 SECONDS (9.0-12.0) Prothromb Time International Ratio 1.0 (0.9-1.1) Activated Partial Thromboplast Time 25.2 SECONDS (21.0-31.0) Partial Thromboplastin Ratio 1.0 Total Bilirubin 0.5 mg/dl (0.2-1) Direct Bilirubin 0.2 mg/dl (0-0.2) Aspartate Amino Transf (AST/SGOT) 30 U/L (15-37) Alanine Aminotransferase (ALT/SGPT) 55 U/L (12-78) Alkaline Phosphatase 160 U/L (45-117) Troponin I < 0.015 ng/ml (0-0.045) Pro-B-Type Natriuretic Peptide 129 pg/ml (0-1800) Total Protein 6.7 gm/dl (6.4-8.2) Albumin 2.9 gm/dl (3.4-5.0) Lipase 259 U/L (73-393) Thyroid Stimulating Hormone (TSH) 0.548 uIu/ml (0.300-4.500) Urine Color YELLOW Urine Appearance CLOUDY (CLEAR) Urine pH 7.5 (4.5-7.5) Urine Specific Brewster 1.012 (1.000-1.030) Urine Protein NEG (NEG) Urine Glucose (UA) NEG (NEG) Urine Ketones NEG (NEG) Urine Occult Blood NEG (NEG) Urine Nitrite NEG (NEG) Urine Bilirubin NEG (NEG) Urine Urobilinogen NEG (NEG) Urine Leukocyte Esterase NEG (NEG) Urine WBC (Auto) 0 /hpf (0-5) Urine RBC (Auto) 0-4 /hpf (0-4) Urine Hyaline Casts (Auto) 1-5 /lpf (0-5) Urine Epithelial Cells (Auto) 0-5 /lpf (0-5) Urine Bacteria (Auto) NEG (NEG) Laboratory results reviewed by me Medications Administered Medications (Trade) Dose Ordered Sig/Dalia Route Start Time Stop Time Status Last Admin Dose Admin Sodium Chloride 1,000 ml @ 999 mls/hr Q1H1M STAT IV 06/05/17 09:46 06/05/17 10:46 DC 06/05/17 10:48 999 MLS/HR ECG Indication: weakness Rate (beats per minute): 65 Rhythm: normal sinus Findings: Q waves (Inferior), T-wave inversion (Anterior), left axis deviation , other (wide QRS with RBBB pattern) Comparison ECG Date: 22-May-2017 Change: no significant change Change: Patient's electrocardiogram interpreted by me. ED Course 0933: The patient was evaluated in room B8. A complete history and physical exam was performed. 1140: I discussed the patient's case with Dr. Jordan, [facility] hematology/oncology. He is concerned that the patient requires hospice care. 1223: manager mining has spoke with the patient and his . 1224: Dr. Millard, [facility] hospitalist was notified of the patient. The patient will be evaluated for further treatment and disposition. Medical Decision The patient is an 81 year old white male with a past medical history of CKD, COPD, DM, HLD, HTN, pancreatic CA who presents to the ED with a cc of an episode of fall around 0200 this morning. Differential diagnosis: Etiologies such as metabolic, infection, hypo/hyperglycemia, electrolyte abnormalities, cardiac sources, intracerebral event, toxicologic, neurologic, as well as others were entertained. Patient seen and evaluated at bedside. Patient w/ mechanical fall around 2AM. Patient AOx3, GCS 15, only limited in LUE 2/2 to prior humerus frx. Patient had a fall last month. Does have R port in place. Chemo last week. Sees Dr. Jordan. Blood work, EKG, trop, CXR, UA, CT brain. Patient asympomatic at this time. Unsure if he became lightheaded, dizzy, or had palpitations. noted decreased BP upon standing around this time, likely orthostatic hypotension as patient had gone to restroom. Possibly situational given using bathroom. No LOC. No seizure activity or bowel/bladder incontinence. Patient has chronic but stable anemia. Thrombocytopenia present. No active bleeding. Patient has fairly normal CT and CXR - chronic humerus frx. Patient EKG essentially unchanged. Discussed case w/ Dr. Jordan who stated is ok w/ having CM discuss patient and in home care/hospice. Concern that patient not responding well to trx and may require hospice. After discussion w/ CM best for obs in order to help facilitate obtaining hospice care and increased in home care given fall risks and difficulty for to manage care solely on her own. Patient admitted to medicine service. Medication Reconcilliation Current Medication List: was personally reviewed by me Blood Pressure Screening Patient's blood pressure: Elevated blood pressure Referred to hospitalist. Consults Time Called: 1137 Consulting Physician: Dr. Jordan, [facility] hematology/oncology Returned Call: 1140 I discussed the patient's case with him. He is concerned that the patient requires hospice care. Additional Consults: Time Called: 1224 Consulted Physician: Dr. Millard, [facility] hospitalist Additional Comments: He was notified of the patient. The patient will be evaluated for further treatment and disposition. Impression Primary Impression: Fall Additional Impressions: Weakness History of pancreatic cancer Anemia Thrombocytopenia Scribe Attestation The scribe's documentation has been prepared under my direction and personally reviewed by me in its entirety. I confirm that the note above accurately reflects all work, treatment, procedures, and medical decision making performed by me. Departure Information Dispostion Being Evaluated By Hospitalist Referrals Zhang Beck M.D. (PCP) Patient Instructions My [facility] Problem Qualifiers Primary Impression: Fall Encounter type: initial encounter Qualified Codes: W19.XXXA - Unspecified fall, initial encounter Additional Impressions: Anemia Anemia type: unspecified type Qualified Codes: D64.9 - Anemia, unspecified
--- NOTE | 2017-06-05 10:17 | DIAGNOSTIC IMAGING REPORT ---
CHEST ONE VIEW PORTABLE HISTORY: 81 years-old Male EVALUATE WEAKNESS acute weakness status post fall COMPARISON: Chest radiograph 05/22/2017, left humerus radiograph 05/04/2017 TECHNIQUE: Portable AP view of the chest FINDINGS: Prior median sternotomy. Cardiac silhouette is within normal limits. Atherosclerosis of the aorta. Right internal jugular [id number] catheter appears unchanged. There is no pneumothorax, pleural effusion, focal airspace consolidation or overt pulmonary edema. Improved aeration of the left lung base from comparison. Degenerative changes are seen within the shoulders and spine. Subacute appearing mildly displaced proximal left humerus fracture is partially imaged. IMPRESSION: 1. No acute process of the chest. 2. Healing mildly displaced subacute appearing fracture of the proximal left humerus. The above report was generated using voice recognition software. It may contain grammatical, syntax or spelling errors. Electronically signed by: Adrian Jules M.D. 06/05/2017 10:16 AM Dictated Date/Time: 06/05/2017 10:14 AM
[2017-06-05 10:31] LABS: HEMATOCRIT 34.7 % (42-52); HEMOGLOBIN 11.8 g/dL (14.0-18.0); MEAN CELL VOLUME 91.1 fL (80-100); RED CELL DISTRIBUTION WIDTH CV 14.5 % (11.5-14.5); RED CELL DISTRIBUTION WIDTH SD 48.2 fL (36.4-46.3); WHITE BLOOD COUNT 6.06 K/uL (4.8-10.8)
--- NOTE | 2017-06-05 10:36 | DIAGNOSTIC IMAGING REPORT ---
CT HEAD WITHOUT CONTRAST (CT) CLINICAL HISTORY: Head trauma. Pain. Weakness. COMPARISON STUDY: 05/22/2017 TECHNIQUE: Axial CT of the brain is performed from the vertex to the skull base. IV contrast was not administered for this examination. A dose lowering technique was utilized adhering to the principles of ALARA. CT DOSE: 614.27 mGy.cm FINDINGS: No intra or extra-axial mass lesions are visualized. There is no CT evidence of acute cortical infarction. There is no evidence of midline shift. There is no acute hemorrhage. No calvarial fractures are visualized. There are patchy white matter hypodensities likely on a small vessel basis. 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 There is no evidence of pathologic ventricular dilatation. There is no evidence of acute sinusitis IMPRESSION: No acute intracranial findings Electronically signed by: Munir Tapia M.D. 06/05/2017 10:34 AM Dictated Date/Time: 06/05/2017 10:31 AM
[2017-06-05 10:41] LABS: PTT PATIENT 25.2 SECONDS (21.0-31.0)
[2017-06-05 10:48] LABS: ALBUMIN 2.9 gm/dl (3.4-5.0); ALT/SGPT 55 U/L (12-78); BLOOD UREA NITROGEN 15 mg/dl (7-18); CALCIUM 9.2 mg/dl (8.5-10.1); CARBON DIOXIDE 27 mmol/L (21-32); CREATININE 0.78 mg/dl (0.60-1.40); GLUCOSE 122 mg/dl (70-99); LIPASE 259 U/L (73-393); POTASSIUM 3.7 mmol/L (3.5-5.1); SODIUM 136 mmol/L (136-145)
[2017-06-05 10:59] LABS: ALKALINE PHOSPHATASE 160 U/L (45-117); AST/SGOT 30 U/L (15-37); TOTAL PROTEIN 6.7 gm/dl (6.4-8.2)
[2017-06-05 11:08] LABS: BASO % 0.3 %; BASO ABS # 0.02 K/uL (0-0.2); EOS % 0.5 %; EOS ABS # 0.03 K/uL (0-0.5); IG# 0.01 K/uL (0.00-0.02); LYMPH % 15.7 %; LYMPH ABS # 0.95 K/uL (1.2-3.4); MEAN PLATELET VOLUME 10.5 fL (7.4-10.4); MONO % 12.9 %; MONO ABS # 0.78 K/uL (0.11-0.59); NEUT % 70.4 %; NEUT ABS # 4.27 K/uL (1.4-6.5); PLATELET COUNT 94 K/uL (130-400)
[2017-06-05 12:53] VITALS: O2SAT 99; BMI 25.4
[2017-06-05] MEDS ORDERED: HYDROmorphone INJ 0.5 MG/0.5 ML SYR ONE (13:33)
[2017-06-05] MEDS ORDERED: DEXTROSE 50% 50 ML SYR IV PRN (17:30)
[2017-06-05] MEDS ORDERED: MAGNESIUM HYDROXIDE SUSP 30 ML UDC PO PRN (17:30)
[2017-06-05] MEDS ORDERED: GLUCAGON FOR INJ 1 MG VIAL SQ PRN (17:30)
[2017-06-05] MEDS ORDERED: POLYETHYLENE (MIRALAX) 17 GM PACK PO PRN ×2 (17:30)
[2017-06-05] MEDS ORDERED: ACETAMINOPHEN 325 MG TAB PO PRN (17:30)
[2017-06-05] MEDS ORDERED: ALUMINUM/MAGNESIUM/SIMETH (MAALOX MAX) 30 ML UDC PO PRN (17:30)
[2017-06-05] MEDS ORDERED: ONDANSETRON INJ 2 MG/ML 2 ML VIAL IV PRN (17:30)
[2017-06-05] MEDS ORDERED: GLUCOSE 10 TABS/TUBE PO PRN (17:30)
[2017-06-05] MEDS ORDERED: GLUCOSE 40% GEL 15 GM TUBE PO PRN (17:30)
--- NOTE | 2017-06-05 17:52 | History and Physical ---
History & Physical Date & Time of Service: Jun 05, 2017 at 17:46 Chief Complaint: FALL Primary Care Physician: Zhang Beck M.D. History of Present Illness Source: patient, family Mr. Wood is an 81 y/o male with PMHx of Metastatic Pancreatitis to Liver, T2DM , HTN, HLD, CAD S/P CABG, Orthostatic Hypotension, and Displaced Comminuted Proximal Humerus Fx who presents to the ED after a fall this AM. Patient has had long standing issues with orthostatic hypotension that has not improved with removing his Metoprolol. He was instructed to try compression stockings and staying hydrated. They keep small bottles of water aside to make sure each day he drinks them. He has been drinking six 8 oz bottles a day. He states this is very frustrating for him as it has limited if ability to do things. He is hoping to find an answer to correct this. He does state it doesn't happen every time he stands up but when it does happen he gets significant dizziness. This AM around 0200 he sustained a fall. He states EMS helped him up as his wasn 't sure if she could but didn't want to go to the hospital because usually these episodes pass. He states he didn't feel directly dizzy but states it feels like "something exploded inside me" but really couldn't elaborate. He tried to get to a chair but ended up leaning over the couch before going to the ground. states she witnessed the fall and he did not pass out or appear altered. However, he was still feeling generally weak and decided to come to the ED. He was supposed to have chemotherapy today with the last dose being 1 week ago. states he has only had about 4 doses since March due to his overall condition. Discussing with family and reading outpatient notes, it appears that he has had a noticeable decline. Family reports he has had increased weakness and are afraid to leave him alone. They are trying to get [employer] for personal care aids but this has not been set up. Situation was discussed with Dr. Jordan by the and ED provider and he plans to discuss with patient tomorrow morning. Per notes, patient has made comments stating "I' m done" and family would like to discuss palliative/hospice. They do feel that they need some assistance at home given his frequent falls and continued deconditioning. 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 Social History Smoking Status: Former Smoker Smokeless Tobacco Use: No Alcohol Use: none Drug Use: none Marital Status: Housing status: lives with family Occupational Status: retired Immunizations History of Influenza Vaccine: No Influenza Vaccine Date: Feb 20, 2006 History of Tetanus Vaccine?: Yes Tetanus Immunization Date: Jan 10, 2012 History of Pneumococcal: Yes Pneumococcal Date: Dec 30, 2010 History of Hepatitis B Vaccine: Unknown Multi-Drug Resistant Organisms History of MDRO: No Allergies Coded Allergies: Levofloxacin (Verified Allergy, Severe, HIVES, 05/22/17) Ciprofloxacin (Unverified Allergy, Intermediate, ITCHY, 05/22/17) Home Medications Scheduled Acetaminophen (Tylenol), 500 MG PO AMPM Aspirin (Aspirin Ec), 81 MG PO QAM Cholecalciferol (Vitamin D3), 1,000 UNITS PO QAM Insulin Aspart (Novolog), UNITS SC UD Insulin Glargine (Lantus Solostar), 16 UNITS SC QPM Multiple Vitamin (Multivitamin), 1 TAB PO QAM Rosuvastatin Calcium (Crestor), 10 MG PO QAM Tramadol (Ultram), 50 MG PO AMPM Scheduled PRN Polyethylene (Miralax), 17 GM PO DAILY PRN for Constipation Review of Systems General/Constitutional: + generalized weakness; Denies fever/chills ENT: Denies visual changes, nasal drainage, sore throat, trouble swallowing Cardiovascular: Denies chest pain, palpitations, edema Respiratory: Denies cough, sputum, SOB, wheezing, orthopnea GI: Denies nausea, vomiting, abdominal pain, constipation, diarrhea, melena/ hematochezia : Denies dysuria Musculoskeletal: + L shoulder pain Neurologic: + dizziness, + numbness/tingling L arm Hematologic/Lymphatic: Denies bleeding/clotting abnormalities Skin: Denies rash Physical Exam Vital Signs Date Time Temp Pulse Resp B/P (MAP) Pulse Ox O2 Delivery O2 Flow Rate FiO2 06/05/17 17:00 70 20 06/05/17 14:12 68 16 118/66 96 06/05/17 12:53 99 Room Air 06/05/17 12:03 72 18 157/78 99 Room Air 06/05/17 11:34 62 18 148/71 99 Room Air 06/05/17 10:16 98 Room Air 06/05/17 10:16 64 15 120/67 98 Room Air 06/05/17 09:11 68 20 168/88 98 Room Air 06/05/17 09:05 69 General Appearance: Chronically ill appearing in NAD who is A&O x 3 HEENT: Head is normocephalic/atraumatic; + Arcus senilis; Mucous membranes moist ; Pharynx negative for exudate/lesions Neck: Supple; Trachea midline; Neg JVD Heart: RRR with no M/G/R Lungs: CTA in all lung mota bilaterally; Respirations unlabored; Neg accessory muscle use Abdomen: Soft, non-tender, non-distended; Positive BS x 4 quadrants Extremities: Capillary refill < 2 seconds; Neg cyanosis or edema; LUE in sling with good roll plugger strength; reporting sensory deficit into ring and pink finger Neurological: Speech clear; Neg focal neurologic deficits Psychiatric: Appropriate mood/affect Skin: Normal Color; Warm/Dry Diagnostics Laboratory Results Results Past 24 Hours Test 06/05/17 10:20 06/05/17 11:59 Range/Units White Blood Count 6.06 4.8-10.8 K/uL Red Blood Count 3.81 4.7-6.1 M/uL Hemoglobin 11.8 14.0-18.0 g/dL Hematocrit 34.7 42-52 % Mean Corpuscular Volume 91.1 80-100 fL Mean Corpuscular Hemoglobin 31.0 25-34 pg Mean Corpuscular Hemoglobin Concent 34.0 32-36 g/dl Platelet Count 94 130-400 K/uL Mean Platelet Volume 10.5 7.4-10.4 fL Neutrophils (%) (Auto) 70.4 % Lymphocytes (%) (Auto) 15.7 % Monocytes (%) (Auto) 12.9 % Eosinophils (%) (Auto) 0.5 % Basophils (%) (Auto) 0.3 % Neutrophils # (Auto) 4.27 1.4-6.5 K/uL Lymphocytes # (Auto) 0.95 1.2-3.4 K/uL Monocytes # (Auto) 0.78 0.11-0.59 K/uL Eosinophils # (Auto) 0.03 0-0.5 K/uL Basophils # (Auto) 0.02 0-0.2 K/uL RDW Standard Deviation 48.2 36.4-46.3 fL RDW Coefficient of Variation 14.5 11.5-14.5 % Immature Granulocyte % (Auto) 0.2 % Immature Granulocyte # (Auto) 0.01 0.00-0.02 K/uL Platelet Estimate DECREASED Prothrombin Time 11.0 9.0-12.0 SECONDS Prothromb Time International Ratio 1.0 0.9-1.1 Activated Partial Thromboplast Time 25.2 21.0-31.0 SECONDS Partial Thromboplastin Ratio 1.0 Sodium Level 136 136-145 mmol/L Potassium Level 3.7 3.5-5.1 mmol/L Chloride Level 101 98-107 mmol/L Carbon Dioxide Level 27 21-32 mmol/L Anion Gap 8.0 3-11 mmol/L Blood Urea Nitrogen 15 7-18 mg/dl Creatinine 0.78 0.60-1.40 mg/dl Est Creatinine Clear Calc Drug Dose 76.4 ml/min Estimated GFR () 96.7 Estimated GFR (Non- 83.5 BUN/Creatinine Ratio 18.8 10-20 Random Glucose 122 70-99 mg/dl Calcium Level 9.2 8.5-10.1 mg/dl Magnesium Level 2.0 1.8-2.4 mg/dl Total Bilirubin 0.5 0.2-1 mg/dl Direct Bilirubin 0.2 0-0.2 mg/dl Aspartate Amino Transf (AST/SGOT) 30 15-37 U/L Alanine Aminotransferase (ALT/SGPT) 55 12-78 U/L Alkaline Phosphatase 160 45-117 U/L Troponin I < 0.015 0-0.045 ng/ml Pro-B-Type Natriuretic Peptide 129 0-1800 pg/ml Total Protein 6.7 6.4-8.2 gm/dl Albumin 2.9 3.4-5.0 gm/dl Lipase 259 73-393 U/L Thyroid Stimulating Hormone (TSH) 0.548 0.300-4.500 uIu/ml Urine Color YELLOW Urine Appearance CLOUDY CLEAR Urine pH 7.5 4.5-7.5 Urine Specific Wallace 1.012 1.000-1.030 Urine Protein NEG NEG Urine Glucose (UA) NEG NEG Urine Ketones NEG NEG Urine Occult Blood NEG NEG Urine Nitrite NEG NEG Urine Bilirubin NEG NEG Urine Urobilinogen NEG NEG Urine Leukocyte Esterase NEG NEG Urine WBC (Auto) 0 0-5 /hpf Urine RBC (Auto) 0-4 0-4 /hpf Urine Hyaline Casts (Auto) 1-5 0-5 /lpf Urine Epithelial Cells (Auto) 0-5 0-5 /lpf Urine Bacteria (Auto) NEG NEG Microbiology Results 06/05/17 Urine Culture, Received Pending Diagnostic Radiology CHEST ONE VIEW PORTABLE FINDINGS: Prior median sternotomy. Cardiac silhouette is within normal limits. Atherosclerosis of the aorta. Right internal jugular Cegwky-i-Oskt catheter appears unchanged. There is no pneumothorax, pleural effusion, focal airspace consolidation or overt pulmonary edema. Improved aeration of the left lung base from comparison. Degenerative changes are seen within the shoulders and spine. Subacute appearing mildly displaced proximal left humerus fracture is partially imaged. IMPRESSION: 1. No acute process of the chest. 2. Healing mildly displaced subacute appearing fracture of the proximal left humerus. CT HEAD WITHOUT CONTRAST (CT) FINDINGS: No intra or extra-axial mass lesions are visualized. There is no CT evidence of acute cortical infarction. There is no evidence of midline shift. There is no acute hemorrhage. No calvarial fractures are visualized. There are patchy white matter hypodensities likely on a small vessel basis. 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 There is no evidence of pathologic ventricular dilatation. There is no evidence of acute sinusitis IMPRESSION: No acute intracranial findings EKG Normal sinus rhythm Left axis deviation Right bundle branch block Abnormal ECG When compared with ECG of 22-MAY-2017 10:52, No significant change was found Confirmed by JANET KNAPP ([id number]) on 06/05/2017 5:29:57 PM Impression Assessment and Plan Mr. Wood is an 81 y/o male with PMHx of Metastatic Pancreatitis to Liver, T2DM , HTN, HLD, CAD S/P CABG, Orthostatic Hypotension, and Displaced Comminuted Proximal Humerus Fx who presents to the ED after a fall this AM. Fall 2/2 Orthostatic Hypotension: - This has been an ongoing issue. States he had fluids when he went to his last chemo session and felt a lot better and has tried to drink a good amount of liquids at home - Imaging showing healing humerus fx - Continue to hydrate with NSS at 80 mL/hr and continue to check orthostatics - Consideration for Midodrine? L Prox. Displaced Comminuted Humerus: STABLE - Continue sling and conservative management - Tylenol and Tramadol BID; Add Voltaren gel - Does have intermittent numbness/tingling along ulnar distribution to pinky and ring finger CAD S/P CABG: - ASA 81 mg daily - Metoprolol was D/Cd previously to prevent orthostasis T2DM: - Lantus 16 units SC daily and SSI Code Status: FULL RESUSCITATION Disposition: - Consult Onc and Palliative - Dr. Jordan would like to discuss plan of care going forward and mentioned about consideration for palliative approach - anticipated meeting around [address] Jordan - Family is trying to get home aids for assistance vs discussing palliative/ hospice Metastatic pancreatic CA, DMII, HTN, HPL, CAD, orthostatic hypotension, displaced comminuted proximal humerus Fx - presents with weakness following a fall - pt with reported transient hypotension which may be leading to his falls - no LOC reported - humeral Fx is not acute OE AAO x 2 S1,2 R CTA NT, ND No CCE L arm in sling - pulses (+) P: Pt with advanced CA - chemo unlikely to be effective at present and family wishes to discuss hospice - subject will be broached by oncology Reg falls and hypotension - might w/u for adrenal insuff in context of CA - maintain hydration and consider Midodrine Placed on SS Level of Care Med/Surg Advanced Directives Existing Living Will: Yes Existing Power of Diaper Machine Tender: Yes (LOIN ) Resuscitation Status FULL RESUSCITATION VTE Prophylaxis VTE Risk Assessment Done? Y/N: Yes Risk Level: Moderate Given or contraindicated: SCD's
[2017-06-05] MEDS ORDERED: ACETAMINOPHEN 500 MG TAB PO STA (18:26)
[2017-06-05] MEDS ORDERED: TRAMADOL HCL 50 MG TAB PO STA (18:27)
[2017-06-05 18:30] VITALS: BP 167/83; PULSE 18; TEMP 36.5; O2SAT 97; BMI 25.4
[2017-06-05] MEDS: SODIUM CHLORIDE 0.9% 1000ML 1,000 ML IV SCH (19:39)
[2017-06-05] MEDS: TRAMADOL HCL 50 MG TAB PO SCH (19:45)
[2017-06-05] MEDS: ACETAMINOPHEN 500 MG TAB PO SCH (19:45)
[2017-06-05] MEDS: DICLOFENAC SOD 1% GEL 100 GM TUBE EXT SCH (19:46)
[2017-06-05] MEDS: INSULIN GLARGINE SOLOSTAR 100 UNITS/ML 3 ML PEN SC SCH (19:48)
[2017-06-05] MEDS: INSULIN ASPART 100 UNITS/ML 3 ML PEN SC SCH (21:00)
[2017-06-05] MEDS ORDERED: IV FLUIDS COMPLETED PRN (21:30)
[2017-06-06] VITALS (13 sets, daily range): BP systolic 85–169; BP diastolic 40–92; PULSE 62–132; TEMP 36.3–36.8; O2SAT 95–97
[2017-06-06] MEDS ORDERED: hydrOXYzine HCL 25 MG TAB PO STA (02:37)
[2017-06-06 06:16] LABS: HEMATOCRIT 34.4 % (42-52); HEMOGLOBIN 11.7 g/dL (14.0-18.0); MEAN CELL VOLUME 91.5 fL (80-100); MEAN CORPUSCULAR HEMOGLOBIN 31.1 pg (25-34); MEAN PLATELET VOLUME 10.5 fL (7.4-10.4); PLATELET COUNT 110 K/uL (130-400); RED CELL DISTRIBUTION WIDTH CV 14.6 % (11.5-14.5); RED CELL DISTRIBUTION WIDTH SD 48.7 fL (36.4-46.3); WHITE BLOOD COUNT 10.53 K/uL (4.8-10.8)
[2017-06-06 06:42] LABS: CALCIUM 8.7 mg/dl (8.5-10.1); CREATININE 0.86 mg/dl (0.60-1.40); POTASSIUM 3.5 mmol/L (3.5-5.1)
[2017-06-06] MEDS: ACETAMINOPHEN 500 MG TAB PO SCH ×2 (07:59→20:22)
[2017-06-06] MEDS: ROSUVASTATIN CALCIUM 10 MG TAB PO SCH (08:00)
[2017-06-06] MEDS: MULTIVITAMIN TAB PO SCH (08:00)
[2017-06-06] MEDS: DICLOFENAC SOD 1% GEL 100 GM TUBE EXT SCH ×2 (08:00→20:23)
[2017-06-06] MEDS: ASPIRIN 81 MG ECTAB PO SCH (08:00)
[2017-06-06] MEDS: SODIUM CHLORIDE 0.9% 1000ML 1,000 ML IV SCH ×2 (08:02→20:24)
[2017-06-06] MEDS: TRAMADOL HCL 50 MG TAB PO SCH ×2 (08:23→20:22)
[2017-06-06] MEDS: INSULIN ASPART 100 UNITS/ML 3 ML PEN SC SCH ×4 (08:23→21:06)
--- NOTE | 2017-06-06 09:32 | ONCOLOGY CONSULTATION ---
DATE OF CONSULTATION: 06/06/2017 REASON FOR CONSULTATION: History of prior pancreatic cancer, frequent falls, and orthostatic hypotension. HISTORY OF PRESENT ILLNESS: Mr. Wood is a very pleasant 81-year-old gentleman with questionable metastatic pancreatic cancer with possible liver mets, admitted to [facility] on June 05 with frequent falls and orthostatic hypotension. Mr. Wood has been under my care for several months and had received a combination of Abraxane and gemcitabine, which was poorly tolerated. Despite dose modification, the patient had suffered multiple falls and actually unfortunately suffered a left humeral fracture. After that hospitalization period, his chemotherapy regimen was modified to receive single agent gemcitabine. His last dose was administered about a week ago. He continues to have issues with the following, generalized weakness, clinical decline, and risk of falling. The patient and his are now amenable to palliative care with possible 24-hour home care upon discharge. PAST MEDICAL HISTORY: Again significant for, 1. Metastatic pancreatic cancer. 2. Actinic keratoses. 3. Gastroesophageal reflux disease. 4. Skin cancer. 5. Hyperlipidemia. 6. Myocardial infarction. 7. Sleep apnea. 8. Type 2 diabetes mellitus. PAST SURGICAL HISTORY: Includes an ERCP with stent placement, EUS biopsy, and coronary artery bypass grafting. HOME MEDICATIONS: Include Zofran 8 mg p.o. q. 8 hours p.r.n., Compazine 10 mg p.o. q. 6 hours p.r.n. for nausea, aspirin 81 mg p.o. q. daily, Crestor 10 mg p.o. q. daily, Lantus SoloSTAR dose unknown, metoprolol 24-hour tablet dose unknown, and tramadol 25 mg p.o. t.i.d. ALLERGIES: CIPROFLOXACIN AND LEVOFLOXACIN. FAMILY HISTORY: Positive history of ovarian cancer involving a niece. 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 He is and retired. REVIEW OF SYSTEMS: As per HPI, most notably for generalized weakness, fluctuant blood pressure and frequent falling. Negative for fevers, chills or sweats. His appetite has been stable. No significant weight loss reported. SKIN: No new rashes or lesions. Positive history of skin cancer. HEENT: Positive for lightheadedness. No headaches or vertigo reported. No visual or hearing deficits. No sinus symptoms, sore throat or dysphagia. LYMPHATICS: No history of lymphoproliferative disorder. CARDIAC: Positive history of coronary artery disease. No current angina or palpitations. PULMONARY: He denies shortness of breath, dyspnea or orthopnea. No cough or hemoptysis. GASTROINTESTINAL: Negative for abdominal pain, nausea, vomiting, diarrhea or constipation, hematochezia or melenic stools. GENITOURINARY: No history of prostate disease. No hematuria, dysuria, or urinary incontinence. PSYCHIATRIC: Negative for anxiety, depression or psychoses. ENDOCRINE: Positive for type 2 diabetes mellitus. NEUROLOGIC: Negative for seizure, stroke, or migraine headache. HEMATOLOGIC: Positive for treatment induced cytopenias. PHYSICAL EXAMINATION: GENERAL: Massimo is a pleasant 81-year-old gentleman, lying supine in bed, awake, alert and appropriate and in no acute distress. VITAL SIGNS: Temperature 36.8, pulse 78, respirations 14, and blood pressure 118/70. SKIN: Warm, dry, and noncyanotic without petechia, rash or ecchymosis. HEENT: Head: Atraumatic and normocephalic. EYES: PERRLA and EOMI. Sclerae nonicteric. No conjunctival discharge. Throat is clear. Tongue is midline. Mucous membranes are moist. NECK: Supple without JVD or thyromegaly. LYMPH: No cervical, supraclavicular, or axillary palpable nodes. HEART: Regular rate and rhythm. No clicks, rubs, murmurs, or gallops. LUNGS: Clear to auscultation bilaterally. ABDOMEN: Soft, nontender, and nondistended without palpable hepatosplenomegaly. EXTREMITIES: No calf tenderness or swelling. No clubbing, cyanosis or edema. NEUROLOGICALLY: He is awake, alert and oriented x3. Cranial nerves II-XII are intact. No gross motor or sensory deficits noted. LABORATORY DATA: WBC count 10,530, hemoglobin 11.7, and platelet count 111,000. Sodium 135, potassium 3.5, chloride 101, carbon dioxide 27, BUN 15, and creatinine 0.86. Albumin 2.9 on admission. IMPRESSION: 1. Declining performance status. 2. Hypoalbuminemia. 3. Orthostatic hypotension. 4. Metastatic pancreatic cancer. PLAN: Massimo is a pleasant 81-year-old gentleman, well known to the [facility], currently under my care, receiving single agent gemcitabine for metastatic pancreatic cancer. Massimo was diagnosed in late 2017 and at that time, had been evaluated for possible Whipple procedure and unfortunately, tumor was encompassing both vasculature and critical nerve bundles, prohibiting Whipple procedure and was recommended to receive neoadjuvant chemo Abraxane and gemcitabine. From the start, chemotherapy had been poorly tolerated, resulting in dehydration, generalized weakness, cytopenias and subsequently orthostatic hypotension. Massimo has been hospitalized multiple times since initiating chemotherapy. Unfortunately, resulting in a fractured left humerus. Despite dose reduction and actually discontinuing the Abraxane portion of his regimen, he continues to have tolerance issues. Massimo and his now come to the conclusion that further chemotherapy maybe more of a detriment than benefit. They are agreeable to palliative care consult at this juncture. Massimo's has made it quite clear that she is looking for establishment of a 24-hour nursing care and is aware that such care would be on their financial burden. From an oncologic standpoint, I agree treating him aggressively at this point may be more of a detriment than benefit. Nonetheless, I allowed her open for further dialogue and once Massimo is discharged, should he improve his performance status and gain strength and I may entertain further modified chemotherapy. For now, I will entrust his care to the hospitalist and palliative care teams at [facility]. I will look forward to seeing Massimo in the outpatient arena upon discharge. Thank you very much for allowing me to participate in his care. If you have any questions or concerns, feel free to contact me at any time. KERLINE
--- NOTE | 2017-06-06 11:07 | Palliative Care Consultation ---
Consultation Date of Consultation: Jun 06, 2017. Requesting Physician: Krupa Washington PA-C Attending Physician: Dr. Shetty Reason for Consultation: Goals of care, hospice History of Present Illness This 81 year old male patient with PMH pancreatic cancer with mets to liver, presented to the hospital yesterday from home after a fall. Patient has orthostatic hypotension and recently discontinued his metoprolol. It has somewhat improved, but patient still has trouble with standing or trying to ambulate. He fell not long ago and suffered a left humerus fracture for which his left arm is still in a sling. Patient has been following with Dr. Jordan for chemotherapy. With patient's worsening performance status, and decline in overall condition, Dr. Jordan spoke with family this morning and the decision was made to pursue comfort/hospice care and discontinue chemotherapy. Palliative care is now consulted. Met with patient, his /ARELI Oro, sister Joie and her in room 409. Patient is awake, alert and oriented x4. C/o pain in left arm/shoulder, Ultram just "takes the edge off." Patient is persistent at 5/10. We discussed patient's current medical condition, he and his family are aware that he will no longer be taking chemotherapy and they would like to take him home on hospice. states she will need 24/7 caregivers in the home in addition to hospice. I explained the role of hospice agency and the service they provide. states she would like referral to [facility]. POLST form explained to patient and family, completed and signed by patient's with patient's permission. I also reviewed his living will and placed copy on chart. POLST coincides with living will. Past Medical/Surgical History Medical History: Pancreatic cancer with liver mets DM type 2 Htn HLD CAD s/p CABG Orthostatic hypotension Displaced comminuted proximal humerus fracture CKD COPD HEAVENLY GERD Surgical History: CABG Social History Smoking Status: Former Smoker History of Alcohol Use: No Drug Use: none Marital Status: Housing Status: lives with family Occupation Status: retired Review of Systems Constitutional: + weakness ENT: No trouble swallowing Respiratory: No cough, No shortness of breath, No dyspnea on exertion Cardiac: No chest pain, No edema Abdomen: + problem reported ("soft" BMs), No pain, No nausea, No vomiting Male : No problem reported Psychiatric: No depression symptoms, No anxiety Allergies Coded Allergies: Levofloxacin (Verified Allergy, Severe, HIVES, 05/22/17) Ciprofloxacin (Unverified Allergy, Intermediate, ITCHY, 05/22/17) Medications Current Inpatient Medications Medications (Trade) Dose Ordered Sig/Dalia Route Start Time Stop Time Status Last Admin Dose Admin Acetaminophen (Tylenol Tab) 650 mg Q4H PRN PO 06/05/17 17:30 07/05/17 17:29 Al Hydrox/Mg Hydrox/Simethicone (Maalox Max Susp) 15 ml Q4H PRN PO 06/05/17 17:30 07/05/17 17:29 Magnesium Hydroxide (Milk Of Magnesia Susp) 30 ml Q6H PRN PO 06/05/17 17:30 07/05/17 17:29 Ondansetron HCl (Zofran Inj) 4 mg Q6H PRN IV 06/05/17 17:30 07/05/17 17:29 Glucose (Glucose 40% Gel) 15-30 GRAMS 15 GRAMS... UD PRN PO 06/05/17 17:30 07/05/17 17:29 Glucose (Glucose Chew Tab) 4-8 Tablets 4 Tabl... UD PRN PO 06/05/17 17:30 07/05/17 17:29 Dextrose (Dextrose 50% 50ML Syringe) 25-50ML OF 50% DW IV FOR... UD PRN IV 06/05/17 17:30 07/05/17 17:29 Glucagon (Glucagon Inj) 1 mg UD PRN SQ 06/05/17 17:30 07/05/17 17:29 Acetaminophen (Tylenol Tab) 500 mg BID PO 06/05/17 20:00 07/05/17 19:59 06/06/17 07:59 500 MG Aspirin (Ecotrin Tab) 81 mg QAM PO 06/06/17 08:00 07/06/17 08:59 06/06/17 08:00 81 MG Insulin Glargine (Lantus Solostar Pen) 16 units QPM SC 06/05/17 21:00 07/05/17 20:59 06/05/17 19:48 16 UNITS Multivitamins (Multivitamin Tab) 1 tab QAM PO 06/06/17 08:00 07/06/17 08:59 06/06/17 08:00 1 TAB Polyethylene (Miralax Powder Packet) 17 gm DAILY PRN PO 06/05/17 17:30 07/05/17 17:29 Rosuvastatin Calcium (Crestor Tab) 10 mg QAM PO 06/06/17 08:00 07/06/17 08:59 06/06/17 08:00 10 MG Tramadol HCl (Ultram Tab) 50 mg BID PO 06/05/17 20:00 07/05/17 20:59 06/06/17 08:23 50 MG Sodium Chloride 1,000 ml @ 80 mls/hr [id number] IV 06/05/17 18:30 07/05/17 18:29 06/06/17 08:02 80 MLS/HR Diclofenac Sodium (Voltaren 1% Top Gel) 1 appln BID EXT 06/05/17 20:00 07/05/17 19:59 06/06/17 08:00 1 APPLN Insulin Aspart (novoLOG ASPART) SLIDING SCALE If C... ACHS SC 06/05/17 21:00 07/05/17 20:59 Miscellaneous (Iv Fluids Completed) 1 ea PRN PRN N/A 06/05/17 21:30 06/05/18 21:29 Heparin Sodium (Porcine) (Heparin 100 Unit/ml 5ml Flush) 5 ml PRN PRN IV 06/05/17 23:45 07/05/17 23:44 Physical Exam Date Time Temp Pulse Resp B/P (MAP) Pulse Ox O2 Delivery O2 Flow Rate FiO2 06/06/17 10:37 97 Room Air 06/06/17 09:19 90 90/52 (65) 06/06/17 09:18 112 111/66 (81) 06/06/17 09:17 132 127/72 (90) 06/06/17 08:30 97 Room Air 06/06/17 08:01 36.8 78 14 118/70 (86) 97 Room Air 06/06/17 04:00 36.6 69 20 151/76 (101) 96 Room Air 06/06/17 00:00 36.8 68 18 156/92 (113) 95 Room Air 06/06/17 00:00 Room Air 06/05/17 18:30 36.5 18 18 167/83 97 Room Air 06/05/17 18:07 85 16 116/63 98 06/05/17 18:00 85 16 116/63 98 Room Air 06/05/17 17:00 70 20 06/05/17 14:12 68 16 118/66 96 06/05/17 12:53 99 Room Air 06/05/17 12:03 72 18 157/78 99 Room Air 06/05/17 11:34 62 18 148/71 99 Room Air General Appearance: no apparent distress ENT: hearing grossly normal Neck: supple, no JVD Respiratory: lungs clear, no respiratory distress, no accessory muscle use, + pertinent finding (room air) Cardiovascular: regular rate, rhythm, no edema Abdomen: normal bowel sounds, non tender, soft Musculoskeletal: pertinent finding (left arm sling) Neurologic/Psychiatric: alert, normal mood/affect, oriented x 3 Skin: normal color Laboratory Results Last 24 Hours Test 06/05/17 11:59 06/05/17 19:23 06/06/17 05:03 06/06/17 07:45 Urine Color YELLOW Urine Appearance CLOUDY Urine pH 7.5 Urine Specific [place] 1.012 Urine Protein NEG Urine Glucose (UA) NEG Urine Ketones NEG Urine Occult Blood NEG Urine Nitrite NEG Urine Bilirubin NEG Urine Urobilinogen NEG Urine Leukocyte Esterase NEG Urine WBC (Auto) 0 /hpf Urine RBC (Auto) 0-4 /hpf Urine Hyaline Casts (Auto) 1-5 /lpf Urine Epithelial Cells (Auto) 0-5 /lpf Urine Bacteria (Auto) NEG Bedside Glucose 178 mg/dl 116 mg/dl White Blood Count 10.53 K/uL Red Blood Count 3.76 M/uL Hemoglobin 11.7 g/dL Hematocrit 34.4 % Mean Corpuscular Volume 91.5 fL Mean Corpuscular Hemoglobin 31.1 pg Mean Corpuscular Hemoglobin Concent 34.0 g/dl RDW Standard Deviation 48.7 fL RDW Coefficient of Variation 14.6 % Platelet Count 110 K/uL Mean Platelet Volume 10.5 fL Sodium Level 135 mmol/L Potassium Level 3.5 mmol/L Chloride Level 101 mmol/L Carbon Dioxide Level 27 mmol/L Anion Gap 7.0 mmol/L Blood Urea Nitrogen 15 mg/dl Creatinine 0.86 mg/dl Est Creatinine Clear Calc Drug Dose 69.3 ml/min Estimated GFR () 92.9 Estimated GFR (Non- 80.2 BUN/Creatinine Ratio 16.9 Random Glucose 128 mg/dl Calcium Level 8.7 mg/dl Magnesium Level 1.9 mg/dl Assessment & Plan Palliative Performance Scale: 40 % Problem list: Pain, left arm/shoulder Weakness Orthostatic hypotension Multiple falls Hx recent left humeral fracture Metastatic pancreatic cancer to the liver Goals of care (Z51.5) Palliative care recs: -Discussed with patient: he would like to be a DO NOT RESUSCITATE. -Recommend starting fentanyl patch at 12mcg/hr TD Q72h. -Dr. Shetty will start Florinef for the orthostasis. -Patient states the Ultram does work to "take the edge off," and is okay with continuing this for now. Hospice can always increase/change breakthrough pain medication later on. -Patient will need 24-hour caregivers at home. already has a call out to [facility] and is awaiting return phone call to get this set up. -Is on NS at 80ml/hr, but patient does not have trouble taking things PO, so would be reasonable to discontinue. -Given patient's advanced stage of pancreatic cancer and discontinuation of aggressive treatment, qualifies for hospice. Case management to follow up and send referral to [facility] per family's request. -POLST form completed as follows: DNR, comfort measures only, abx with comfort as the goal, no artificial hydration/nutrition. Thank you kindly for this consult. Please contact me with any further palliative care needs. Total time spent 70 minutes. Greater than 50% of time with the patient was spent on counseling and coordinating care. Supervising Physician Pt seen and examined with Valentina Spencer, Concur with above note. , sister and brother in law at bedside. PE: pt awake, alert, ND RESP: unlabored, CV: RR, no edema, ABD: not distended , Ext: L UE in sling due to recent fracture Psych: appropriate, in good spirits. Pt appears younger than stated age - now with metastatic pancreatic CA - plan is to go home with Hospice support early next week. Pain controlled, no dyspnea.
[2017-06-06] MEDS ORDERED: FLUDROCORTISONE ACETATE 0.1 MG TAB PO ONE (11:22)
[2017-06-06] MEDS: FENTANYL 12 MCG/HR TDSY TD SCH (12:14)
--- NOTE | 2017-06-06 14:23 | Progress Note ---
Subjective Date of Service: Jun 06, 2017. Subjective Pt evaluation today including: conversation w/ patient, conversation w/ family , physical exam, lab review, conversation w/ consultant internship, review of inpatient medication list Pain: left shoulder PO Intake: adequate Voiding: no voiding problems patient resting in bed, no acute issues, breathing well, eating well has some pain in left shoulder with his fracture appreciate notes from Dr. Jordan and Valentina Spencer with palliative plan to go home with hospice, need to arrange for 24 hour nursing discussed starting Florinef to help with orthostatic hypotension, he and family agreed Problem List Medical Problems: (1) Adverse reaction to drug Status: Acute (2) Allergic reaction Status: Acute (3) Chronic Kidney Disease, Unspecified Status: Chronic (4) COPD (chronic obstructive pulmonary disease) Status: Chronic (5) Dehydration Status: Acute (6) Dog bite Status: Acute (7) Double vision Status: Acute (8) Esophageal Reflux Status: Chronic (9) Fall Status: Acute (10) Fall Status: Acute (11) Fever Status: Acute (12) History of biliary stent insertion Status: Acute (13) History of pancreatic cancer Status: Acute (14) Humeral head fracture Status: Acute (15) Hyperlipidemia Nec/Nos Status: Chronic (16) Hypertension Nos Status: Chronic (17) Leukocytosis Status: Acute (18) Mallet deformity of left ring finger Status: Acute (19) 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 (20) Orthostasis Status: Acute (21) Pancreatitis Status: Acute (22) Pressure ulcer of contiguous region involving left buttock and hip, stage 2 Status: Acute (23) Pressure ulcer of left buttock, stage 2 Status: Acute (24) Weakness Status: Acute Review of Systems Constitutional: + weakness, + fatigue Musculoskeletal: + joint pain (left shoulder) Neurologic: + balance problems All Other Systems: Reviewed and Negative Medications Current Inpatient Medications Medications (Trade) Dose Ordered Sig/Dalia Route Start Time Stop Time Status Last Admin Dose Admin Acetaminophen (Tylenol Tab) 650 mg Q4H PRN PO 06/05/17 17:30 07/05/17 17:29 Al Hydrox/Mg Hydrox/Simethicone (Maalox Max Susp) 15 ml Q4H PRN PO 06/05/17 17:30 07/05/17 17:29 Magnesium Hydroxide (Milk Of Magnesia Susp) 30 ml Q6H PRN PO 06/05/17 17:30 07/05/17 17:29 Ondansetron HCl (Zofran Inj) 4 mg Q6H PRN IV 06/05/17 17:30 07/05/17 17:29 Glucose (Glucose 40% Gel) 15-30 GRAMS 15 GRAMS... UD PRN PO 06/05/17 17:30 07/05/17 17:29 Glucose (Glucose Chew Tab) 4-8 Tablets 4 Tabl... UD PRN PO 06/05/17 17:30 07/05/17 17:29 Dextrose (Dextrose 50% 50ML Syringe) 25-50ML OF 50% DW IV FOR... UD PRN IV 06/05/17 17:30 07/05/17 17:29 Glucagon (Glucagon Inj) 1 mg UD PRN SQ 06/05/17 17:30 07/05/17 17:29 Acetaminophen (Tylenol Tab) 500 mg BID PO 06/05/17 20:00 07/05/17 19:59 06/06/17 07:59 500 MG Aspirin (Ecotrin Tab) 81 mg QAM PO 06/06/17 08:00 07/06/17 08:59 06/06/17 08:00 81 MG Insulin Glargine (Lantus Solostar Pen) 16 units QPM SC 06/05/17 21:00 07/05/17 20:59 06/05/17 19:48 16 UNITS Multivitamins (Multivitamin Tab) 1 tab QAM PO 06/06/17 08:00 07/06/17 08:59 06/06/17 08:00 1 TAB Polyethylene (Miralax Powder Packet) 17 gm DAILY PRN PO 06/05/17 17:30 07/05/17 17:29 Rosuvastatin Calcium (Crestor Tab) 10 mg QAM PO 06/06/17 08:00 07/06/17 08:59 06/06/17 08:00 10 MG Tramadol HCl (Ultram Tab) 50 mg BID PO 06/05/17 20:00 07/05/17 20:59 06/06/17 08:23 50 MG Sodium Chloride 1,000 ml @ 80 mls/hr [id number] IV 06/05/17 18:30 07/05/17 18:29 06/06/17 08:02 80 MLS/HR Diclofenac Sodium (Voltaren 1% Top Gel) 1 appln BID EXT 06/05/17 20:00 07/05/17 19:59 06/06/17 08:00 1 APPLN Insulin Aspart (novoLOG ASPART) SLIDING SCALE If C... ACHS SC 06/05/17 21:00 07/05/17 20:59 06/06/17 12:13 2 UNITS Miscellaneous (Iv Fluids Completed) 1 ea PRN PRN N/A 06/05/17 21:30 06/05/18 21:29 Heparin Sodium (Porcine) (Heparin 100 Unit/ml 5ml Flush) 5 ml PRN PRN IV 06/05/17 23:45 07/05/17 23:44 Fludrocortisone Acetate (Florinef Tab) 0.1 mg QAM PO 06/07/17 08:00 07/07/17 07:59 Fentanyl (Duragesic Patch) 12 mcg Q3D@1200 TD 06/06/17 12:00 06/20/17 11:59 06/06/17 12:14 12 MCG Miscellaneous (Fentanyl Patch Remove & Waste) 1 ea Q3D@1159 N/A 06/09/17 11:59 07/09/17 11:58 Miscellaneous Information (Check Fentanyl Patch Placement) 1 ea QS N/A 06/06/17 16:00 07/06/17 15:59 Objective Vital Signs Date Time Temp Pulse Resp B/P (MAP) Pulse Ox O2 Delivery O2 Flow Rate FiO2 06/06/17 10:37 97 Room Air 06/06/17 09:19 90 90/52 (65) 06/06/17 09:18 112 111/66 (81) 06/06/17 09:17 132 127/72 (90) 06/06/17 08:30 97 Room Air 06/06/17 08:01 36.8 78 14 118/70 (86) 97 Room Air 06/06/17 04:00 36.6 69 20 151/76 (101) 96 Room Air 06/06/17 00:00 36.8 68 18 156/92 (113) 95 Room Air 06/06/17 00:00 Room Air 06/05/17 18:30 36.5 18 18 167/83 97 Room Air 06/05/17 18:07 85 16 116/63 98 06/05/17 18:00 85 16 116/63 98 Room Air 06/05/17 17:00 70 20 06/05/17 14:12 68 16 118/66 96 Physical Exam General Appearance: WD/WN, no apparent distress Eyes: normal inspection, EOMI, sclerae normal ENT: normal ENT inspection, hearing grossly normal, pharynx normal Neck: supple, no adenopathy, no JVD, trachea midline Respiratory/Chest: chest non-tender, lungs clear, normal breath sounds, no respiratory distress, no accessory muscle use Cardiovascular: regular rate, rhythm, no edema, no gallop, no JVD, no murmur Abdomen: normal bowel sounds, non tender, soft, no organomegaly Extremities: no pedal edema, no calf tenderness, pelvis stable, + pertinent finding (left shoulder tender, decreased ROM, in sling) Neurologic/Psychiatric: membership sales advisor II-XII nml as tested, no motor/sensory deficits, alert, normal mood/affect, oriented x 3 Skin: normal color, warm/dry, no rash Lymphatic: no adenopathy Laboratory Results Last 24 Hours Test 06/05/17 19:23 06/06/17 05:03 06/06/17 07:45 06/06/17 11:52 Bedside Glucose 178 mg/dl 116 mg/dl 218 mg/dl White Blood Count 10.53 K/uL Red Blood Count 3.76 M/uL Hemoglobin 11.7 g/dL Hematocrit 34.4 % Mean Corpuscular Volume 91.5 fL Mean Corpuscular Hemoglobin 31.1 pg Mean Corpuscular Hemoglobin Concent 34.0 g/dl RDW Standard Deviation 48.7 fL RDW Coefficient of Variation 14.6 % Platelet Count 110 K/uL Mean Platelet Volume 10.5 fL Sodium Level 135 mmol/L Potassium Level 3.5 mmol/L Chloride Level 101 mmol/L Carbon Dioxide Level 27 mmol/L Anion Gap 7.0 mmol/L Blood Urea Nitrogen 15 mg/dl Creatinine 0.86 mg/dl Est Creatinine Clear Calc Drug Dose 69.3 ml/min Estimated GFR () 92.9 Estimated GFR (Non- 80.2 BUN/Creatinine Ratio 16.9 Random Glucose 128 mg/dl Calcium Level 8.7 mg/dl Magnesium Level 1.9 mg/dl Assessment and Plan Mr. Wood is an 81 y/o male with PMHx of Metastatic Pancreatitis to Liver, T2DM , HTN, HLD, CAD S/P CABG, Orthostatic Hypotension, and Displaced Comminuted Proximal Humerus Fx who presents to the ED after a fall this AM. Fall 2/2 Orthostatic Hypotension: - This has been an ongoing issue. States he had fluids when he went to his last chemo session and felt a lot better and has tried to drink a good amount of liquids at home - Imaging showing healing humerus fx - will add Florinef 0.1mg qAM, TEDs to lower extremities, liberal salt in diet can increase to 0.2mg qAM in one week if still having symptoms L Prox. Displaced Comminuted Humerus: STABLE - Continue sling and conservative management - Tylenol and Tramadol BID; Add Voltaren gel - Fentanyl patch for pain control as part of hospice plan Metastatic Pancreatic cancer - plan for home with hospice - hospice referral, contacting 24 hour nursing care for assistance at home - Fentanyl patch for pain control - POLST completed by palliative care CAD S/P CABG: - ASA 81 mg daily - Metoprolol was D/Cd previously to prevent orthostasis T2DM: - Lantus 16 units SC daily and SSI Code Status: changed to DNR today after discussions with palliative care Disposition: - home with hospice once everything arranged
[2017-06-06] MEDS: CHECK FENTANYL PATCH PLACEMENT SCH (15:47)
[2017-06-06] MEDS: INSULIN GLARGINE SOLOSTAR 100 UNITS/ML 3 ML PEN SC SCH (21:05)
[2017-06-07] VITALS (9 sets, daily range): BP systolic 76–169; BP diastolic 45–90; PULSE 65–84; TEMP 36.2–36.8; O2SAT 93–100; Ht 180.3 cm; Wt 80.5 kg
[2017-06-07] MEDS: CHECK FENTANYL PATCH PLACEMENT SCH ×4 (00:14→23:50)
[2017-06-07] MEDS: ZOLPIDEM TARTRATE 5 MG TAB PO PRN ×2 (00:25→22:06)
[2017-06-07] MEDS: ASPIRIN 81 MG ECTAB PO SCH (07:54)
[2017-06-07] MEDS: MULTIVITAMIN TAB PO SCH (07:54)
[2017-06-07] MEDS: FLUDROCORTISONE ACETATE 0.1 MG TAB PO SCH (07:55)
[2017-06-07] MEDS: ROSUVASTATIN CALCIUM 10 MG TAB PO SCH (07:55)
[2017-06-07] MEDS: ACETAMINOPHEN 500 MG TAB PO SCH ×2 (07:55→19:59)
[2017-06-07] MEDS: DICLOFENAC SOD 1% GEL 100 GM TUBE EXT SCH ×2 (07:56→20:00)
[2017-06-07] MEDS: INSULIN ASPART 100 UNITS/ML 3 ML PEN SC SCH ×4 (07:57→20:02)
[2017-06-07] MEDS: SODIUM CHLORIDE 0.9% 1000ML 1,000 ML IV SCH ×2 (07:57→21:24)
[2017-06-07] MEDS: TRAMADOL HCL 50 MG TAB PO SCH ×2 (08:13→20:00)
--- NOTE | 2017-06-07 15:13 | Progress Note ---
Subjective Date of Service: Jun 07, 2017. Subjective Pt evaluation today including: conversation w/ patient, physical exam, lab review, review of inpatient medication list Pain: mild pain in left shoulder PO Intake: adequate Voiding: no voiding problems patient feeling well, no dizziness today when standing Fentanyl controlling pain, ready for hospice on Friday Problem List Medical Problems: (1) Adverse reaction to drug Status: Acute (2) Allergic reaction Status: Acute (3) Chronic Kidney Disease, Unspecified Status: Chronic (4) COPD (chronic obstructive pulmonary disease) Status: Chronic (5) Dehydration Status: Acute (6) Dog bite Status: Acute (7) Double vision Status: Acute (8) Esophageal Reflux Status: Chronic (9) Fall Status: Acute (10) Fall Status: Acute (11) Fever Status: Acute (12) History of biliary stent insertion Status: Acute (13) History of pancreatic cancer Status: Acute (14) Humeral head fracture Status: Acute (15) Hyperlipidemia Nec/Nos Status: Chronic (16) Hypertension Nos Status: Chronic (17) Leukocytosis Status: Acute (18) Mallet deformity of left ring finger Status: Acute (19) 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 (20) Orthostasis Status: Acute (21) Pancreatitis Status: Acute (22) Pressure ulcer of contiguous region involving left buttock and hip, stage 2 Status: Acute (23) Pressure ulcer of left buttock, stage 2 Status: Acute (24) Weakness Status: Acute Review of Systems Constitutional: + weakness, + fatigue Musculoskeletal: + joint pain (left shoulder) All Other Systems: Reviewed and Negative Medications Current Inpatient Medications Medications (Trade) Dose Ordered Sig/Dalia Route Start Time Stop Time Status Last Admin Dose Admin Acetaminophen (Tylenol Tab) 650 mg Q4H PRN PO 06/05/17 17:30 07/05/17 17:29 Al Hydrox/Mg Hydrox/Simethicone (Maalox Max Susp) 15 ml Q4H PRN PO 06/05/17 17:30 07/05/17 17:29 Magnesium Hydroxide (Milk Of Magnesia Susp) 30 ml Q6H PRN PO 06/05/17 17:30 07/05/17 17:29 Ondansetron HCl (Zofran Inj) 4 mg Q6H PRN IV 06/05/17 17:30 07/05/17 17:29 Glucose (Glucose 40% Gel) 15-30 GRAMS 15 GRAMS... UD PRN PO 06/05/17 17:30 07/05/17 17:29 Glucose (Glucose Chew Tab) 4-8 Tablets 4 Tabl... UD PRN PO 06/05/17 17:30 07/05/17 17:29 Dextrose (Dextrose 50% 50ML Syringe) 25-50ML OF 50% DW IV FOR... UD PRN IV 06/05/17 17:30 07/05/17 17:29 Glucagon (Glucagon Inj) 1 mg UD PRN SQ 06/05/17 17:30 07/05/17 17:29 Acetaminophen (Tylenol Tab) 500 mg BID PO 06/05/17 20:00 07/05/17 19:59 06/07/17 07:55 500 MG Aspirin (Ecotrin Tab) 81 mg QAM PO 06/06/17 08:00 07/06/17 08:59 06/07/17 07:54 81 MG Insulin Glargine (Lantus Solostar Pen) 16 units QPM SC 06/05/17 21:00 07/05/17 20:59 06/06/17 21:05 16 UNITS Multivitamins (Multivitamin Tab) 1 tab QAM PO 06/06/17 08:00 07/06/17 08:59 06/07/17 07:54 1 TAB Polyethylene (Miralax Powder Packet) 17 gm DAILY PRN PO 06/05/17 17:30 07/05/17 17:29 Rosuvastatin Calcium (Crestor Tab) 10 mg QAM PO 06/06/17 08:00 07/06/17 08:59 06/07/17 07:55 10 MG Tramadol HCl (Ultram Tab) 50 mg BID PO 06/05/17 20:00 07/05/17 20:59 06/07/17 08:13 50 MG Sodium Chloride 1,000 ml @ 80 mls/hr [id number] IV 06/05/17 18:30 07/05/17 18:29 06/07/17 07:57 80 MLS/HR Diclofenac Sodium (Voltaren 1% Top Gel) 1 appln BID EXT 06/05/17 20:00 07/05/17 19:59 06/07/17 07:56 1 APPLN Insulin Aspart (novoLOG ASPART) SLIDING SCALE If C... ACHS SC 06/05/17 21:00 07/05/17 20:59 06/06/17 21:06 1 UNITS Miscellaneous (Iv Fluids Completed) 1 ea PRN PRN N/A 06/05/17 21:30 06/05/18 21:29 Heparin Sodium (Porcine) (Heparin 100 Unit/ml 5ml Flush) 5 ml PRN PRN IV 06/05/17 23:45 07/05/17 23:44 Fludrocortisone Acetate (Florinef Tab) 0.1 mg QAM PO 06/07/17 08:00 07/07/17 07:59 06/07/17 07:55 0.1 MG Fentanyl (Duragesic Patch) 12 mcg Q3D@1200 TD 06/06/17 12:00 06/20/17 11:59 06/06/17 12:14 12 MCG Miscellaneous (Fentanyl Patch Remove & Waste) 1 ea Q3D@1159 N/A 06/09/17 11:59 07/09/17 11:58 Miscellaneous Information (Check Fentanyl Patch Placement) 1 ea QS N/A 06/06/17 16:00 07/06/17 15:59 06/07/17 07:56 1 EA Zolpidem Tartrate (Ambien Tab) 5 mg HS PRN PO 06/06/17 23:45 07/06/17 23:44 06/07/17 00:25 5 MG Objective Vital Signs Date Time Temp Pulse Resp B/P (MAP) Pulse Ox O2 Delivery O2 Flow Rate FiO2 06/07/17 11:24 36.3 66 18 121/75 (90) 98 Room Air 06/07/17 08:30 95 Room Air 06/07/17 07:59 84 76/45 (55) 06/07/17 07:58 76 115/68 (84) 06/07/17 07:26 36.3 65 18 132/74 (93) 95 Room Air 06/07/17 04:15 36.2 67 20 164/84 (110) 96 Room Air 06/06/17 21:39 36.3 62 18 169/84 (112) 96 Room Air 06/06/17 20:00 96 Room Air 06/06/17 18:46 36.6 70 18 128/69 (88) 96 Room Air 06/06/17 15:14 36.6 69 18 127/71 (89) 97 74 99/63 (75) 79 85/40 (55) Physical Exam General Appearance: WD/WN, no apparent distress Eyes: normal inspection, EOMI, sclerae normal ENT: normal ENT inspection, hearing grossly normal, pharynx normal Neck: supple, no adenopathy, no JVD, trachea midline Respiratory/Chest: chest non-tender, lungs clear, normal breath sounds, no respiratory distress, no accessory muscle use Cardiovascular: regular rate, rhythm, no edema, no gallop, no JVD, no murmur Abdomen: normal bowel sounds, non tender, soft, no organomegaly Extremities: normal range of motion, non-tender, normal inspection, no pedal edema, no calf tenderness, pelvis stable Neurologic/Psychiatric: fish cutter II-XII nml as tested, alert, normal mood/affect, oriented x 3, + motor weakness Skin: normal color, warm/dry, no rash Laboratory Results Last 24 Hours Test 06/06/17 16:56 06/06/17 20:45 06/07/17 07:54 06/07/17 12:06 Bedside Glucose 171 mg/dl 202 mg/dl 78 mg/dl 144 mg/dl Assessment and Plan Mr. Wood is an 81 y/o male with PMHx of Metastatic Pancreatitis to Liver, T2DM , HTN, HLD, CAD S/P CABG, Orthostatic Hypotension, and Displaced Comminuted Proximal Humerus Fx who presents to the ED after a fall this AM. Fall 2/2 Orthostatic Hypotension: - This has been an ongoing issue - Imaging showing healing humerus fx - started on Florinef 0.1mg qAM, TEDs to lower extremities, liberal salt in diet can increase to 0.2mg qAM in one week if still having symptoms seems to be better today, will continue on discharge L Prox. Displaced Comminuted Humerus: STABLE - Continue sling and conservative management - Tylenol and Tramadol BID; Add Voltaren gel - Fentanyl patch for pain control as part of hospice plan Metastatic Pancreatic cancer - plan for home with hospice - hospice referral, contacting 24 hour nursing care for assistance at home - Fentanyl patch for pain control - POLST completed by palliative care CAD S/P CABG: - ASA 81 mg daily - Metoprolol was D/Cd previously to prevent orthostasis T2DM: - Lantus 16 units SC daily and SSI Code Status: changed to DNR today after discussions with palliative care Disposition: - home with hospice once everything arranged, will be ready on Friday
[2017-06-07] MEDS: INSULIN GLARGINE SOLOSTAR 100 UNITS/ML 3 ML PEN SC SCH (20:03)
[2017-06-08 04:13] VITALS: BP 175/83; PULSE 68; TEMP 36.5; O2SAT 97
[2017-06-08 06:42] VITALS: BP 156/81; PULSE 64; TEMP 36.2; O2SAT 97
[2017-06-08 07:45] VITALS: BP_SYST 128; BP_SYST 137; BP_DIAS 73; BP_DIAS 79; PULSE 75; PULSE 78; O2SAT 97
[2017-06-08] MEDS: FLUDROCORTISONE ACETATE 0.1 MG TAB PO SCH (07:51)
[2017-06-08] MEDS: DICLOFENAC SOD 1% GEL 100 GM TUBE EXT SCH ×2 (07:51→20:44)
[2017-06-08] MEDS: ROSUVASTATIN CALCIUM 10 MG TAB PO SCH (07:52)
[2017-06-08] MEDS: ACETAMINOPHEN 500 MG TAB PO SCH ×2 (07:52→20:00)
[2017-06-08] MEDS: TRAMADOL HCL 50 MG TAB PO SCH ×2 (07:52→20:45)
[2017-06-08] MEDS: INSULIN ASPART 100 UNITS/ML 3 ML PEN SC SCH ×4 (07:53→20:37)
[2017-06-08] MEDS: ASPIRIN 81 MG ECTAB PO SCH (07:53)
[2017-06-08] MEDS: MULTIVITAMIN TAB PO SCH (07:53)
[2017-06-08] MEDS: CHECK FENTANYL PATCH PLACEMENT SCH ×3 (07:53→23:25)
--- NOTE | 2017-06-08 08:21 | HEME/ONC PROGRESS NOTE ---
DATE: 06/08/2017 DIAGNOSES: 1. Orthostatic hypotension. 2. Hypoalbuminemia. 3. Declining performance status. 4. Probable metastatic pancreatic cancer. SUBJECTIVE: Massimo was seen and examined at bedside today. Mentally much brighter. Pain appears to be well controlled with incorporation of fentanyl patch. Tolerating diet. Has not moved his bowels in the last 24 hours. Nursing reports no overnight difficulties. Appreciate palliative care's consultation and opinion. For all intent and purposes, Massimo will transition to comfort care and outpatient hospice. It's Massimo's spouse's desire to establish a 24-hour nursing care because she physically is not strong enough to care for Massimo in the terminal supervisor. PHYSICAL EXAMINATION: GENERAL: An 81-year-old gentleman in no acute distress. VITAL SIGNS: Temperature 36.2, pulse 64, respiration 16, blood pressure 156/81. SKIN: Without rash or lesion. HEENT: Oral mucosa without erythema or ulceration. NECK: Supple. HEART: Regular rate and rhythm. LUNGS: Clear to auscultation. ABDOMEN: Soft, nontender, nondistended. EXTREMITIES: No clubbing, cyanosis or edema. NEUROLOGIC: Grossly intact. LABORATORY DATA: None ordered for today. IMPRESSION: 1. Orthostatic hypotension. 2. Status post falls. 3. Declining performance status. 4. Hypoalbuminemia. 5. Probable metastatic pancreatic cancer. PLAN: In summary, Massimo is a pleasant 81-year-old gentleman well known to [facility] currently under my care receiving single-agent gemcitabine for probable metastatic pancreatic cancer. Massimo was admitted because of frequent falls, general clinical decline, and orthostatic hypotension. He seems to be doing a bit better clinically today. He reports a decent pain control. He has moved his bowels in the last 24 hours. I reviewed palliative care's consultation and agree with the patient's transition to outpatient hospice. As I said previously if Massimo would improve significantly, may entertain re-incorporating a modified salvage regimen, in particular a single-agent gemcitabine as previously administered with reduced dose. I suspect he will be discharged in the next day or two. We will ensure outpatient followup is established. I have nothing further to add and will officially sign off at this juncture. If there are any further questions, feel free to contact me at any time. Again, thank you for assisting us in the care of this very pleasant gentleman. [facility]PITALAm[facility]
[2017-06-08] MEDS: SODIUM CHLORIDE 0.9% 1000ML 1,000 ML IV SCH (09:21)
[2017-06-08 11:47] VITALS: BP 125/74; PULSE 73; TEMP 36.6; O2SAT 95
[2017-06-08 14:50] VITALS: BP_SYST 132; BP_SYST 147; BP_SYST 152; BP_DIAS 72; BP_DIAS 78; BP_DIAS 80; PULSE 72; PULSE 75; PULSE 77; TEMP 36.3; O2SAT 97
[2017-06-08 19:33] VITALS: BP 165/80; PULSE 61; TEMP 36.4; O2SAT 97
--- NOTE | 2017-06-08 20:15 | Progress Note ---
Subjective Date of Service: Jun 08, 2017. Subjective Pt evaluation today including: conversation w/ patient, conversation w/ family (), physical exam, lab review, review of inpatient medication list Pain: controlled PO Intake: adequate Voiding: no voiding problems patient doing well, standing with no dizziness eating well, pain controlled at bedside, discussed discharge plan she is hoping to have 24 hr nurses by tomorrow but may not be until Friday hospice being arranged Problem List Medical Problems: (1) Adverse reaction to drug Status: Acute (2) Allergic reaction Status: Acute (3) Chronic Kidney Disease, Unspecified Status: Chronic (4) COPD (chronic obstructive pulmonary disease) Status: Chronic (5) Dehydration Status: Acute (6) Dog bite Status: Acute (7) Double vision Status: Acute (8) Esophageal Reflux Status: Chronic (9) Fall Status: Acute (10) Fall Status: Acute (11) Fever Status: Acute (12) History of biliary stent insertion Status: Acute (13) History of pancreatic cancer Status: Acute (14) Humeral head fracture Status: Acute (15) Hyperlipidemia Nec/Nos Status: Chronic (16) Hypertension Nos Status: Chronic (17) Leukocytosis Status: Acute (18) Mallet deformity of left ring finger Status: Acute (19) 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 (20) Orthostasis Status: Acute (21) Pancreatitis Status: Acute (22) Pressure ulcer of contiguous region involving left buttock and hip, stage 2 Status: Acute (23) Pressure ulcer of left buttock, stage 2 Status: Acute (24) Weakness Status: Acute Review of Systems Musculoskeletal: + joint pain (left shoulder) All Other Systems: Reviewed and Negative Medications Current Inpatient Medications Medications (Trade) Dose Ordered Sig/Dalia Route Start Time Stop Time Status Last Admin Dose Admin Acetaminophen (Tylenol Tab) 650 mg Q4H PRN PO 06/05/17 17:30 07/05/17 17:29 Al Hydrox/Mg Hydrox/Simethicone (Maalox Max Susp) 15 ml Q4H PRN PO 06/05/17 17:30 07/05/17 17:29 Magnesium Hydroxide (Milk Of Magnesia Susp) 30 ml Q6H PRN PO 06/05/17 17:30 07/05/17 17:29 Ondansetron HCl (Zofran Inj) 4 mg Q6H PRN IV 06/05/17 17:30 07/05/17 17:29 Glucose (Glucose 40% Gel) 15-30 GRAMS 15 GRAMS... UD PRN PO 06/05/17 17:30 07/05/17 17:29 Glucose (Glucose Chew Tab) 4-8 Tablets 4 Tabl... UD PRN PO 06/05/17 17:30 07/05/17 17:29 Dextrose (Dextrose 50% 50ML Syringe) 25-50ML OF 50% DW IV FOR... UD PRN IV 06/05/17 17:30 07/05/17 17:29 Glucagon (Glucagon Inj) 1 mg UD PRN SQ 06/05/17 17:30 07/05/17 17:29 Acetaminophen (Tylenol Tab) 500 mg BID PO 06/05/17 20:00 07/05/17 19:59 06/08/17 07:52 500 MG Aspirin (Ecotrin Tab) 81 mg QAM PO 06/06/17 08:00 07/06/17 08:59 06/08/17 07:53 81 MG Insulin Glargine (Lantus Solostar Pen) 16 units QPM SC 06/05/17 21:00 07/05/17 20:59 06/07/17 20:03 16 UNITS Multivitamins (Multivitamin Tab) 1 tab QAM PO 06/06/17 08:00 07/06/17 08:59 06/08/17 07:53 1 TAB Polyethylene (Miralax Powder Packet) 17 gm DAILY PRN PO 06/05/17 17:30 07/05/17 17:29 Rosuvastatin Calcium (Crestor Tab) 10 mg QAM PO 06/06/17 08:00 07/06/17 08:59 06/08/17 07:52 10 MG Tramadol HCl (Ultram Tab) 50 mg BID PO 06/05/17 20:00 07/05/17 20:59 06/08/17 07:52 50 MG Sodium Chloride 1,000 ml @ 80 mls/hr [id number] IV 06/05/17 18:30 07/05/17 18:29 06/08/17 09:21 80 MLS/HR Diclofenac Sodium (Voltaren 1% Top Gel) 1 appln BID EXT 06/05/17 20:00 07/05/17 19:59 06/08/17 07:51 1 APPLN Insulin Aspart (novoLOG ASPART) SLIDING SCALE If C... ACHS SC 06/05/17 21:00 07/05/17 20:59 06/08/17 12:30 1 UNITS Miscellaneous (Iv Fluids Completed) 1 ea PRN PRN N/A 06/05/17 21:30 06/05/18 21:29 Heparin Sodium (Porcine) (Heparin 100 Unit/ml 5ml Flush) 5 ml PRN PRN IV 06/05/17 23:45 07/05/17 23:44 Fludrocortisone Acetate (Florinef Tab) 0.1 mg QAM PO 06/07/17 08:00 07/07/17 07:59 06/08/17 07:51 0.1 MG Fentanyl (Duragesic Patch) 12 mcg Q3D@1200 TD 06/06/17 12:00 06/20/17 11:59 06/06/17 12:14 12 MCG Miscellaneous (Fentanyl Patch Remove & Waste) 1 ea Q3D@1159 N/A 06/09/17 11:59 07/09/17 11:58 Miscellaneous Information (Check Fentanyl Patch Placement) 1 ea QS N/A 06/06/17 16:00 07/06/17 15:59 06/08/17 15:31 1 EA Zolpidem Tartrate (Ambien Tab) 5 mg HS PRN PO 06/06/17 23:45 07/06/17 23:44 06/07/17 22:06 5 MG Objective Vital Signs Date Time Temp Pulse Resp B/P (MAP) Pulse Ox O2 Delivery O2 Flow Rate FiO2 06/08/17 19:33 36.4 61 18 165/80 (108) 97 Room Air 06/08/17 15:57 Room Air 06/08/17 14:50 36.3 72 18 152/80 (104) 97 75 147/78 (101) 77 132/72 (92) 06/08/17 11:47 36.6 73 18 125/74 (91) 95 06/08/17 07:45 78 18 128/73 (91) 06/08/17 07:45 75 18 137/79 (98) 06/08/17 07:45 97 Room Air 2/11/18 06:42 36.2 64 16 156/81 (106) 97 Room Air 06/08/17 04:13 36.5 68 18 175/83 (113) 97 Room Air 06/08/17 00:30 Room Air 06/07/17 23:05 36.8 70 16 131/76 (94) 93 Room Air Physical Exam General Appearance: WD/WN, no apparent distress Eyes: normal inspection, EOMI, sclerae normal ENT: normal ENT inspection, hearing grossly normal, pharynx normal Neck: supple, no adenopathy, no JVD, trachea midline Respiratory/Chest: chest non-tender, lungs clear, normal breath sounds, no respiratory distress, no accessory muscle use Cardiovascular: regular rate, rhythm, no edema, no gallop, no JVD, no murmur Abdomen: normal bowel sounds, non tender, soft, no organomegaly Extremities: no pedal edema, no calf tenderness, pelvis stable, + pertinent finding (left arm in sling, shoulder tender) Neurologic/Psychiatric: 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 Wood is an 81 y/o male with PMHx of Metastatic Pancreatitis to Liver, T2DM , HTN, HLD, CAD S/P CABG, Orthostatic Hypotension, and Displaced Comminuted Proximal Humerus Fx who presents to the ED after a fall this AM. Fall 2/2 Orthostatic Hypotension: - Imaging showing healing humerus fx - started on Florinef 0.1mg qAM, TEDs to lower extremities, liberal salt in diet can increase to 0.2mg qAM in one week if still having symptoms currently no orthostatic changes, no dizziness, feeling well, continue Florinef at 0.1mg on discharge L Prox. Displaced Comminuted Humerus: STABLE - Continue sling and conservative management - Tylenol and Tramadol BID; Add Voltaren gel - Fentanyl patch for pain control as part of hospice plan, no pain, continue Fentanyl on discharge Metastatic Pancreatic cancer - plan for home with hospice - hospice referral, contacting 24 hour nursing care for assistance at home - Fentanyl patch for pain control - POLST completed by palliative care - per patient's , may be ready tomorrow, it may be until Friday CAD S/P CABG: - ASA 81 mg daily - Metoprolol was D/Cd previously to prevent orthostasis T2DM: - Lantus 16 units SC daily and SSI Code Status: changed to DNR after discussions with palliative care Disposition: - home with hospice once everything arranged, will be ready on Friday/Friday
[2017-06-08] MEDS: INSULIN GLARGINE SOLOSTAR 100 UNITS/ML 3 ML PEN SC SCH (20:45)
[2017-06-08] MEDS: ZOLPIDEM TARTRATE 5 MG TAB PO PRN (23:28)
[2017-06-09] VITALS (9 sets, daily range): BP systolic 95–175; BP diastolic 61–82; PULSE 54–73; TEMP 36.3–36.6; O2SAT 93–98
[2017-06-09] MEDS: ROSUVASTATIN CALCIUM 10 MG TAB PO SCH (07:42)
[2017-06-09] MEDS: DICLOFENAC SOD 1% GEL 100 GM TUBE EXT SCH ×2 (07:42→21:36)
[2017-06-09] MEDS: FLUDROCORTISONE ACETATE 0.1 MG TAB PO SCH (07:43)
[2017-06-09] MEDS: MULTIVITAMIN TAB PO SCH (07:43)
[2017-06-09] MEDS: ASPIRIN 81 MG ECTAB PO SCH (07:43)
[2017-06-09] MEDS: ACETAMINOPHEN 500 MG TAB PO SCH ×2 (07:43→21:37)
[2017-06-09] MEDS: CHECK FENTANYL PATCH PLACEMENT SCH ×2 (07:44→16:35)
[2017-06-09] MEDS: TRAMADOL HCL 50 MG TAB PO SCH ×2 (07:50→21:35)
[2017-06-09] MEDS: INSULIN ASPART 100 UNITS/ML 3 ML PEN SC SCH ×4 (07:50→21:41)
--- NOTE | 2017-06-09 09:20 | Progress Note ---
Subjective Date of Service: Jun 09, 2017. Subjective 81 yo male reports pain is controlled. No orthostatic symptoms today when he stood up. No worsening of symptoms today. Still waiting for 24 hours care givers for hospice as per who is at bedside. Problem List Medical Problems: (1) Adverse reaction to drug Status: Acute (2) Allergic reaction Status: Acute (3) Chronic Kidney Disease, Unspecified Status: Chronic (4) COPD (chronic obstructive pulmonary disease) Status: Chronic (5) Dehydration Status: Acute (6) Dog bite Status: Acute (7) Double vision Status: Acute (8) Esophageal Reflux Status: Chronic (9) Fall Status: Acute (10) Fall Status: Acute (11) Fever Status: Acute (12) History of biliary stent insertion Status: Acute (13) History of pancreatic cancer Status: Acute (14) Humeral head fracture Status: Acute (15) Hyperlipidemia Nec/Nos Status: Chronic (16) Hypertension Nos Status: Chronic (17) Leukocytosis Status: Acute (18) Mallet deformity of left ring finger Status: Acute (19) 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 (20) Orthostasis Status: Acute (21) Pancreatitis Status: Acute (22) Pressure ulcer of contiguous region involving left buttock and hip, stage 2 Status: Acute (23) Pressure ulcer of left buttock, stage 2 Status: Acute (24) Weakness Status: Acute Review of Systems Musculoskeletal: + joint pain All Other Systems: Reviewed and Negative Medications Current Inpatient Medications Medications (Trade) Dose Ordered Sig/Dalia Route Start Time Stop Time Status Last Admin Dose Admin Acetaminophen (Tylenol Tab) 650 mg Q4H PRN PO 06/05/17 17:30 07/05/17 17:29 06/08/17 20:45 650 MG Al Hydrox/Mg Hydrox/Simethicone (Maalox Max Susp) 15 ml Q4H PRN PO 06/05/17 17:30 07/05/17 17:29 Magnesium Hydroxide (Milk Of Magnesia Susp) 30 ml Q6H PRN PO 06/05/17 17:30 07/05/17 17:29 Ondansetron HCl (Zofran Inj) 4 mg Q6H PRN IV 06/05/17 17:30 07/05/17 17:29 Glucose (Glucose 40% Gel) 15-30 GRAMS 15 GRAMS... UD PRN PO 06/05/17 17:30 07/05/17 17:29 Glucose (Glucose Chew Tab) 4-8 Tablets 4 Tabl... UD PRN PO 06/05/17 17:30 07/05/17 17:29 Dextrose (Dextrose 50% 50ML Syringe) 25-50ML OF 50% DW IV FOR... UD PRN IV 06/05/17 17:30 07/05/17 17:29 Glucagon (Glucagon Inj) 1 mg UD PRN SQ 06/05/17 17:30 07/05/17 17:29 Acetaminophen (Tylenol Tab) 500 mg BID PO 06/05/17 20:00 07/05/17 19:59 06/09/17 21:37 500 MG Aspirin (Ecotrin Tab) 81 mg QAM PO 06/06/17 08:00 07/06/17 08:59 06/09/17 07:43 81 MG Insulin Glargine (Lantus Solostar Pen) 16 units QPM SC 06/05/17 21:00 07/05/17 20:59 06/09/17 21:42 16 UNITS Multivitamins (Multivitamin Tab) 1 tab QAM PO 06/06/17 08:00 07/06/17 08:59 06/09/17 07:43 1 TAB Rosuvastatin Calcium (Crestor Tab) 10 mg QAM PO 06/06/17 08:00 07/06/17 08:59 06/09/17 07:42 10 MG Tramadol HCl (Ultram Tab) 50 mg BID PO 06/05/17 20:00 07/05/17 20:59 06/09/17 21:35 50 MG Diclofenac Sodium (Voltaren 1% Top Gel) 1 appln BID EXT 06/05/17 20:00 07/05/17 19:59 06/09/17 21:36 1 APPLN Insulin Aspart (novoLOG ASPART) SLIDING SCALE If C... ACHS SC 06/05/17 21:00 07/05/17 20:59 06/09/17 21:41 1 UNITS Miscellaneous (Iv Fluids Completed) 1 ea PRN PRN N/A 06/05/17 21:30 06/05/18 21:29 Heparin Sodium (Porcine) (Heparin 100 Unit/ml 5ml Flush) 5 ml PRN PRN IV 06/05/17 23:45 07/05/17 23:44 06/09/17 07:51 5 ML Fludrocortisone Acetate (Florinef Tab) 0.1 mg QAM PO 06/07/17 08:00 07/07/17 07:59 06/09/17 07:43 0.1 MG Fentanyl (Duragesic Patch) 12 mcg Q3D@1200 TD 06/06/17 12:00 06/20/17 11:59 06/09/17 12:49 12 MCG Miscellaneous (Fentanyl Patch Remove & Waste) 1 ea Q3D@1159 N/A 06/09/17 11:59 07/09/17 11:58 06/09/17 12:55 1 EA Miscellaneous Information (Check Fentanyl Patch Placement) 1 ea QS N/A 06/06/17 16:00 07/06/17 15:59 06/10/17 00:04 1 EA Zolpidem Tartrate (Ambien Tab) 5 mg HS PRN PO 06/06/17 23:45 07/06/17 23:44 06/09/17 21:36 5 MG Polyethylene (Miralax Powder Packet) 17 gm DAILY PO 06/09/17 11:30 07/09/17 11:29 Objective Vital Signs Date Time Temp Pulse Resp B/P (MAP) Pulse Ox O2 Delivery O2 Flow Rate FiO2 06/09/17 08:30 96 Room Air 06/09/17 08:23 73 95/61 (72) 06/09/17 08:22 65 133/78 (96) 06/09/17 08:21 56 175/82 (113) 06/09/17 08:21 36.5 54 14 175/82 (113) 96 Room Air 06/09/17 04:07 36.3 54 18 164/80 (108) 93 Room Air 06/09/17 00:05 36.6 63 18 162/80 (107) 94 Room Air 06/08/17 23:23 Room Air 06/08/17 19:33 36.4 61 18 165/80 (108) 97 Room Air 06/08/17 15:57 Room Air 06/08/17 14:50 36.3 72 18 152/80 (104) 97 75 147/78 (101) 77 132/72 (92) 06/08/17 11:47 36.6 73 18 125/74 (91) 95 Physical Exam Comments: General Appearance: WD/WN, no apparent distress Eyes: normal inspection, EOMI, sclerae normal ENT: normal ENT inspection, hearing grossly normal, pharynx normal Neck: supple, no adenopathy, no JVD, trachea midline Respiratory/Chest: chest non-tender, lungs clear, normal breath sounds, no respiratory distress, no accessory muscle use Cardiovascular: regular rate, rhythm, no edema, no gallop, no JVD, no murmur Abdomen: normal bowel sounds, non tender, soft, no organomegaly Extremities: no pedal edema, no calf tenderness, pelvis stable, + pertinent finding (left arm in sling, shoulder tender) 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 Wood is an 81 y/o male with PMHx of Metastatic Pancreatitis to Liver, T2DM , HTN, HLD, CAD S/P CABG, Orthostatic Hypotension, and Displaced Comminuted Proximal Humerus Fx who presents to the ED after a fall this AM. Fall 2/2 Orthostatic Hypotension: - Imaging showing healing humerus fx -B/P was orthostatic today. However, patient did not have any symptoms today - continue on Florinef 0.1mg qAM, TEDs to lower extremities, liberal salt in diet can increase to 0.2mg qAM in one week if still having symptoms. currently no orthostatic changes, no dizziness, feeling well, continue Florinef at 0.1mg on discharge L Prox. Displaced Comminuted Humerus: STABLE - Continue sling and conservative management - Tylenol and Tramadol BID; Add Voltaren gel - Fentanyl patch for pain control as part of hospice plan, no pain, continue Fentanyl on discharge Metastatic Pancreatic cancer - plan for home with hospice - hospice referral, contacting 24 hour nursing care for assistance at home - Fentanyl patch for pain control - POLST completed by palliative care - per patient's , may be ready tomorrow, it may be until Friday CAD S/P CABG: - ASA 81 mg daily - Metoprolol was D/Cd previously to prevent orthostasis T2DM: - Lantus 16 units SC daily and SSI Code Status: changed to DNR after discussions with palliative care Disposition: - home with hospice once everything arranged, will be ready on Friday, hopefully
--- NOTE | 2017-06-09 09:20 | Clinical Documentation Query ---
CLINICAL DOCUMENTATION QUERY Dr. PENNINGTON, In your clinical opinion does this patient have: ( ) Chronic kidney disease, stage 2 ( x ) Not Agree ( ) Other explanation of clinical findings (Please Explain) ( ) Unable to determine (Please Define) ( ) Need to Discuss The medical record reflects the following clinical findings, treatment, and risk factors. Clinical Indicators: 81 yo male presenting with orthostatic hypotension and a fall. Documentation reflects pt with CKD. Review of historical GFR showed range of 71.9-88.9 Treatment: monitor PRP's, treat comorbid diseases Risk Factors: age, DM, HTN, pancreatic cancer The stages of CKD according to the [employer] are as follows: Stage I: GFR >90 Stage II: GFR 60-89 Stage III: GFR 30-59 Stage IV: GFR 15-29 Stage V: GFR <15 Please clarify and document your clinical opinion in the progress notes and discharge summary. Terms such as "probable", "suspected", "likely", "questionable", "possible", or "still to be ruled out" are acceptable. IF IN AGREEMENT, YOU MUST DOCUMENT ABOVE DIAGNOSTIC STATEMENT IN DAILY PROGRESS NOTES AND DISCHARGE SUMMARY. This document is not part of the patient's record. Thank You, Jocelyne Ibarra, MARINA [phone]
[2017-06-09] MEDS ORDERED: NURSING VERBAL MED ORDER ONE (11:15)
[2017-06-09] MEDS ORDERED: FENTANYL PATCH REMOVE & WASTE SCH (11:59)
[2017-06-09] MEDS: FENTANYL 12 MCG/HR TDSY TD SCH (12:49)
[2017-06-09] MEDS ORDERED: POLYETHYLENE (MIRALAX) 17 GM PACK ONE (12:53)
[2017-06-09] MEDS: POLYETHYLENE (MIRALAX) 17 GM PACK PO SCH ×2 (12:55→13:14)
--- NOTE | 2017-06-09 14:26 | Palliative Care Progress Note ---
Palliative Care Progress Note Date of Service Jun 09, 2017. Subjective Pt evaluation today including: conversation w/ patient, conversation w/ family (), physical exam, chart review, conversation w/ sec reporting consultant (Rico), review of inpatient medication list Pain: mild in left shoulder, 0/10 at this time PO Intake: tolerating diet -Patient is up in chair today. Feels well. -Fentanyl patch 12mcg/hr working well. -Was able to move bowels yesterday, but notes that he normally takes Mirilax daily. Review of Systems Constitutional: No weakness ENT: No trouble swallowing Respiratory: No cough, No shortness of breath Cardiac: No chest pain, No edema Abdomen: No pain, No nausea, No vomiting Musculoskeletal: + problem reported (left shoulder pain on/off) Male : No problem reported Psychiatric: No depression symptoms, No anxiety Objective Vital Signs Date Time Temp Pulse Resp B/P (MAP) Pulse Ox O2 Delivery O2 Flow Rate FiO2 06/09/17 10:11 96 Room Air 06/09/17 08:30 96 Room Air 06/09/17 08:23 73 95/61 (72) 06/09/17 08:22 65 133/78 (96) 06/09/17 08:21 56 175/82 (113) 06/09/17 08:21 36.5 54 14 175/82 (113) 96 Room Air 06/09/17 04:07 36.3 54 18 164/80 (108) 93 Room Air 06/09/17 00:05 36.6 63 18 162/80 (107) 94 Room Air 06/08/17 23:23 Room Air 06/08/17 19:33 36.4 61 18 165/80 (108) 97 Room Air 06/08/17 15:57 Room Air 06/08/17 14:50 36.3 72 18 152/80 (104) 97 75 147/78 (101) 77 132/72 (92) Physical Exam General Appearance: no apparent distress ENT: hearing grossly normal Neck: supple, no JVD Respiratory/Chest: lungs clear, no respiratory distress, no accessory muscle use Cardiovascular: regular rate, rhythm, no edema Abdomen: normal bowel sounds, non tender, soft Neurologic/Psychiatric: alert, normal mood/affect, oriented x 3 Skin: normal color Laboratory Results Last 24 Hours Test 2/11/18 16:44 06/08/17 20:23 06/09/17 07:49 06/09/17 11:23 Bedside Glucose 174 mg/dl 169 mg/dl 97 mg/dl 168 mg/dl Assessment and Plan Problem list: Pain, left arm/shoulder Weakness Orthostatic hypotension Multiple falls Hx recent left humeral fracture Metastatic pancreatic cancer to the liver Goals of care (Z51.5) Palliative care recs: -Plan is for home with hospice. All equipment was delivered yesterday. -Waiting for 18/11 care to be set up through [facility]-- is waiting for phone call back from them. -POLST form was done on Friday, see previous note. -Pain is well controlled. Continue Fentanyl patch. -Changed Mirilax to scheduled daily instead of PRN per patient's request. Thank you again for this consult. I will sign off for now, but please contact me with any further palliative care needs. Total time spent 25 minutes with >50% of time spent with patient counseling and discussing goals of care. Palliative Performance Scale: 50 %
[2017-06-09] MEDS: ZOLPIDEM TARTRATE 5 MG TAB PO PRN (21:36)
[2017-06-09] MEDS: INSULIN GLARGINE SOLOSTAR 100 UNITS/ML 3 ML PEN SC SCH (21:42)
[2017-06-10] VITALS (7 sets, daily range): BP systolic 120–152; BP diastolic 67–77; PULSE 57–68; TEMP 36.4–36.6; O2SAT 96–99
[2017-06-10] MEDS: CHECK FENTANYL PATCH PLACEMENT SCH ×3 (00:04→15:29)
[2017-06-10] MEDS: INSULIN ASPART 100 UNITS/ML 3 ML PEN SC SCH ×4 (08:04→20:29)
[2017-06-10] MEDS: DICLOFENAC SOD 1% GEL 100 GM TUBE EXT SCH ×2 (08:06→20:23)
[2017-06-10] MEDS: ROSUVASTATIN CALCIUM 10 MG TAB PO SCH (08:06)
[2017-06-10] MEDS: ASPIRIN 81 MG ECTAB PO SCH (08:06)
[2017-06-10] MEDS: ACETAMINOPHEN 500 MG TAB PO SCH ×2 (08:07→20:22)
[2017-06-10] MEDS: FLUDROCORTISONE ACETATE 0.1 MG TAB PO SCH (08:07)
[2017-06-10] MEDS: TRAMADOL HCL 50 MG TAB PO SCH ×2 (08:07→20:22)
[2017-06-10] MEDS: MULTIVITAMIN TAB PO SCH (08:07)
[2017-06-10] MEDS: POLYETHYLENE (MIRALAX) 17 GM PACK PO SCH (08:08)
[2017-06-10] MEDS ORDERED: LACTULOSE SYRUP 10 GM/15 ML BTL 473 ML PO ONE (12:45)
[2017-06-10] MEDS: ZOLPIDEM TARTRATE 5 MG TAB PO PRN (20:30)
[2017-06-10] MEDS: INSULIN GLARGINE SOLOSTAR 100 UNITS/ML 3 ML PEN SC SCH (20:30)
[2017-06-11] VITALS (9 sets, daily range): BP systolic 97–135; BP diastolic 59–74; PULSE 62–69; TEMP 36.3–36.5; O2SAT 96–98
[2017-06-11] MEDS: CHECK FENTANYL PATCH PLACEMENT SCH ×3 (00:58→15:28)
[2017-06-11] MEDS: FLUDROCORTISONE ACETATE 0.1 MG TAB PO SCH (07:47)
[2017-06-11] MEDS: DICLOFENAC SOD 1% GEL 100 GM TUBE EXT SCH (07:47)
[2017-06-11] MEDS: MULTIVITAMIN TAB PO SCH (07:47)
[2017-06-11] MEDS: ROSUVASTATIN CALCIUM 10 MG TAB PO SCH (07:47)
[2017-06-11] MEDS: ASPIRIN 81 MG ECTAB PO SCH (07:47)
[2017-06-11] MEDS: POLYETHYLENE (MIRALAX) 17 GM PACK PO SCH (07:48)
[2017-06-11] MEDS: ACETAMINOPHEN 500 MG TAB PO SCH (07:48)
[2017-06-11] MEDS: TRAMADOL HCL 50 MG TAB PO SCH (07:48)
[2017-06-11] MEDS: INSULIN ASPART 100 UNITS/ML 3 ML PEN SC SCH ×2 (07:51→12:01)
--- NOTE | 2017-06-11 08:41 | Progress Note ---
Subjective Date of Service: Jun 10, 2017. Subjective Pt evaluation today including: conversation w/ patient, conversation w/ family Patient reports doing well. Has no complaints today. Problem List Medical Problems: (1) Adverse reaction to drug Status: Acute (2) Allergic reaction Status: Acute (3) Chronic Kidney Disease, Unspecified Status: Chronic (4) COPD (chronic obstructive pulmonary disease) Status: Chronic (5) Dehydration Status: Acute (6) Dog bite Status: Acute (7) Double vision Status: Acute (8) Esophageal Reflux Status: Chronic (9) Fall Status: Acute (10) Fall Status: Acute (11) Fever Status: Acute (12) History of biliary stent insertion Status: Acute (13) History of pancreatic cancer Status: Acute (14) Humeral head fracture Status: Acute (15) Hyperlipidemia Nec/Nos Status: Chronic (16) Hypertension Nos Status: Chronic (17) Leukocytosis Status: Acute (18) Mallet deformity of left ring finger Status: Acute (19) 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 (20) Orthostasis Status: Acute (21) Pancreatitis Status: Acute (22) Pressure ulcer of contiguous region involving left buttock and hip, stage 2 Status: Acute (23) Pressure ulcer of left buttock, stage 2 Status: Acute (24) Weakness Status: Acute Review of Systems All Other Systems: Reviewed and Negative Medications Current Inpatient Medications Medications (Trade) Dose Ordered Sig/Dalia Route Start Time Stop Time Status Last Admin Dose Admin Acetaminophen (Tylenol Tab) 650 mg Q4H PRN PO 06/05/17 17:30 07/05/17 17:29 06/08/17 20:45 650 MG Al Hydrox/Mg Hydrox/Simethicone (Maalox Max Susp) 15 ml Q4H PRN PO 06/05/17 17:30 07/05/17 17:29 Magnesium Hydroxide (Milk Of Magnesia Susp) 30 ml Q6H PRN PO 06/05/17 17:30 07/05/17 17:29 Ondansetron HCl (Zofran Inj) 4 mg Q6H PRN IV 06/05/17 17:30 07/05/17 17:29 Glucose (Glucose 40% Gel) 15-30 GRAMS 15 GRAMS... UD PRN PO 06/05/17 17:30 07/05/17 17:29 Glucose (Glucose Chew Tab) 4-8 Tablets 4 Tabl... UD PRN PO 06/05/17 17:30 07/05/17 17:29 Dextrose (Dextrose 50% 50ML Syringe) 25-50ML OF 50% DW IV FOR... UD PRN IV 06/05/17 17:30 07/05/17 17:29 Glucagon (Glucagon Inj) 1 mg UD PRN SQ 06/05/17 17:30 07/05/17 17:29 Acetaminophen (Tylenol Tab) 500 mg BID PO 06/05/17 20:00 07/05/17 19:59 06/10/17 20:22 500 MG Aspirin (Ecotrin Tab) 81 mg QAM PO 06/06/17 08:00 07/06/17 08:59 06/11/17 07:47 81 MG Insulin Glargine (Lantus Solostar Pen) 16 units QPM SC 06/05/17 21:00 07/05/17 20:59 06/10/17 20:30 16 UNITS Multivitamins (Multivitamin Tab) 1 tab QAM PO 06/06/17 08:00 07/06/17 08:59 06/11/17 07:47 1 TAB Rosuvastatin Calcium (Crestor Tab) 10 mg QAM PO 06/06/17 08:00 07/06/17 08:59 06/11/17 07:47 10 MG Tramadol HCl (Ultram Tab) 50 mg BID PO 06/05/17 20:00 07/05/17 20:59 06/11/17 07:48 50 MG Diclofenac Sodium (Voltaren 1% Top Gel) 1 appln BID EXT 06/05/17 20:00 07/05/17 19:59 06/11/17 07:47 1 APPLN Insulin Aspart (novoLOG ASPART) SLIDING SCALE If C... ACHS SC 06/05/17 21:00 07/05/17 20:59 06/10/17 20:29 3 UNITS Miscellaneous (Iv Fluids Completed) 1 ea PRN PRN N/A 06/05/17 21:30 06/05/18 21:29 Heparin Sodium (Porcine) (Heparin 100 Unit/ml 5ml Flush) 5 ml PRN PRN IV 06/05/17 23:45 07/05/17 23:44 06/10/17 11:10 5 ML Fludrocortisone Acetate (Florinef Tab) 0.1 mg QAM PO 06/07/17 08:00 07/07/17 07:59 06/11/17 07:47 0.1 MG Fentanyl (Duragesic Patch) 12 mcg Q3D@1200 TD 06/06/17 12:00 06/20/17 11:59 06/09/17 12:49 12 MCG Miscellaneous (Fentanyl Patch Remove & Waste) 1 ea Q3D@1159 N/A 06/09/17 11:59 07/09/17 11:58 06/09/17 12:55 1 EA Miscellaneous Information (Check Fentanyl Patch Placement) 1 ea QS N/A 06/06/17 16:00 07/06/17 15:59 06/11/17 07:46 1 EA Zolpidem Tartrate (Ambien Tab) 5 mg HS PRN PO 06/06/17 23:45 07/06/17 23:44 06/10/17 20:30 5 MG Polyethylene (Miralax Powder Packet) 17 gm DAILY PO 06/09/17 11:30 07/09/17 11:29 06/11/17 07:48 17 GM Objective Vital Signs Date Time Temp Pulse Resp B/P (MAP) Pulse Ox O2 Delivery O2 Flow Rate FiO2 06/11/17 08:20 97 Room Air 06/11/17 08:03 36.5 65 18 109/66 (80) 97 Room Air 06/11/17 03:59 36.4 69 20 130/68 (88) 97 Room Air 06/11/17 01:15 Room Air 06/11/17 00:00 36.3 63 18 135/73 (93) 98 Room Air 06/10/17 19:24 36.5 68 18 138/76 (96) 99 Room Air 06/10/17 16:00 97 Room Air 06/10/17 15:21 36.4 57 18 152/67 (95) 97 Room Air 144/77 (99) 120/71 (87) 06/10/17 11:35 36.4 62 18 125/75 (92) 96 Room Air 06/10/17 11:27 Room Air Physical Exam Comments: General Appearance: WD/WN, no apparent distress Eyes: normal inspection, EOMI, sclerae normal ENT: normal ENT inspection, hearing grossly normal, pharynx normal Neck: supple, no adenopathy, no JVD, trachea midline Respiratory/Chest: chest non-tender, lungs clear, normal breath sounds, no respiratory distress, no accessory muscle use Cardiovascular: regular rate, rhythm, no edema, no gallop, no JVD, no murmur Abdomen: normal bowel sounds, non tender, soft, no organomegaly Extremities: no pedal edema, no calf tenderness, pelvis stable, + pertinent finding (left arm in sling, shoulder tender) Neurologic/Psychiatric: social media coordinator II-XII nml as tested, no motor/sensory deficits, alert, normal mood/affect, oriented x 3 Skin: normal color, warm/dry, no rash Laboratory Results Last 24 Hours Test 06/10/17 11:31 06/10/17 16:43 06/10/17 20:23 06/11/17 07:46 Bedside Glucose 232 mg/dl 195 mg/dl 283 mg/dl 100 mg/dl Assessment and Plan Mr. Wood is an 81 y/o male with PMHx of Metastatic Pancreatitis to Liver, T2DM , HTN, HLD, CAD S/P CABG, Orthostatic Hypotension, and Displaced Comminuted Proximal Humerus Fx who presents to the ED after a fall this AM. Fall 2/2 Orthostatic Hypotension: - Imaging showing healing humerus fx -Patient again has continued to be asymptomatic - continue on Florinef 0.1mg qAM, TEDs to lower extremities, liberal salt in diet can increase to 0.2mg qAM in one week if still having symptoms. currently no orthostatic changes, no dizziness, feeling well, continue Florinef at 0.1mg on discharge L Prox. Displaced Comminuted Humerus: STABLE - Continue sling and conservative management - Tylenol and Tramadol BID; Add Voltaren gel - Fentanyl patch for pain control as part of hospice plan, no pain, continue Fentanyl on discharge Metastatic Pancreatic cancer - plan for home with hospice - hospice referral, contacting 24 hour nursing care for assistance at home - Fentanyl patch for pain control - POLST completed by palliative care - per patient's , may be ready tomorrow, it may be until Friday CAD S/P CABG: - ASA 81 mg daily - Metoprolol was D/Cd previously to prevent orthostasis T2DM: - Lantus 16 units SC daily and SSI Code Status: changed to DNR after discussions with palliative care Will be discharged tomorrow as he will have caregivers ready for the afternoon. Will also obtain PT/OT consult. Disposition: - home with hospice once everything arranged, will be ready on Friday, hopefully
--- NOTE | 2017-06-11 14:42 | Discharge Instructions ---
Discharge Instructions Date of Service Jun 11, 2017. Admission Reason for Admission: Fall, Weakness Discharge Discharge Diagnosis / Problem: Met. Pancreatic cancer/ [place]/ Orthostatic hypotension Discharge Goals Goal(s): Decrease discomfort Activity Recommendations Activity Limitations: as noted below Lifting Limitations: gradually increase as tolerated . Instructions / Follow-Up Instructions / Follow-Up Home Hospice Current Hospital Diet Patient's current hospital diet: Diabetes Type 2 Diet Discharge Diet Recommended Diet: Diabetes Type 2 Diet Pending Studies Studies pending at discharge: no Laboratory Results Hemoglobin A1c Test 05/07/17 06:35 Range/Units Estimated Average Glucose 226 mg/dl Hemoglobin A1c 9.5 H 4.5-5.6 % Medical Emergencies . Who to Call and When: Medical Emergencies: If at any time you feel your situation is an emergency, please call 911 immediately. . Non-Emergent Contact Non-Emergency issues call your: Primary Care Provider Call Non-Emergent contact if: you have any medication questions . . "Provider Documentation" section prepared by Edmundo Gómez. . VTE Core Measure Inpt VTE Proph given/why not?: SCD's
[2017-06-11] MEDS ORDERED: TRAM-10 PO (15:34)
[2017-06-11] MEDS ORDERED: AMB5 PO (15:34)
[2017-06-11] MEDS ORDERED: DRGTP12 TD (15:34)
[2017-06-11] MEDS ORDERED: FLR/1 PO (15:36)
== END 2017-06-11 15:59 | disposition hospice, home (50) | DRG 312 ==
LOC: EDBD 08:56 → C.EDB 08:57 → C.4E 17:32 → ENRESERV 18:00 → OBSVTOIN 06-07 15:09
PROVIDERS: ADMIT Internal Medicine; ATTEND Internal Medicine Sports Medicine
DX: I95.1 Orthostatic hypotension (principal); S42.202A Unspecified fracture of upper end of left humerus, initial encounter for closed fracture; C25.9 Malignant neoplasm of pancreas, unspecified; C78.7 Secondary malignant neoplasm of liver and intrahepatic bile duct; N18.9 Chronic kidney disease, unspecified; J44.9 Chronic obstructive pulmonary disease, unspecified; E78.5 Hyperlipidemia, unspecified; I10 Essential (primary) hypertension; Z51.5 Encounter for palliative care; Z87.891 Personal history of nicotine dependence; Z79.82 Long term (current) use of aspirin; I25.10 Atherosclerotic heart disease of native coronary artery without angina pectoris; Z95.1 Presence of aortocoronary bypass graft; Z79.4 Long term (current) use of insulin; W19.XXXA Unspecified fall, initial encounter; E11.22 Type 2 diabetes mellitus with diabetic chronic kidney disease

== ENCOUNTER → 2017-06-23 | Outpatient (CLI) | payer OTHER ==
[~2017-06-23] MED LIST changes: +AMB5 PO; -ASPI81TA28 PO; -CRS/10 PO; +DRGTP12 TD; +FLR/1 PO; -INSDGI SC; +INSDGIPEN SC; -LPR25 PO; +TRAM-10 PO; -ULT50X PO
== END | disposition home or self-care (01) ==
LOC: C.LABSPEC 13:46
PROVIDERS: ATTEND Internal Medicine Geriatric Medicine
DX: N39.0 Urinary tract infection, site not specified (principal)